=== PATIENT | female | born 1975 | race Caucasian/White ===

== ENCOUNTER → 2020-06-05 11:31 | Outpatient (BNVA) | payer OTHER, SELFPAY | PROVIDERS: PCP Internal Medicine; Referring Provider Internal Medicine; Visit Provider Internal Medicine | DX: Z76.89 Persons encountering health services in other specified circumstances (principal) ==

== ENCOUNTER 2020-09-17 15:22 | Outpatient (REF) | payer OTHER, SELFPAY ==
[2020-09-17 16:19] LABS: Estimated Average Glucose 332 mg/dL; Hemoglobin A1c % 13.2 %
[2020-09-17 16:30] LABS: Alanine Aminotransferase 53 U/L (0-31); Alkaline Phosphatase 111 U/L (39-117); Anion Gap 16 (12-20); Aspartate Amino Transferase 55 U/L (5-31); Bilirubin Total 0.5 mg/dL (0.0-1.0); Blood Urea Nitrogen 11 mg/dL (9-16); Carbon Dioxide 23 mmol/L (22-29); Chloride 100 mmol/L (96-108); Estimated Glomerular Filt Rate > 60; Glucose Random 173 mg/dL (60-115); Potassium 4.4 mmol/L (3.3-5.1); Sodium 135 mmol/L (135-145); Total Protein 7.2 g/dL (6.5-8.0)
[2020-09-17 16:47] LABS: Microalbum/Creatinine Ratio Ur 252.2 ug/mg cr
== END 2020-09-17 15:23 | disposition home or self-care (01) ==
LOC: HO.LAB 15:22
PROVIDERS: PCP Internal Medicine; Visit Provider Internal Medicine
DX: E11.65 Type 2 diabetes mellitus with hyperglycemia (principal)
CPT/HCPCS: 36415; 80053; 82043; 83036

== ENCOUNTER 2020-09-25 13:24 | Outpatient (REF) | payer OTHER, SELFPAY ==
[2020-09-25 14:41] LABS: Creatinine Urine 78.24 mg/dL
[2020-09-25 14:46] LABS: Alanine Aminotransferase 45 U/L (0-31); Albumin Level 4.1 g/dL (3.5-5.0); Alkaline Phosphatase 115 U/L (39-117); Aspartate Amino Transferase 45 U/L (5-31); Bilirubin Direct 0.2 mg/dL (0.0-0.5); Bilirubin Total 0.4 mg/dL (0.0-1.0); Total Protein 7.4 g/dL (6.5-8.0)
== END 2020-09-25 13:25 | disposition home or self-care (01) ==
LOC: HO.LAB 13:24
PROVIDERS: PCP Internal Medicine; Visit Provider Internal Medicine
DX: E11.9 Type 2 diabetes mellitus without complications (principal); I10 Essential (primary) hypertension; E78.5 Hyperlipidemia, unspecified; E66.9 Obesity, unspecified; Z71.3 Dietary counseling and surveillance; Z79.84 Long term (current) use of oral hypoglycemic drugs; Z79.899 Other long term (current) drug therapy
CPT/HCPCS: 36415; 80076

== ENCOUNTER → 2020-12-29 11:09 | Outpatient (BNVA) | payer OTHER, SELFPAY | PROVIDERS: PCP Internal Medicine; Visit Provider Nurse Practitioner Gerontology | DX: E11.65 Type 2 diabetes mellitus with hyperglycemia (principal); E55.9 Vitamin D deficiency, unspecified; E78.5 Hyperlipidemia, unspecified | CPT/HCPCS: 82947 ==

== ENCOUNTER 2021-02-09 14:42 | Outpatient (REF) | payer OTHER, SELFPAY ==
[2021-02-09 15:39] LABS: Estimated Average Glucose 312 mg/dL; Hemoglobin A1c % 12.5 %
[2021-02-09 15:59] LABS: Alanine Aminotransferase 36 U/L (0-31); Albumin Level 3.8 g/dL (3.5-5.0); Alkaline Phosphatase 110 U/L (39-117); Anion Gap 15 (12-20); Aspartate Amino Transferase 51 U/L (5-31); Bilirubin Total 0.4 mg/dL (0.0-1.0); Blood Urea Nitrogen 10 mg/dL (9-16); Calcium 8.9 mg/dL (8.4-10.2); Carbon Dioxide 22 mmol/L (22-29); Chloride 107 mmol/L (96-108); Cholesterol 149 mg/dL; Estimated Glomerular Filt Rate > 60; Glucose Random 190 mg/dL (60-115); HDL Cholesterol 39 mg/dL; LDL Cholesterol Calculated 87 mg/dl; Potassium 4.5 mmol/L (3.3-5.1); Sodium 139 mmol/L (135-145); Triglycerides 117 mg/dL
[2021-02-09 16:21] LABS: Vitamin D 25-OH Total 20.6 ng/mL (>30)
[2021-02-09 16:52] LABS: Creatinine Urine 194.03 mg/dL; Microalbum/Creatinine Ratio Ur 211.3 ug/mg cr
[2021-02-10 07:18] LABS: LDL Cholesterol Direct 96 mg/dL (<100)
== END 2021-02-09 14:43 | disposition home or self-care (01) ==
LOC: HO.LAB 14:42
PROVIDERS: PCP Internal Medicine; Visit Provider Nurse Practitioner Gerontology
DX: E11.65 Type 2 diabetes mellitus with hyperglycemia (principal); E55.9 Vitamin D deficiency, unspecified
CPT/HCPCS: 36415; 80053; 80061; 82043; 82306; 83036; 83721

== ENCOUNTER 2021-12-21 10:47 | Outpatient (REF) | payer OTHER, SELFPAY ==
[2021-12-21 12:16] LABS: Alanine Aminotransferase 21 U/L (0-31); Albumin Level 3.8 g/dL (3.5-5.0); Alkaline Phosphatase 109 U/L (39-117); Anion Gap 13 (12-20); Aspartate Amino Transferase 16 U/L (5-31); Bilirubin Total 0.5 mg/dL (0.0-1.0); Blood Urea Nitrogen 10 mg/dL (9-16); Calcium 9.1 mg/dL (8.4-10.2); Carbon Dioxide 25 mmol/L (22-29); Chloride 103 mmol/L (96-108); Cholesterol 163 mg/dL; Estimated Glomerular Filt Rate > 60; Glucose Fasting 288 mg/dL (60-99); HDL Cholesterol 40 mg/dL; LDL Cholesterol Calculated 100 mg/dl; Potassium 4.8 mmol/L (3.3-5.1); Sodium 136 mmol/L (135-145); Triglycerides 115 mg/dL
[2021-12-21 12:38] LABS: Vitamin D 25-OH Total 21.9 ng/mL (>30)
[2021-12-21 13:33] LABS: Creatinine Urine 143.42 mg/dL; Microalbum/Creatinine Ratio Ur 83.6 ug/mg cr
== END 2021-12-21 10:48 | disposition home or self-care (01) ==
LOC: HO.LAB 10:47
PROVIDERS: PCP Internal Medicine; Visit Provider Internal Medicine
DX: E78.5 Hyperlipidemia, unspecified (principal); E55.9 Vitamin D deficiency, unspecified; E11.65 Type 2 diabetes mellitus with hyperglycemia; Z79.4 Long term (current) use of insulin
CPT/HCPCS: 36415; 80053; 80061; 82043; 82306

== ENCOUNTER 2021-12-21 11:18 | Emergency (ER) | payer OTHER, SELFPAY ==
[2021-12-21 11:35] VITALS: BP 150/80; PULSE 78; RESP 18; TEMP 36.6; O2SAT 98; BMI 41.9
--- NOTE | 2021-12-21 11:50 | ED.FEMALEGU ---
HPI - Female Genitourinary General Chief complaint: Urogenital-Female Stated complaint: VAGINAL DISCOMFORT Time Seen by Provider: 12/21/21 11:49 Source: patient Mode of arrival: ambulatory Limitations: no limitations History of Present Illness HPI Narrative: Patient is a 46 year old female presenting to the emergency department today with vaginal pain and itching. Patient states that she has been having increased vaginal itching and pain for the last few days. Patient denies any dizziness, lightheadedness, abdominal pain, nausea, vomiting, fever, chills, blurry vision, double vision, loss of vision, chest pain, difficulty breathing, shortness of breath, back pain, night sweats, pain with urination, increased urinary frequency, increased urinary urgency, blood in her urine or stool, vaginal bleeding, syncope or a near syncopal episode, recent trauma or falls, bowel incontinence, bladder incontinence, bowel retention, bladder retention, or any other complaints at this time. MD elicited complaint: genital itching Pertinent past history: diabetes Onset (ago): day(s) Location of symptoms: external genitalia Severity: mild Female Urogenital Radiation: Non-Radiating Severity scale (1-10): 4 Quality of pain: burning Consistency: constant Vaginal discharge: none Vaginal bleeding: none Exacerbating factors: none Relieving factors: none Associated symptoms: denies other symptoms Treatment prior to arrival: none Sexual activity: No Patient : Yes Related Data Previous Rx's Medication Instructions Recorded blood sugar diagnostic (FreeStyle #50 ea 12/30/20 Precision Shar Strips) flash glucose sensor (FreeStyle #2 ea 02/10/21 Trudy 2 Sensor) pioglitazone 30 mg tablet 30 mg PO DAILY 90 Days #90 tab 02/23/21 alcohol swabs 1 pad TOPICAL QID 30 Days #200 ea 04/01/21 empagliflozin 25 mg tablet 25 mg PO DAILY 30 Days #30 tab 06/15/21 lisinopril 2.5 mg tablet 2.5 mg PO DAILY 90 Days #90 tab 06/29/21 rosuvastatin 5 mg tablet 5 mg PO DAILY 90 Days #90 tab 06/29/21 blood sugar diagnostic (FreeStyle 1 strip MISCELLANEOUS QID #100 ea 07/13/21 Lite Strips) cholecalciferol (vitamin D3) 50 50 mcg PO DAILY #30 cap 07/13/21 mcg (2,000 unit) capsule (Vitamin D3) lancets 30 gauge (Pure Comfort 1 gauge MISCELLANEOUS QID #100 ea 07/13/21 Safety Lancets) metformin 1,000 mg tablet 1,000 mg PO BID 30 Days #60 tab 10/05/21 pen needle, diabetic 32 gauge x #100 ea 10/19/2107/21 (BD Ultra-Fine Micro Pen Needle) insulin glargine 100 unit/mL (3 25 unit (0.25 mL) SUBCUT QPM 30 11/16/21 mL) subcutaneous pen (Lantus Days #7.5 ml Solostar U-100 Insulin) fluconazole 150 mg tablet 150 mg PO DAILY #1 tab 12/21/21 (Diflucan) Allergies Allergy/AdvReac Type Severity Reaction Status Date / Time No Known Allergies Allergy Verified 11/16/21 15:58 [No Known Allergies*] Review of Systems Constitutional: Constitutional: Reports no additional constitutional complaints, Denies chills, Denies fever(s) and Denies night sweats Eyes: Eyes: Reports no additional eye complaints, Denies blurry vision, Denies change in vision, Denies diplopia, Denies eye discharge, Denies loss of vision and Denies eye pain ENT: Denies dizziness Cardiovascular: Cardiovascular: Reports no additional cardiovascular complaints, Denies chest pain, Denies lightheadedness, Denies Loss of Consciousness and Denies dyspnea Respiratory: Respiratory: Reports no additional respiratory complaints and Denies dyspnea Gastrointestinal: Gastrointestinal: Reports no additional gastrointestinal complaints, Denies abdominal pain, Denies melena, Denies hematochezia, Denies change in bowel habits and Denies change in stool character Genitourinary: Genitourinary: Denies hematuria, Denies urinary frequency, Denies dysuria, Denies urinary incontinence, Denies urinary hesitancy, Denies urinary urgency and Reports vaginal pruritus Musculoskeletal: Musculoskeletal: Reports no additional musculoskeletal complaints, Denies numbness and Denies tingling Neurologic: Denies dizziness, Denies loss of vision, Denies numbness and Denies tingling Psychiatric: Psychiatric: Reports no additional psychiatric complaints Endocrine: Endocrine: Reports no additional endocrine complaints Hematologic/Lymphatic: Hematologic/Lymphatic: Reports no additional hematologic/lymphatic complaints Allergic/Immunologic: Allergic/Immunologic: Reports no additional allergic/immunologic complaints PMFSH Past Medical History Attestation statement: The following information was validated with the patient. Source: old records reviewed Medical History Diabetes mellitus with microalbuminuric diabetic nephropathy HLD (hyperlipidemia) HTN (hypertension) Morbid obesity with BMI of 40.0-44.9, adult T2DM (type 2 diabetes mellitus) Vitamin D deficiency Surgical History History of tubal ligation Hx of section Family History Family History Father CVD (cardiovascular disease) Cancer Mother Uterine cancer Hypertension CVD (cardiovascular disease) Diabetes mellitus Paternal Grandmother Uterine cancer Social History Social History Household Members: Children Housing: House Alcohol intake: never Patient Tobacco Use Status: Never used Tobacco e-Cigarette/Vaping Use: Never Used Second Hand Smoke Exposure: No Advance Directives: No Advance Directives Information Provided: No service: No Current occupational status: unemployed Cognitive needs: No Hearing needs: No Vision needs: No Physical Exam Vital Signs: Vital Signs: Last Vital Signs Temp 97.9 F 12/21/21 11:35 Pulse 78 12/21/21 11:35 Resp 18 12/21/21 11:35 BP 150/80 H 12/21/21 11:35 Pulse Ox 98 12/21/21 11:35 BMI result Body Mass Index 41.9 Const: General: cooperative, no acute distress, alert and awake Nutritional Appearance: well nourished Orientation/consciousness: patient oriented x3 Limitations: no limitations HEENT: Head: Yes normal to inspection and Yes atraumatic Ears: hearing grossly normal bilaterally and external ears normal General nose exam: Normal external nose present, no nasal discharge noted and no epistaxis Face and sinus: Yes normal facial exam, No abrasion and No laceration Mouth: Normal oral and palatal mucosa present, no drooling and no muffled voice Eyes: General: appearance normal, both eyes and all related structures Periorbital: periorbital findings normal Eyelids: Yes eyelids normal Conjunctivae: conjunctivae normal Pupils: Equal, round and reactive pupils present EOM: EOMs intact bilaterally Neck: Neck: Yes normal visual inspection, Yes full ROM and Yes no lymphadenopathy Chest: Chest palpation & inspection: normal inspection of the chest Resp: Effort & Inspection: normal respiratory effort and able to speak in complete sentences Auscultation: clear to auscultation bilaterally Cardio: Rate: regular rate Rhythm: regular rhythm GI: Inspection: Yes normal to inspection : External Female Exam: erythema Neuro: General: patient oriented x3 and moves all extremities Cranial nerves: Yes Equal, round and reactive pupils present Cognition (Neuro): normal cognition Motor exam (neuro): 5/5 motor strength present throughout Sensory Exam: Normal double simultaneous stimulation for sensation Coordination: [id number] test normal Extrem: General: Yes normal to inspection, Yes full ROM and Yes capillary refill normal Psych: Appearance: grossly normal Mental Status: mental status grossly normal Affect: normal affect Attitude: cooperative Thought process: Normal thought process present Thought content: Normal thought content present Insight: Good insight present (Psych) MDM - Female Genitourinary MDM Narrative Medical decision making narrative: Patient is a 46 year old female presenting to the emergency department today with vaginal itching and pain. Patient's physical exam showed a very ereythematous external genitalia, consistent with a fungal infection. I explained my physical exam findings to the patient. I answered all questions asked by the patient. I stressed the importance of the patient taking her medication as prescribed. I stressed the importance of the patient following up with her primary care provider. I stressed the importance of the patient returning to the emergency department immediately if her symptoms were to worsen or if she were to develop any dizziness, shortness of breath, difficulty breathing, chest pain, blurry vision, loss of vision, nausea, vomiting, abdominal pain, fever, chills, back pain, or any other complaints. Patient verbalized agreement and understanding with this treatment plan and discharge. Differential Diagnosis Differential diagnosis: Likely urinary tract infection (yeast infection) and cystitis Medical Records Attestation: I reviewed the patient's medical records. Discharge Plan Discharge Clinical Impression: Vaginal candidiasis Patient Disposition: Home, Self-Care Instructions: Yeast Infection (ED) Additional Instructions: Follow up with your primary care provider. Return to the emergency department immediately if your symptoms worsen or if you develop any dizziness, shortness of breath, difficulty breathing, chest pain, blurry vision, loss of vision, nausea, vomiting, abdominal pain, fever, chills, back pain, or any other complaints. Prescriptions: New fluconazole [Diflucan] 150 mg tablet 150 mg PO DAILY Qty: 1 0RF No Action (DME) FreeStyle Trudy 2 Sensor Kit See Rx Instructions .ROUTE .MEDSUPPLY Qty: 2 0RF Rx Instructions: As directed every 2 weeks alcohol swabs Pads, Medicated 1 pad topical QID 30 Days Qty: 200 11RF empagliflozin 25 mg tablet 25 mg PO DAILY 30 Days Qty: 30 11RF FreeStyle Lite Strips Strip 1 strip miscellaneous QID Qty: 100 11RF lancets [Pure Comfort Safety Lancets] 30 gauge misc 1 gauge miscellaneous QID Qty: 100 11RF cholecalciferol (vitamin D3) [Vitamin D3] 50 mcg (2,000 unit) capsule 50 mcg PO DAILY Qty: 30 11RF metformin 1,000 mg tablet 1,000 mg PO BID 30 Days Qty: 60 4RF (DME) pen needle, diabetic [BD Ultra-Fine Micro Pen Needle] 32 gauge x 1/4 needle See Rx Instructions .ROUTE .MEDSUPPLY Qty: 100 11RF Rx Instructions: 1 daily lisinopril 2.5 mg tablet 2.5 mg PO DAILY 90 Days Qty: 90 1RF rosuvastatin 5 mg tablet 5 mg PO DAILY 90 Days Qty: 90 1RF pioglitazone 30 mg tablet 30 mg PO DAILY 90 Days Qty: 90 3RF Lantus Solostar U-100 Insulin 100 unit/mL (3 mL) insulin pen 25 unit subcut QPM 30 Days Qty: 7.5 11RF (DME) FreeStyle Precision Shar Strips Strip See Rx Instructions .ROUTE .MEDSUPPLY Qty: 50 0RF Rx Instructions: TWice daily Interventions: ED Discharge Assessment Last Done: 12/21/21 12:53 Discharge Date/Time: 12/21/21 12:55 Print Language: [place] Citizen
[2021-12-21] MEDS: Fluconazole 150 MG TABLET PO (12:53)
== END 2021-12-21 12:55 | disposition home or self-care (01) ==
PROVIDERS: Emergency Provider Student in an Organized Health Care Education/Training Program; PCP Internal Medicine
DX: B37.3 Candidiasis of vulva and vagina (principal); E11.9 Type 2 diabetes mellitus without complications; I10 Essential (primary) hypertension; E78.5 Hyperlipidemia, unspecified; Z79.4 Long term (current) use of insulin; Z79.02 Long term (current) use of antithrombotics/antiplatelets
CPT/HCPCS: 99282; 99283

== ENCOUNTER 2022-11-08 15:01 | Outpatient (REF) | payer OTHER, SELFPAY ==
[2022-11-08 16:30] LABS: Creatinine Urine 33.36 mg/dL; Microalbum/Creatinine Ratio Ur 38.9 ug/mg cr
[2022-11-08 16:40] LABS: Alanine Aminotransferase 30 U/L (0-31); Albumin Level 3.9 g/dL (3.5-5.0); Alkaline Phosphatase 107 U/L (39-117); Anion Gap 14 (12-20); Aspartate Amino Transferase 20 U/L (5-31); Bilirubin Total 0.6 mg/dL (0.0-1.0); Blood Urea Nitrogen 7 mg/dL (9-16); Calcium 9.6 mg/dL (8.4-10.2); Carbon Dioxide 27 mmol/L (22-29); Chloride 104 mmol/L (96-108); Cholesterol 175 mg/dL; Estimated Glomerular Filt Rate > 60; Glucose Random 239 mg/dL (60-115); HDL Cholesterol 43 mg/dL; LDL Cholesterol Calculated 108 mg/dl; Potassium 4.8 mmol/L (3.3-5.1); Sodium 140 mmol/L (135-145); Total Protein 6.8 g/dL (6.5-8.0); Triglycerides 124 mg/dL
[2022-11-08 16:55] LABS: Vitamin D 25-OH Total 21.7 ng/mL (>30)
== END 2022-11-08 15:02 | disposition home or self-care (01) ==
LOC: HO.LAB 15:01
PROVIDERS: PCP Internal Medicine; Visit Provider Internal Medicine
DX: E11.21 Type 2 diabetes mellitus with diabetic nephropathy (principal); E55.9 Vitamin D deficiency, unspecified; E78.5 Hyperlipidemia, unspecified
CPT/HCPCS: 36415; 80053; 80061; 82043; 82306

== ENCOUNTER 2023-04-06 10:11 | Outpatient (REF) | payer OTHER, SELFPAY ==
[2023-04-06 10:21] LABS: MANUAL DIFF FLAG NO
[2023-04-06 10:31] LABS: Basophils Percent Auto 0.4 % (0-2); Eosinophils Absolute Auto 0.2 X10*3/uL (0.0-0.4); Eosinophils Percent Auto 1.5 % (0-4); Hematocrit 46.3 % (37.0-47.0); Hemoglobin 15.3 g/dl (12.0-16.0); Imm Gran Abs Auto 0.04 X10*3/uL (0.00-0.03); Imm Gran Pct Auto 0.4 % (0.0-0.4); Lymphocytes Absolute Auto 2.3 X10*3/uL (1.2-4.9); Lymphocytes Percent Auto 23.5 % (20-40); Mean Corpuscular Hemoglobin 27.8 pg (27.0-33.0); Mean Corpuscular Volume 84.2 fL (80.0-98.0); Mean Platelet Volume 10.8 fL (9.4-12.3); Monocytes Absolute Auto 0.5 X10*3/uL (0.1-1.2); Monocytes Percent Auto 4.8 % (2-11); Neutrophils Absolute Auto 6.9 x10*3/uL (2.0-8.3); Neutrophils Percent Auto 69.4 % (45-73); Platelet Count 277 X10*3/uL (160-400); Red Cell Distribution Width 12.5 % (11.0-16.0); White Blood Count 9.9 X10*3/uL (4.8-10.8)
[2023-04-06 11:53] LABS: Folate 13.7 ng/mL (> or = 4.0); Vitamin B12 411 pg/mL (200-900)
[2023-04-06 11:58] LABS: TSH reflex Free T4 1.33 uIU/mL (0.32-4.0)
== END 2023-04-06 10:12 | disposition home or self-care (01) ==
LOC: HO.LAB 10:11
PROVIDERS: PCP Internal Medicine; Visit Provider Nurse Practitioner Family
DX: E11.9 Type 2 diabetes mellitus without complications (principal)
CPT/HCPCS: 36415; 82607; 82746; 84443; 85025

== ENCOUNTER 2023-04-11 16:20 | Outpatient (AMB) | payer OTHER, SELFPAY ==
[2023-04-11 16:23] VITALS: BP 138/90; BMI 38.5
--- NOTE | 2023-04-11 16:23 | MHC.PC.OV ---
Vital Signs 04/11/23 16:23 Height 5 ft 1 in Weight 204 lb BMI 38.5 BP 138/90 H Blood Pressure Location Lt brachial Position Sitting Intake Visit Reasons: 3MONTHS F/U Intake Note: Patient here for a 3 month follow up Epic [facility] Required: No Accompanied by: Self / Same As Patient Allergies No Known Allergies [No Known Allergies*] Allergy (Verified 04/11/23 16:29) Medication List - Last Reconciled 04/11/23 by Lucy Claire MD alcohol swabs 1 pad topical QID 30 days blood sugar diagnostic (FreeStyle Lite Strips) 1 strip miscellaneous QID blood sugar diagnostic (FreeStyle Precision Shar Strips) TWice daily blood-glucose meter (FreeStyle Lite Meter kit) As directed cholecalciferol (vitamin D3) (Vitamin D3) 50 mcg PO DAILY empagliflozin 25 mg PO DAILY 30 days flash glucose sensor (FreeStyle Trudy 2 Sensor kit) As directed every 2 weeks fluconazole (Diflucan) 150 mg PO DAILY incontinence pad, liner, disp As directed incontinence pad, liner, disp Use 1 pad twice a day insulin glargine (Lantus Solostar U-100 Insulin) 30 units (0.3 mL) subcut QPM 30 days lancets (Pure Comfort Safety Lancets) 1 gauge miscellaneous QID lisinopril 2.5 mg PO DAILY 90 days pen needle, diabetic (BD Ultra-Fine Micro Pen Needle) 1 daily pioglitazone 30 mg PO DAILY 90 days rosuvastatin 5 mg PO DAILY 90 days semaglutide (Ozempic) 0.25 mg (0.368 mL) subcut QWEEK 30 days Tobacco use date assessed: 01/05/23 Dental Screening Dental Screen Date: 04/11/23 Did you have a dental visit in the last 12 months?: Yes Did you have a dental problem in the last 6 months where you did not have access to dental care?: No Was dental information given to patient?: Patient has dentist HPI HPI Comments History of Present Illness Details This is a 47-year-old female with diabetes mellitus type 2 on long-term current use of insulin, hypertension, hyperlipidemia and vitamin-D deficiency that comes today for follow-up on her conditions. A1c elevated and I will add Ozempic and increase insulin. Blood pressure stable. Last cholesterol was well control. On vitamin-D supplements for low vitamin-D. Denies any chest pain or shortness of breath. She is obese with a BMI of 38.5 and was advised to diet and exercise to reach BMI goal less than 30. FOR[facility]LY [facility], [facility] Medical History Morbid obesity with BMI of 40.0-44.9, adult Diabetes mellitus with microalbuminuric diabetic nephropathy Vitamin D deficiency HLD (hyperlipidemia) HTN (hypertension) T2DM (type 2 diabetes mellitus) Surgical History Hx of section History of tubal ligation Family History Father CVD (cardiovascular disease) Cancer Mother Uterine cancer Hypertension CVD (cardiovascular disease) Diabetes mellitus Paternal Grandmother Uterine cancer Social History Household Members: Children Housing: House Alcohol intake: never Patient Tobacco Use Status: Never used Tobacco e-Cigarette/Vaping Use: Never Used Second Hand Smoke Exposure: No service: No Current occupational status: unemployed Cognitive needs: No Hearing needs: No Vision needs: No Questionnaire Thrive Questionnaire Date Thrive assessed: 01/05/23 THOMPSON-7 AMB Questionnaire THOMPSON-7 Date THOMPSON - 7 assessed: 11/01/22 Source: Developed by Drs. Paul Castillo, Kath Dunne, Jorge Duque and colleagues, with an educational evelyn from [employer]. Review of Systems Const All systems reviewed & are unremarkable except as noted in HPI and below Eyes Reports no additional complaints, Denies change in vision and Denies other visual disturbances Card Denies chest pain at rest, Denies chest pain with activity, Denies edema, Denies irregular heart rhythm, Denies claudication, Denies dyspnea, Denies dyspnea on exertion, Denies orthopnea, Denies paroxysmal nocturnal dyspnea and Denies slow heart rate Resp Denies cough, Denies dyspnea and Denies dyspnea on exertion GI Denies abdominal pain, Denies change in bowel habits, Denies excessive flatus, Denies nausea and Denies vomiting Denies urinary incontinence, Denies urinary hesitancy and Denies urinary urgency Musc Denies atrophy, Denies deformity and Denies limited range of motion Physical exam (Primary Care) Vital Signs: Last Vital Signs BP 138/90 H 04/11/23 16:23 BMI result Body Mass Index 38.5 Tobacco/Smoking Status: Tobacco use Status Tobacco use date assessed 01/05/23 04/11/23 16:24 Patient Tobacco Use Status Never used Tobacco 04/11/23 16:24 e-Cigarette/Vaping Use Never Used 04/11/23 16:24 Thrive Assessment: Date of Thrive Assessment Date Thrive assessed 01/05/23 04/11/23 16:24 Eyes Other: right upper eyelid hordoleum Neck Neck: Yes normal visual inspection and Yes supple Resp Effort & Inspection: normal respiratory effort Auscultation: clear to auscultation bilaterally Cardio Jugular venous distension: no JVD Rate: regular rate Rhythm: regular rhythm Heart sounds: S1 normal heart sound present and S2 normal heart sound present Extrem General: Yes full ROM Results AMB Hemoglobin A1c AMB Hemoglobin A1c 12.9 % Last Edit by MARIAH Burgess on 04/11/23 16:32 Results Reviewed Results Reviewed: Laboratory Last Values Hgb A1c (Clinic) 12.9 % (4.0-6.0) H 04/11/23 16:31 Assessment and Plan Assessment & Plan (1) T2DM (type 2 diabetes mellitus): Code(s): E11.9 - Type 2 diabetes mellitus without complications Qualifiers: Diabetes mellitus jail insulin use: with jail use Diabetes mellitus complication status: with hyperglycemia Qualified Code(s): E11.65 - Type 2 diabetes mellitus with hyperglycemia; 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 Start Ozempic. A1c goal is equal or less than 7%. (2) HTN (hypertension): Code(s): I10 - Essential (primary) hypertension Qualifiers: Hypertension type: unspecified Qualified Code(s): I10 - Essential (primary) hypertension Plan: Continue lisinopril. Blood pressure goal is equal or less than 130/80. (3) HLD (hyperlipidemia): Code(s): E78.5 - Hyperlipidemia, unspecified Qualifiers: Hyperlipidemia type: unspecified Qualified Code(s): E78.5 - Hyperlipidemia, unspecified Plan: Continue statins. LDL goal is less than 70. (4) Vitamin D deficiency: Code(s): E55.9 - Vitamin D deficiency, unspecified Plan: Continue vitamin-D supplement. Orders: Orders AMB Hemoglobin A1c Today E11.9 - Type 2 diabetes mellitus without complications Medications: New semaglutide (Ozempic) for 4 weeks 0.25 mg (0.368 mL) subcut QWEEK 1.84 mL 1RF 30 days E11.9 - Type 2 diabetes mellitus without complications erythromycin 1 appl ophthalmic (eye) DAILY 3.5 grams 0RF 5 days Changed From insulin glargine (Lantus Solostar U-100 Insulin) 30 units (0.3 mL) subcut QPM 30 days 9 mL 11RF E11.65 - Type 2 diabetes mellitus with hyperglycemia To insulin glargine (Lantus Solostar U-100 Insulin) 35 units (0.35 mL) subcut QPM 10.5 mL 11RF 30 days E11.65 - Type 2 diabetes mellitus with hyperglycemia Refilled empagliflozin 25 mg PO DAILY 30 tabs 11RF 30 days E11.65 - Type 2 diabetes mellitus with hyperglycemia Discontinued semaglutide (Ozempic) for 4 weeks Discontinued Reason: Patient Completed Course 0.25 mg (0.368 mL) subcut QWEEK 30 days 2 mL 3RF E11.9 - Type 2 diabetes mellitus without complications Coding Level of Care Code Est Pt Level 4 (61829) Diagnoses Type 2 diabetes mellitus with hyperglycemia, with long-term current use of insulin E11.65; Z79.4 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
== END 2023-04-11 16:45 | disposition home or self-care (01) ==
PROVIDERS: PCP Internal Medicine; Visit Provider Internal Medicine
DX: E11.9 Type 2 diabetes mellitus without complications (principal); E66.01 Morbid (severe) obesity due to excess calories; E11.65 Type 2 diabetes mellitus with hyperglycemia; Z68.38 Body mass index [BMI] 38.0-38.9, adult; Z79.4 Long term (current) use of insulin; I10 Essential (primary) hypertension; E55.9 Vitamin D deficiency, unspecified; E78.5 Hyperlipidemia, unspecified
CPT/HCPCS: 83036; 99214

== ENCOUNTER 2023-05-25 13:43 | Outpatient (AMB) | payer OTHER, SELFPAY ==
[2023-05-25 14:30] VITALS: BP 144/86; BMI 38.5
--- NOTE | 2023-05-25 14:30 | A.OFFVIS_ITS ---
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 Intake Note: Irregular periods and would like to have a tubal reversal Custodial Laborer Required: No Information Interpreted: non-clinical & clinical Land Law Examiner: Land Law Examiner Present (Aidyn) Allergies No Known Allergies [No Known Allergies*] Allergy (Verified 05/25/23 14:33) Medication List - Last Reconciled 05/25/23 by Kate Montoya CNM alcohol swabs 1 pad topical QID 30 days blood sugar diagnostic (FreeStyle Lite Strips) 1 strip miscellaneous QID blood sugar diagnostic (FreeStyle Precision Shar Strips) TWice daily blood-glucose meter (FreeStyle Lite Meter kit) As directed cholecalciferol (vitamin D3) (Vitamin D3) 50 mcg PO DAILY empagliflozin 25 mg PO DAILY 30 days erythromycin 1 appl ophthalmic (eye) DAILY 5 days flash glucose sensor (FreeStyle Trudy 2 Sensor kit) As directed every 2 weeks incontinence pad, liner, disp As directed incontinence pad, liner, disp Use 1 pad twice a day insulin glargine (Lantus Solostar U-100 Insulin) 35 units (0.35 mL) subcut QPM 30 days lamotrigine 200 mg PO DAILY lancets (Pure Comfort Safety Lancets) 1 gauge miscellaneous QID lisinopril 2.5 mg PO DAILY 90 days pen needle, diabetic (BD Ultra-Fine Micro Pen Needle) 1 daily pen needle, diabetic (Easy Comfort Pen [place]) As directed pioglitazone 30 mg PO DAILY 90 days rosuvastatin 5 mg PO DAILY 90 days semaglutide (Ozempic) 0.25 mg (0.368 mL) subcut QWEEK 30 days Is last menstrual period known: Yes Last menstrual period: 04/18/23 Post menopausal: No 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 She is wondering about getting her tubal ligation reversed. She has a boyfriend of 9 years who moved here from the [place] 4 years ago he is 10 years younger than she is. She has diabetes she does have kidney issues from the d iabetes she has had some high blood pressure but it is better now. She uses insulin twice a day. She gets her periods about every other month in a pattern of 2 months with her period, Two months without a period. She states she remembers this CNM from a quarter century go when she had her children at [facility]. She says she is trying to eat better and she has lost maybe 15 or 20 lb. She does not smoke or drink and she walks her little dog for exercise. She said she last had a mammogram about a year and half ago.. [facility] Medical History Morbid obesity with BMI of 40.0-44.9, adult Diabetes mellitus with microalbuminuric diabetic nephropathy Vitamin D deficiency HLD (hyperlipidemia) HTN (hypertension) T2DM (type 2 diabetes mellitus) Surgical History Hx of section History of tubal ligation Family History Father CVD (cardiovascular disease) Cancer Mother Uterine cancer Hypertension CVD (cardiovascular disease) Diabetes mellitus Paternal Grandmother Uterine cancer Social History Household Members: Children Housing: House Alcohol intake: never Patient Tobacco Use Status: Never used Tobacco e-Cigarette/Vaping Use: Never Used Second Hand Smoke Exposure: No service: No Current occupational status: unemployed Cognitive needs: No Hearing needs: No Vision needs: No Female Reproductive History Menstrual Age of Menarche: 11 Duration of menses: 3-5 days Date of last menstrual period: 04/18/23 control method: other (tubal ligation) Total pregnancies: 4 Full term: 3 Number of Living Children: 3 Ab spontaneous: 1 Date of last pap smear: 03/22/17 (ASCUS) Physical Exam Vital Signs: Last Vital Signs BP 144/86 H 05/25/23 14:30 BMI result Body Mass Index 38.5 Const Other: obesity noted patient has multiple skin lesions which might be scars from Mesquito bites General: healthy appearing, comfortable, no acute distress, well developed and alert Nutritional Appearance: average body habitus and obese Orientation/consciousness: patient oriented x3 Limitations: no limitations HEENT Head: Yes normocephalic Neck Neck: Yes normal visual inspection Chest Chest palpation & inspection: normal inspection of the chest Breast/axilla inspection: normal inspection of the breasts and normal inspection of the axillae Breast/axilla palpation: normal palpation of the breasts and normal palpation of the axillae Resp Effort & Inspection: normal respiratory effort GI Inspection: Yes normal to inspection, No Abdominal wall edema and No distended Palpation (GI): Soft to palpation and nontender Other: Patient has purplish rash in groin area consistent with tinea or yeast she says it is not to itchy right now She thinks she scratched herself shaving right before this visit Vagina pink and moist and healthy cervix multiparous pink and smooth normal discharge uterus midposition nontender adnexa nontender good tone with Kegel. General: Yes bladder normal to palpation External Female Exam: normal external appearance and normal appearance of the urethra Speculum Exam - Vagina: normal appearance of the vagina, normal palpation and normal vaginal discharge Speculum Exam - Cervix: normal appearance of the cervix, normal palpation and nontender Bimanual exam- vagina & uterus: normal bimanual exam, normal palpation, uterine size normal, bladder normal to palpation, consistency normal, normal palpation, uterine mobility normal, uterine shape normal, No Cervical tenderness present, non-tender and no cervical motion tenderness Bimanual Exam- Adnexa, other: normal adnexae, no masses, normal and No adnexal tenderness Neuro General: patient oriented x3 Assessment & Plan Assessment & Plan (1) Menstrual periods irregular: Code(s): N92.6 - Irregular menstruation, unspecified (2) Cervical cancer screening: Code(s): Z12.4 - Encounter for screening for malignant neoplasm of cervix (3) Morbid obesity with BMI of 40.0-44.9, adult: Code(s): E66.01 - Morbid (severe) obesity due to excess calories; Z68.41 - Body mass index [BMI] 40.0-44.9, adult (4) Diabetes mellitus with microalbuminuric diabetic nephropathy: Code(s): E11.21 - Type 2 diabetes mellitus with diabetic nephropathy (5) Screening for breast cancer: Code(s): Z12.39 - Encounter for other screening for malignant neoplasm of breast (6) HTN (hypertension): Code(s): I10 - Essential (primary) hypertension Qualifiers: Hypertension type: unspecified Qualified Code(s): I10 - Essential (primary) hypertension Plan -----Discussed in this visit the following: healthy balanced diet, regular and consistent exercise, getting recommended health screens, doing the best she can for her particular health concerns, kegel exercises, pap smear screening and followup recommendations, mammography screening and SBE, normal changes in cycles in her life stage--- . I shared with her that I did not think that a at this age and with her particular health conditions of diabetes, problems with her kidneys- because of her diabetes, hypertension, obesity, and also her irregular periods, at this stage, that she would be healthy for a at this stage. there would be dangers to her health because of these issues as well as risks to a baby should she get . I also shared with her that I doubted she she would encounter any physicians in this area who would perform tubal ligation reversal surgery for a woman with her health conditions. I recommend that she also have a conversation with her primary care provider but she could feel free to share that I did not recommend pursuing this. More drink a mammogram for her and also a pelvic ultrasound and we will have a visit after the ultrasound. Am also ordering of clotrimazole betamethasone cream for the rash in her groin that she can use when she needs to. Applauded her efforts to try and eat well and manage her bed diabetes well and control her blood pressure and blood sugars. One grandchild who is 9 years old and [address] Orders: Orders US pelvic and transvaginal Today E11.21 - Type 2 diabetes mellitus with diabetic nephropathy, E66.01 - Morbid (severe) obesity due to excess calories, N92.6 - Irregular menstruation, unspecified, Z12.39 - Encounter for other screening for malignant neoplasm of breast, Z12.4 - Encounter for screening for malignant neoplasm of cervix, Z68.41 - Body mass index [BMI] 40.0-44.9, adult Bacterial Vaginosis Panel Today Z20.2 - Contact with and (suspected) exposure to infections with a predominantly sexual mode of transmission CT NG by PCR Today Z20.2 - Contact with and (suspected) exposure to infections with a predominantly sexual mode of transmission Pap Smear Today Z12.4 - Encounter for screening for malignant neoplasm of cervix MM tomosynthesis screening BI Today Z12.31 - Encounter for screening mammogram for malignant neoplasm of breast, Z12.39 - Encounter for other screening for malignant neoplasm of breast Medications: New clotrimazole-betamethasone 1-0.05 % 1 appl topical BID 2 weeks 45 grams 3RF Coding Level of Care Code New Pt Prev Care 40-64y(61565) Diagnoses Menstrual periods irregular N92.6 Cervical cancer screening Z12.4 Morbid obesity with BMI of 40.0-44.9, adult E66.01; Z68.41 Diabetes mellitus with microalbuminuric diabetic nephropathy E11.21 Screening for breast cancer Z12.39 Hypertension, unspecified type I10 Hypertension type: unspecified
== END 2023-05-25 15:17 | disposition home or self-care (01) ==
LOC: HO.HWS 13:43
PROVIDERS: PCP Internal Medicine; Visit Provider Advanced Practice Midwife
DX: Z01.419 Encounter for gynecological examination (general) (routine) without abnormal findings (principal); N92.6 Irregular menstruation, unspecified; E66.01 Morbid (severe) obesity due to excess calories; Z68.41 Body mass index [BMI] 40.0-44.9, adult; E11.21 Type 2 diabetes mellitus with diabetic nephropathy; I10 Essential (primary) hypertension
CPT/HCPCS: 99386

== ENCOUNTER 2023-05-25 13:43 | Outpatient (REF) | payer OTHER, SELFPAY ==
[2023-05-26 06:08] LABS: CT PCR NOT DETECTED (Not Detect.); NG PCR NOT DETECTED (Not Detect.)
[2023-05-26 12:54] LABS: BV Int Neg Control Negative (Negative); BV Int Pos Control Positive (Positive)
[2023-05-30 11:59] LABS: HPV mRNA E6/E7 rflx Not Detected (Not Detected)
== END 2023-05-25 13:44 | disposition home or self-care (01) ==
LOC: HO.LNP 13:43
PROVIDERS: PCP Internal Medicine; Visit Provider Advanced Practice Midwife
DX: Z01.419 Encounter for gynecological examination (general) (routine) without abnormal findings (principal); E11.21 Type 2 diabetes mellitus with diabetic nephropathy; N92.6 Irregular menstruation, unspecified; E66.01 Morbid (severe) obesity due to excess calories; I10 Essential (primary) hypertension; Z68.41 Body mass index [BMI] 40.0-44.9, adult; Z20.2 Contact with and (suspected) exposure to infections with a predominantly sexual mode of transmission; Z98.51 Tubal ligation status; Z79.4 Long term (current) use of insulin; Z79.899 Other long term (current) drug therapy
CPT/HCPCS: 0353U; 87480; 87510; 87624; 87660; 88142; 99386

== ENCOUNTER 2023-06-06 13:20 | Outpatient (REF) | payer OTHER, SELFPAY ==
--- NOTE | ~2023-06-06 | US_ITS ---
EXAMINATION: US PELVIS CLINICAL INFORMATION: Irregular menstruation. Last menstrual period 2 months ago. Endometrial biopsy. COMPARISON: 03/14/2019. TECHNIQUE: Ultrasound of the pelvis is performed using both transabdominal and transvaginal transducers along with Doppler. Transvaginal imaging is performed due to inadequate visualization transabdominally. FINDINGS: Uterus is heterogeneous and measures 7.5 x 3.8 x 4.5 cm. No discrete fibroids are appreciated. There is no significant free fluid. Nabothian cysts are present. Right ovary measures 2.1 x 1.3 x 1.1 cm, volume 1.5 mL. Left ovary measures 2.9 x 1.4 x 1.8 cm, volume 3.9 mL. Limited views of bilateral ovaries. Small echogenic foci in the bilateral ovaries, largest measured 0.5 cm left ovary, are characteristic of calcifications. US/US pelvic and transvaginal IMPRESSION: 1. Heterogeneous uterus. 2. Endometrial thickness is 0.5 cm. Limited visualization of the endometrium due to uterine heterogeneity. 3. Multiple small echogenic foci in the bilateral ovaries characteristic of calcifications. Limited visualization due to bowel gas. Gynecologic consultation recommended to determine further management.
== END 2023-06-06 13:21 | disposition home or self-care (01) ==
LOC: HO.HMGCX 13:20
PROVIDERS: PCP Internal Medicine; Visit Provider Advanced Practice Midwife
DX: N92.6 Irregular menstruation, unspecified (principal); E66.01 Morbid (severe) obesity due to excess calories; Z68.41 Body mass index [BMI] 40.0-44.9, adult; E11.21 Type 2 diabetes mellitus with diabetic nephropathy
CPT/HCPCS: 76830; 76856

== ENCOUNTER 2023-06-22 14:30 | Outpatient (REF) | payer OTHER, SELFPAY | END 2023-06-22 14:31 | disposition home or self-care (01) | LOC: HO.MAMMO 14:30 | PROVIDERS: PCP Internal Medicine; Visit Provider Advanced Practice Midwife | DX: Z12.31 Encounter for screening mammogram for malignant neoplasm of breast (principal) | CPT/HCPCS: 77063; 77067 ==

== ENCOUNTER → 2023-06-22 14:30 | Outpatient (BNV) | payer OTHER, SELFPAY | PROVIDERS: PCP Internal Medicine; Visit Provider Radiology Diagnostic Radiology | DX: Z12.31 Encounter for screening mammogram for malignant neoplasm of breast (principal) | CPT/HCPCS: 77063; 77067 ==

== ENCOUNTER 2023-08-11 15:27 | Outpatient (AMB) | payer OTHER, SELFPAY ==
[2023-08-11 15:39] VITALS: BP 152/80; BMI 38.7
--- NOTE | 2023-08-11 15:39 | MHC.PC.OV ---
Vital Signs 08/11/23 15:39 08/11/23 17:35 Height 5 ft 1 in Weight 205 lb BMI 38.7 BP 152/80 H 150/80 H Blood Pressure Location Lt brachial Lt brachial Position Sitting Sitting Intake Visit Reasons: dm Intake Note: Patient here for a follow up DM Marketing Support Coordinator Required: No Accompanied by: Self / Same As Patient Allergies No Known Allergies [No Known Allergies*] Allergy (Verified 08/11/23 15:49) Medication List - Last Reconciled 08/11/23 by Lucy Claire MD alcohol swabs 1 pad topical QID 30 days blood sugar diagnostic (FreeStyle Lite Strips) 1 strip miscellaneous QID blood sugar diagnostic (FreeStyle Precision Shar Strips) TWice daily blood-glucose meter (FreeStyle Lite Meter kit) As directed cholecalciferol (vitamin D3) (Vitamin D3) 50 mcg PO DAILY clotrimazole-betamethasone 1-0.05 % 1 appl topical BID 2 weeks empagliflozin 25 mg PO DAILY 30 days erythromycin 1 appl ophthalmic (eye) DAILY 5 days flash glucose sensor (FreeStyle Trudy 2 Sensor kit) As directed every 2 weeks incontinence pad, liner, disp As directed incontinence pad, liner, disp Use 1 pad twice a day insulin glargine (Lantus Solostar U-100 Insulin) 35 units (0.35 mL) subcut QPM 30 days lamotrigine 200 mg PO DAILY lancets (Pure Comfort Safety Lancets) 1 gauge miscellaneous QID lisinopril 2.5 mg PO DAILY 90 days pen needle, diabetic (BD Ultra-Fine Micro Pen Needle) 1 daily pen needle, diabetic (Easy Comfort Pen [place]) As directed pioglitazone 30 mg PO DAILY 90 days rosuvastatin 5 mg PO DAILY 90 days semaglutide (Ozempic) 0.25 mg (0.368 mL) subcut QWEEK 30 days Tobacco use date assessed: 08/11/23 Dental Screening Dental Screen Date: 08/11/23 Did you have a dental visit in the last 12 months?: No Did you have a dental problem in the last 6 months where you did not have access to dental care?: No Was dental information given to patient?: Patient has dentist HPI HPI Comments History of Present Illness Details This is a 48-year-old female with diabetes mellitus type 2 on long-term current use of insulin, hypertension, hyperlipidemia and low vitamin-D that comes today for follow-up on her conditions. A1c elevated and I will sent Ozempic. Blood pressure elevated and I will increase lisinopril from 2.5 mg to 10 mg. Blood pressure will be recheck in 3 weeks by nurse navigator. Lipid panel and vitamin-D levels will be order for the next office visit. No chest pain or shortness of breath. [facility] Medical History Morbid obesity with BMI of 40.0-44.9, adult Diabetes mellitus with microalbuminuric diabetic nephropathy Vitamin D deficiency HLD (hyperlipidemia) HTN (hypertension) T2DM (type 2 diabetes mellitus) Surgical History Hx of section History of tubal ligation Family History Father CVD (cardiovascular disease) Cancer Mother Uterine cancer Hypertension CVD (cardiovascular disease) Diabetes mellitus Paternal Grandmother Uterine cancer Social History Household Members: Children Housing: House Alcohol intake: never Patient Tobacco Use Status: Never used Tobacco e-Cigarette/Vaping Use: Never Used Second Hand Smoke Exposure: No service: No Current occupational status: unemployed Cognitive needs: No Hearing needs: No Vision needs: No Female Reproductive History Menstrual Age of Menarche: 11 Questionnaire PHQ-9 Over the last 2 weeks, how often have you been bothered by any of the following problems? 1. Little interest or pleasure in doing things: not at all 2. Feeling down, depressed, or hopeless: several days 3. Trouble falling or staying asleep, or sleeping too much: several days 4. Feeling tired or having little energy: not at all 5. Poor appetite or overeating: not at all 6. Feeling bad about yourself - or that you are a failure or have let yourself or your family down: not at all 7. Trouble concentrating on things, such as reading the newspaper or watching television: not at all 8. Moving or speaking so slowly that other people could have noticed. Or the opposite - being so fidgety or restless that you have been moving around a lot more than usual: not at all 9. Thoughts that you would be better off or of hurting yourself in some way: not at all Total score: 2 Depression Screening Interpretation: Negative Depression Screening Done: Yes 23439 - PHQ-9 Billing: Yes Source: Developed by Drs. Paul Castillo, Kath Dunne, Jorge Duque and colleagues, with an educational evelyn from [employer]. Thrive Questionnaire Date Thrive assessed: 01/05/23 THOMPSON-7 AMB Questionnaire THOMPSON-7 Date THOMPSON - 7 assessed: 08/11/23 Feeling nervous, anxious, or on edge: 3 = Nearly every day Not being able to stop or control worryin = Not at all Worrying too much about different things: 1 = Several days Trouble relaxin = Not at all Being so restless that it is hard to sit still: 0 = Not at all Becoming easily annoyed or irritable: 0 = Not at all Feeling afraid as if something awful might happen: 0 = Not at all Total THOMPSON-7 score (0-4 normal; 5-9 mild; 10-14 moderate; 15-21 severe): 4 Source: Developed by Drs. Paul Castillo, Kath Dunne, Jorge Duque and colleagues, with an educational evelyn from [employer]. THOMPSON-7 Assessment Billing THOMPSON-7 Assessment Tool: THOMPSON-7 Assessment 13353 Review of Systems Const All systems reviewed & are unremarkable except as noted in HPI and below Eyes Reports no additional complaints, Denies change in vision and Denies other visual disturbances Card Denies chest pain at rest, Denies chest pain with activity, Denies edema, Denies irregular heart rhythm, Denies claudication, Denies dyspnea, Denies dyspnea on exertion, Denies orthopnea, Denies paroxysmal nocturnal dyspnea and Denies slow heart rate Resp Denies cough, Denies dyspnea and Denies dyspnea on exertion GI Denies abdominal pain, Denies change in bowel habits, Denies excessive flatus, Denies nausea and Denies vomiting Denies urinary incontinence, Denies urinary hesitancy and Denies urinary urgency Musc Denies abnormal gait, Denies atrophy, Denies deformity and Denies limited range of motion Skin/Breast Denies bleeding lesions, Denies changing lesions and Denies rash Neuro Denies abnormal gait, Denies behavioral changes and Denies lack of coordination Psych Denies behavioral changes Physical exam (Primary Care) Vital Signs: Last Vital Signs BP 152/80 H 08/11/23 15:39 BMI result Body Mass Index 38.7 Tobacco/Smoking Status: Tobacco use Status Tobacco use date assessed 08/11/23 08/11/23 15:43 Patient Tobacco Use Status Never used Tobacco 08/11/23 15:43 e-Cigarette/Vaping Use Never Used 08/11/23 15:43 PHQ-9: PHQ-9 Score PHQ-9: Total score 2 08/11/23 16:04 Depression Screening Interpretation: Negative Thrive Assessment: Date of Thrive Assessment Date Thrive assessed 01/05/23 08/11/23 15:43 Eyes General: appearance normal, both eyes and all related structures Eyelids: Yes eyelids normal Conjunctivae: conjunctivae normal Neck Neck: Yes normal visual inspection and Yes supple Resp Effort & Inspection: normal respiratory effort Auscultation: clear to auscultation bilaterally Cardio Jugular venous distension: no JVD Rate: regular rate Rhythm: regular rhythm Heart sounds: S1 normal heart sound present and S2 normal heart sound present Extrem General: Yes full ROM Office Procedures Flu Questionnaire Does the patient have a severe egg allergy?: No Results AMB Hemoglobin A1c AMB Hemoglobin A1c 11.0 % Last Edit by MARIAH Burgess on 08/11/23 15:54 Immunizations flu vacc [id number] 6mos up(PF) 60 mcg(15 mcgx4)/0.5 mL IM syringe Performing Provider: Lucy Claire MD [facility] Documented (not given) by: MARIAH Burgess on 08/11/23 16:04 Reason Not Given: Not Given Results Reviewed Results Reviewed: Laboratory Last Values Hgb A1c (Clinic) 11.0 % (4.0-6.0) H 08/11/23 15:43 Assessment and Plan Assessment & Plan (1) T2DM (type 2 diabetes mellitus): Code(s): E11.9 - Type 2 diabetes mellitus without complications Qualifiers: Diabetes mellitus residential insulin use: with residential use Diabetes mellitus complication status: with hyperglycemia Qualified Code(s): E11.65 - Type 2 diabetes mellitus with hyperglycemia; Z79.4 - skilled nursing (current) use of insulin Plan: Continue insulin. Start Ozempic. A1c goal is equal or less than 7%. (2) HTN (hypertension): Code(s): I10 - Essential (primary) hypertension Qualifiers: Hypertension type: unspecified Qualified Code(s): I10 - Essential (primary) hypertension Plan: Increase lisinopril from 2.5 mg to 10 mg once a day. Blood pressure goal is equal or less than 130/80. Blood pressure will be recheck in 3 weeks by nurse navigator (3) HLD (hyperlipidemia): Code(s): E78.5 - Hyperlipidemia, unspecified Qualifiers: Hyperlipidemia type: unspecified Qualified Code(s): E78.5 - Hyperlipidemia, unspecified Plan: Continue statins. Repeat lipid panel. LDL goal is less than 70. (4) Vitamin D deficiency: Code(s): E55.9 - Vitamin D deficiency, unspecified Plan: Continue vitamin-D supplements. Orders: Orders AMB Hemoglobin A1c Today E11.9 - Type 2 diabetes mellitus without complications Microalbumin, Random (w Creat) 5 Months E11.9 - Type 2 diabetes mellitus without complications Comprehensive [place]. Panel Fast 5 Months E66.01 - Morbid (severe) obesity due to excess calories, Z68.41 - Body mass index [BMI] 40.0-44.9, adult Influenza [id number] Immunization Today Z23 - Encounter for immunization Lipid Panel 5 Months E78.5 - Hyperlipidemia, unspecified Vitamin D 25-OH Total 5 Months E55.9 - Vitamin D deficiency, unspecified Medications: New lisinopril 10 mg PO DAILY 90 days 90 tabs 1RF Changed From insulin glargine (Lantus Solostar U-100 Insulin) 35 units (0.35 mL) subcut QPM 30 days 10.5 mL 11RF E11.65 - Type 2 diabetes mellitus with hyperglycemia To insulin glargine (Lantus Solostar U-100 Insulin) 40 units (0.4 mL) subcut QPM 30 days 12 mL 11RF E11.65 - Type 2 diabetes mellitus with hyperglycemia Refilled semaglutide (Ozempic) for 4 weeks 0.25 mg (0.368 mL) subcut QWEEK 30 days 1.84 mL 1RF E11.9 - Type 2 diabetes mellitus without complications Discontinued lisinopril Discontinued Reason: Patient Completed Course 2.5 mg PO DAILY 90 days 90 tabs 1RF I10 - Essential (primary) hypertension pioglitazone Discontinued Reason: Patient Completed Course 30 mg PO DAILY 90 days 90 tabs 3RF E11.65 - Type 2 diabetes mellitus with hyperglycemia Coding Level of Care Code Est Pt Level 4 (63023) Diagnoses Type 2 diabetes mellitus with hyperglycemia, with long-term current use of insulin E11.65; Z79.4 Diabetes mellitus manager long term care insulin use: with residential use Diabetes mellitus complication status: with hyperglycemia Hypertension, unspecified type I10 Hypertension type: unspecified Hyperlipidemia, unspecified hyperlipidemia type E78.5 Hyperlipidemia type: unspecified Vitamin D deficiency E55.9 Additional Codes THOMPSON-7 Assessment Billing - THOMPSON-7 Assessment Tool: THOMPSON-7 Assessment 08246 ([id number]) Time Spent (min) 23
[2023-08-11 17:35] VITALS: BP 150/80
== END 2023-08-11 15:59 | disposition home or self-care (01) ==
PROVIDERS: PCP Internal Medicine; Visit Provider Internal Medicine
DX: E11.65 Type 2 diabetes mellitus with hyperglycemia (principal); Z79.4 Long term (current) use of insulin; I10 Essential (primary) hypertension; E78.5 Hyperlipidemia, unspecified; E55.9 Vitamin D deficiency, unspecified
CPT/HCPCS: 83036; 99214

== ENCOUNTER 2024-01-01 18:02 | Emergency (ER) | payer OTHER, SELFPAY ==
--- NOTE | ~2024-01-01 | CT_ITS ---
EXAMINATION: CT ABDOMEN AND PELVIS WITHOUT CONTRAST CLINICAL INFORMATION: Lower abdominal pain COMPARISON: None available. TECHNIQUE: Multidetector volumetric imaging was performed from the superior aspect of the liver through the pubic symphysis. Sagittal and coronal reformatted images were obtained on the technologist's workstation. This CT examination was performed using dose optimization techniques as appropriate, variously including the following: *Automated exposure control *Adjustment of mA and/or kV according to patient size (this includes techniques or standardized protocols for targeted exams where dose is matched to indication/reason for exam; i.e. extremities or head) *Use of iterative reconstruction technique DLP: 722 mGy-cm FINDINGS: LUNG BASES: The visualized lung bases are unremarkable. LIVER, GALLBLADDER, AND BILIARY TREE: The liver is enlarged at 18.4 cm. Attenuation is greater than the spleen without a suggestion of hepatic steatosis. No focal hepatic lesion or biliary ductal dilatation is present. The gallbladder is tract of but otherwise unremarkable with no evidence of radiopaque gallstones, gallbladder wall thickening, or obvious pericholecystic inflammatory changes. PANCREAS: Unremarkable. SPLEEN: Mild splenomegaly 12.5 cm. ADRENAL GLANDS: Unremarkable. KIDNEYS AND URETERS: The kidneys are normal in size, shape, and attenuation. No hydronephrosis, hydroureter, or calculi seen. No perinephric stranding. BLADDER: Unremarkable. GASTROINTESTINAL TRACT: Reticular changes are present in the sigmoid and there is an area of perisigmoid inflammatory change consistent with acute diverticulitis the mid sigmoid. No extraluminal air or fluid collections are seen. The small and remainder of the large bowel are unremarkable. The appendix is unremarkable. ABDOMINAL WALL: No significant hernia is appreciated. LYMPH NODES: Normal. VASCULAR: Unremarkable. PELVIC VISCERA: The uterus and adnexa are unremarkable. OSSEOUS STRUCTURES: Unremarkable. CT/CT abdomen pelvis wo IV con IMPRESSION: 1. Acute uncomplicated sigmoid diverticulitis. 2. Incidental note made of mild hepatosplenomegaly. Fleischner guidelines were followed.
[2024-01-01 18:06] VITALS: BP 170/83; PULSE 80; RESP 16; TEMP 36; O2SAT 98; BMI 38.4
--- NOTE | 2024-01-01 18:06 | ED.GENADULT ---
HPI - General Adult General Chief complaint: Urogenital-Female Stated complaint: lwr abd pain goes to the back Time Seen by Provider: 01/01/24 18:22 Source: patient Mode of arrival: ambulatory Limitations: no limitations History of Present Illness ED Provider: STEPHANIA CANALES PA-C HPI narrative: 48-year-old female with past medical history significant for type 2 diabetes, hypertension, hyperlipidemia, obesity presents to the ED for evaluation of suprapubic abdominal pain x3 days. Reports pain radiation to bilateral lower back. 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 Denies fever, chills, N/V, dysuria, hematuria, vaginal discharge. Related Data Home Medications ?Medication ?Instructions ?Recorded ?Confirmed lamotrigine 200 mg tablet 200 mg PO DAILY 05/25/23 08/11/23 pen needle, diabetic 33 gauge x #100 ea 05/25/23 08/11/23 (Easy Comfort Pen [place]) Previous Rx's ?Medication ?Instructions ?Recorded blood sugar diagnostic (FreeStyle #50 ea 12/30/20 Precision Shar Strips) flash glucose sensor (FreeStyle #2 ea 02/10/21 Trudy 2 Sensor kit) cholecalciferol (vitamin D3) 50 50 mcg PO DAILY #30 caps 07/13/21 mcg (2,000 unit) capsule (Vitamin D3) lancets 30 gauge (Pure Comfort 1 gauge miscellaneous QID #100 ea 07/13/21 Safety Lancets) alcohol swabs 1 pad topical QID 30 days #200 ea 04/12/22 blood-glucose meter (FreeStyle #1 ea 11/01/22 Lite Meter kit) incontinence pad, liner, disp #60 ea 01/25/23 pen needle, diabetic 32 gauge x #100 ea 03/18/2307/21 (BD Ultra-Fine Micro Pen Needle) empagliflozin 25 mg tablet 25 mg PO DAILY 30 days #30 tabs 04/11/23 erythromycin 5 mg/gram (0.5 %) eye 1 appl ophthalmic (eye) DAILY 5 04/11/23 ointment days #3.5 grams clotrimazole-betamethasone 1 1 appl topical BID 2 weeks #45 05/25/23 %-0.05 % topical cream grams insulin glargine 100 unit/mL (3 40 unit (0.4 mL) subcut QPM 30 08/11/23 mL) subcutaneous pen (Lantus days #12 mL Solostar U-100 Insulin) lisinopril 10 mg tablet 10 mg PO DAILY 90 days #90 tabs 08/11/23 semaglutide 0.25 mg or 0.5 mg (2 0.25 mg (0.368 mL) subcut QWEEK 30 08/11/23 mg/3 mL) subcutaneous pen injector days #1.84 mL (Ozempic) rosuvastatin 5 mg tablet 5 mg PO DAILY 90 days #90 tabs 09/05/23 blood sugar diagnostic (FreeStyle 1 strip miscellaneous QID #100 ea 11/01/23 Lite Strips) incontinence pad, liner, disp #90 ea 11/14/23 amoxicillin 875 mg-potassium 1 tab PO Q12H #20 tabs 01/01/24 clavulanate 125 mg tablet Allergies Allergy/AdvReac Type Severity Reaction Status Date / Time No Known Allergies Allergy Verified 01/01/24 18:10 [No Known Allergies*] Review of Systems Review of Systems: Constitutional: No fever, chills, fatigue, night sweats, weight changes ENT/Mouth: No ear pain, hearing loss, nasal congestion, sinus pain, rhinorrhea, sore throat Eyes: No eye pain, swelling, redness, vision changes, discharge Cardio: No chest pain, palpitations, OWEN, orthopnea, peripheral edema Pulm: No SOB, cough, sputum, wheezing, dyspnea, hemoptysis GI: No nausea, vomiting, hematemesis, diarrhea, constipation, hematochezia, melena, +abdominal pain : No irregular bleeding, dysuria, urgency, hesitancy, hematuria, flank pain, urinary flow changes, urinary incontinence or retention, +increased urinary frequency MSK: No back pain, neck pain, joint pain, myalgias Skin: No lesions, rashes Neuro: No weakness, numbness, paresthesias, LOC, dizziness, headache Psych: No anxiety/panic, depression, SI/HI, AH/VH All other systems reviewed and are negative. [facility] Past Medical History Attestation statement: The following information was validated with the patient. Source: old records reviewed and nursing notes reviewed Medical History Morbid obesity with BMI of 40.0-44.9, adult Diabetes mellitus with microalbuminuric diabetic nephropathy Vitamin D deficiency HLD (hyperlipidemia) HTN (hypertension) T2DM (type 2 diabetes mellitus) Surgical History Hx of section History of tubal ligation Family History Family History Father CVD (cardiovascular disease) Cancer Mother Uterine cancer Hypertension CVD (cardiovascular disease) Diabetes mellitus Paternal Grandmother Uterine cancer Social History Social History Household Members: Children Housing: House Alcohol intake: never Patient Tobacco Use Status: Never used Tobacco e-Cigarette/Vaping Use: Never Used Second Hand Smoke Exposure: No Advance Directives: No Advance Directives Information Provided: No service: No Current occupational status: unemployed Cognitive needs: No Hearing needs: No Vision needs: No Physical Exam ED Vital Signs: Vital Signs - 24 hr 01/01/24 18:06 01/01/24 21:30 Temperature 96.8 F 96.8 F Pulse Rate 80 80 Respiratory Rate 16 16 Blood Pressure 170/83 H 170/83 H Pulse Oximetry 98 98 Oxygen Delivery Method Room Air Room Air BMI result Body Mass Index 38.4 Patient hypertensive, vitals otherwise WNL Const General: cooperative, healthy appearing, comfortable and no acute distress Orientation/consciousness: patient oriented x3 Limitations: no limitations HENMT Head: Yes normal to inspection, Yes No palpable skull fracture present, Yes normocephalic and Yes atraumatic Eyes General: appearance normal, both eyes and all related structures Neck Neck: Yes normal visual inspection, Yes full ROM and Yes no lymphadenopathy Resp Effort & Inspection: normal respiratory effort and able to speak in complete sentences Auscultation: clear to auscultation bilaterally Cardio Rate: regular rate Rhythm: regular rhythm GI Other: Obese abdomen, soft, nondistended, tender to palpation of suprapubic region without rebound tenderness or guarding. Normoactive bs x4. General: Yes no CVA tenderness Back/Spine/Pelvis Back: no CVA tenderness Skin General skin exam: no rashes or lesions noted Neuro General: patient oriented x3 Course Course Course Narrative: This is a Rapid Medical Examination (RME) performed by Surinder Canales PA-C in triage. Full HPI, ROS, assessment and treatment plan per primary provider in the Main ED. 48 yo female hx of HTN, HDL, T2DM, morbid obesity here for eval of lower abdominal pain x2-3 days with associated increased urinary frequency. pain radiates to back b/l. denies fever, chills. abd soft, ND, ttp of lower abdomen, no rebound or guarding. no cvat. Plan: labs, UA Reevaluation(s) Reevaluation #1: 1908-- CBC with slight leukocytosis to 11.2 without left shift. No anemia. H&H stable. Chemistry without acute electrolyte abnormality requiring intervention. Normal renal function. Normal liver function. Lipase WNL. Random glucose noted to be 327. She does report that her sugars are well controlled at home however on review, this is the highest her glucose has been. Will give her IVFs. UA showing increased specific gravity, protein and glucose. Negative for infection or blood. > Ct scan abd/ pelvis pending 2100-- Patient stable at the end of my shift. I did discuss all above work up results and patient is aware that we are awaiting the results from her CT scan. Her pain has been well controlled with toradol. Sign out given to Boyd MERCEDES pending CT and disposition. Reevaluation #2: Patient received in sign-out at change of shift pending CT scan. I discussed the images results with the patient and will discharge the patient with Augmentin Time: 21:24 Medications Administered Discontinued Medications Generic Name Dose Route Start Last Admin Trade Name Freq PRN Reason Stop Dose Admin Sodium Chloride 1,000 mls @ 999 mls/hr 01/01/24 19:15 01/01/24 20:27 Ns IV 01/01/24 20:15 Infused .Q1H1M MERLYN Infusion Ketorolac Tromethamine 30 mg 01/01/24 19:29 01/01/24 19:41 Ketorolac Tromethamine 30 Mg/Ml Vial IVPUSH 01/01/24 19:30 30 mg ONCE ONE Administration Medical Decision Making Medical Decision Making [facility] Narrative: 48-year-old female with past medical history significant for type 2 diabetes, hypertension, hyperlipidemia, obesity presents to the ED for evaluation of suprapubic abdominal pain x3 days. Patient is slightly hypertensive, vitals otherwise wnl. She is nontoxic appearing and in NAD. On exam, Obese abdomen, soft, nondistended, tender to palpation of suprapubic region without rebound tenderness or guarding. Normoactive bs x4. no cvat b/l. skin w/d/i. no rashes. Differential diagnosis includes msk strain, urinary tract infection, anemia, dehydration, electrolyte abnormality, hyperglycemia, . unlikely pyelo, renal colic, nephrolithiasis, ovarian cyst ectopic , ovarian torsion, diverticulosis, diverticulitis. Plan for labs, UA Differential Diagnosis Differential Diagnoses: The differential diagnosis associated with the presentation includes As above Admission/Observation Not indicated Lab Data MDM Lab Attestation statement: I reviewed the patient's lab results. As above 01/01/24 18:34 01/01/24 18:34 Labs: Lab Results 01/01/24 01/01/24 Range/Units 18:34 20:01 WBC 11.2 H (4.8-10.8) X10*3/uL RBC 5.14 (4.20-5.50) X10*6/uL Hgb 14.1 (12.0-16.0) g/dl Hct 42.3 (37.0-47.0) % MCV 82.3 (80.0-98.0) fL MCH 27.4 (27.0-33.0) pg MCHC 33.3 (31.0-35.0) g/dl RDW 12.2 (11.0-16.0) % Plt Count 280 (160-400) X10*3/uL MPV 10.8 (9.4-12.3) fL Immature Gran % (Auto) 0.4 (0.0-0.4) % Neut % (Auto) 69.1 (45-73) % Lymph % (Auto) 22.7 (20-40) % [place] % (Auto) 5.5 (2-11) % Eos % (Auto) 1.9 (0-4) % Baso % (Auto) 0.4 (0-2) % Lymph # (Auto) 2.5 (1.2-4.9) X10*3/uL [place] # (Auto) 0.6 (0.1-1.2) X10*3/uL Eos # (Auto) 0.2 (0.0-0.4) X10*3/uL Baso # (Auto) 0.0 (0.0-0.2) X10*3/uL Abs Immat Gran (auto) 0.04 H (0.00-0.03) X10*3/uL Absolute Neuts (auto) 7.7 (2.0-8.3) x10*3/uL Absolute Nucleated RBC 0.000 (0.0-0.012) X10*3/uL Nucleated RBC % (auto) 0.0 (0.0-0.2) /100WBC Sodium 135 (135-145) mmol/L Potassium 4.5 (3.3-5.1) mmol/L Chloride 103 (96-108) mmol/L Carbon Dioxide 24 (22-29) mmol/L Anion Gap 13 (12-20) BUN 12 (9-16) mg/dL Creatinine 0.70 (0.5-1.4) mg/dL Estim Creat Clear Calc 101.7 Estimated GFR > 60 POC Glucose 222 H (60-115) mg/dL Random Glucose 327 H (60-115) mg/dL Calcium 9.5 (8.4-10.2) mg/dL Magnesium 1.7 (1.6-2.6) mg/dL Total Bilirubin 0.2 (0.0-1.0) mg/dL AST 20 (5-31) U/L ALT 18 (0-31) U/L Alkaline Phosphatase 91 (39-117) U/L Total Protein 7.1 (6.5-8.0) g/dL Albumin 3.5 (3.5-5.0) g/dL Lipase 20 (8-78) U/L Urine Color Yellow Urine Appearance Clear Urine pH 5.5 (5.0-9.0) Ur Specific [place] >= 1.030 H (1.005-1.025) Urine Protein 30 (1+) H (Neg-Trace) mg/dL Urine Glucose (UA) >=1000 H (Negative) mg/dL Urine Ketones Negative (Negative) mg/dL Urine Blood Negative (Negative) Urine Nitrite Negative (Negative) Ur Leukocyte Esterase Negative (Negative) Urine RBC 0-2 (0-2) /HPF Urine WBC 0-5 (0-5) /HPF Ur Squamous Epith Cells 6-10 (0-2) /HPF Urine Bacteria Trace (None Seen) Hyaline Casts 0-2 (0-2) /LPF Urine Test NEGATIVE (NEGATIVE) Independent Interpretation I performed an independent interpretation of an: CT Scan Radiology Impression Discussion of test interpretation with radiology: I have reviewed the radiologist's reading. Radiologist Impression: EXAMINATION: CT ABDOMEN AND PELVIS WITHOUT CONTRAST CLINICAL INFORMATION: Lower abdominal pain COMPARISON: None available. TECHNIQUE: Multidetector volumetric imaging was performed from the superior aspect of the liver through the pubic symphysis. Sagittal and coronal reformatted images were obtained on the technologist's workstation. This CT examination was performed using dose optimization techniques as appropriate, variously including the following: *Automated exposure control *Adjustment of mA and/or kV according to patient size (this includes techniques or standardized protocols for targeted exams where dose is matched to indication/reason for exam; i.e. extremities or head) *Use of iterative reconstruction technique DLP: 722 mGy-cm FINDINGS: LUNG BASES: The visualized lung bases are unremarkable. LIVER, GALLBLADDER, AND BILIARY TREE: The liver is enlarged at 18.4 cm. Attenuation is greater than the spleen without a suggestion of hepatic steatosis. No focal hepatic lesion or biliary ductal dilatation is present. The gallbladder is tract of but otherwise unremarkable with no evidence of radiopaque gallstones, gallbladder wall thickening, or obvious pericholecystic inflammatory changes. PANCREAS: Unremarkable. SPLEEN: Mild splenomegaly 12.5 cm. ADRENAL GLANDS: Unremarkable. KIDNEYS AND URETERS: The kidneys are normal in size, shape, and attenuation. No hydronephrosis, hydroureter, or calculi seen. No perinephric stranding. BLADDER: Unremarkable. GASTROINTESTINAL TRACT: Reticular changes are present in the sigmoid and there is an area of perisigmoid inflammatory change consistent with acute diverticulitis the mid sigmoid. No extraluminal air or fluid collections are seen. The small and remainder of the large bowel are unremarkable. The appendix is unremarkable. ABDOMINAL WALL: No significant hernia is appreciated. LYMPH NODES: Normal. VASCULAR: Unremarkable. PELVIC VISCERA: The uterus and adnexa are unremarkable. OSSEOUS STRUCTURES: Unremarkable. CT/CT abdomen pelvis wo IV con IMPRESSION: 1. Acute uncomplicated sigmoid diverticulitis. 2. Incidental note made of mild hepatosplenomegaly. Fleischner guidelines were followed. External Record Review External record reviewed: Inpatient record, Office record, Outpatient record, Prior outpatient labs, Prior outpatient radiology, Primary care record and Outside ED record Prescription Management I considered prescription management with: Pain Medication and Antibiotic Social Determinants Patient?s care significantly limited by Social Determinants of Health including: Other Social Determinant of Health Critical Care Time Critical Care Time Critical Care Time: No Discharge Plan Discharge Clinical Impression: Diverticulitis Patient Disposition: Home, Self-Care Instructions: Diverticulitis (ED), Diverticulitis Diet (ED) Additional Instructions: Your CT scan showed diverticulitis Take Augmentin twice daily for 10 days I recommend a liquid diet until your pain improved followed by soft foods Follow-up with your primary doctor, return for new or worsening symptoms, especially if you have any fevers or severe abdominal pain Prescriptions: New amoxicillin-pot clavulanate 875-125 mg tablet 1 tab PO Q12H Qty: 20 0RF No Action (DME) FreeStyle Trudy 2 Sensor Kit See Rx Instructions .ROUTE .MEDSUPPLY Qty: 2 0RF Rx Instructions: As directed every 2 weeks lancets [Pure Comfort Safety Lancets] 30 gauge misc 1 gauge miscellaneous QID Qty: 100 11RF cholecalciferol (vitamin D3) [Vitamin D3] 50 mcg (2,000 unit) capsule 50 mcg PO DAILY Qty: 30 11RF alcohol swabs Pads, Medicated 1 pad topical QID 30 Days Qty: 200 2RF (DME) incontinence pad, liner, disp Pad See Rx Instructions .Route Qty: 60 11RF Rx Instructions: Use 1 pad twice a day (DME) pen needle, diabetic [BD Ultra-Fine Micro Pen Needle] 32 gauge x 1/4 needle See Rx Instructions .ROUTE .MEDSUPPLY Qty: 100 11RF Rx Instructions: 1 daily rosuvastatin 5 mg tablet 5 mg PO DAILY 90 Days Qty: 90 1RF FreeStyle Lite Strips Strip 1 strip miscellaneous QID Qty: 100 10RF (DME) incontinence pad, liner, disp Pad See Rx Instructions .Route Qty: 90 6RF Rx Instructions: As directed (DME) blood-glucose meter [FreeStyle Lite Meter] Kit See Rx Instructions .Route Qty: 1 0RF Rx Instructions: As directed empagliflozin 25 mg tablet 25 mg PO DAILY 30 Days Qty: 30 11RF erythromycin 5 mg/gram (0.5 %) ointment 1 appl ophthalmic (eye) DAILY 5 Days Qty: 3.5 0RF Ozempic 0.25 mg or 0.5 mg (2 mg/3 mL) pen injector 0.25 mg subcut QWEEK 30 Days Qty: 1.84 1RF Rx Instructions: for 4 weeks insulin glargine [Lantus Solostar U-100 Insulin] 100 unit/mL (3 mL) insulin pen 40 unit subcut QPM 30 Days Qty: 12 11RF lisinopril 10 mg tablet 10 mg PO DAILY 90 Days Qty: 90 1RF (DME) FreeStyle Precision Shar Strips Strip See Rx Instructions .ROUTE .MEDSUPPLY Qty: 50 0RF Rx Instructions: TWice daily lamotrigine 200 mg tablet 200 mg PO DAILY (DME) pen needle, diabetic [Easy Comfort Pen [place]] 33 gauge x 5/32 needle See Rx Instructions .ROUTE .MEDSUPPLY Qty: 100 Rx Instructions: As directed clotrimazole-betamethasone 1-0.05 % cream 1 appl topical BID 14 Days Qty: 45 3RF Interventions: ED Discharge Assessment Last Done: 01/01/24 21:30 Discharge Date/Time: 01/01/24 21:31 Print Language: [place]
[2024-01-01 18:41] LABS: MANUAL DIFF FLAG NO
[2024-01-01 18:43] LABS: Appearance Urine Clear; Color Urine Yellow; Glucose Urine UA >=1000 mg/dL (Negative); Leukocyte Esterase Urine Negative (Negative); Nitrite Urine Negative (Negative); PH 5.5 (5.0-9.0); Specific Gravity - Urine >= 1.030 (1.005-1.025); UMIC TRIGGER UACC YES; Urine Blood Negative (Negative); Urine Ketones Negative (Negative); Urine Protein 30 (1+) mg/dL (Neg-Trace)
[2024-01-01 18:44] LABS: UPreg QC Valid YES; Urine Pregnancy NEGATIVE (NEGATIVE)
[2024-01-01 18:45] LABS: Basophils Percent Auto 0.4 % (0-2); Eosinophils Absolute Auto 0.2 X10*3/uL (0.0-0.4); Eosinophils Percent Auto 1.9 % (0-4); Hematocrit 42.3 % (37.0-47.0); Hemoglobin 14.1 g/dl (12.0-16.0); Imm Gran Abs Auto 0.04 X10*3/uL (0.00-0.03); Imm Gran Pct Auto 0.4 % (0.0-0.4); Lymphocytes Absolute Auto 2.5 X10*3/uL (1.2-4.9); Lymphocytes Percent Auto 22.7 % (20-40); Mean Corpuscular HGB Conc 33.3 g/dl (31.0-35.0); Mean Corpuscular Hemoglobin 27.4 pg (27.0-33.0); Mean Corpuscular Volume 82.3 fL (80.0-98.0); Mean Platelet Volume 10.8 fL (9.4-12.3); Monocytes Absolute Auto 0.6 X10*3/uL (0.1-1.2); Monocytes Percent Auto 5.5 % (2-11); Neutrophils Absolute Auto 7.7 x10*3/uL (2.0-8.3); Neutrophils Percent Auto 69.1 % (45-73); Platelet Count 280 X10*3/uL (160-400); Red Blood Count 5.14 X10*6/uL (4.20-5.50); Red Cell Distribution Width 12.2 % (11.0-16.0); White Blood Count 11.2 X10*3/uL (4.8-10.8)
[2024-01-01 18:48] LABS: Bacteria Urine Trace (None Seen); Hyaline Casts Urine 0-2 /LPF (0-2); RBC Urine 0-2 /HPF (0-2); WBC Urine 0-5 /HPF (0-5)
[2024-01-01 18:58] LABS: Alanine Aminotransferase 18 U/L (0-31); Albumin Level 3.5 g/dL (3.5-5.0); Alkaline Phosphatase 91 U/L (39-117); Anion Gap 13 (12-20); Aspartate Amino Transferase 20 U/L (5-31); Bilirubin Total 0.2 mg/dL (0.0-1.0); Blood Urea Nitrogen 12 mg/dL (9-16); Calcium 9.5 mg/dL (8.4-10.2); Carbon Dioxide 24 mmol/L (22-29); Chloride 103 mmol/L (96-108); Creatinine Clr Calc Pharmacy 101.7; Estimated Glomerular Filt Rate > 60; Glucose Random 327 mg/dL (60-115); Lipase 20 U/L (8-78); Magnesium 1.7 mg/dL (1.6-2.6); Potassium 4.5 mmol/L (3.3-5.1); Sodium 135 mmol/L (135-145); Total Protein 7.1 g/dL (6.5-8.0)
[2024-01-01] MEDS: 0.9 % Sodium Chloride 1,000 ML 999 ML IV (19:12)
[2024-01-01] MEDS: Ketorolac Tromethamine 30 MG/ML VIAL IVPUSH (19:41)
[2024-01-01 20:04] LABS: Glucose, Whole Blood 222 mg/dL (60-115)
[2024-01-01 21:30] VITALS: BP 170/83; PULSE 80; RESP 16; TEMP 36; O2SAT 98
== END 2024-01-01 21:31 | disposition home or self-care (01) ==
PROVIDERS: Physician Assistant Medical; Emergency Provider Emergency Medicine; PCP Internal Medicine
DX: K57.92 Diverticulitis of intestine, part unspecified, without perforation or abscess without bleeding (principal); E11.9 Type 2 diabetes mellitus without complications; I10 Essential (primary) hypertension
CPT/HCPCS: 36415; 74176; 80053; 81001; 81025; 82947; 83690; 83735; 85025; 96361; 96374; 99284; J1885

== ENCOUNTER 2024-01-12 14:33 | Outpatient (AMB) | payer OTHER, SELFPAY ==
--- NOTE | 2024-01-12 15:09 | A.OFFPC_ITS ---
Vital Signs 01/12/24 15:15 Height 5 ft 1 in Weight 202 lb BMI 38.2 BP 132/80 Blood Pressure Location Lt brachial Position Sitting Intake Visit Reasons: PE- needs A1C Intake Note: Patient here for a physical exam Manager Research Development Required: No Accompanied by: Significant Other Allergies No Known Allergies [No Known Allergies*] Allergy (Verified 01/12/24 15:20) Medication List - Last Reconciled 01/12/24 by Lucy Calire MD alcohol swabs 1 pad topical QID 30 days amoxicillin-pot clavulanate 875-125 mg 1 tab PO Q12H blood sugar diagnostic (FreeStyle Lite Strips) 1 strip miscellaneous QID blood sugar diagnostic (FreeStyle Precision Shar Strips) TWice daily blood-glucose meter (FreeStyle Lite Meter kit) As directed cholecalciferol (vitamin D3) (Vitamin D3) 50 mcg PO DAILY clotrimazole-betamethasone 1-0.05 % 1 appl topical BID 2 weeks empagliflozin 25 mg PO DAILY 30 days erythromycin 1 appl ophthalmic (eye) DAILY 5 days flash glucose sensor (FreeStyle Trudy 2 Sensor kit) As directed every 2 weeks incontinence pad, liner, disp Use 1 pad twice a day incontinence pad, liner, disp As directed insulin glargine (Lantus Solostar U-100 Insulin) 40 units (0.4 mL) subcut QPM 30 days lamotrigine 200 mg PO DAILY lancets (Pure Comfort Safety Lancets) 1 gauge miscellaneous QID lisinopril 10 mg PO DAILY 90 days pen needle, diabetic (BD Ultra-Fine Micro Pen Needle) 1 daily pen needle, diabetic (Easy Comfort Pen [place]) As directed rosuvastatin 5 mg PO DAILY 90 days semaglutide (Ozempic) 0.25 mg (0.368 mL) subcut QWEEK 30 days Tobacco use date assessed: 08/11/23 Dental Screening Dental Screen Date: 08/11/23 HPI HPI Comments History of Present Illness Details This is a 48-year-old female with diabetes mellitus type 2 that comes for her physical exam. A1c elevated and I will increase Ozempic and insulin. She comes accompanied by significant other. Mammogram was less than a year ago. Pap smear was 2022. Has never had a colonoscopy and will be refer. She had acute diverticulitis this month treated at ER and is still on antibiotics. Fe els markedly improved by will like to see Gastroenterology for this matter. No chest pain or shortness on breath. Last diabetic eye exam was about 2 years ago. [facility] Medical History (Updated 01/12/24 @ 15:57 by Lucy Claire MD) Morbid obesity with BMI of 40.0-44.9, adult Diabetes mellitus with microalbuminuric diabetic nephropathy Vitamin D deficiency HLD (hyperlipidemia) HTN (hypertension) T2DM (type 2 diabetes mellitus) Surgical History Hx of section History of tubal ligation Family History (Updated 01/12/24 @ 15:25 by Lucy Claire MD) Father CVD (cardiovascular disease) Cancer Mother Uterine cancer Hypertension CVD (cardiovascular disease) Diabetes mellitus Paternal Grandmother Uterine cancer Social History Household Members: Children Housing: House Alcohol intake: never Patient Tobacco Use Status: Never used Tobacco e-Cigarette/Vaping Use: Never Used Second Hand Smoke Exposure: No service: No Current occupational status: unemployed Cognitive needs: No Hearing needs: No Vision needs: No Female Reproductive History Menstrual Age of Menarche: 11 Questionnaire Thrive Questionnaire Date Thrive assessed: 01/05/23 THOMPSON-7 AMB Questionnaire THOMPSON-7 Date THOMPSON - 7 assessed: 08/11/23 Source: Developed by Drs. Paul Castillo, Kath Dunne, Jorge Duque and colleagues, with an educational evelyn from [employer]. Review of Systems Const All systems reviewed & are unremarkable except as noted in HPI and below Card Denies chest pain at rest, Denies chest pain with activity, Denies edema, Denies irregular heart rhythm, Denies claudication, Denies dyspnea, Denies dyspnea on exertion, Denies orthopnea, Denies paroxysmal nocturnal dyspnea and Denies slow heart rate Resp Denies cough, Denies dyspnea and Denies dyspnea on exertion Physical exam (Primary Care) Vital Signs: Last Vital Signs BP 132/80 01/12/24 15:15 BMI result Body Mass Index 38.2 Tobacco/Smoking Status: Tobacco use Status Tobacco use date assessed 08/11/23 01/12/24 15:12 Patient Tobacco Use Status Never used Tobacco 01/12/24 15:12 e-Cigarette/Vaping Use Never Used 01/12/24 15:12 Thrive Assessment: Date of Thrive Assessment Date Thrive assessed 01/05/23 01/12/24 15:12 Const Orientation/consciousness: patient oriented x3 HENMT Head: Yes normal to inspection, Yes normocephalic and Yes atraumatic Ears: external ears normal Eyes General: appearance normal, both eyes and all related structures Eyelids: Yes eyelids normal Conjunctivae: conjunctivae normal Neck Neck: Yes normal visual inspection and Yes supple Resp Effort & Inspection: normal respiratory effort Auscultation: clear to auscultation bilaterally Cardio Jugular venous distension: no JVD Rate: regular rate Rhythm: regular rhythm Heart sounds: S1 normal heart sound present and S2 normal heart sound present GI Inspection: Yes normal to inspection Palpation (GI): Soft to palpation and nontender Auscultation: normal bowel sounds Skin General skin exam: no rashes or lesions noted Neuro General: patient oriented x3 and no focal motor deficits Extrem General: Yes full ROM Psych Appearance: grossly normal Results AMB Hemoglobin A1c AMB Hemoglobin A1c 12.1 % Last Edit by MARIAH Burgess on 01/12/24 15: 33 Assessment and Plan Assessment & Plan (1) Physical exam: Code(s): Z00.00 - Encounter for general adult medical examination without abnormal findings Plan: Repeat in a year (2) T2DM (type 2 diabetes mellitus): Code(s): E11.9 - Type 2 diabetes mellitus without complications Qualifiers: Diabetes mellitus terminal manager insulin use: with fpc use Diabetes mellitus complication status: with hyperglycemia Qualified Code(s): E11.65 - Type 2 diabetes mellitus with hyperglycemia; Z79.4 - terminal manager (current) use of insulin Plan: Increase Ozempic. Increase insulin. A1c goal is equal or less than 7%. Referred to Ophthalmology for diabetic eye exam. (3) Diverticulitis: Code(s): K57.92 - Diverticulitis of intestine, part unspecified, without perforation or abscess without bleeding Plan: Complete antibiotic. Referred to Gastroenterology. Orders: Orders Microalbumin, Random (w Creat) Today E11.9 - Type 2 diabetes mellitus without complications Vitamin D 25-OH Total Today E55.9 - Vitamin D deficiency, unspecified Comprehensive [place]. Panel Fast Today E11.65 - Type 2 diabetes mellitus with hyperglycemia, Z79.4 - prison (current) use of insulin AMB Hemoglobin A1c Today E11.65 - Type 2 diabetes mellitus with hyperglycemia, Z79.4 - prison (current) use of insulin Lipid Panel Today E78.5 - Hyperlipidemia, unspecified Referrals Ophthalmology Referral E11.65 - Type 2 diabetes mellitus with hyperglycemia, Z79.4 - terminal manager (current) use of insulin Gastroenterology Referral K57.92 - Diverticulitis of intestine, part unspecified, without perforation or abscess without bleeding, Z12.11 - Encounter for screening for malignant neoplasm of colon Medications: New semaglutide (Ozempic) 0.5 mg (0.736 mL) subcut QWEEK 4 weeks 2.944 mL 0RF E11.65 - Type 2 diabetes mellitus with hyperglycemia, Z79.4 - terminal manager (current) use of insulin Changed From insulin glargine (Lantus Solostar U-100 Insulin) 40 units (0.4 mL) subcut QPM 30 days 12 mL 11RF E11.65 - Type 2 diabetes mellitus with hyperglycemia To insulin glargine (Lantus Solostar U-100 Insulin) 45 units (0.45 mL) subcut QPM 30 days 13.5 mL 11RF E11.65 - Type 2 diabetes mellitus with hyperglycemia Refilled insulin glargine (Lantus Solostar U-100 Insulin) 45 units (0.45 mL) subcut QPM 30 days 13.5 mL 11RF E11.65 - Type 2 diabetes mellitus with hyperglycemia Discontinued semaglutide (Ozempic) for 4 weeks Discontinued Reason: Patient Completed Course 0.25 mg (0.368 mL) subcut QWEEK 30 days 1.84 mL 1RF E11.9 - Type 2 diabetes mellitus without complications Coding Level of Care Code Est Pt Level 3 (00162) Est Pt Prev Care 40-64y(19437) Diagnoses Physical exam Z00.00 Type 2 diabetes mellitus with hyperglycemia, with long-term current use of insulin E11.65; Z79.4 Diabetes mellitus terminal manager insulin use: with terminal manager use Diabetes mellitus complication status: with hyperglycemia Diverticulitis K57.92 Time Spent (min) 34
[2024-01-12 15:15] VITALS: BP 132/80; BMI 38.2
== END 2024-01-12 15:32 | disposition home or self-care (01) ==
PROVIDERS: PCP Internal Medicine; Visit Provider Internal Medicine
DX: Z00.00 Encounter for general adult medical examination without abnormal findings (principal); E11.65 Type 2 diabetes mellitus with hyperglycemia; Z79.4 Long term (current) use of insulin; K57.92 Diverticulitis of intestine, part unspecified, without perforation or abscess without bleeding
CPT/HCPCS: 83036; 99213; 99396

== ENCOUNTER 2024-03-27 20:31 | Inpatient (IN) | payer OTHER, SELFPAY ==
--- NOTE | ~2024-03-27 | CT_ITS ---
EXAMINATION: CT ABDOMEN AND PELVIS WITH CONTRAST CLINICAL INFORMATION: Reason for Exam Use ABD pain, urinary frequency, history of divert COMPARISON: 11/01/2023 TECHNIQUE: Multidetector volumetric images were obtained from the superior aspect of the liver through the pubic symphysis following administration 100 mL of Omnipaque 350 intravenous contrast. Sagittal and coronal reformatted images were obtained on the technologist's workstation. Oral contrast: No This CT examination was performed using dose optimization techniques as appropriate, variously including the following: *Automated exposure control *Adjustment of mA and/or kV according to patient size (this includes techniques or standardized protocols for targeted exams where dose is matched to indication/reason for exam; i.e. extremities or head) *Use of iterative reconstruction technique DLP: 753 mGy-cm FINDINGS: LUNG BASES: The visualized lung bases are unremarkable. LIVER, GALLBLADDER, AND BILIARY TREE: The liver there is enlarged measuring approximately 21 cm in length with homogeneous attenuation. No focal hepatic lesion or biliary ductal dilatation is present. The gallbladder is unremarkable with no evidence of radiopaque gallstones, gallbladder wall thickening, or obvious pericholecystic inflammatory changes. PANCREAS: Unremarkable. SPLEEN: Unremarkable. ADRENAL GLANDS: Unremarkable. KIDNEYS AND URETERS: Bilateral nephrograms are symmetric. No hydronephrosis or obstructing calculus identified. BLADDER: Unremarkable. GASTROINTESTINAL TRACT: Duodenal diverticulum noted. No evidence of bowel obstruction. Diverticulosis is noted. There is a short segment of wall thickening with surrounding inflammation in the proximal to mid sigmoid colon, suspicious for acute diverticulitis in this setting. No discrete pericolonic abscess or free air is seen. The appendix is unremarkable. ABDOMINAL WALL: No significant hernia is appreciated. LYMPH NODES: Normal. VASCULAR: Mild calcification along the right common iliac artery. PELVIC VISCERA: Unremarkable. OSSEOUS STRUCTURES: Degenerative changes of the bilateral sacroiliac joints. CT/CT abdomen pelvis w IV con IMPRESSION: Diverticulitis of the proximal to mid sigmoid colon. Correlation with recent or followup colonoscopy is advised to exclude an underlying mass lesion. Electronically signed by: Trevor Conway MD 03/28/2024 03:14 AM EDT
--- NOTE | ~2024-03-27 | CT_ITS ---
EXAMINATION: CT ABDOMEN AND PELVIS WITH CONTRAST CLINICAL INFORMATION: Worsening pain/fever. Diverticulitis. Rule out abscess. COMPARISON: CT scans dating between March 28, 2024 and September 15, 2016. TECHNIQUE: Multidetector volumetric images were obtained from the superior aspect of the liver through the pubic symphysis following administration 100 mL of Omnipaque 350 intravenous contrast. Sagittal and coronal reformatted images were obtained on the technologist's workstation. Oral contrast: No This CT examination was performed using dose optimization techniques as appropriate, variously including the following: *Automated exposure control *Adjustment of mA and/or kV according to patient size (this includes techniques or standardized protocols for targeted exams where dose is matched to indication/reason for exam; i.e. extremities or head) *Use of iterative reconstruction technique DLP: 613 mGy-cm FINDINGS: LUNG BASES: Bibasilar linear density suggesting fibrotic streaks and/or atelectasis. No consolidation or pleural effusion identified. Heart normal in size. No coronary arterial calcification. Trace pericardial fluid. LIVER, GALLBLADDER, AND BILIARY TREE: The liver appears unremarkable in size, shape, and attenuation. No focal hepatic lesion is appreciated. Mild intra and extrahepatic biliary ductal dilation, not definitely changed compared with 2 days prior. The distal common bile duct may insert onto a diverticulum involving the second portion of the duodenum. Definite stone or mass directly visualized in this region. Unremarkable appearance of the gallbladder. PANCREAS: Unremarkable SPLEEN: Unremarkable ADRENAL GLANDS: Unremarkable KIDNEYS AND URETERS: The kidneys appear unremarkable in size, shape, and attenuation. No hydronephrosis, hydroureter, or calculi seen. BLADDER: Poorly distended, therefore suboptimally evaluated. Grossly unremarkable. GASTROINTESTINAL TRACT/PELVIC VISCERA/PERITONEAL CAVITY: Limited by lack of oral contrast. Diverticulosis predominantly involving the sigmoid and descending colon. Induration of fat surrounding the mid to proximal sigmoid colon. Induration of fat extends to the uterus and left adnexal region as well. The findings appear mildly worse compared with 2 days prior. No discrete abscess identified as such. No evidence of free intraperitoneal air or free peritoneal fluid. The small and large bowel otherwise appear unremarkable. Approximately 2 cm diverticulum involving the second portion of the duodenum, without evidence of associated inflammation. ABDOMINAL WALL: No significant hernia is appreciated. LYMPH NODES: No evidence of adenopathy by size criteria. VASCULAR: Bilateral pelvic phleboliths. OSSEOUS STRUCTURES: Unremarkable CT/CT abdomen pelvis w IV con IMPRESSION: Limited by lack of oral contrast. Diverticulosis predominantly involving the sigmoid and descending colon. Induration of fat surrounding the mid to proximal sigmoid colon. Induration of fat extends to the uterus and left adnexal region as well. The findings appear mildly worse compared with 2 days prior. No discrete abscess identified as such. Differential diagnosis includes, but is not limited to, diverticulitis. Recommend follow-up to resolution after appropriate course of therapy has been completed to exclude occult neoplasm. Electronically signed by: Shailesh Cohen MD 03/30/2024 12:30 PM EDT
[2024-03-27 20:32] VITALS: BP 180/79; PULSE 94; RESP 18; TEMP 36.8; O2SAT 98; BMI 37.2
--- NOTE | 2024-03-27 20:32 | ED_ITS ---
HPI - Abdominal Pain General Chief Complaint: Abdominal Pain Stated Complaint: Abdominal pain Time Seen by Provider: 03/27/24 23:50 Source: patient Mode of arrival: ambulatory Limitations: no limitations History of Present Illness HPI narrative: Patient is a 48-year-old female who presents emergency department for evaluation. She reports sudden onset of diffuse abdominal pain but primarily to the lower abdomen at 14:00 today. She admits to having associated chills with this but denies any tactile fever. She denies associated nausea or vomiting. Admits to a vague history of constipation does not recall the date of her last bowel movement. She has had a decreased appetite for the past 2 days. She also states for the past 2 days she did notice having urinary frequency but denies dysuria, or hematuria. Denying back/flank pain. No associated chest pain or shortness of breath. She was treated for diverticulitis in December of 2023, she states that her pain at this time feels much more severe when compared to then Related Data Home Medications ?Medication ?Instructions ?Recorded ?Confirmed lamotrigine 200 mg tablet 200 mg PO DAILY 05/25/23 01/12/24 pen needle, diabetic 33 gauge x #100 ea 05/25/23 01/12/24 (Easy Comfort Pen [place]) Previous Rx's ?Medication ?Instructions ?Recorded blood sugar diagnostic (FreeStyle #50 ea 12/30/20 Precision Shar Strips) flash glucose sensor (FreeStyle #2 ea 02/10/21 Trudy 2 Sensor kit) cholecalciferol (vitamin D3) 50 50 mcg PO DAILY #30 caps 07/13/21 mcg (2,000 unit) capsule (Vitamin D3) lancets 30 gauge (Pure Comfort 1 gauge miscellaneous QID #100 ea 07/13/21 Safety Lancets) alcohol swabs 1 pad topical QID 30 days #200 ea 04/12/22 blood-glucose meter (FreeStyle #1 ea 11/01/22 Lite Meter kit) incontinence pad, liner, disp #60 ea 01/25/23 erythromycin 5 mg/gram (0.5 %) eye 1 appl ophthalmic (eye) DAILY 5 04/11/23 ointment days #3.5 grams clotrimazole-betamethasone 1 1 appl topical BID 2 weeks #45 05/25/23 %-0.05 % topical cream grams rosuvastatin 5 mg tablet 5 mg PO DAILY 90 days #90 tabs 09/05/23 blood sugar diagnostic (FreeStyle 1 strip miscellaneous QID #100 ea 11/01/23 Lite Strips) incontinence pad, liner, disp #90 ea 11/14/23 amoxicillin 875 mg-potassium 1 tab PO Q12H #20 tabs 01/01/24 clavulanate 125 mg tablet insulin glargine 100 unit/mL (3 45 unit (0.45 mL) subcut QPM 30 01/12/24 mL) subcutaneous pen (Lantus days #13.5 mL Solostar U-100 Insulin) semaglutide 0.25 mg or 0.5 mg (2 0.5 mg (0.736 mL) subcut QWEEK 4 02/23/24 mg/3 mL) subcutaneous pen injector weeks #2.944 mL (Ozempic) lisinopril 10 mg tablet 10 mg PO DAILY 90 days #90 tabs 02/27/24 empagliflozin 25 mg tablet 25 mg PO DAILY 30 days #30 tabs 03/26/24 pen needle, diabetic 32 gauge x #100 ea 03/26/2407/21 (BD Ultra-Fine Micro Pen Needle) Allergies Allergy/AdvReac Type Severity Reaction Status Date / Time No Known Allergies Allergy Verified 03/27/24 20:34 [No Known Allergies*] Review of Systems Review of Systems Yes all other systems are reviewed and are negative [facility] Past Medical History Attestation statement: The following information was validated with the patient. Source: old records reviewed Medical History Morbid obesity with BMI of 40.0-44.9, adult Diabetes mellitus with microalbuminuric diabetic nephropathy Vitamin D deficiency HLD (hyperlipidemia) HTN (hypertension) T2DM (type 2 diabetes mellitus) Surgical History Hx of section History of tubal ligation Family History Family History (Updated 01/12/24 @ 15:25 by Lucy Claire MD) Father CVD (cardiovascular disease) Cancer Mother Uterine cancer Hypertension CVD (cardiovascular disease) Diabetes mellitus Paternal Grandmother Uterine cancer Social History Social History Household Members: Children Housing: House Alcohol intake: never Patient Tobacco Use Status: Never used Tobacco Smoked in Last 30 Days: No e-Cigarette/Vaping Use: Never Used Second Hand Smoke Exposure: No Advance Directives: No Advance Directives Information Provided: No Do you have a plan to hurt others: No Plan service: No Current occupational status: unemployed Cognitive needs: No Hearing needs: No Vision needs: No Physical Exam ED Vital Signs: Vital Signs - 24 hr 03/27/24 20:32 03/27/24 23:58 03/28/24 02:31 Temperature 98.2 F 99.2 F 100.0 F Pulse Rate 94 110 H 103 H Respiratory Rate 18 20 18 Blood Pressure 180/79 H 143/97 H 138/79 Pulse Oximetry 98 98 99 Oxygen Delivery Method Room Air Room Air Room Air BMI result Body Mass Index 37.2 Appearance: Alert.?Oriented to person, place and time. No acute distress.?Normal affect. Eyes: Pupils equal, round and reactive to light.? ENT: Pharynx normal.?? Neck: Normal inspection.? Neck supple.?? CVS: Heart sounds normal. Normal heart rate and rhythm.? Pulses normal.?? Respiratory: No respiratory distress.? Lung sounds clear to auscultation bilaterally?? Abdomen: Soft with diffuse abdominal tenderness, bilateral lower quadrants worse than the upper. No CVA tenderness.. Normoactive bowel sounds. No pulsatile mass.?? Skin: Skin warm and dry.? Normal skin color.? Extremities: No lower extremity edema. Neuro: Moves all extremities spontaneously. Sensation intact bilaterally. Ambulates with normal steady gait. Course Course Course Narrative: This is an RME done by YONAS Griggs: Additional HPI, ROS, PE not included below will be deferred to primary provider. 48yo F PMHx of diverticulitis, T2DM, HTN, HLD, comes in with abdominal pain since 2pm today. States she has polyps in her large intestines but denies ever having a colonoscopy. Denies N/V. Endorses chills. Appearance: Alert.? Oriented X3.? No acute cardiopulmonary distress distress.? Head: Normocephalic, atraumatic CVS: Pulses normal.? Respiratory: No respiratory distress.? Skin: ? Normal skin color. Neuro: Oriented X 3. Reevaluation(s) Reevaluation #1: Patient signed out to ED attending Dr. Robertson pending CT AP Time: 01:55 Reevaluation #2: 48-year-old female signed out to me to check the CT scan patient meets SIRS criteria with acute diverticulitis on the CT, patient received ceftriaxone assuming UTI will add Zosyn which is better coverage for acute diverticulitis. Will admit the patient to continue IV antibiotic and management of diverticulitis. Time: 03:24 Medical Decision Making Medical Decision Making MDM Narrative: Patient is a 40-year-old female past medical history of diverticulitis, type 2 diabetes, hypertension, hyperlipidemia presenting to emergency department for evaluation of abdominal pain as per HPI. She is notable tenderness diffusely throughout the abdomen but the lower quadrants are worse than the upper. Negative Mendes sign. No rebound tenderness. She is also endorsing urinary frequency but no associated flank or back pain. 00:07 -sepsis alert - initial contact with patient, on review of chart thus far she meets SIRS criteria significant leukocytosis of 20,500 with left shift and she is tachycardic at this time 110, suspect infection, given history of diverticulitis and urinary frequency, plan to cover with Rocephin for possible gastrointestinal versus genitourinary etiology, likely add Flagyl if diverticulitis is found. Patient to receive IV fluids, blood cultures and lactic acid to be obtained. Sepsis fluid bolus ordered based on ideal body weight secondary to obesity. Differential Diagnosis Differential Diagnoses: The differential diagnosis associated with the presentation includes (See narrative above) Admission/Observation Consideration of admission/observation: Escalation of care including admission/observation considered (See narrative above and course narrative for further detail) Lab Data [facility] Lab Attestation statement: I reviewed the patient's lab results. Leukocytosis with left shift, no anemia, no thrombocytopenia. No electrolyte derangement. No APRIL. Non-anion gap hyperglycemia 275. Urinalysis without compelled evidence of infection trace bacteria seen, no microscopic hematuria. No lactic acidosis 03/27/24 20:42 03/27/24 20:42 Labs: Lab Results 03/27/24 03/27/24 03/28/24 Range/Units 20:42 23:51 00:46 WBC 20.5 H (4.8-10.8) X10*3/uL RBC 5.36 (4.20-5.50) X10*6/uL Hgb 14.5 (12.0-16.0) g/dl Hct 43.7 (37.0-47.0) % MCV 81.5 (80.0-98.0) fL MCH 27.1 (27.0-33.0) pg MCHC 33.2 (31.0-35.0) g/dl RDW 13.3 (11.0-16.0) % Plt Count 270 (160-400) X10*3/uL MPV 10.6 (9.4-12.3) fL Immature Gran % (Auto) 0.4 (0.0-0.4) % Neut % (Auto) 85.7 H (45-73) % Lymph % (Auto) 8.8 L (20-40) % [place] % (Auto) 4.4 (2-11) % Eos % (Auto) 0.5 (0-4) % Baso % (Auto) 0.2 (0-2) % Lymph # (Auto) 1.8 (1.2-4.9) X10*3/uL [place] # (Auto) 0.9 (0.1-1.2) X10*3/uL Eos # (Auto) 0.1 (0.0-0.4) X10*3/uL Baso # (Auto) 0.1 (0.0-0.2) X10*3/uL Abs Immat Gran (auto) 0.09 H (0.00-0.03) X10*3/uL Absolute Neuts (auto) 17.6 H (2.0-8.3) x10*3/uL Absolute Nucleated RBC 0.000 (0.0-0.012) X10*3/uL Nucleated RBC % (auto) 0.0 (0.0-0.2) /100WBC Sodium 135 (135-145) mmol/L Potassium 4.1 (3.3-5.1) mmol/L Chloride 101 (96-108) mmol/L Carbon Dioxide 26 (22-29) mmol/L Anion Gap 12 (12-20) BUN 10 (9-16) mg/dL Creatinine 0.65 (0.5-1.4) mg/dL Estim Creat Clear Calc 107.6 Estimated GFR > 60 Random Glucose 275 H (60-115) mg/dL Lactic Acid 1.8 (0.5-2.0) mmol/L Calcium 9.6 (8.4-10.2) mg/dL Magnesium 1.8 (1.6-2.6) mg/dL Total Bilirubin 0.4 (0.0-1.0) mg/dL AST 15 (5-31) U/L ALT 18 (0-31) U/L Alkaline Phosphatase 99 (39-117) U/L Total Protein 7.6 (6.5-8.0) g/dL Albumin 4.1 (3.5-5.0) g/dL Lipase 30 (8-78) U/L Beta HCG, Quant < 2 mIU/mL Urine Color Yellow Urine Appearance Clear Urine pH 6.0 (5.0-9.0) Ur Specific [place] >= 1.030 H (1.005-1.025) Urine Protein 100 (2+) H (Neg-Trace) mg/dL Urine Glucose (UA) >=1000 H (Negative) mg/dL Urine Ketones Trace (Negative) mg/dL Urine Blood Negative (Negative) Urine Nitrite Negative (Negative) Ur Leukocyte Esterase Negative (Negative) Urine RBC 0-2 (0-2) /HPF Urine WBC 0-5 (0-5) /HPF Ur Squamous Epith Cells 3-5 (0-2) /HPF Urine Bacteria Trace (None Seen) Hyaline Casts 0-2 (0-2) /LPF Medications Administered Discontinued Medications Generic Name Dose Route Start Last Admin Trade Name Freq PRN Reason Stop Dose Admin Acetaminophen 975 mg 03/28/24 02:37 03/28/24 02:45 Acetaminophen 325 Mg Tablet PO 03/28/24 02:38 975 mg ONCE ONE Administration Ceftriaxone Sodium 1 gm/ 50 mls @ 100 mls/hr 03/28/24 00:06 03/28/24 01:24 Sodium Chloride IV 03/28/24 00:35 Infused ONCE ONE Infusion Sodium Chloride 1,434 mls @ 1,434 mls/hr 03/28/24 00:08 03/28/24 00:45 Ns IV 03/28/24 01:07 1,434 mls/hr .Q1H STA Administration Iohexol 100 ml 03/28/24 01:05 03/28/24 01:07 Iohexol 350 Mg/Ml 100 Ml Infus..Btl IV 03/28/24 01:06 100 ml ONCE ONE Administration Critical Care Time Critical Care Time Critical Care Time: Yes Total Critical Care Time: 45 Attestation: I personally attest to this critical care time spent taking care of the patient exclusive of all other billable procedures was approximately 45 minutes including initial evaluation of patient, ordering tests, sepsis alert, medical consultation, documentation, re-evaluation. Discharge Plan Discharge Clinical Impression: Abdominal pain, Diverticulitis, SIRS (systemic inflammatory response syndrome) Patient Disposition: Admitted As Inpatient Prescriptions: No Action (DME) FreeStyle Trudy 2 Sensor Kit See Rx Instructions .ROUTE .MEDSUPPLY Qty: 2 0RF Rx Instructions: As directed every 2 weeks lancets [Pure Comfort Safety Lancets] 30 gauge misc 1 gauge miscellaneous QID Qty: 100 11RF cholecalciferol (vitamin D3) [Vitamin D3] 50 mcg (2,000 unit) capsule 50 mcg PO DAILY Qty: 30 11RF alcohol swabs Pads, Medicated 1 pad topical QID 30 Days Qty: 200 2RF (DME) incontinence pad, liner, disp Pad See Rx Instructions .Route Qty: 60 11RF Rx Instructions: Use 1 pad twice a day rosuvastatin 5 mg tablet 5 mg PO DAILY 90 Days Qty: 90 1RF FreeStyle Lite Strips Strip 1 strip miscellaneous QID Qty: 100 10RF (DME) incontinence pad, liner, disp Pad See Rx Instructions .Route Qty: 90 6RF Rx Instructions: As directed Ozempic 0.25 mg or 0.5 mg (2 mg/3 mL) pen injector 0.5 mg subcut QWEEK 28 Days Qty: 2.944 1RF lisinopril 10 mg tablet 10 mg PO DAILY 90 Days Qty: 90 1RF (DME) pen needle, diabetic [BD Ultra-Fine Micro Pen Needle] 32 gauge x 1/4 needle See Rx Instructions .ROUTE .MEDSUPPLY Qty: 100 8RF Rx Instructions: 1 daily empagliflozin 25 mg tablet 25 mg PO DAILY 30 Days Qty: 30 2RF amoxicillin-pot clavulanate 875-125 mg tablet 1 tab PO Q12H Qty: 20 0RF (DME) blood-glucose meter [FreeStyle Lite Meter] Kit See Rx Instructions .Route Qty: 1 0RF Rx Instructions: As directed erythromycin 5 mg/gram (0.5 %) ointment 1 appl ophthalmic (eye) DAILY 5 Days Qty: 3.5 0RF insulin glargine [Lantus Solostar U-100 Insulin] 100 unit/mL (3 mL) insulin pen 45 unit subcut QPM 30 Days Qty: 13.5 11RF (DME) FreeStyle Precision Shar Strips Strip See Rx Instructions .ROUTE .MEDSUPPLY Qty: 50 0RF Rx Instructions: TWice daily lamotrigine 200 mg tablet 200 mg PO DAILY (DME) pen needle, diabetic [Easy Comfort Pen [place]] 33 gauge x 5/32 needle See Rx Instructions .ROUTE .MEDSUPPLY Qty: 100 Rx Instructions: As directed clotrimazole-betamethasone 1-0.05 % cream 1 appl topical BID 14 Days Qty: 45 3RF Print Language: Serbian
[2024-03-27 20:46] LABS: MANUAL DIFF FLAG NO
[2024-03-27 20:47] LABS: Basophils Absolute Auto 0.1 X10*3/uL (0.0-0.2); Basophils Percent Auto 0.2 % (0-2); Eosinophils Absolute Auto 0.1 X10*3/uL (0.0-0.4); Eosinophils Percent Auto 0.5 % (0-4); Hematocrit 43.7 % (37.0-47.0); Hemoglobin 14.5 g/dl (12.0-16.0); Imm Gran Abs Auto 0.09 X10*3/uL (0.00-0.03); Imm Gran Pct Auto 0.4 % (0.0-0.4); Lymphocytes Absolute Auto 1.8 X10*3/uL (1.2-4.9); Lymphocytes Percent Auto 8.8 % (20-40); Mean Corpuscular HGB Conc 33.2 g/dl (31.0-35.0); Mean Corpuscular Hemoglobin 27.1 pg (27.0-33.0); Mean Corpuscular Volume 81.5 fL (80.0-98.0); Mean Platelet Volume 10.6 fL (9.4-12.3); Monocytes Absolute Auto 0.9 X10*3/uL (0.1-1.2); Monocytes Percent Auto 4.4 % (2-11); Neutrophils Absolute Auto 17.6 x10*3/uL (2.0-8.3); Neutrophils Percent Auto 85.7 % (45-73); Platelet Count 270 X10*3/uL (160-400); Red Blood Count 5.36 X10*6/uL (4.20-5.50); Red Cell Distribution Width 13.3 % (11.0-16.0); White Blood Count 20.5 X10*3/uL (4.8-10.8)
[2024-03-27 21:08] LABS: Alanine Aminotransferase 18 U/L (0-31); Albumin Level 4.1 g/dL (3.5-5.0); Alkaline Phosphatase 99 U/L (39-117); Anion Gap 12 (12-20); Aspartate Amino Transferase 15 U/L (5-31); Bilirubin Total 0.4 mg/dL (0.0-1.0); Blood Urea Nitrogen 10 mg/dL (9-16); Calcium 9.6 mg/dL (8.4-10.2); Carbon Dioxide 26 mmol/L (22-29); Chloride 101 mmol/L (96-108); Creatinine Clr Calc Pharmacy 107.6; Estimated Glomerular Filt Rate > 60; Glucose Random 275 mg/dL (60-115); Lipase 30 U/L (8-78); Magnesium 1.8 mg/dL (1.6-2.6); Potassium 4.1 mmol/L (3.3-5.1); Sodium 135 mmol/L (135-145); Total Protein 7.6 g/dL (6.5-8.0)
[2024-03-27 21:10] LABS: HCG Quantitative < 2 mIU/mL
[2024-03-27 23:56] LABS: Appearance Urine Clear; Color Urine Yellow; Glucose Urine UA >=1000 mg/dL (Negative); Leukocyte Esterase Urine Negative (Negative); Nitrite Urine Negative (Negative); Specific Gravity - Urine >= 1.030 (1.005-1.025); UMIC TRIGGER UACC YES; Urine Blood Negative (Negative); Urine Ketones Trace mg/dL (Negative); Urine Protein 100 (2+) mg/dL (Neg-Trace)
[2024-03-27 23:58] VITALS: BP 143/97; PULSE 110; RESP 20; TEMP 37.3; O2SAT 98
[2024-03-28] VITALS (8 sets, daily range): BP systolic 130–171; BP diastolic 60–97; PULSE 72–103; RESP 12–18; TEMP 36.2–37.8; O2SAT 95–99; BMI 37.1
[2024-03-28 00:07] LABS: Bacteria Urine Trace (None Seen); Hyaline Casts Urine 0-2 /LPF (0-2); RBC Urine 0-2 /HPF (0-2); WBC Urine 0-5 /HPF (0-5)
--- NOTE | 2024-03-28 00:10 | PC.NURSE ---
Pt ca&ox4, no signs of distress. Pt reports 8/10 abd pain and similar episode in the past Pts daughter at bedside. Plan of care ongoing.
[2024-03-28] MEDS: 0.9 % Sodium Chloride 1,434 ML 1434 ML IV (00:45)
[2024-03-28] MEDS: cefTRIAXone sodium 1 GM in 0.9 % Sodium Chloride 50 ML IV (00:49)
--- NOTE | 2024-03-28 00:52 | PC.NURSE ---
Pt medicated per [facility] Plan of care ongoing.
[2024-03-28 01:04] LABS: Lactic Acid 1.8 mmol/L (0.5-2.0)
[2024-03-28] MEDS: iohexoL 350 MG/ML 100 ML INFUS..BTL IV (01:07)
[2024-03-28] MEDS: Acetaminophen 325 MG TABLET 975 MG PO (02:45)
--- NOTE | 2024-03-28 02:49 | PC.NURSE ---
Pt medicated per sep Pt on the cell phone Plan of care ongoing.
[2024-03-28] MEDS: Piperacillin Sodium/Tazobactam 3.375 GM in 0.9 % Sodium Chloride 50 ML IV (03:30)
--- NOTE | 2024-03-28 03:45 | PM.IMHP ---
History of Present Illness Date of Service: 03/28/24 Chief Complaint: Abdominal Pain This is a 48-year-old female with pertinent history of insulin-dependent diabetes mellitus, hypertension, mixed hyperlipidemia who presents to the emergency department for evaluation of abdominal pain. Patient states her symptoms started 1 day prior to presentation. She had lower abdominal discomfort which was constant, nonradiating, nonprogressive and without any relieving factors. Unclear if she has had history of diverticulitis. Patient states this pain was the worst pain she has ever felt. Reduced p.o. intake due to the pain but denies nausea or vomiting. Admits chills and feverish but no documented temperature. No chest discomfort, palpitations, shortness of breath. Has been having increased urinary frequency but no dysuria, hesitancy. In the emergency department, patient was found to be septic and imaging concerning for acute diverticulitis. Review of Systems Constitutional: Constitutional: Reports poor appetite Cardiovascular: Cardiovascular: Reports no additional cardiovascular complaints Respiratory: Respiratory: Reports no additional respiratory complaints Gastrointestinal: Gastrointestinal: Reports abdominal pain Genitourinary: Genitourinary: Reports no additional female genitourinary complaints [facility] Medical History Morbid obesity with BMI of 40.0-44.9, adult Diabetes mellitus with microalbuminuric diabetic nephropathy Vitamin D deficiency HLD (hyperlipidemia) HTN (hypertension) T2DM (type 2 diabetes mellitus) Family History Father CVD (cardiovascular disease) Cancer Mother Uterine cancer Hypertension CVD (cardiovascular disease) Diabetes mellitus Paternal Grandmother Uterine cancer Surgical History Hx of section History of tubal ligation Social History Household Members: Children Housing: House Alcohol intake: never Patient Tobacco Use Status: Never used Tobacco Smoked in Last 30 Days: No e-Cigarette/Vaping Use: Never Used Second Hand Smoke Exposure: No Advance Directives: No Advance Directives Information Provided: No Do you have a plan to hurt others: No Plan service: No Current occupational status: unemployed Cognitive needs: No Hearing needs: No Vision needs: No Meds Allergies Allergy/AdvReac Type Severity Reaction Status Date / Time No Known Allergies Allergy Verified 03/27/24 20:34 [No Known Allergies*] Active Medications: Current Medications Acetaminophen (Acetaminophen 325 Mg Tablet) 650 mg PO Q6H PRN PRN Reason: Pain, Mild (Pain Scale 1-3), fever or headache Calcium Carbonate (Calcium Carbonate 750 Mg Tab.Chew) 750 mg PO Q4H PRN PRN Reason: Heartburn Enoxaparin Sodium (Enoxaparin Sodium 40 Mg/0.4 Ml Syringe) 40 mg SUBCUT Q24H [facility] Piperacillin Sod/Tazobactam (Sod 3.375 gm/ Sodium Chloride) 50 mls @ 100 mls/hr IV ONCE ONE Stop: 03/28/24 03:52 Last Admin: 03/28/24 03:30 Dose: 100 mls/hr Piperacillin Sod/Tazobactam (Sod 4.5 gm/ Sodium Chloride) 100 mls @ 200 mls/hr IV Q6H [facility] Magnesium Hydroxide (Milk Of Magnesia 30 Ml Oral.Susp) 30 ml PO DAILY PRN PRN Reason: Constipation Melatonin (Melatonin 3 Mg Tablet) 6 mg PO BEDTIME PRN PRN Reason: Insomnia Morphine Sulfate (Morphine Sulfate 4 Mg/Ml Cartridge) 4 mg IVPUSH Q4H PRN; Protocol PRN Reason: Pain, Severe (Pain Scale 7-10) Ondansetron HCl (Ondansetron Hcl 4 Mg/2 Ml Vial) 4 mg IVPUSH Q8H PRN PRN Reason: Nausea and Vomiting Sodium Chloride (0.9 % Sodium Chloride Flush 3 Ml Syringe) 3 ml IVFLUSH QSHIFT [facility] Home Medications ?Medication ?Instructions ?Recorded ?Confirmed ?Last Taken ?Type lamotrigine 200 mg tablet 200 mg PO DAILY 05/25/23 01/12/24 Unknown History pen needle, diabetic 33 gauge x #100 ea 05/25/23 01/12/24 Unknown History (Easy Comfort Pen [place]) Physical Exam Vital Signs and Narrative: Vital Signs: Last Vital Signs Temp 100.0 F 03/28/24 02:31 Pulse 103 H 03/28/24 02:31 Resp 18 03/28/24 02:31 BP 138/79 03/28/24 02:31 Pulse Ox 99 03/28/24 02:31 O2 Del Method Room Air 03/28/24 02:31 BMI result Body Mass Index 37.2 Middle-aged female lying in bed in no distress Neck supple, no JVD Regular rate and rhythm, S1-S2 heard Regular breath sounds bilaterally, no wheezing or crackles appreciated Abdomen with lower abdomen tenderness, no rigidity, no rebound tenderness Patient is awake, alert and oriented to self, place, time and person ; no focal motor deficit Psych: Normal mood No pedal edema Results Labs 03/28/24 04:30 03/28/24 04:30 Labs: Laboratory Results - last 24 hr 03/27/24 03/27/24 03/28/24 20:42 23:51 00:46 MCV 81.5 MCH 27.1 MCHC 33.2 RDW 13.3 Plt Count 270 MPV 10.6 Immature Gran % (Auto) 0.4 Neut % (Auto) 85.7 H Lymph % (Auto) 8.8 L [place] % (Auto) 4.4 Eos % (Auto) 0.5 Baso % (Auto) 0.2 Lymph # (Auto) 1.8 [place] # (Auto) 0.9 Eos # (Auto) 0.1 Baso # (Auto) 0.1 Abs Immat Gran (auto) 0.09 H Absolute Neuts (auto) 17.6 H Absolute Nucleated RBC 0.000 Nucleated RBC % (auto) 0.0 Anion Gap 12 Estim Creat Clear Calc 107.6 Estimated GFR > 60 Random Glucose 275 H Lactic Acid 1.8 Calcium 9.6 Magnesium 1.8 Total Bilirubin 0.4 AST 15 ALT 18 Alkaline Phosphatase 99 Total Protein 7.6 Albumin 4.1 Lipase 30 Beta HCG, Quant < 2 Urine Color Yellow Urine Appearance Clear Urine pH 6.0 Ur Specific [place] >= 1.030 H Urine Protein 100 (2+) H Urine Glucose (UA) >=1000 H Urine Ketones Trace Urine Blood Negative Urine Nitrite Negative Ur Leukocyte Esterase Negative Urine RBC 0-2 Urine WBC 0-5 Ur Squamous Epith Cells 3-5 Urine Bacteria Trace Hyaline Casts 0-2 Imaging Radiologist's Impressions: Impressions Abdomen/Pelvis CT 03/28/24 00:45 IMPRESSION: Diverticulitis of the proximal to mid sigmoid colon. Correlation with recent or followup colonoscopy is advised to exclude an underlying mass lesion. Electronically signed by: Trevor Conway MD 03/28/2024 03:14 AM EDT Assessment and Plan (1) Diverticulitis: Status: Acute Plan This is a 48-year-old female with pertinent history of insulin-dependent diabetes mellitus, hypertension, mixed hyperlipidemia who presents to the emergency department for evaluation of abdominal pain. #. Sepsis due to acute diverticulitis: Resuscitated with IV crystalloids. Lactic acid and blood cultures obtained. Initiating IV Zosyn. NPO for bowel rest #. Insulin-dependent diabetes mellitus with hyperglycemia: Reduce home basal insulin. Initiating Accu-Cheks with sliding scale insulin every 6 hours while patient is NPO #. Hypertension: Continue home antihypertensives once no longer NPO #. Mixed hyperlipidemia: On statin #. Morbid obesity: Counseled regarding diet and exercise Med rec pending DVT prophylaxis: Lovenox Full code Admit as inpatient and will require two night minimum hospital stay for IV antibiotics (as above), which is not possible in a lesser acute setting. Quality Stroke Does the patient have a stroke diagnosis?: No VTE Prior VTE?: No VTE Risk Level:: Medical - moderate - high VTE Device Contraindication: Treatment Not Indicated VTE Drug Contraindication: N/A - Med Ordered
[2024-03-28] MEDS: Insulin Lispro 100 UNIT/ML 3 ML VIAL SUBCUT ×4 (05:00→21:30)
--- NOTE | 2024-03-28 05:01 | PC.NURSE ---
pt ambulates with a steady gait to restroom. Plan of care ongoing.
[2024-03-28 05:10] LABS: Glucose, Whole Blood 199 mg/dL (60-115)
[2024-03-28 05:11] LABS: MANUAL DIFF FLAG NO
--- NOTE | 2024-03-28 05:12 | PC.NURSE ---
Pt medicated per sep Pt family at bedside. Plan of care ongoing
[2024-03-28 05:15] LABS: Basophils Percent Auto 0.2 % (0-2); Eosinophils Absolute Auto 0.1 X10*3/uL (0.0-0.4); Eosinophils Percent Auto 0.5 % (0-4); Hematocrit 39.7 % (37.0-47.0); Imm Gran Abs Auto 0.08 X10*3/uL (0.00-0.03); Imm Gran Pct Auto 0.5 % (0.0-0.4); Lymphocytes Absolute Auto 2.1 X10*3/uL (1.2-4.9); Lymphocytes Percent Auto 12.6 % (20-40); Mean Corpuscular HGB Conc 32.7 g/dl (31.0-35.0); Mean Corpuscular Hemoglobin 26.9 pg (27.0-33.0); Mean Platelet Volume 11.1 fL (9.4-12.3); Monocytes Absolute Auto 0.6 X10*3/uL (0.1-1.2); Monocytes Percent Auto 3.9 % (2-11); Neutrophils Absolute Auto 13.4 x10*3/uL (2.0-8.3); Neutrophils Percent Auto 82.3 % (45-73); Platelet Count 247 X10*3/uL (160-400); Red Blood Count 4.84 X10*6/uL (4.20-5.50); Red Cell Distribution Width 13.2 % (11.0-16.0); White Blood Count 16.3 X10*3/uL (4.8-10.8)
[2024-03-28 05:33] LABS: Anion Gap 12 (12-20); Blood Urea Nitrogen 7 mg/dL (9-16); Calcium 8.8 mg/dL (8.4-10.2); Carbon Dioxide 22 mmol/L (22-29); Chloride 106 mmol/L (96-108); Estimated Glomerular Filt Rate > 60; Glucose Random 213 mg/dL (60-115); Potassium 3.5 mmol/L (3.3-5.1); Sodium 136 mmol/L (135-145)
[2024-03-28 07:46] LABS: C Reactive Protein 9.44 mg/dL (< or = 0.50)
[2024-03-28] MEDS: Lactated Ringers 1,000 ML 100 ML IVCONT ×2 (08:29→21:38)
[2024-03-28] MEDS: Morphine Sulfate 4 MG/ML CARTRIDGE IVPUSH ×3 (08:30→21:28)
[2024-03-28 08:35] LABS: Glucose, Whole Blood 194 mg/dL (60-115)
[2024-03-28] MEDS: Piperacillin Sodium/Tazobactam 4.5 GM in 0.9 % Sodium Chloride 100 ML IV ×3 (09:36→21:40)
[2024-03-28] MEDS: Enoxaparin Sodium 40 MG/0.4 ML SYRINGE SUBCUT (09:36)
--- NOTE | 2024-03-28 11:07 | MHC.CM.PN ---
CM MET WITH PT AT BEDSIDE. PT LIVES WITH FAMILY. HAS 2.5 HRS [employer] [facility] /WK AND 2.5 SERVICES/WK AT [facility]. PT IS INDEPENDENT WITH MOBILITY, USES WALKER NEEDED. +HCP PCP DR. SUAREZ AT [facility] [place] DP: HOME WITH RESUMPTION OF [employer] SERVICES IS THE GOAL. SON WILL TRANSPORT. CM WILL CONTINUE TO FOLLOW FOR ANY CHANGE TO DC PLAN/NEEDS.
[2024-03-28 11:17] LABS: Glucose, Whole Blood 250 mg/dL (60-115)
--- NOTE | 2024-03-28 12:01 | PHA.MEDREC ---
Addendum entered by Katiana Lozano RPh 03/28/24 12:11: reviewed by [facility]. Original Note: Pharmacy Consult ? Medication Reconciliation Pharmacy has completed the medication reconciliation. Confirmed medications with patient. Patient verified she takes Lantus insulin injecting 45 units at bedtime and she last did that yesterday. She confirmed she takes Lamotrigine 200mg 1 tab at bedtime along with the Mirtazapine 15mg 1 tab at bedtime. She also confirmed she is taking Ozempic once weekly and she states she does that either on or Fridays and states the last time she took that was Friday 03/23. She states she took her morning medications this morning before coming in.
--- NOTE | 2024-03-28 12:15 | HO.PM.IMPN ---
Subjective Subjective Date of Service: 03/28/24 Interval History: LLQ pain no N/V wishes to try liquids no prior C-scope This history was taken in Maldivian from the patient. Review of Systems Review of Systems: Yes all other systems are reviewed and are negative Physical Exam Vital Signs: Vital Signs: Last Vital Signs Temp 97.1 F 03/28/24 08:00 Pulse 91 03/28/24 08:00 Resp 18 03/28/24 08:00 BP 169/87 H 03/28/24 08:00 Pulse Ox 99 03/28/24 08:00 O2 Del Method Room Air 03/28/24 08:00 BMI result Body Mass Index 37.1 Gen: in no acute distress HEENT: sclera anicteric, moist mucus membranes Neck: supple Lungs: clear to auscultation bilaterally Heart: regular rate and rhythm, no murmurs Abd: soft, LLQ tender without rebound, non-distended Ext: no edema Skin: warm/well-perfused Neuro: alert and oriented x3, no focal findings Psych: appropriate affect Objective Data Active Medications Acetaminophen (Acetaminophen 325 Mg Tablet) 650 mg PO Q6H PRN PRN Reason: Pain, Mild (Pain Scale 1-3), fever or headache Calcium Carbonate (Calcium Carbonate 750 Mg Tab.Chew) 750 mg PO Q4H PRN PRN Reason: Heartburn Enoxaparin Sodium (Enoxaparin Sodium 40 Mg/0.4 Ml Syringe) 40 mg SUBCUT Q24H [facility] Last Admin: 03/28/24 09:36 Dose: 40 mg Documented By: KATLIN Glucose (Glucose Gel 15 Gm Gel..Gram.) 15 gm PO Q15M PRN; Protocol PRN Reason: per Hypoglycemia Standing Ord. Piperacillin Sod/Tazobactam (Sod 4.5 gm/ Sodium Chloride) 100 mls @ 200 mls/hr IV Q6H [facility] Last Infusion: 03/28/24 10:49 Dose: Infused Documented By: KATLIN Dextrose (D10) 250 mls @ 750 mls/hr IV Q15M PRN; Protocol PRN Reason: per Hypoglycemia Standing Ord. Lactated Ringer's (Lr) 1,000 mls @ 100 mls/hr IVCONT .Q10H [facility] Last Infusion: 03/28/24 10:49 Dose: 100 mls/hr Documented By: KATLIN Insulin Human Lispro (Insulin Lispro 100 Unit/Ml 3 Ml Vial) 0 unit SUBCUT Q6H [facility]; Protocol Last Admin: 03/28/24 11:21 Dose: 4 unit Documented By: KATLIN Magnesium Hydroxide (Milk Of Magnesia 30 Ml Oral.Susp) 30 ml PO DAILY PRN PRN Reason: Constipation Melatonin (Melatonin 3 Mg Tablet) 6 mg PO BEDTIME PRN PRN Reason: Insomnia Morphine Sulfate (Morphine Sulfate 4 Mg/Ml Cartridge) 4 mg IVPUSH Q4H PRN; Protocol PRN Reason: Pain, Severe (Pain Scale 7-10) Last Admin: 03/28/24 08:30 Dose: 4 mg Documented By: TARI Ondansetron HCl (Ondansetron Hcl 4 Mg/2 Ml Vial) 4 mg IVPUSH Q8H PRN PRN Reason: Nausea and Vomiting Sodium Chloride (0.9 % Sodium Chloride Flush 3 Ml Syringe) [facility] Last Admin: 03/28/24 08:32 Dose: Not Given Documented By: TARI Non-Admin Reason: IV Running Labs 03/28/24 04:30 03/28/24 04:30 Labs: Laboratory Results - last 24 hr 03/27/24 03/27/24 03/28/24 20:42 23:51 00:46 MCV 81.5 MCH 27.1 MCHC 33.2 RDW 13.3 Plt Count 270 MPV 10.6 Immature Gran % (Auto) 0.4 Neut % (Auto) 85.7 H Lymph % (Auto) 8.8 L [place] % (Auto) 4.4 Eos % (Auto) 0.5 Baso % (Auto) 0.2 Lymph # (Auto) 1.8 [place] # (Auto) 0.9 Eos # (Auto) 0.1 Baso # (Auto) 0.1 Abs Immat Gran (auto) 0.09 H Absolute Neuts (auto) 17.6 H Absolute Nucleated RBC 0.000 Nucleated RBC % (auto) 0.0 Anion Gap 12 Estim Creat Clear Calc 107.6 Estimated GFR > 60 POC Glucose Random Glucose 275 H Lactic Acid 1.8 Calcium 9.6 Magnesium 1.8 Total Bilirubin 0.4 AST 15 ALT 18 Alkaline Phosphatase 99 C-Reactive Protein Total Protein 7.6 Albumin 4.1 Lipase 30 Beta HCG, Quant < 2 Urine Color Yellow Urine Appearance Clear Urine pH 6.0 Ur Specific [place] >= 1.030 H Urine Protein 100 (2+) H Urine Glucose (UA) >=1000 H Urine Ketones Trace Urine Blood Negative Urine Nitrite Negative Ur Leukocyte Esterase Negative Urine RBC 0-2 Urine WBC 0-5 Ur Squamous Epith Cells 3-5 Urine Bacteria Trace Hyaline Casts 0-2 03/28/24 03/28/24 03/28/24 04:30 05:05 08:31 MCV 82.0 MCH 26.9 L MCHC 32.7 RDW 13.2 Plt Count 247 MPV 11.1 Immature Gran % (Auto) 0.5 H Neut % (Auto) 82.3 H Lymph % (Auto) 12.6 L [place] % (Auto) 3.9 Eos % (Auto) 0.5 Baso % (Auto) 0.2 Lymph # (Auto) 2.1 [place] # (Auto) 0.6 Eos # (Auto) 0.1 Baso # (Auto) 0.0 Abs Immat Gran (auto) 0.08 H Absolute Neuts (auto) 13.4 H Absolute Nucleated RBC 0.000 Nucleated RBC % (auto) 0.0 Anion Gap 12 Estim Creat Clear Calc 106.0 Estimated GFR > 60 POC Glucose 199 H 194 H Random Glucose 213 H Lactic Acid Calcium 8.8 D Magnesium Total Bilirubin AST ALT Alkaline Phosphatase C-Reactive Protein 9.44 H Total Protein Albumin Lipase Beta HCG, Quant Urine Color Urine Appearance Urine pH Ur Specific [place] Urine Protein Urine Glucose (UA) Urine Ketones Urine Blood Urine Nitrite Ur Leukocyte Esterase Urine RBC Urine WBC Ur Squamous Epith Cells Urine Bacteria Hyaline Casts 03/28/24 11:13 MCV MCH MCHC RDW Plt Count MPV Immature Gran % (Auto) Neut % (Auto) Lymph % (Auto) [place] % (Auto) Eos % (Auto) Baso % (Auto) Lymph # (Auto) [place] # (Auto) Eos # (Auto) Baso # (Auto) Abs Immat Gran (auto) Absolute Neuts (auto) Absolute Nucleated RBC Nucleated RBC % (auto) Anion Gap Estim Creat Clear Calc Estimated GFR POC Glucose 250 H Random Glucose Lactic Acid Calcium Magnesium Total Bilirubin AST ALT Alkaline Phosphatase C-Reactive Protein Total Protein Albumin Lipase Beta HCG, Quant Urine Color Urine Appearance Urine pH Ur Specific [place] Urine Protein Urine Glucose (UA) Urine Ketones Urine Blood Urine Nitrite Ur Leukocyte Esterase Urine RBC Urine WBC Ur Squamous Epith Cells Urine Bacteria Hyaline Casts Assessment and Plan (1) Diverticulitis: Status: Acute Plan d1 48yo F with DM2, HTN, HLD presenting with abd pain, admitted for sepsis due to acute diverticulitis sepsis due to acute diverticulitis - pip/becky d1, follow BCx, clear liquid diet, IV fluids, outpatient colonoscopy/GI referral HTN - lisinopril HLD - statin DM2 - basal-bolus insulin VTE ppx - enoxaparin dispo - eventual home Total time managing care of this patient today: 35 minutes. Quality Stroke Does the patient have a stroke diagnosis?: No VTE Prior VTE?: No VTE Risk Level:: Medical - moderate - high VTE Device Contraindication: Treatment Not Indicated VTE Drug Contraindication: N/A - Med Ordered
[2024-03-28] MEDS: Atorvastatin Calcium 20 MG TABLET PO (13:15)
[2024-03-28] MEDS: 0.9 % Sodium Chloride Flush 3 ML SYRINGE IVFLUSH (16:31)
[2024-03-28 16:34] LABS: Glucose, Whole Blood 191 mg/dL (60-115)
[2024-03-28 20:03] LABS: Glucose, Whole Blood 206 mg/dL (60-115)
[2024-03-28] MEDS: lamoTRIgine 100 MG TABLET 200 MG PO (21:27)
[2024-03-28] MEDS: Mirtazapine 15 MG TABLET PO (21:27)
[2024-03-28] MEDS: Insulin Glargine,Hum.rec.anlog 100 UNIT/ML 10 ML VIAL 20 UNIT SUBCUT (21:30)
[2024-03-29 03:15] VITALS: BP 137/60; PULSE 94; RESP 14; TEMP 37.3; O2SAT 93
[2024-03-29] MEDS: Piperacillin Sodium/Tazobactam 4.5 GM in 0.9 % Sodium Chloride 100 ML IV ×4 (03:28→23:58)
[2024-03-29] MEDS: Lactated Ringers 1,000 ML 100 ML IVCONT (06:10)
[2024-03-29 08:00] VITALS: BP 155/68; PULSE 94; RESP 16; TEMP 36.2; O2SAT 93
[2024-03-29 08:07] LABS: Glucose, Whole Blood 192 mg/dL (60-115)
[2024-03-29] MEDS: Enoxaparin Sodium 40 MG/0.4 ML SYRINGE SUBCUT (08:20)
[2024-03-29 08:21] VITALS: BP 155/68
[2024-03-29] MEDS: Empagliflozin 25 MG TABLET PO (08:21)
[2024-03-29] MEDS: Cholecalciferol (Vitamin D3) 25 MCG TABLET 50 MCG PO (08:21)
[2024-03-29] MEDS: lisinopriL 10 MG TABLET PO (08:21)
[2024-03-29] MEDS: Insulin Lispro 100 UNIT/ML 3 ML VIAL SUBCUT ×3 (08:21→20:21)
[2024-03-29] MEDS: Atorvastatin Calcium 20 MG TABLET PO (08:21)
[2024-03-29] MEDS: Morphine Sulfate 4 MG/ML CARTRIDGE IVPUSH ×2 (08:26→12:11)
--- NOTE | 2024-03-29 09:45 | P.PNIM_ITS ---
Subjective Subjective Date of Service: 03/29/24 Interval History: pain improved wishes to try solids Review of Systems Review of Systems: Yes all other systems are reviewed and are negative Physical Exam 2 Vital Signs: Vital Signs: Last Vital Signs Temp 97.2 F 03/29/24 08:00 Pulse 94 03/29/24 08:00 Resp 16 03/29/24 08:00 BP 155/68 H 03/29/24 08:21 Pulse Ox 93 03/29/24 08:00 O2 Del Method Room Air 03/29/24 08:00 BMI result Body Mass Index 37.1 Gen: in no acute distress HEENT: sclera anicteric, moist mucus membranes Neck: supple Lungs: clear to auscultation bilaterally Heart: regular rate and rhythm, no murmurs Abd: soft, LLQ tender without rebound, non-distended Ext: no edema Skin: warm/well-perfused Neuro: alert and oriented x3, no focal findings Psych: appropriate affect Objective Data Active Medications Acetaminophen (Acetaminophen 325 Mg Tablet) 650 mg PO Q6H PRN PRN Reason: Pain, Mild (Pain Scale 1-3), fever or headache Atorvastatin Calcium (Atorvastatin Calcium 20 Mg Tablet) 20 mg PO DAILY [facility] Last Admin: 03/29/24 08:21 Dose: 20 mg Documented By: MANUEL Calcium Carbonate (Calcium Carbonate 750 Mg Tab.Chew) 750 mg PO Q4H PRN PRN Reason: Heartburn Empagliflozin (Empagliflozin 25 Mg Tablet) 25 mg PO DAILY [facility] Last Admin: 03/29/24 08:21 Dose: 25 mg Documented By: MANUEL Enoxaparin Sodium (Enoxaparin Sodium 40 Mg/0.4 Ml Syringe) 40 mg SUBCUT Q24H [facility] Last Admin: 03/29/24 08:20 Dose: 40 mg Documented By: MANUEL Glucose (Glucose Gel 15 Gm Gel..Gram.) 15 gm PO Q15M PRN; Protocol PRN Reason: per Hypoglycemia Standing Ord. Piperacillin Sod/Tazobactam (Sod 4.5 gm/ Sodium Chloride) 100 mls @ 200 mls/hr IV Q6H [facility] Last Infusion: 03/29/24 03:59 Dose: Infused Documented By: MIGUELANGEL Dextrose (D10) 250 mls @ 750 mls/hr IV Q15M PRN; Protocol PRN Reason: per Hypoglycemia Standing Ord. Insulin Glargine (Insulin Glargine,Hum.Rec.Anlog 100 Unit/Ml 10 Ml Vial) 20 unit SUBCUT BEDTIME [facility] Last Admin: 03/28/24 21:30 Dose: 20 unit Documented By: MIGUELANGEL Insulin Human Lispro (Insulin Lispro 100 Unit/Ml 3 Ml Vial) 0 unit SUBCUT QIDACHS [facility]; Protocol Last Admin: 03/29/24 08:21 Dose: 2 unit Documented By: MANUEL Lamotrigine (Lamotrigine 100 Mg Tablet) 200 mg PO BEDTIME [facility] Last Admin: 03/28/24 21:27 Dose: 200 mg Documented By: MIGUELANGEL Lisinopril (Lisinopril 10 Mg Tablet) 10 mg PO DAILY [facility]; Protocol Last Admin: 03/29/24 08:21 Dose: 10 mg Documented By: MANUEL Magnesium Hydroxide (Milk Of Magnesia 30 Ml Oral.Susp) 30 ml PO DAILY PRN PRN Reason: Constipation Melatonin (Melatonin 3 Mg Tablet) 6 mg PO BEDTIME PRN PRN Reason: Insomnia Mirtazapine (Mirtazapine 15 Mg Tablet) 15 mg PO BEDTIME [facility] Last Admin: 03/28/24 21:27 Dose: 15 mg Documented By: MIGUELANGEL Morphine Sulfate (Morphine Sulfate 4 Mg/Ml Cartridge) 4 mg IVPUSH Q4H PRN; Protocol PRN Reason: Pain, Severe (Pain Scale 7-10) Last Admin: 03/29/24 08:26 Dose: 4 mg Documented By: MANUEL Ondansetron HCl (Ondansetron Hcl 4 Mg/2 Ml Vial) 4 mg IVPUSH Q8H PRN PRN Reason: Nausea and Vomiting Sodium Chloride (0.9 % Sodium Chloride Flush 3 Ml Syringe) 3 ml IVFLUSH QSHIFT [facility] Last Admin: 03/29/24 08:24 Dose: Not Given Documented By: MANUEL Non-Admin Reason: IV Running Vitamin D (Cholecalciferol (Vitamin D3) 25 Mcg Tablet) 50 mcg PO DAILY [facility] Last Admin: 03/29/24 08:21 Dose: 50 mcg Documented By: MANUEL Labs 03/28/24 04:30 03/28/24 04:30 Labs: Laboratory Results - last 24 hr 03/28/24 03/28/24 03/28/24 11:13 16:30 19:52 POC Glucose 250 H 191 H 206 H 03/29/24 08:01 POC Glucose 192 H Microbiology Microbiology Results: Microbiology 03/28/24 00:46 Blood Culture - Preliminary Blood - Venous No growth after 24 hours. 03/28/24 00:34 Blood Culture - Preliminary Blood - Venous No growth after 24 hours. Assessment and Plan (1) Diverticulitis: Status: Acute Plan d2 48yo F with DM2, HTN, HLD presenting with abd pain, admitted for sepsis due to acute diverticulitis sepsis due to acute diverticulitis - pip/becky d2, follow BCx, advance diet to diabetic solids, outpatient colonoscopy/GI referral HTN - lisinopril HLD - statin DM2 - basal-bolus insulin VTE ppx - enoxaparin dispo - eventual home In my clinical judgment, the patient requires continued inpatient hospitalization for the following reasons: IV ABX Total time managing care of this patient today: 35 minutes. Quality Stroke Does the patient have a stroke diagnosis?: No VTE Prior VTE?: No VTE Risk Level:: Medical - moderate - high VTE Device Contraindication: Treatment Not Indicated VTE Drug Contraindication: N/A - Med Ordered
[2024-03-29 11:25] LABS: Glucose, Whole Blood 128 mg/dL (60-115)
[2024-03-29 15:21] VITALS: BP 162/94; PULSE 97; RESP 18; TEMP 37.6; O2SAT 95
[2024-03-29 16:40] LABS: Glucose, Whole Blood 208 mg/dL (60-115)
[2024-03-29] MEDS: 0.9 % Sodium Chloride Flush 3 ML SYRINGE IVFLUSH ×2 (17:43→23:58)
[2024-03-29 19:11] VITALS: BP 137/87; PULSE 119; RESP 18; TEMP 37.6; O2SAT 91
[2024-03-29] MEDS: oxyCODONE HCl Immed Release 5 MG TABLET PO (19:34)
[2024-03-29] MEDS: Mirtazapine 15 MG TABLET PO (19:34)
[2024-03-29] MEDS: Acetaminophen 325 MG TABLET 650 MG PO (19:34)
[2024-03-29] MEDS: lamoTRIgine 100 MG TABLET 200 MG PO (19:34)
[2024-03-29 20:03] LABS: Glucose, Whole Blood 208 mg/dL (60-115)
[2024-03-29] MEDS: Insulin Glargine,Hum.rec.anlog 100 UNIT/ML 10 ML VIAL 20 UNIT SUBCUT (20:20)
[2024-03-30] VITALS (7 sets, daily range): BP systolic 135–162; BP diastolic 67–99; PULSE 86–103; RESP 16–18; TEMP 37–39.2; O2SAT 94–96
[2024-03-30] MEDS: Acetaminophen 325 MG TABLET 650 MG PO ×2 (03:32→21:45)
[2024-03-30] MEDS: Piperacillin Sodium/Tazobactam 4.5 GM in 0.9 % Sodium Chloride 100 ML IV ×3 (05:22→17:34)
[2024-03-30 05:49] LABS: Hematocrit 40.4 % (37.0-47.0); Hemoglobin 13.1 g/dl (12.0-16.0); Mean Corpuscular HGB Conc 32.4 g/dl (31.0-35.0); Mean Corpuscular Hemoglobin 27.2 pg (27.0-33.0); Mean Corpuscular Volume 83.8 fL (80.0-98.0); Mean Platelet Volume 10.4 fL (9.4-12.3); Platelet Count 272 X10*3/uL (160-400); Red Blood Count 4.82 X10*6/uL (4.20-5.50); Red Cell Distribution Width 13.4 % (11.0-16.0); White Blood Count 11.5 X10*3/uL (4.8-10.8)
[2024-03-30 06:03] LABS: Anion Gap 15 (12-20); Blood Urea Nitrogen 6 mg/dL (9-16); C Reactive Protein 19.21 mg/dL (< or = 0.50); Calcium 9.4 mg/dL (8.4-10.2); Carbon Dioxide 23 mmol/L (22-29); Chloride 106 mmol/L (96-108); Creatinine Clr Calc Pharmacy 98.3; Estimated Glomerular Filt Rate > 60; Glucose Random 126 mg/dL (60-115); Potassium 3.7 mmol/L (3.3-5.1); Sodium 140 mmol/L (135-145)
[2024-03-30 08:04] LABS: Glucose, Whole Blood 113 mg/dL (60-115)
[2024-03-30] MEDS: 0.9 % Sodium Chloride Flush 3 ML SYRINGE IVFLUSH ×4 (08:34→21:37)
[2024-03-30] MEDS: Enoxaparin Sodium 40 MG/0.4 ML SYRINGE SUBCUT (08:34)
[2024-03-30] MEDS: lisinopriL 10 MG TABLET PO (08:35)
[2024-03-30] MEDS: Atorvastatin Calcium 20 MG TABLET PO (08:35)
[2024-03-30] MEDS: Empagliflozin 25 MG TABLET PO (08:35)
[2024-03-30] MEDS: Cholecalciferol (Vitamin D3) 25 MCG TABLET 50 MCG PO (08:35)
[2024-03-30] MEDS: iohexoL 350 MG/ML 100 ML INFUS..BTL 85 ML IV (09:53)
[2024-03-30 11:38] LABS: Glucose, Whole Blood 124 mg/dL (60-115)
--- NOTE | 2024-03-30 13:13 | HO.PM.IMPN ---
Subjective Subjective Date of Service: 03/30/24 Interval History: This history was taken in Turkish from the patient. Worsening LLQ pain and febrile to 102.5 this AM No N/V No diarrhea No hematemesis, hematochezia, or melena. Review of Systems Review of Systems: Yes all other systems are reviewed and are negative Physical Exam Vital Signs: Vital Signs: Last Vital Signs Temp 98.6 F 03/30/24 08:14 Pulse 91 03/30/24 08:14 Resp 18 03/30/24 08:14 BP 135/76 03/30/24 08:35 Pulse Ox 94 03/30/24 08:14 O2 Del Method Room Air 03/30/24 08:14 BMI result Body Mass Index 37.1 Gen: in no acute distress HEENT: sclera anicteric, moist mucus membranes Neck: supple Lungs: clear to auscultation bilaterally Heart: regular rate and rhythm, no murmurs Abd: soft, LLQ tender without rebound, non-distended Ext: no edema Skin: warm/well-perfused Neuro: alert and oriented x3, no focal findings Psych: appropriate affect Objective Data Active Medications Acetaminophen (Acetaminophen 325 Mg Tablet) 650 mg PO Q6H PRN PRN Reason: Pain, Mild (Pain Scale 1-3), fever or headache Last Admin: 03/30/24 03:32 Dose: 650 mg Documented By: RHONDA Atorvastatin Calcium (Atorvastatin Calcium 20 Mg Tablet) 20 mg PO DAILY [facility] Last Admin: 03/30/24 08:35 Dose: 20 mg Documented By: MANUEL Calcium Carbonate (Calcium Carbonate 750 Mg Tab.Chew) 750 mg PO Q4H PRN PRN Reason: Heartburn Empagliflozin (Empagliflozin 25 Mg Tablet) 25 mg PO DAILY [facility] Last Admin: 03/30/24 08:35 Dose: 25 mg Documented By: MANUEL Enoxaparin Sodium (Enoxaparin Sodium 40 Mg/0.4 Ml Syringe) 40 mg SUBCUT Q24H [facility] Last Admin: 03/30/24 08:34 Dose: 40 mg Documented By: MANUEL Glucose (Glucose Gel 15 Gm Gel..Gram.) 15 gm PO Q15M PRN; Protocol PRN Reason: per Hypoglycemia Standing Ord. Dextrose (D10) 250 mls @ 750 mls/hr IV Q15M PRN; Protocol PRN Reason: per Hypoglycemia Standing Ord. Piperacillin Sod/Tazobactam (Sod 4.5 gm/ Sodium Chloride) 100 mls @ 200 mls/hr IV Q6H [facility] Last Infusion: 03/30/24 12:48 Dose: Infused Documented By: MANUEL Insulin Glargine (Insulin Glargine,Hum.Rec.Anlog 100 Unit/Ml 10 Ml Vial) 20 unit SUBCUT BEDTIME [facility] Last Admin: 03/29/24 20:20 Dose: 20 unit Documented By: URBANO Insulin Human Lispro (Insulin Lispro 100 Unit/Ml 3 Ml Vial) 0 unit SUBCUT QIDACHS [facility]; Protocol Last Admin: 03/30/24 11:49 Dose: Not Given Documented By: MANUEL Non-Admin Reason: No Insulin Coverage Lamotrigine (Lamotrigine 100 Mg Tablet) 200 mg PO BEDTIME [facility] Last Admin: 03/29/24 19:34 Dose: 200 mg Documented By: URBANO Lisinopril (Lisinopril 10 Mg Tablet) 10 mg PO DAILY [facility]; Protocol Last Admin: 03/30/24 08:35 Dose: 10 mg Documented By: MANUEL Magnesium Hydroxide (Milk Of Magnesia 30 Ml Oral.Susp) 30 ml PO DAILY PRN PRN Reason: Constipation Melatonin (Melatonin 3 Mg Tablet) 6 mg PO BEDTIME PRN PRN Reason: Insomnia Mirtazapine (Mirtazapine 15 Mg Tablet) 15 mg PO BEDTIME [facility] Last Admin: 03/29/24 19:34 Dose: 15 mg Documented By: URBANO Morphine Sulfate (Morphine Sulfate 4 Mg/Ml Cartridge) 4 mg IVPUSH Q4H PRN; Protocol PRN Reason: Pain, Severe (Pain Scale 7-10) Last Admin: 03/29/24 12:11 Dose: 4 mg Documented By: MANUEL Ondansetron HCl (Ondansetron Hcl 4 Mg/2 Ml Vial) 4 mg IVPUSH Q8H PRN PRN Reason: Nausea and Vomiting Oxycodone HCl (Oxycodone Hcl Immed Release 5 Mg Tablet) 5 mg PO Q6H PRN PRN Reason: Pain, Moderate(Pain Scale 4-6) Last Admin: 03/29/24 19:34 Dose: 5 mg Documented By: URBANO Sodium Chloride (0.9 % Sodium Chloride Flush 3 Ml Syringe) 3 ml IVFLUSH QSHIFT [facility] Last Admin: 03/30/24 08:34 Dose: 3 ml Documented By: MANUEL Vitamin D (Cholecalciferol (Vitamin D3) 25 Mcg Tablet) 50 mcg PO DAILY [facility] Last Admin: 03/30/24 08:35 Dose: 50 mcg Documented By: MANUEL Labs 03/30/24 05:33 03/30/24 05:33 Labs: Laboratory Results - last 24 hr 03/29/24 03/29/24 03/30/24 16:37 19:54 05:33 MCV 83.8 MCH 27.2 MCHC 32.4 RDW 13.4 Plt Count 272 MPV 10.4 Absolute Nucleated RBC 0.000 Nucleated RBC % (auto) 0.0 Anion Gap 15 Estim Creat Clear Calc 98.3 Estimated GFR > 60 POC Glucose 208 H 208 H Random Glucose 126 H Calcium 9.4 D C-Reactive Protein 19.21 H 03/30/24 03/30/24 07:39 11:34 MCV MCH MCHC RDW Plt Count MPV Absolute Nucleated RBC Nucleated RBC % (auto) Anion Gap Estim Creat Clear Calc Estimated GFR POC Glucose 113 124 H Random Glucose Calcium C-Reactive Protein Impressions Abdomen/Pelvis CT 03/30/24 09:18 IMPRESSION: Limited by lack of oral contrast. Diverticulosis predominantly involving the sigmoid and descending colon. Induration of fat surrounding the mid to proximal sigmoid colon. Induration of fat extends to the uterus and left adnexal region as well. The findings appear mildly worse compared with 2 days prior. No discrete abscess identified as such. Differential diagnosis includes, but is not limited to, diverticulitis. Recommend follow-up to resolution after appropriate course of therapy has been completed to exclude occult neoplasm. Electronically signed by: Shailesh Cohen MD 03/30/2024 12:30 PM EDT Microbiology Microbiology Results: Microbiology 03/28/24 00:46 Blood Culture - Preliminary Blood - Venous No growth after 48 hours. 03/28/24 00:34 Blood Culture - Preliminary Blood - Venous No growth after 48 hours. Assessment and Plan (1) Diverticulitis: Status: Acute Plan d3 48yo F with DM2, HTN, HLD presenting with abd pain, admitted for sepsis due to acute diverticulitis sepsis due to acute diverticulitis - given worsening pain/fever, will consult Gen Surg - pip/becky d3 - will eventually need colonoscopy; refer to GI as outpt HTN - lisinopril HLD - statin DM2 - basal-bolus insulin VTE ppx - enoxaparin dispo - eventual home In my clinical judgment, the patient requires continued inpatient hospitalization for the following reasons: IV ABX Total time managing care of this patient today: 35 minutes. Quality Stroke Does the patient have a stroke diagnosis?: No VTE Prior VTE?: No VTE Risk Level:: Medical - moderate - high VTE Device Contraindication: Treatment Not Indicated VTE Drug Contraindication: N/A - Med Ordered
--- NOTE | 2024-03-30 13:41 | PM.CNGS ---
History of Present Illness Consult details Consult date: 03/30/24 <Zhanna Leach PA-C - Last Filed: 03/30/24 14:11> Reason for consult: other (worsening diverticulitis ) <Zhanna Leach PA-C - Last Filed: 03/30/24 14:11> Requesting physician: Abebe Marquez <Zhanna Leach PA-C - Last Filed: 03/30/24 14:11> Narrative: Ms. Alejo is 48-year-old female with PMH significant for insulin-dependent diabetes mellitus, hypertension, hyperlipidemia who presented to the ED with complaints of abdominal pain. Patient states her symptoms began the morning prior to presentation in the suprapubic region. She reports one prior episode of diverticulitis in December 2023 and was treated with PO abx with resolution of pain. She reports this current episode is much more severe. She denies fever, chills, nausea, vomiting, diarrhea, constipation at home. Due to the severity of pain, she came to the ED for evaluation. Work up included CBC, BMP, LFTs which was significant for a WBC count of 20.8. CT scan abd pelvis was obtained which showed diverticulosis, short segment of wall thickening with surrounding inflammation in the proximal to mid sigmoid colon without abscess of free air. She was admitted to the hospitalist service for further treatment of the acute diverticulitis, sepsis. She had continued pain and fever to [address] scan showed induration of fat surrounding the mid to proximal sigmoid colon, mildly worse compared to prior without discrete abscess, free air or free peritoneal fluid. She reports persistent abdominal pain that has not improved since admission and is now more diffuse involving her lower abdomen. She has never had a colonoscopy. She denies FH of colon CA. <Zhanna Leach PA-C - Last Filed: 03/30/24 14:11> Review of Systems Constitutional: Constitutional: Denies chills and Reports fever(s) <MAGO Ren Last Filed: 03/30/24 14:11> ENT: Denies dizziness <MAGO Ren Last Filed: 03/30/24 14:11> Cardiovascular: Cardiovascular: Denies chest pain and Denies dyspnea <Zhanna Leach PA-C Last Filed: 03/30/24 14:11> Respiratory: Respiratory: Denies dyspnea <Zhanna Leach PA-C Last Filed: 03/30/24 14:11> Gastrointestinal: Gastrointestinal: Reports as per HPI, Denies melena and Denies hematochezia <Zhanna Leach PA-C Last Filed: 03/30/24 14:11> Genitourinary: Genitourinary: Denies hematuria, Denies dysuria and Denies vaginal discharge <Zhanna Leach PA-C Last Filed: 03/30/24 14:11> Integumentary/Breasts: Skin/Breast: Denies rash and Denies jaundice <Zhanna Leach PA-C Last Filed: 03/30/24 14:11> Neurologic: Denies dizziness <Zhanna Leach PA-C Last Filed: 03/30/24 14:11> PMF Past Medical History Medical History: Medical History Morbid obesity with BMI of 40.0-44.9, adult Diabetes mellitus with microalbuminuric diabetic nephropathy Vitamin D deficiency HLD (hyperlipidemia) HTN (hypertension) T2DM (type 2 diabetes mellitus) <Zhanna Leach PA-C Last Filed: 03/30/24 14:11> Family History Family History: Family History Father CVD (cardiovascular disease) Cancer Mother Uterine cancer Hypertension CVD (cardiovascular disease) Diabetes mellitus Paternal Grandmother Uterine cancer <Zhanna Leach PA-C Last Filed: 03/30/24 14:11> Surgical History Surgical History: Surgical History Hx of section History of tubal ligation <Zhanna Leach PA-C Last Filed: 03/30/24 14:11> Social History Social History: Social History Household Members: Family Housing: Apartment Do you presently have visiting nurse or other home services: No Alcohol intake: never Patient Tobacco Use Status: Never used Tobacco e-Cigarette/Vaping Use: Never Used Second Hand Smoke Exposure: No service: No Current occupational status: unemployed Cognitive needs: No Hearing needs: No Vision needs: No <Zhanna Leach PA-C - Last Filed: 03/30/24 14:11> Meds Allergies/Adverse reactions: Allergies Allergy/AdvReac Type Severity Reaction Status Date / Time No Known Allergies Allergy Verified 03/27/24 20:34 [No Known Allergies*] <Zhanna Leach PA-C - Last Filed: 03/30/24 14:11> Active Medications: Current Medications Acetaminophen (Acetaminophen 325 Mg Tablet) 650 mg PO Q6H PRN PRN Reason: Pain, Mild (Pain Scale 1-3), fever or headache Last Admin: 03/30/24 03:32 Dose: 650 mg Atorvastatin Calcium (Atorvastatin Calcium 20 Mg Tablet) 20 mg PO DAILY [facility] Last Admin: 03/30/24 08:35 Dose: 20 mg Calcium Carbonate (Calcium Carbonate 750 Mg Tab.Chew) 750 mg PO Q4H PRN PRN Reason: Heartburn Empagliflozin (Empagliflozin 25 Mg Tablet) 25 mg PO DAILY [facility] Last Admin: 03/30/24 08:35 Dose: 25 mg Enoxaparin Sodium (Enoxaparin Sodium 40 Mg/0.4 Ml Syringe) 40 mg SUBCUT Q24H [facility] Last Admin: 03/30/24 08:34 Dose: 40 mg Glucose (Glucose Gel 15 Gm Gel..Gram.) 15 gm PO Q15M PRN; Protocol PRN Reason: per Hypoglycemia Standing Ord. Dextrose (D10) 250 mls @ 750 mls/hr IV Q15M PRN; Protocol PRN Reason: per Hypoglycemia Standing Ord. Piperacillin Sod/Tazobactam (Sod 4.5 gm/ Sodium Chloride) 100 mls @ 200 mls/hr IV Q6H [facility] Last Infusion: 03/30/24 12:48 Dose: Infused Insulin Glargine (Insulin Glargine,Hum.Rec.Anlog 100 Unit/Ml 10 Ml Vial) 20 unit SUBCUT BEDTIME [facility] Last Admin: 03/29/24 20:20 Dose: 20 unit Insulin Human Lispro (Insulin Lispro 100 Unit/Ml 3 Ml Vial) 0 unit SUBCUT QIDACHS [facility]; Protocol Last Admin: 03/30/24 11:49 Dose: Not Given Lamotrigine (Lamotrigine 100 Mg Tablet) 200 mg PO BEDTIME [facility] Last Admin: 03/29/24 19:34 Dose: 200 mg Lisinopril (Lisinopril 10 Mg Tablet) 10 mg PO DAILY [facility]; Protocol Last Admin: 03/30/24 08:35 Dose: 10 mg Magnesium Hydroxide (Milk Of Magnesia 30 Ml Oral.Susp) 30 ml PO DAILY PRN PRN Reason: Constipation Melatonin (Melatonin 3 Mg Tablet) 6 mg PO BEDTIME PRN PRN Reason: Insomnia Mirtazapine (Mirtazapine 15 Mg Tablet) 15 mg PO BEDTIME [facility] Last Admin: 03/29/24 19:34 Dose: 15 mg Morphine Sulfate (Morphine Sulfate 4 Mg/Ml Cartridge) 4 mg IVPUSH Q4H PRN; Protocol PRN Reason: Pain, Severe (Pain Scale 7-10) Last Admin: 03/29/24 12:11 Dose: 4 mg Ondansetron HCl (Ondansetron Hcl 4 Mg/2 Ml Vial) 4 mg IVPUSH Q8H PRN PRN Reason: Nausea and Vomiting Oxycodone HCl (Oxycodone Hcl Immed Release 5 Mg Tablet) 5 mg PO Q6H PRN PRN Reason: Pain, Moderate(Pain Scale 4-6) Last Admin: 03/29/24 19:34 Dose: 5 mg Sodium Chloride (0.9 % Sodium Chloride Flush 3 Ml Syringe) [facility] Last Admin: 03/30/24 08:34 Dose: 3 ml Vitamin D (Cholecalciferol (Vitamin D3) 25 Mcg Tablet) 50 mcg PO DAILY [facility] Last Admin: 03/30/24 08:35 Dose: 50 mcg <Zhanna Leach PA-C - Last Filed: 03/30/24 14:11> Home medications: Home Medications ?Medication ?Instructions ?Recorded ?Confirmed ?Last Taken ?Type lamotrigine 200 mg tablet 200 mg PO BEDTIME 05/25/23 03/28/24 03/27/24 History pen needle, diabetic 33 gauge x #100 ea 05/25/23 01/12/24 Unknown History (Easy Comfort Pen [place]) insulin glargine 100 unit/mL (3 45 unit subcut BEDTIME 03/28/24 03/28/24 03/27/24 History mL) subcutaneous pen (Lantus Solostar U-100 Insulin) mirtazapine 15 mg tablet 15 mg PO BEDTIME 03/28/24 03/28/24 03/27/24 History semaglutide 0.25 mg or 0.5 mg (2 0.5 mg subcut FR 03/28/24 03/28/24 03/23/24 History mg/3 mL) subcutaneous pen injector (Ozempic) <Zhanna Leach PA-C Last Filed: 03/30/24 14:11> Physical Exam Vital Signs: Vital Signs: Last Vital Signs Temp 98.6 F 03/30/24 08:14 Pulse 91 03/30/24 08:14 Resp 18 03/30/24 08:14 BP 135/76 03/30/24 08:35 Pulse Ox 94 03/30/24 08:14 O2 Del Method Room Air 03/30/24 08:14 BMI result Body Mass Index 37.1 <Zhanna Leach PA-C Last Filed: 03/30/24 14:11> Const: General: comfortable, no acute distress and alert <Zhanna Leach PA-C Last Filed: 03/30/24 14:11> Orientation/consciousness: patient oriented x3 <Zhanna Leach PA-C Last Filed: 03/30/24 14:11> Resp: Effort & Inspection: normal respiratory effort <MAGO Ren Last Filed: 03/30/24 14:11> GI: Other: corpulent abdomen <Zhanna Leach PA-C [employer] Last Filed: 03/30/24 14:11> Inspection: No distended <Zhanna Leach PA-C [employer] Last Filed: 03/30/24 14:11> Palpation (GI): Soft to palpation, Tenderness to palpation present (GI) (diffuse moderate lower abdominal tenderness, more increased suprapubic ) with no rebound tenderness and no guarding <MAGO Ren Last Filed: 03/30/24 14:11> Percussion: Yes normal to percussion <MAGO Ren Filed: 03/30/24 14:11> Skin: General skin exam: no rashes or lesions noted <MAGO Ren Last Filed: 03/30/24 14:11> Neuro: General: patient oriented x3 and moves all extremities <MAGO Ren Last Filed: 03/30/24 14:11> Results Labs Result diagrams: 03/30/24 05:33 03/30/24 05:33 <MAGO Ren Last Filed: 03/30/24 14:11> Labs: Abnormal lab results 03/29/24 03/29/24 03/30/24 Range/Units 16:37 19:54 05:33 WBC 11.5 H (4.8-10.8) X10*3/uL BUN 6 L (9-16) mg/dL POC Glucose 208 H 208 H (60-115) mg/dL Random Glucose 126 H (60-115) mg/dL C-Reactive Protein 19.21 H (< or = 0.50) mg/dL 03/30/24 Range/Units 11:34 WBC (4.8-10.8) X10*3/uL BUN (9-16) mg/dL POC Glucose 124 H (60-115) mg/dL Random Glucose (60-115) mg/dL C-Reactive Protein (< or = 0.50) mg/dL Short CBC 03/30/24 Range/Units 05:33 WBC 11.5 H (4.8-10.8) X10*3/uL Hgb 13.1 (12.0-16.0) g/dl Hct 40.4 (37.0-47.0) % Plt Count 272 (160-400) X10*3/uL BMP 03/30/24 05:33 Sodium 140 Potassium 3.7 Chloride 106 Carbon Dioxide 23 BUN 6 L Creatinine 0.71 Calcium 9.4 D Urine 03/27/24 Range/Units 23:51 Urine Color Yellow Urine Appearance Clear Urine pH 6.0 (5.0-9.0) Ur Specific [place] >= 1.030 H (1.005-1.025) Urine Protein 100 (2+) H (Neg-Trace) mg/dL Urine Glucose (UA) >=1000 H (Negative) mg/dL All other labs normal. <Zhanna Leach PA-C - Last Filed: 03/30/24 14:11> Imaging Abdomen CT scan report/results: report reviewed and image reviewed <Zhanna Leach PA-C - Last Filed: 03/30/24 14:11> Assessment and Plan (1) Diverticulitis: Status: Acute <Zhanna Leach PA-C - Last Filed: 03/30/24 14:11> pt looks well does have some llower abdl tenderness but otherwise benign inflammatory changes near sigmoid - more on ffup CT clinically looks well WBC down continue IV abx' bowel rest close monitoring seen and examined independently <Karri Al MD - Last Filed: 03/30/24 15:04> 48-year-old female with PMH significant for insulin-dependent diabetes mellitus, hypertension, hyperlipidemia admitted with sigmoid diverticulitis with persistent severe abdominal pain, fevers and repeat CT scan shows mild worsening of surrounding fat stranding. No abscess, free fluid or free air. Appears to be the same segment from prior episode. WBC is downtrending. She is actually clinically appearing well and remains afebrile. She has moderate lower abd tenderness without peritoneal signs. Recommend cont IV abx, bowel rest, IVF. Discussed if acute worsening of no improvement in the next few days would need to proceed with laparotomy, sigmoid resection, likely end colostomy. Patient understands. Will follow closely. Patient discussed with Dr. Al. <Zhanna Leach PA-C - Last Filed: 03/30/24 14:11> Procedures Date of Service Date of Service: 03/30/24 <Zhanna Leach PA-C - Last Filed: 03/30/24 14:11> 03/30/24 <Karri lA MD - Last Filed: 03/30/24 15:04>
--- NOTE | 2024-03-30 15:34 | MHC.CM.PN ---
PT NOT YET MEDICALLY CLEARED FOR DC DCP REMAINS HOME WITH [facility] [employer] [facility]
[2024-03-30 16:20] LABS: Glucose, Whole Blood 101 mg/dL (60-115)
[2024-03-30] MEDS: Morphine Sulfate 4 MG/ML CARTRIDGE IVPUSH (16:29)
[2024-03-30 21:10] LABS: Glucose, Whole Blood 118 mg/dL (60-115)
[2024-03-30] MEDS: Insulin Glargine,Hum.rec.anlog 100 UNIT/ML 10 ML VIAL 20 UNIT SUBCUT (21:36)
[2024-03-30] MEDS: Mirtazapine 15 MG TABLET PO (21:36)
[2024-03-30] MEDS: lamoTRIgine 100 MG TABLET 200 MG PO (21:36)
[2024-03-31] MEDS: Piperacillin Sodium/Tazobactam 4.5 GM in 0.9 % Sodium Chloride 100 ML IV ×4 (00:42→17:24)
[2024-03-31 03:55] VITALS: BP 125/65; PULSE 79; RESP 16; TEMP 36.5; O2SAT 92
[2024-03-31 07:42] LABS: Glucose, Whole Blood 87 mg/dL (60-115)
[2024-03-31 07:44] VITALS: BP 147/73; PULSE 85; RESP 16; TEMP 36.9; O2SAT 92
[2024-03-31] MEDS: Enoxaparin Sodium 40 MG/0.4 ML SYRINGE SUBCUT (08:43)
[2024-03-31] MEDS: oxyCODONE HCl Immed Release 5 MG TABLET PO ×2 (08:43→17:59)
[2024-03-31] MEDS: lisinopriL 10 MG TABLET PO (08:44)
[2024-03-31] MEDS: Empagliflozin 25 MG TABLET PO (08:44)
[2024-03-31] MEDS: Cholecalciferol (Vitamin D3) 25 MCG TABLET 50 MCG PO (08:44)
[2024-03-31] MEDS: Atorvastatin Calcium 20 MG TABLET PO (08:44)
[2024-03-31] MEDS: 0.9 % Sodium Chloride Flush 3 ML SYRINGE IVFLUSH ×2 (08:45→17:25)
[2024-03-31 11:26] LABS: Glucose, Whole Blood 137 mg/dL (60-115)
[2024-03-31] MEDS: Acetaminophen 325 MG TABLET 650 MG PO (12:25)
--- NOTE | 2024-03-31 14:55 | PM.PNGS ---
Subjective Subjective Date of Service: 03/31/24 Interval history: Patient says that she is feeling a little better but she is still having some pain tolerating p.o. well Physical Exam Vital Signs: Vital Signs: Last Vital Signs Temp 98.5 F 03/31/24 07:44 Pulse 85 03/31/24 07:44 Resp 16 03/31/24 07:44 BP 147/73 H 03/31/24 07:44 Pulse Ox 92 03/31/24 07:44 O2 Del Method Room Air 03/31/24 07:44 BMI result Body Mass Index 37.1 GI: Other: Abdomen soft nondistended little tender diffusely with some mild guarding no rebound no peritoneal signs active bowel sounds Objective Data Active Medications Acetaminophen (Acetaminophen 325 Mg Tablet) 650 mg PO Q6H PRN PRN Reason: Pain, Mild (Pain Scale 1-3), fever or headache Last Admin: 03/31/24 12:25 Dose: 650 mg Documented By: JARED Atorvastatin Calcium (Atorvastatin Calcium 20 Mg Tablet) 20 mg PO DAILY [facility] Last Admin: 03/31/24 08:44 Dose: 20 mg Documented By: JARED Calcium Carbonate (Calcium Carbonate 750 Mg Tab.Chew) 750 mg PO Q4H PRN PRN Reason: Heartburn Empagliflozin (Empagliflozin 25 Mg Tablet) 25 mg PO DAILY [facility] Last Admin: 03/31/24 08:44 Dose: 25 mg Documented By: JARED Enoxaparin Sodium (Enoxaparin Sodium 40 Mg/0.4 Ml Syringe) 40 mg SUBCUT Q24H [facility] Last Admin: 03/31/24 08:43 Dose: 40 mg Documented By: JARED Glucose (Glucose Gel 15 Gm Gel..Gram.) 15 gm PO Q15M PRN; Protocol PRN Reason: per Hypoglycemia Standing Ord. Dextrose (D10) 250 mls @ 750 mls/hr IV Q15M PRN; Protocol PRN Reason: per Hypoglycemia Standing Ord. Piperacillin Sod/Tazobactam (Sod 4.5 gm/ Sodium Chloride) 100 mls @ 200 mls/hr IV Q6H [facility] Last Infusion: 03/31/24 13:00 Dose: Infused Documented By: JARED Insulin Glargine (Insulin Glargine,Hum.Rec.Anlog 100 Unit/Ml 10 Ml Vial) 20 unit SUBCUT BEDTIME [facility] Last Admin: 03/30/24 21:36 Dose: 20 unit Documented By: KOLBY Insulin Human Lispro (Insulin Lispro 100 Unit/Ml 3 Ml Vial) 0 unit SUBCUT QIDACHS [facility]; Protocol Last Admin: 03/31/24 11:32 Dose: Not Given Documented By: JARED Non-Admin Reason: No Insulin Coverage Lamotrigine (Lamotrigine 100 Mg Tablet) 200 mg PO BEDTIME [facility] Last Admin: 03/30/24 21:36 Dose: 200 mg Documented By: KOLBY Lisinopril (Lisinopril 10 Mg Tablet) 10 mg PO DAILY [facility]; Protocol Last Admin: 03/31/24 08:44 Dose: 10 mg Documented By: JARED Magnesium Hydroxide (Milk Of Magnesia 30 Ml Oral.Susp) 30 ml PO DAILY PRN PRN Reason: Constipation Melatonin (Melatonin 3 Mg Tablet) 6 mg PO BEDTIME PRN PRN Reason: Insomnia Mirtazapine (Mirtazapine 15 Mg Tablet) 15 mg PO BEDTIME [facility] Last Admin: 03/30/24 21:36 Dose: 15 mg Documented By: KOLBY Morphine Sulfate (Morphine Sulfate 4 Mg/Ml Cartridge) 4 mg IVPUSH Q4H PRN; Protocol PRN Reason: Pain, Severe (Pain Scale 7-10) Last Admin: 03/30/24 16:29 Dose: 4 mg Documented By: MAILE Ondansetron HCl (Ondansetron Hcl 4 Mg/2 Ml Vial) 4 mg IVPUSH Q8H PRN PRN Reason: Nausea and Vomiting Oxycodone HCl (Oxycodone Hcl Immed Release 5 Mg Tablet) 5 mg PO Q6H PRN PRN Reason: Pain, Moderate(Pain Scale 4-6) Last Admin: 03/31/24 08:43 Dose: 5 mg Documented By: JARED Sodium Chloride (0.9 % Sodium Chloride Flush 3 Ml Syringe) 3 ml IVFLUSH QSHIFT [facility] Last Admin: 03/31/24 08:45 Dose: 3 ml Documented By: JARED Vitamin D (Cholecalciferol (Vitamin D3) 25 Mcg Tablet) 50 mcg PO DAILY [facility] Last Admin: 03/31/24 08:44 Dose: 50 mcg Documented By: JAERD Labs 03/30/24 05:33 03/30/24 05:33 Labs: Laboratory Results - last 24 hr 03/30/24 03/30/24 03/31/24 16:09 21:03 07:28 POC Glucose 101 118 H 87 03/31/24 11:19 POC Glucose 137 H Procedures Date of Service Date of Service: 03/31/24 Progress Note: A&P Assessment and plan (1) Abdominal pain: Status: Acute Assessment and Plan: Patient with diverticulitis doing okay. Her symptoms are still persistent but maybe some slight improvement. No indication for surgical intervention at this point continue with conservative care. Liquid diet IV antibiotics. She understands and agrees with the above plan. Reassess tomorrow Time Spent With Patient Time: Total time managing care of this patient today ____ minutes. Quality Stroke Does the patient have a stroke diagnosis?: No VTE Prior VTE?: No VTE Risk Level:: Medical - moderate - high VTE Device Contraindication: Treatment Not Indicated VTE Drug Contraindication: N/A - Med Ordered
--- NOTE | 2024-03-31 14:59 | HO.PM.IMPN ---
Subjective Subjective Date of Service: 03/31/24 Interval History: Complains of diffuse lower abdominal pain; was declining pain meds initially. Agreed to small dose of morphine with relief Review of Systems Denies chest pain Denies shortness of breath Denies nausea vomiting admits diarrhea that is improving Denies fever and chills Endorses diffuse lower abdominal pain Physical Exam Vital Signs: Vital Signs: Last Vital Signs Temp 98.5 F 03/31/24 07:44 Pulse 85 03/31/24 07:44 Resp 16 03/31/24 07:44 BP 147/73 H 03/31/24 07:44 Pulse Ox 92 03/31/24 07:44 O2 Del Method Room Air 03/31/24 07:44 BMI result Body Mass Index 37.1 Const: Other: Awake alert uncomfortable appearing Resp: Other: Clear to auscultation bilaterally no rales rhonchi or wheezes Cardio: Other: No S4; positive S1-S2; no S3 murmurs rubs or gallops GI: Other: Soft tender across lower abdomen without rebound; nondistended normoactive bowel sounds Extrem: Other: No edema bilaterally Objective Data Active Medications Acetaminophen (Acetaminophen 325 Mg Tablet) 650 mg PO Q6H PRN PRN Reason: Pain, Mild (Pain Scale 1-3), fever or headache Last Admin: 03/31/24 12:25 Dose: 650 mg Documented By: JARED Atorvastatin Calcium (Atorvastatin Calcium 20 Mg Tablet) 20 mg PO DAILY [facility] Last Admin: 03/31/24 08:44 Dose: 20 mg Documented By: JARED Calcium Carbonate (Calcium Carbonate 750 Mg Tab.Chew) 750 mg PO Q4H PRN PRN Reason: Heartburn Empagliflozin (Empagliflozin 25 Mg Tablet) 25 mg PO DAILY [facility] Last Admin: 03/31/24 08:44 Dose: 25 mg Documented By: JARED Enoxaparin Sodium (Enoxaparin Sodium 40 Mg/0.4 Ml Syringe) 40 mg SUBCUT Q24H [facility] Last Admin: 03/31/24 08:43 Dose: 40 mg Documented By: JARED Glucose (Glucose Gel 15 Gm Gel..Gram.) 15 gm PO Q15M PRN; Protocol PRN Reason: per Hypoglycemia Standing Ord. Dextrose (D10) 250 mls @ 750 mls/hr IV Q15M PRN; Protocol PRN Reason: per Hypoglycemia Standing Ord. Piperacillin Sod/Tazobactam (Sod 4.5 gm/ Sodium Chloride) 100 mls @ 200 mls/hr IV Q6H [facility] Last Infusion: 03/31/24 13:00 Dose: Infused Documented By: JARED Insulin Glargine (Insulin Glargine,Hum.Rec.Anlog 100 Unit/Ml 10 Ml Vial) 20 unit SUBCUT BEDTIME [facility] Last Admin: 03/30/24 21:36 Dose: 20 unit Documented By: KOLBY Insulin Human Lispro (Insulin Lispro 100 Unit/Ml 3 Ml Vial) 0 unit SUBCUT QIDACHS [facility]; Protocol Last Admin: 03/31/24 11:32 Dose: Not Given Documented By: JARED Non-Admin Reason: No Insulin Coverage Lamotrigine (Lamotrigine 100 Mg Tablet) 200 mg PO BEDTIME [facility] Last Admin: 03/30/24 21:36 Dose: 200 mg Documented By: KOLBY Lisinopril (Lisinopril 10 Mg Tablet) 10 mg PO DAILY [facility]; Protocol Last Admin: 03/31/24 08:44 Dose: 10 mg Documented By: JARED Magnesium Hydroxide (Milk Of Magnesia 30 Ml Oral.Susp) 30 ml PO DAILY PRN PRN Reason: Constipation Melatonin (Melatonin 3 Mg Tablet) 6 mg PO BEDTIME PRN PRN Reason: Insomnia Mirtazapine (Mirtazapine 15 Mg Tablet) 15 mg PO BEDTIME [facility] Last Admin: 03/30/24 21:36 Dose: 15 mg Documented By: KOLBY Morphine Sulfate (Morphine Sulfate 4 Mg/Ml Cartridge) 4 mg IVPUSH Q4H PRN; Protocol PRN Reason: Pain, Severe (Pain Scale 7-10) Last Admin: 03/30/24 16:29 Dose: 4 mg Documented By: MAILE Ondansetron HCl (Ondansetron Hcl 4 Mg/2 Ml Vial) 4 mg IVPUSH Q8H PRN PRN Reason: Nausea and Vomiting Oxycodone HCl (Oxycodone Hcl Immed Release 5 Mg Tablet) 5 mg PO Q6H PRN PRN Reason: Pain, Moderate(Pain Scale 4-6) Last Admin: 03/31/24 08:43 Dose: 5 mg Documented By: JARED Sodium Chloride (0.9 % Sodium Chloride Flush 3 Ml Syringe) 3 ml IVFLUSH QSHIFT [facility] Last Admin: 03/31/24 08:45 Dose: 3 ml Documented By: JARED Vitamin D (Cholecalciferol (Vitamin D3) 25 Mcg Tablet) 50 mcg PO DAILY [facility] Last Admin: 03/31/24 08:44 Dose: 50 mcg Documented By: JARED Labs 03/30/24 05:33 03/30/24 05:33 Labs: Laboratory Results - last 24 hr 03/30/24 03/30/24 03/31/24 16:09 21:03 07:28 POC Glucose 101 118 H 87 03/31/24 11:19 POC Glucose 137 H Assessment and Plan (1) Diverticulitis: Status: Acute (2) T2DM (type 2 diabetes mellitus): Status: Acute (3) HTN (hypertension): Status: Acute Plan 48yo F with DM2, HTN, HLD presenting with abd pain admitted for sepsis due to acute diverticulitis 1.Sepsis due to acute diverticulitis (sepsis resolved) -Zosyn (4) -continue full liquid diet; assess in a.m. advance as tolerated -morphine/oxycodone for pain. Patient encouraged to ask for pain med 2.HTN -acceptable control on current therapies -adjust as indicated 3.DM2 -acceptable control on current therapies -lispro correctional scale -adjust as indicated Lovenox Full code Press ongoing hospitalization for IV antibiotics to treat acute diverticulitis. Continues with poor p.o. intake; high risk for outpatient failure Quality Stroke Does the patient have a stroke diagnosis?: No VTE Prior VTE?: No VTE Risk Level:: Medical - moderate - high VTE Device Contraindication: Treatment Not Indicated VTE Drug Contraindication: N/A - Med Ordered
[2024-03-31 15:14] VITALS: BP 141/79; PULSE 82; RESP 20; TEMP 36.4; O2SAT 96
[2024-03-31 16:15] LABS: Glucose, Whole Blood 105 mg/dL (60-115)
[2024-03-31 19:26] LABS: Glucose, Whole Blood 235 mg/dL (60-115)
[2024-03-31 19:28] VITALS: BP 144/66; PULSE 96; RESP 18; TEMP 36.2; O2SAT 94
[2024-03-31] MEDS: lamoTRIgine 100 MG TABLET 200 MG PO (20:02)
[2024-03-31] MEDS: Mirtazapine 15 MG TABLET PO (20:02)
[2024-03-31] MEDS: Insulin Glargine,Hum.rec.anlog 100 UNIT/ML 10 ML VIAL 20 UNIT SUBCUT (20:03)
[2024-03-31] MEDS: Insulin Lispro 100 UNIT/ML 3 ML VIAL SUBCUT (20:03)
[2024-04-01] MEDS: Piperacillin Sodium/Tazobactam 4.5 GM in 0.9 % Sodium Chloride 100 ML IV ×4 (00:05→17:52)
[2024-04-01 03:16] VITALS: BP 133/61; PULSE 86; RESP 16; TEMP 36.4; O2SAT 93
[2024-04-01 07:28] VITALS: BP 122/72; PULSE 76; RESP 18; TEMP 36.4; O2SAT 95
[2024-04-01 07:39] LABS: Glucose, Whole Blood 100 mg/dL (60-115)
[2024-04-01 07:45] LABS: MANUAL DIFF FLAG NO
[2024-04-01 07:51] LABS: Basophils Percent Auto 0.4 % (0-2); Eosinophils Absolute Auto 0.2 X10*3/uL (0.0-0.4); Eosinophils Percent Auto 2.4 % (0-4); Eosinophils Percent Auto 2.5 % (0-4); Hematocrit 38.4 % (37.0-47.0); Hematocrit 38.7 % (37.0-47.0); Hemoglobin 12.7 g/dl (12.0-16.0); Hemoglobin 12.9 g/dl (12.0-16.0); Imm Gran Abs Auto 0.03 X10*3/uL (0.00-0.03); Imm Gran Abs Auto 0.05 X10*3/uL (0.00-0.03); Imm Gran Pct Auto 0.4 % (0.0-0.4); Imm Gran Pct Auto 0.6 % (0.0-0.4); Lymphocytes Absolute Auto 1.7 X10*3/uL (1.2-4.9); Lymphocytes Absolute Auto 1.8 X10*3/uL (1.2-4.9); Lymphocytes Percent Auto 20.7 % (20-40); Lymphocytes Percent Auto 21.4 % (20-40); Mean Corpuscular HGB Conc 33.1 g/dl (31.0-35.0); Mean Corpuscular HGB Conc 33.3 g/dl (31.0-35.0); Mean Corpuscular Hemoglobin 27.3 pg (27.0-33.0); Mean Corpuscular Hemoglobin 27.4 pg (27.0-33.0); Mean Corpuscular Volume 82.3 fL (80.0-98.0); Mean Corpuscular Volume 82.4 fL (80.0-98.0); Mean Platelet Volume 10.2 fL (9.4-12.3); Mean Platelet Volume 10.5 fL (9.4-12.3); Monocytes Absolute Auto 0.4 X10*3/uL (0.1-1.2); Monocytes Absolute Auto 0.5 X10*3/uL (0.1-1.2); Monocytes Percent Auto 5.3 % (2-11); Monocytes Percent Auto 5.7 % (2-11); Neutrophils Absolute Auto 5.7 x10*3/uL (2.0-8.3); Neutrophils Absolute Auto 5.9 x10*3/uL (2.0-8.3); Neutrophils Percent Auto 69.6 % (45-73); Neutrophils Percent Auto 70.6 % (45-73); Platelet Count 290 X10*3/uL (160-400); Platelet Count 295 X10*3/uL (160-400); Red Blood Count 4.66 X10*6/uL (4.20-5.50); Red Cell Distribution Width 13.2 % (11.0-16.0); White Blood Count 8.2 X10*3/uL (4.8-10.8); White Blood Count 8.3 X10*3/uL (4.8-10.8)
[2024-04-01 07:55] VITALS: BP 122/72
[2024-04-01] MEDS: Atorvastatin Calcium 20 MG TABLET PO (07:55)
[2024-04-01] MEDS: lisinopriL 10 MG TABLET PO (07:55)
[2024-04-01] MEDS: Cholecalciferol (Vitamin D3) 25 MCG TABLET 50 MCG PO (07:55)
[2024-04-01] MEDS: Empagliflozin 25 MG TABLET PO (07:55)
[2024-04-01] MEDS: 0.9 % Sodium Chloride Flush 3 ML SYRINGE IVFLUSH ×2 (07:56→17:52)
[2024-04-01] MEDS: Enoxaparin Sodium 40 MG/0.4 ML SYRINGE SUBCUT (07:56)
[2024-04-01 08:07] LABS: Alanine Aminotransferase 16 U/L (0-31); Albumin Level 3.4 g/dL (3.5-5.0); Alkaline Phosphatase 111 U/L (39-117); Anion Gap 13 (12-20); Aspartate Amino Transferase 18 U/L (5-31); Bilirubin Total 0.4 mg/dL (0.0-1.0); Blood Urea Nitrogen 5 mg/dL (9-16); Calcium 9.1 mg/dL (8.4-10.2); Carbon Dioxide 26 mmol/L (22-29); Chloride 106 mmol/L (96-108); Creatinine Clr Calc Pharmacy 99.8; Estimated Glomerular Filt Rate > 60; Glucose Fasting 101 mg/dL (60-99); Potassium 3.7 mmol/L (3.3-5.1); Sodium 141 mmol/L (135-145); Total Protein 6.6 g/dL (6.5-8.0)
[2024-04-01] MEDS: oxyCODONE HCl Immed Release 5 MG TABLET PO (10:39)
[2024-04-01 11:32] LABS: Glucose, Whole Blood 133 mg/dL (60-115)
--- NOTE | 2024-04-01 12:42 | P.PNIM_ITS ---
Subjective Subjective Date of Service: 04/01/24 Interval History: Doing well with full liquid diet; wishes to advance as appropriate. Review of Systems Denies chest pain Denies shortness of breath Denies nausea vomiting admits diarrhea that is improving Denies fever and chills Endorses diffuse lower abdominal pain Physical Exam 2 Vital Signs: Vital Signs: Last Vital Signs Temp 97.5 F 04/01/24 07:28 Pulse 76 04/01/24 07:28 Resp 18 04/01/24 07:28 BP 122/72 04/01/24 07:55 Pulse Ox 95 04/01/24 07:28 O2 Del Method Room Air 04/01/24 07:28 BMI result Body Mass Index 37.1 Const: Other: Awake alert uncomfortable appearing Resp: Other: Clear to auscultation bilaterally no rales rhonchi or wheezes Cardio: Other: No S4; positive S1-S2; no S3 murmurs rubs or gallops GI: Other: Soft tender across lower abdomen without rebound; nondistended normoactive bowel sounds Extrem: Other: No edema bilaterally Objective Data Active Medications Acetaminophen (Acetaminophen 325 Mg Tablet) 650 mg PO Q6H PRN PRN Reason: Pain, Mild (Pain Scale 1-3), fever or headache Last Admin: 03/31/24 12:25 Dose: 650 mg Documented By: JARED Atorvastatin Calcium (Atorvastatin Calcium 20 Mg Tablet) 20 mg PO DAILY [facility] Last Admin: 04/01/24 07:55 Dose: 20 mg Documented By: JARED Calcium Carbonate (Calcium Carbonate 750 Mg Tab.Chew) 750 mg PO Q4H PRN PRN Reason: Heartburn Empagliflozin (Empagliflozin 25 Mg Tablet) 25 mg PO DAILY [facility] Last Admin: 04/01/24 07:55 Dose: 25 mg Documented By: JARED Enoxaparin Sodium (Enoxaparin Sodium 40 Mg/0.4 Ml Syringe) 40 mg SUBCUT Q24H [facility] Last Admin: 04/01/24 07:56 Dose: 40 mg Documented By: JARED Glucose (Glucose Gel 15 Gm Gel..Gram.) 15 gm PO Q15M PRN; Protocol PRN Reason: per Hypoglycemia Standing Ord. Dextrose (D10) 250 mls @ 750 mls/hr IV Q15M PRN; Protocol PRN Reason: per Hypoglycemia Standing Ord. Piperacillin Sod/Tazobactam (Sod 4.5 gm/ Sodium Chloride) 100 mls @ 200 mls/hr IV Q6H [facility] Last Admin: 04/01/24 12:05 Dose: 200 mls/hr Documented By: JARED Insulin Glargine (Insulin Glargine,Hum.Rec.Anlog 100 Unit/Ml 10 Ml Vial) 20 unit SUBCUT BEDTIME [facility] Last Admin: 03/31/24 20:03 Dose: 20 unit Documented By: DEMETRICE Insulin Human Lispro (Insulin Lispro 100 Unit/Ml 3 Ml Vial) 0 unit SUBCUT QIDACHS [facility]; Protocol Last Admin: 04/01/24 11:45 Dose: Not Given Documented By: JARED Non-Admin Reason: No Insulin Coverage Lamotrigine (Lamotrigine 100 Mg Tablet) 200 mg PO BEDTIME [facility] Last Admin: 03/31/24 20:02 Dose: 200 mg Documented By: DEMETRICE Lisinopril (Lisinopril 10 Mg Tablet) 10 mg PO DAILY [facility]; Protocol Last Admin: 04/01/24 07:55 Dose: 10 mg Documented By: JARED Magnesium Hydroxide (Milk Of Magnesia 30 Ml Oral.Susp) 30 ml PO DAILY PRN PRN Reason: Constipation Melatonin (Melatonin 3 Mg Tablet) 6 mg PO BEDTIME PRN PRN Reason: Insomnia Mirtazapine (Mirtazapine 15 Mg Tablet) 15 mg PO BEDTIME [facility] Last Admin: 03/31/24 20:02 Dose: 15 mg Documented By: DEMETRICE Morphine Sulfate (Morphine Sulfate 4 Mg/Ml Cartridge) 4 mg IVPUSH Q4H PRN; Protocol PRN Reason: Pain, Severe (Pain Scale 7-10) Last Admin: 03/30/24 16:29 Dose: 4 mg Documented By: MAILE Ondansetron HCl (Ondansetron Hcl 4 Mg/2 Ml Vial) 4 mg IVPUSH Q8H PRN PRN Reason: Nausea and Vomiting Oxycodone HCl (Oxycodone Hcl Immed Release 5 Mg Tablet) 5 mg PO Q6H PRN PRN Reason: Pain, Moderate(Pain Scale 4-6) Last Admin: 04/01/24 10:39 Dose: 5 mg Documented By: HO.PARROWA Sodium Chloride (0.9 % Sodium Chloride Flush 3 Ml Syringe) 3 ml IVFLUSH QSHIFT [facility] Last Admin: 04/01/24 07:56 Dose: 3 ml Documented By: JARED Vitamin D (Cholecalciferol (Vitamin D3) 25 Mcg Tablet) 50 mcg PO DAILY [facility] Last Admin: 04/01/24 07:55 Dose: 50 mcg Documented By: JARED Labs 04/01/24 07:21 04/01/24 07:21 Labs: Laboratory Results - last 24 hr 03/31/24 03/31/24 04/01/24 16:09 19:22 07:21 MCV 82.4 MCH MCHC RDW Plt Count MPV Immature Gran % (Auto) Neut % (Auto) Lymph % (Auto) [place] % (Auto) Eos % (Auto) Baso % (Auto) Lymph # (Auto) [place] # (Auto) Eos # (Auto) Baso # (Auto) Abs Immat Gran (auto) Absolute Neuts (auto) Absolute Nucleated RBC Nucleated RBC % (auto) Anion Gap Estim Creat Clear Calc Estimated GFR POC Glucose 105 235 H Fasting Glucose Calcium Total Bilirubin AST ALT Alkaline Phosphatase Total Protein Albumin 04/01/24 04/01/24 04/01/24 07:21 07:21 07:21 MCV 82.3 MCH 27.3 27.4 MCHC 33.1 33.3 RDW 13.2 Plt Count MPV Immature Gran % (Auto) Neut % (Auto) Lymph % (Auto) [place] % (Auto) Eos % (Auto) Baso % (Auto) Lymph # (Auto) [place] # (Auto) Eos # (Auto) Baso # (Auto) Abs Immat Gran (auto) Absolute Neuts (auto) Absolute Nucleated RBC Nucleated RBC % (auto) Anion Gap Estim Creat Clear Calc Estimated GFR POC Glucose Fasting Glucose Calcium Total Bilirubin AST ALT Alkaline Phosphatase Total Protein Albumin 04/01/24 04/01/24 04/01/24 07:21 07:21 07:21 MCV MCH MCHC RDW 13.2 Plt Count 290 295 MPV 10.2 10.5 Immature Gran % (Auto) 0.4 Neut % (Auto) Lymph % (Auto) [place] % (Auto) Eos % (Auto) Baso % (Auto) Lymph # (Auto) [place] # (Auto) Eos # (Auto) Baso # (Auto) Abs Immat Gran (auto) Absolute Neuts (auto) Absolute Nucleated RBC Nucleated RBC % (auto) Anion Gap Estim Creat Clear Calc Estimated GFR POC Glucose Fasting Glucose Calcium Total Bilirubin AST ALT Alkaline Phosphatase Total Protein Albumin 04/01/24 04/01/24 04/01/24 07:21 07:21 07:21 MCV MCH MCHC RDW Plt Count MPV Immature Gran % (Auto) 0.6 H Neut % (Auto) 69.6 70.6 Lymph % (Auto) 21.4 20.7 [place] % (Auto) 5.7 Eos % (Auto) Baso % (Auto) Lymph # (Auto) [place] # (Auto) Eos # (Auto) Baso # (Auto) Abs Immat Gran (auto) Absolute Neuts (auto) Absolute Nucleated RBC Nucleated RBC % (auto) Anion Gap Estim Creat Clear Calc Estimated GFR POC Glucose Fasting Glucose Calcium Total Bilirubin AST ALT Alkaline Phosphatase Total Protein Albumin 04/01/24 04/01/24 04/01/24 07:21 07:21 07:21 MCV MCH MCHC RDW Plt Count MPV Immature Gran % (Auto) Neut % (Auto) Lymph % (Auto) [place] % (Auto) 5.3 Eos % (Auto) 2.5 2.4 Baso % (Auto) 0.4 0.4 Lymph # (Auto) 1.8 [place] # (Auto) Eos # (Auto) Baso # (Auto) Abs Immat Gran (auto) Absolute Neuts (auto) Absolute Nucleated RBC Nucleated RBC % (auto) Anion Gap Estim Creat Clear Calc Estimated GFR POC Glucose Fasting Glucose Calcium Total Bilirubin AST ALT Alkaline Phosphatase Total Protein Albumin 04/01/24 04/01/24 04/01/24 07:21 07:21 07:21 MCV MCH MCHC RDW Plt Count MPV Immature Gran % (Auto) Neut % (Auto) Lymph % (Auto) [place] % (Auto) Eos % (Auto) Baso % (Auto) Lymph # (Auto) 1.7 [place] # (Auto) 0.5 0.4 Eos # (Auto) 0.2 0.2 Baso # (Auto) 0.0 Abs Immat Gran (auto) Absolute Neuts (auto) Absolute Nucleated RBC Nucleated RBC % (auto) Anion Gap Estim Creat Clear Calc Estimated GFR POC Glucose Fasting Glucose Calcium Total Bilirubin AST ALT Alkaline Phosphatase Total Protein Albumin 04/01/24 04/01/24 04/01/24 07:21 07:21 07:21 MCV MCH MCHC RDW Plt Count MPV Immature Gran % (Auto) Neut % (Auto) Lymph % (Auto) [place] % (Auto) Eos % (Auto) Baso % (Auto) Lymph # (Auto) [place] # (Auto) Eos # (Auto) Baso # (Auto) 0.0 Abs Immat Gran (auto) 0.03 0.05 H Absolute Neuts (auto) 5.7 5.9 Absolute Nucleated RBC 0.000 Nucleated RBC % (auto) Anion Gap Estim Creat Clear Calc Estimated GFR POC Glucose Fasting Glucose Calcium Total Bilirubin AST ALT Alkaline Phosphatase Total Protein Albumin 04/01/24 04/01/24 04/01/24 07:21 07:21 07:31 MCV MCH MCHC RDW Plt Count MPV Immature Gran % (Auto) Neut % (Auto) Lymph % (Auto) [place] % (Auto) Eos % (Auto) Baso % (Auto) Lymph # (Auto) [place] # (Auto) Eos # (Auto) Baso # (Auto) Abs Immat Gran (auto) Absolute Neuts (auto) Absolute Nucleated RBC 0.000 Nucleated RBC % (auto) 0.0 0.0 Anion Gap 13 Estim Creat Clear Calc 99.8 Estimated GFR > 60 POC Glucose 100 Fasting Glucose 101 H Calcium 9.1 Total Bilirubin 0.4 AST 18 ALT 16 Alkaline Phosphatase 111 Total Protein 6.6 Albumin 3.4 L 04/01/24 11:25 MCV MCH MCHC RDW Plt Count MPV Immature Gran % (Auto) Neut % (Auto) Lymph % (Auto) [place] % (Auto) Eos % (Auto) Baso % (Auto) Lymph # (Auto) [place] # (Auto) Eos # (Auto) Baso # (Auto) Abs Immat Gran (auto) Absolute Neuts (auto) Absolute Nucleated RBC Nucleated RBC % (auto) Anion Gap Estim Creat Clear Calc Estimated GFR POC Glucose 133 H Fasting Glucose Calcium Total Bilirubin AST ALT Alkaline Phosphatase Total Protein Albumin Assessment and Plan (1) Diverticulitis: Status: Acute Plan 48yo F with DM2, HTN, HLD presenting with abd pain admitted for sepsis due to acute diverticulitis 1.Sepsis due to acute diverticulitis (sepsis resolved) -Zosyn (5) -advance diet to low residue -morphine/oxycodone for pain. Patient encouraged to ask for pain med 2.HTN -acceptable control on current therapies -adjust as indicated 3.DM2 -acceptable control on current therapies -lispro correctional scale -adjust as indicated Lovenox Full code Press ongoing hospitalization for IV antibiotics to treat acute diverticulitis. Continues with poor p.o. intake; high risk for outpatient failure Quality Stroke Does the patient have a stroke diagnosis?: No VTE Prior VTE?: No VTE Risk Level:: Medical - moderate - high VTE Device Contraindication: Treatment Not Indicated VTE Drug Contraindication: N/A - Med Ordered
--- NOTE | 2024-04-01 13:08 | PM.PNGS ---
Subjective Subjective Date of Service: 04/01/24 Interval history: PATIENT IS FEELING MUCH BETTER MUCH LESS PAIN TOLERATING SOME DIET Physical Exam Vital Signs: Vital Signs: Last Vital Signs Temp 97.5 F 04/01/24 07:28 Pulse 76 04/01/24 07:28 Resp 18 04/01/24 07:28 BP 122/72 04/01/24 07:55 Pulse Ox 95 04/01/24 07:28 O2 Del Method Room Air 04/01/24 07:28 BMI result Body Mass Index 37.1 Const: General: cooperative, healthy appearing, comfortable and no acute distress GI: Other: Abdomen now is soft nondistended mild mild tenderness in the left lower quadrant no guarding no rebound no peritoneal signs active bowel sounds Objective Data Active Medications Acetaminophen (Acetaminophen 325 Mg Tablet) 650 mg PO Q6H PRN PRN Reason: Pain, Mild (Pain Scale 1-3), fever or headache Last Admin: 03/31/24 12:25 Dose: 650 mg Documented By: JARED Atorvastatin Calcium (Atorvastatin Calcium 20 Mg Tablet) 20 mg PO DAILY [facility] Last Admin: 04/01/24 07:55 Dose: 20 mg Documented By: JARED Calcium Carbonate (Calcium Carbonate 750 Mg Tab.Chew) 750 mg PO Q4H PRN PRN Reason: Heartburn Empagliflozin (Empagliflozin 25 Mg Tablet) 25 mg PO DAILY [facility] Last Admin: 04/01/24 07:55 Dose: 25 mg Documented By: JARED Enoxaparin Sodium (Enoxaparin Sodium 40 Mg/0.4 Ml Syringe) 40 mg SUBCUT Q24H [facility] Last Admin: 04/01/24 07:56 Dose: 40 mg Documented By: JARED Glucose (Glucose Gel 15 Gm Gel..Gram.) 15 gm PO Q15M PRN; Protocol PRN Reason: per Hypoglycemia Standing Ord. Dextrose (D10) 250 mls @ 750 mls/hr IV Q15M PRN; Protocol PRN Reason: per Hypoglycemia Standing Ord. Piperacillin Sod/Tazobactam (Sod 4.5 gm/ Sodium Chloride) 100 mls @ 200 mls/hr IV Q6H [facility] Last Infusion: 04/01/24 12:35 Dose: Infused Documented By: JARED Insulin Glargine (Insulin Glargine,Hum.Rec.Anlog 100 Unit/Ml 10 Ml Vial) 20 unit SUBCUT BEDTIME [facility] Last Admin: 03/31/24 20:03 Dose: 20 unit Documented By: DEMETRICE Insulin Human Lispro (Insulin Lispro 100 Unit/Ml 3 Ml Vial) 0 unit SUBCUT QIDACHS [facility]; Protocol Last Admin: 04/01/24 11:45 Dose: Not Given Documented By: JARED Non-Admin Reason: No Insulin Coverage Lamotrigine (Lamotrigine 100 Mg Tablet) 200 mg PO BEDTIME [facility] Last Admin: 03/31/24 20:02 Dose: 200 mg Documented By: DEMETRICE Lisinopril (Lisinopril 10 Mg Tablet) 10 mg PO DAILY [facility]; Protocol Last Admin: 04/01/24 07:55 Dose: 10 mg Documented By: JARED Magnesium Hydroxide (Milk Of Magnesia 30 Ml Oral.Susp) 30 ml PO DAILY PRN PRN Reason: Constipation Melatonin (Melatonin 3 Mg Tablet) 6 mg PO BEDTIME PRN PRN Reason: Insomnia Mirtazapine (Mirtazapine 15 Mg Tablet) 15 mg PO BEDTIME [facility] Last Admin: 03/31/24 20:02 Dose: 15 mg Documented By: DEMETRICE Morphine Sulfate (Morphine Sulfate 4 Mg/Ml Cartridge) 4 mg IVPUSH Q4H PRN; Protocol PRN Reason: Pain, Severe (Pain Scale 7-10) Last Admin: 03/30/24 16:29 Dose: 4 mg Documented By: MAILE Ondansetron HCl (Ondansetron Hcl 4 Mg/2 Ml Vial) 4 mg IVPUSH Q8H PRN PRN Reason: Nausea and Vomiting Oxycodone HCl (Oxycodone Hcl Immed Release 5 Mg Tablet) 5 mg PO Q6H PRN PRN Reason: Pain, Moderate(Pain Scale 4-6) Last Admin: 04/01/24 10:39 Dose: 5 mg Documented By: JARED Sodium Chloride (0.9 % Sodium Chloride Flush 3 Ml Syringe) 3 ml IVFLUSH QSHIFT [facility] Last Admin: 04/01/24 07:56 Dose: 3 ml Documented By: JARED Vitamin D (Cholecalciferol (Vitamin D3) 25 Mcg Tablet) 50 mcg PO DAILY [facility] Last Admin: 04/01/24 07:55 Dose: 50 mcg Documented By: JARED Labs 04/01/24 07:21 04/01/24 07:21 Labs: Laboratory Results - last 24 hr 03/31/24 03/31/24 04/01/24 16:09 19:22 07:21 MCV 82.4 MCH MCHC RDW Plt Count MPV Immature Gran % (Auto) Neut % (Auto) Lymph % (Auto) [place] % (Auto) Eos % (Auto) Baso % (Auto) Lymph # (Auto) [place] # (Auto) Eos # (Auto) Baso # (Auto) Abs Immat Gran (auto) Absolute Neuts (auto) Absolute Nucleated RBC Nucleated RBC % (auto) Anion Gap Estim Creat Clear Calc Estimated GFR POC Glucose 105 235 H Fasting Glucose Calcium Total Bilirubin AST ALT Alkaline Phosphatase Total Protein Albumin 04/01/24 04/01/24 04/01/24 07:21 07:21 07:21 MCV 82.3 MCH 27.3 27.4 MCHC 33.1 33.3 RDW 13.2 Plt Count MPV Immature Gran % (Auto) Neut % (Auto) Lymph % (Auto) [place] % (Auto) Eos % (Auto) Baso % (Auto) Lymph # (Auto) [place] # (Auto) Eos # (Auto) Baso # (Auto) Abs Immat Gran (auto) Absolute Neuts (auto) Absolute Nucleated RBC Nucleated RBC % (auto) Anion Gap Estim Creat Clear Calc Estimated GFR POC Glucose Fasting Glucose Calcium Total Bilirubin AST ALT Alkaline Phosphatase Total Protein Albumin 04/01/24 04/01/24 04/01/24 07:21 07:21 07:21 MCV MCH MCHC RDW 13.2 Plt Count 290 295 MPV 10.2 10.5 Immature Gran % (Auto) 0.4 Neut % (Auto) Lymph % (Auto) [place] % (Auto) Eos % (Auto) Baso % (Auto) Lymph # (Auto) [place] # (Auto) Eos # (Auto) Baso # (Auto) Abs Immat Gran (auto) Absolute Neuts (auto) Absolute Nucleated RBC Nucleated RBC % (auto) Anion Gap Estim Creat Clear Calc Estimated GFR POC Glucose Fasting Glucose Calcium Total Bilirubin AST ALT Alkaline Phosphatase Total Protein Albumin 04/01/24 04/01/24 04/01/24 07:21 07:21 07:21 MCV MCH MCHC RDW Plt Count MPV Immature Gran % (Auto) 0.6 H Neut % (Auto) 69.6 70.6 Lymph % (Auto) 21.4 20.7 [place] % (Auto) 5.7 Eos % (Auto) Baso % (Auto) Lymph # (Auto) [place] # (Auto) Eos # (Auto) Baso # (Auto) Abs Immat Gran (auto) Absolute Neuts (auto) Absolute Nucleated RBC Nucleated RBC % (auto) Anion Gap Estim Creat Clear Calc Estimated GFR POC Glucose Fasting Glucose Calcium Total Bilirubin AST ALT Alkaline Phosphatase Total Protein Albumin 04/01/24 04/01/24 04/01/24 07:21 07:21 07:21 MCV MCH MCHC RDW Plt Count MPV Immature Gran % (Auto) Neut % (Auto) Lymph % (Auto) [place] % (Auto) 5.3 Eos % (Auto) 2.5 2.4 Baso % (Auto) 0.4 0.4 Lymph # (Auto) 1.8 [place] # (Auto) Eos # (Auto) Baso # (Auto) Abs Immat Gran (auto) Absolute Neuts (auto) Absolute Nucleated RBC Nucleated RBC % (auto) Anion Gap Estim Creat Clear Calc Estimated GFR POC Glucose Fasting Glucose Calcium Total Bilirubin AST ALT Alkaline Phosphatase Total Protein Albumin 04/01/24 04/01/24 04/01/24 07:21 07:21 07:21 MCV MCH MCHC RDW Plt Count MPV Immature Gran % (Auto) Neut % (Auto) Lymph % (Auto) [place] % (Auto) Eos % (Auto) Baso % (Auto) Lymph # (Auto) 1.7 [place] # (Auto) 0.5 0.4 Eos # (Auto) 0.2 0.2 Baso # (Auto) 0.0 Abs Immat Gran (auto) Absolute Neuts (auto) Absolute Nucleated RBC Nucleated RBC % (auto) Anion Gap Estim Creat Clear Calc Estimated GFR POC Glucose Fasting Glucose Calcium Total Bilirubin AST ALT Alkaline Phosphatase Total Protein Albumin 04/01/24 04/01/24 04/01/24 07:21 07:21 07:21 MCV MCH MCHC RDW Plt Count MPV Immature Gran % (Auto) Neut % (Auto) Lymph % (Auto) [place] % (Auto) Eos % (Auto) Baso % (Auto) Lymph # (Auto) [place] # (Auto) Eos # (Auto) Baso # (Auto) 0.0 Abs Immat Gran (auto) 0.03 0.05 H Absolute Neuts (auto) 5.7 5.9 Absolute Nucleated RBC 0.000 Nucleated RBC % (auto) Anion Gap Estim Creat Clear Calc Estimated GFR POC Glucose Fasting Glucose Calcium Total Bilirubin AST ALT Alkaline Phosphatase Total Protein Albumin 04/01/24 04/01/24 04/01/24 07:21 07:21 07:31 MCV MCH MCHC RDW Plt Count MPV Immature Gran % (Auto) Neut % (Auto) Lymph % (Auto) [place] % (Auto) Eos % (Auto) Baso % (Auto) Lymph # (Auto) [place] # (Auto) Eos # (Auto) Baso # (Auto) Abs Immat Gran (auto) Absolute Neuts (auto) Absolute Nucleated RBC 0.000 Nucleated RBC % (auto) 0.0 0.0 Anion Gap 13 Estim Creat Clear Calc 99.8 Estimated GFR > 60 POC Glucose 100 Fasting Glucose 101 H Calcium 9.1 Total Bilirubin 0.4 AST 18 ALT 16 Alkaline Phosphatase 111 Total Protein 6.6 Albumin 3.4 L 04/01/24 11:25 MCV MCH MCHC RDW Plt Count MPV Immature Gran % (Auto) Neut % (Auto) Lymph % (Auto) [place] % (Auto) Eos % (Auto) Baso % (Auto) Lymph # (Auto) [place] # (Auto) Eos # (Auto) Baso # (Auto) Abs Immat Gran (auto) Absolute Neuts (auto) Absolute Nucleated RBC Nucleated RBC % (auto) Anion Gap Estim Creat Clear Calc Estimated GFR POC Glucose 133 H Fasting Glucose Calcium Total Bilirubin AST ALT Alkaline Phosphatase Total Protein Albumin Procedures Date of Service Date of Service: 04/01/24 Progress Note: A&P Assessment and plan (1) Diverticulitis: Status: Acute Assessment and Plan: 48-year-old female with significant improvement in her pain today compared to yesterday. Plan to continue with IV antibiotics and slow advancement of her diet. May need elective operation in the future. Time Spent With Patient Time: Total time managing care of this patient today ____ minutes. Quality Stroke Does the patient have a stroke diagnosis?: No VTE Prior VTE?: No VTE Risk Level:: Medical - moderate - high VTE Device Contraindication: Treatment Not Indicated VTE Drug Contraindication: N/A - Med Ordered
[2024-04-01 15:23] VITALS: BP 160/74; PULSE 93; RESP 18; TEMP 36.6; O2SAT 96
[2024-04-01 15:45] VITALS: BP 138/80
[2024-04-01 16:11] LABS: Glucose, Whole Blood 159 mg/dL (60-115)
[2024-04-01] MEDS: Insulin Lispro 100 UNIT/ML 3 ML VIAL SUBCUT ×2 (16:56→20:39)
[2024-04-01 19:46] VITALS: BP 148/73; PULSE 101; RESP 20; TEMP 36.1; O2SAT 96
[2024-04-01 20:10] LABS: Glucose, Whole Blood 200 mg/dL (60-115)
[2024-04-01] MEDS: Insulin Glargine,Hum.rec.anlog 100 UNIT/ML 10 ML VIAL 20 UNIT SUBCUT (20:38)
[2024-04-01] MEDS: lamoTRIgine 100 MG TABLET 200 MG PO (20:39)
[2024-04-01] MEDS: Mirtazapine 15 MG TABLET PO (20:39)
[2024-04-02] MEDS: 0.9 % Sodium Chloride Flush 3 ML SYRINGE IVFLUSH ×4 (00:52→23:42)
[2024-04-02] MEDS: Piperacillin Sodium/Tazobactam 4.5 GM in 0.9 % Sodium Chloride 100 ML IV ×5 (00:52→23:42)
[2024-04-02 04:00] VITALS: BP 152/73; PULSE 80; RESP 16; TEMP 36.7; O2SAT 93
[2024-04-02] MEDS: lisinopriL 10 MG TABLET PO (07:14)
[2024-04-02] MEDS: oxyCODONE HCl Immed Release 5 MG TABLET PO ×2 (07:14→13:18)
[2024-04-02] MEDS: Cholecalciferol (Vitamin D3) 25 MCG TABLET 50 MCG PO (07:14)
[2024-04-02] MEDS: Atorvastatin Calcium 20 MG TABLET PO (07:14)
[2024-04-02] MEDS: Empagliflozin 25 MG TABLET PO (07:14)
[2024-04-02] MEDS: Enoxaparin Sodium 40 MG/0.4 ML SYRINGE SUBCUT (07:15)
[2024-04-02 07:22] VITALS: BP 152/72; PULSE 85; RESP 16; TEMP 36; O2SAT 94
--- NOTE | 2024-04-02 07:44 | P.PNGS_ITS ---
Subjective Subjective Date of Service: 04/02/24 <Zhanna Leach PA-C - Last Filed: 04/02/24 07:50> 04/02/24 <Karri Al MD - Last Filed: 04/02/24 08:07> Interval history: Feels improved this morning, no pain currently, had some overnight but much less. Was able to eat and tolerate some solid food yesterday. Loose BMs. < Zhanna Leach PA-C - Last Filed: 04/02/24 07:50> Physical Exam 2 Vital Signs: Vital Signs: Last Vital Signs Temp 96.8 F 04/02/24 07:22 Pulse 85 04/02/24 07:22 Resp 16 04/02/24 07:22 BP 152/72 H 04/02/24 07:22 Pulse Ox 94 04/02/24 07:22 O2 Del Method Room Air 04/02/24 07:22 BMI result Body Mass Index 37.1 <Zhanna Leach PA-C - Last Filed: 04/02/24 07:50> Const: General: comfortable, no acute distress and alert <Zhanna Leach PA-C - Last Filed: 04/02/24 07:50> Orientation/consciousness: patient oriented x3 <MAGO Ren Last Filed: 04/02/24 07:50> Resp: Effort & Inspection: normal respiratory effort <MAGO Ren Last Filed: 04/02/24 07:50> GI: Inspection: No distended <Zhanna Leach PA-C - Last Filed: 04/02/24 07:50> Palpation (GI): Soft to palpation, Tenderness to palpation present (GI) (still with LLQ/suprapubic tenderness) with no rebound tenderness and no guarding < MAGO Ren Last Filed: 04/02/24 07:50> Percussion: Yes normal to percussion <MAGO Ren Last Filed: 04/02/24 07:50> Skin: General skin exam: no rashes or lesions noted <MAGO Ren Last Filed: 09/16/24 07:50> Neuro: General: patient oriented x3 and moves all extremities <Zhanna Leach PA-C - Last Filed: 04/02/24 07:50> Objective Data Active Medications Acetaminophen (Acetaminophen 325 Mg Tablet) 650 mg PO Q6H PRN PRN Reason: Pain, Mild (Pain Scale 1-3), fever or headache Last Admin: 03/31/24 12:25 Dose: 650 mg Documented By: JARED Atorvastatin Calcium (Atorvastatin Calcium 20 Mg Tablet) 20 mg PO DAILY [facility] Last Admin: 04/02/24 07:14 Dose: 20 mg Documented By: URBANO Calcium Carbonate (Calcium Carbonate 750 Mg Tab.Chew) 750 mg PO Q4H PRN PRN Reason: Heartburn Empagliflozin (Empagliflozin 25 Mg Tablet) 25 mg PO DAILY [facility] Last Admin: 04/02/24 07:14 Dose: 25 mg Documented By: URBANO Enoxaparin Sodium (Enoxaparin Sodium 40 Mg/0.4 Ml Syringe) 40 mg SUBCUT Q24H [facility] Last Admin: 04/02/24 07:15 Dose: 40 mg Documented By: URBANO Glucose (Glucose Gel 15 Gm Gel..Gram.) 15 gm PO Q15M PRN; Protocol PRN Reason: per Hypoglycemia Standing Ord. Dextrose (D10) 250 mls @ 750 mls/hr IV Q15M PRN; Protocol PRN Reason: per Hypoglycemia Standing Ord. Piperacillin Sod/Tazobactam (Sod 4.5 gm/ Sodium Chloride) 100 mls @ 200 mls/hr IV Q6H [facility] Last Infusion: 04/02/24 06:39 Dose: Infused Documented By: NINFA Insulin Glargine (Insulin Glargine,Hum.Rec.Anlog 100 Unit/Ml 10 Ml Vial) 20 unit SUBCUT BEDTIME [facility] Last Admin: 04/01/24 20:38 Dose: 1 unit Documented By: NINFA Insulin Human Lispro (Insulin Lispro 100 Unit/Ml 3 Ml Vial) 0 unit SUBCUT QIDACHS [facility]; Protocol Last Admin: 04/02/24 07:38 Dose: Not Given Documented By: URBANO Non-Admin Reason: No Insulin Coverage Lamotrigine (Lamotrigine 100 Mg Tablet) 200 mg PO BEDTIME [facility] Last Admin: 04/01/24 20:39 Dose: 200 mg Documented By: NINFA Lisinopril (Lisinopril 10 Mg Tablet) 10 mg PO DAILY [facility]; Protocol Last Admin: 04/02/24 07:14 Dose: 10 mg Documented By: URBANO Magnesium Hydroxide (Milk Of Magnesia 30 Ml Oral.Susp) 30 ml PO DAILY PRN PRN Reason: Constipation Melatonin (Melatonin 3 Mg Tablet) 6 mg PO BEDTIME PRN PRN Reason: Insomnia Mirtazapine (Mirtazapine 15 Mg Tablet) 15 mg PO BEDTIME [facility] Last Admin: 04/01/24 20:39 Dose: 15 mg Documented By: NINFA Ondansetron HCl (Ondansetron Hcl 4 Mg/2 Ml Vial) 4 mg IVPUSH Q8H PRN PRN Reason: Nausea and Vomiting Oxycodone HCl (Oxycodone Hcl Immed Release 5 Mg Tablet) 5 mg PO Q6H PRN PRN Reason: Pain, Moderate(Pain Scale 4-6) Last Admin: 04/02/24 07:14 Dose: 5 mg Documented By: URBANO Sodium Chloride (0.9 % Sodium Chloride Flush 3 Ml Syringe) 3 ml IVFLUSH QSHIFT [facility] Last Admin: 04/02/24 07:16 Dose: 3 ml Documented By: URBANO Vitamin D (Cholecalciferol (Vitamin D3) 25 Mcg Tablet) 50 mcg PO DAILY [facility] Last Admin: 04/02/24 07:14 Dose: 50 mcg Documented By: URBANO <Zhanna Leach PA-C - Last Filed: 04/02/24 07:50> Labs CBC & Chem 7: 04/01/24 07:21 04/01/24 07:21 <Zhanna Leach PA-C - Last Filed: 04/02/24 07:50> Labs: Laboratory Results - last 24 hr 04/01/24 04/01/24 04/01/24 07:21 07:21 07:21 MCV 82.4 82.3 MCH 27.3 27.4 MCHC 33.1 RDW Plt Count MPV Immature Gran % (Auto) Neut % (Auto) Lymph % (Auto) Emery % (Auto) Eos % (Auto) Baso % (Auto) Lymph # (Auto) Emery # (Auto) Eos # (Auto) Baso # (Auto) Abs Immat Gran (auto) Absolute Neuts (auto) Absolute Nucleated RBC Nucleated RBC % (auto) Anion Gap Estim Creat Clear Calc Estimated GFR POC Glucose Fasting Glucose Calcium Total Bilirubin AST ALT Alkaline Phosphatase Total Protein Albumin 04/01/24 04/01/24 04/01/24 07:21 07:21 07:21 MCV MCH MCHC 33.3 RDW 13.2 13.2 Plt Count 290 295 MPV 10.2 Immature Gran % (Auto) Neut % (Auto) Lymph % (Auto) Emery % (Auto) Eos % (Auto) Baso % (Auto) Lymph # (Auto) Emery # (Auto) Eos # (Auto) Baso # (Auto) Abs Immat Gran (auto) Absolute Neuts (auto) Absolute Nucleated RBC Nucleated RBC % (auto) Anion Gap Estim Creat Clear Calc Estimated GFR POC Glucose Fasting Glucose Calcium Total Bilirubin AST ALT Alkaline Phosphatase Total Protein Albumin 04/01/24 04/01/24 04/01/24 07:21 07:21 07:21 MCV MCH MCHC RDW Plt Count MPV 10.5 Immature Gran % (Auto) 0.4 0.6 H Neut % (Auto) 69.6 70.6 Lymph % (Auto) 21.4 Emery % (Auto) Eos % (Auto) Baso % (Auto) Lymph # (Auto) Emery # (Auto) Eos # (Auto) Baso # (Auto) Abs Immat Gran (auto) Absolute Neuts (auto) Absolute Nucleated RBC Nucleated RBC % (auto) Anion Gap Estim Creat Clear Calc Estimated GFR POC Glucose Fasting Glucose Calcium Total Bilirubin AST ALT Alkaline Phosphatase Total Protein Albumin 04/01/24 04/01/24 04/01/24 07:21 07:21 07:21 MCV MCH MCHC RDW Plt Count MPV Immature Gran % (Auto) Neut % (Auto) Lymph % (Auto) 20.7 Emery % (Auto) 5.7 5.3 Eos % (Auto) 2.5 2.4 Baso % (Auto) 0.4 Lymph # (Auto) Emery # (Auto) Eos # (Auto) Baso # (Auto) Abs Immat Gran (auto) Absolute Neuts (auto) Absolute Nucleated RBC Nucleated RBC % (auto) Anion Gap Estim Creat Clear Calc Estimated GFR POC Glucose Fasting Glucose Calcium Total Bilirubin AST ALT Alkaline Phosphatase Total Protein Albumin 04/01/24 04/01/24 04/01/24 07:21 07:21 07:21 MCV MCH MCHC RDW Plt Count MPV Immature Gran % (Auto) Neut % (Auto) Lymph % (Auto) Emery % (Auto) Eos % (Auto) Baso % (Auto) 0.4 Lymph # (Auto) 1.8 1.7 Emery # (Auto) 0.5 0.4 Eos # (Auto) 0.2 Baso # (Auto) Abs Immat Gran (auto) Absolute Neuts (auto) Absolute Nucleated RBC Nucleated RBC % (auto) Anion Gap Estim Creat Clear Calc Estimated GFR POC Glucose Fasting Glucose Calcium Total Bilirubin AST ALT Alkaline Phosphatase Total Protein Albumin 04/01/24 04/01/24 04/01/24 07:21 07:21 07:21 MCV MCH MCHC RDW Plt Count MPV Immature Gran % (Auto) Neut % (Auto) Lymph % (Auto) Emery % (Auto) Eos % (Auto) Baso % (Auto) Lymph # (Auto) Emery # (Auto) Eos # (Auto) 0.2 Baso # (Auto) 0.0 0.0 Abs Immat Gran (auto) 0.03 0.05 H Absolute Neuts (auto) 5.7 Absolute Nucleated RBC Nucleated RBC % (auto) Anion Gap Estim Creat Clear Calc Estimated GFR POC Glucose Fasting Glucose Calcium Total Bilirubin AST ALT Alkaline Phosphatase Total Protein Albumin 04/01/24 04/01/24 04/01/24 07:21 07:21 07:21 MCV MCH MCHC RDW Plt Count MPV Immature Gran % (Auto) Neut % (Auto) Lymph % (Auto) Emery % (Auto) Eos % (Auto) Baso % (Auto) Lymph # (Auto) Emery # (Auto) Eos # (Auto) Baso # (Auto) Abs Immat Gran (auto) Absolute Neuts (auto) 5.9 Absolute Nucleated RBC 0.000 0.000 Nucleated RBC % (auto) 0.0 0.0 Anion Gap 13 Estim Creat Clear Calc 99.8 Estimated GFR > 60 POC Glucose Fasting Glucose 101 H Calcium 9.1 Total Bilirubin 0.4 AST 18 ALT 16 Alkaline Phosphatase 111 Total Protein 6.6 Albumin 3.4 L 04/01/24 04/01/24 04/01/24 11:25 16:07 20:06 MCV MCH MCHC RDW Plt Count MPV Immature Gran % (Auto) Neut % (Auto) Lymph % (Auto) Emery % (Auto) Eos % (Auto) Baso % (Auto) Lymph # (Auto) Emery # (Auto) Eos # (Auto) Baso # (Auto) Abs Immat Gran (auto) Absolute Neuts (auto) Absolute Nucleated RBC Nucleated RBC % (auto) Anion Gap Estim Creat Clear Calc Estimated GFR POC Glucose 133 H 159 H 200 H Fasting Glucose Calcium Total Bilirubin AST ALT Alkaline Phosphatase Total Protein Albumin <Zhanna Leach PA-C - Last Filed: 04/02/24 07:50> Microbiology Microbiology Results: Microbiology 03/28/24 00:46 Blood Culture - Final Blood - Venous No growth after 5 days. 03/28/24 00:34 Blood Culture - Final Blood - Venous No growth after 5 days. <Zhanna Leach PA-C - Last Filed: 04/02/24 07:50> Procedures Date of Service Date of Service: 04/02/24 <Zhanna Leach PA-C - Last Filed: 04/02/24 07:50> 04/02/24 <Karri Al MD - Last Filed: 04/02/24 08:07> Progress Note: A&P Assessment and plan (1) Diverticulitis: Status: Acute <Zhanna Leach PA-C - Last Filed: 04/02/24 07:50> Assessment and Plan: Much improved Still with her abdominal tenderness So far tolerating small amounts of regular diet If still with significant tenderness later today I would recommend another day of IV antibiotics Abdomen is soft and benign Looks well Seen and examined independently <Karri Al MD - Last Filed: 04/02/24 08:07> Assessment and Plan: Improved clinically. Still with LLQ/suprapubic tenderness, no peritoneal signs. Will reassess later today. If tolerating solid diet, stable for dc to home on PO abx. F/u in office in 2 weeks. <MAGO Ren Last Filed: 04/02/24 07:50> Time Spent With Patient Time: Total time managing care of this patient today ____ minutes. <Zhanna Leach PA-C - Last Filed: 04/02/24 07:50> Quality Stroke Does the patient have a stroke diagnosis?: No <Zhanna Leach PA-C - Last Filed: 04/02/24 07:50> VTE Prior VTE?: No <Zhanna Leach PA-C - Last Filed: 04/02/24 07:50> VTE Risk Level:: Medical - moderate - high <Zhanna Leach PA-C - Last Filed: 04/02/24 07:50> VTE Device Contraindication: Treatment Not Indicated <Zhanna Leach PA-C - Last Filed: 04/02/24 07:50> VTE Drug Contraindication: N/A - Med Ordered <Zhanna Leach PA-C - Last Filed: 04/02/24 07:50>
[2024-04-02 08:03] LABS: Glucose, Whole Blood 116 mg/dL (60-115)
[2024-04-02 11:07] LABS: Glucose, Whole Blood 222 mg/dL (60-115)
[2024-04-02] MEDS: Insulin Lispro 100 UNIT/ML 3 ML VIAL SUBCUT ×2 (11:11→20:31)
--- NOTE | 2024-04-02 13:41 | HO.PM.IMPN ---
Subjective Subjective Date of Service: 04/02/24 Interval History: Slowly improving but still some tenderness. Tolerating diet Review of Systems Denies chest pain Denies shortness of breath Denies nausea vomiting admits diarrhea that is improving Denies fever and chills Endorses diffuse lower abdominal pain Physical Exam Vital Signs: Vital Signs: Last Vital Signs Temp 96.8 F 04/02/24 07:22 Pulse 85 04/02/24 07:22 Resp 16 04/02/24 07:22 BP 152/72 H 04/02/24 07:22 Pulse Ox 94 04/02/24 07:22 O2 Del Method Room Air 04/02/24 07:22 BMI result Body Mass Index 37.1 Const: Other: Awake alert uncomfortable appearing Resp: Other: Clear to auscultation bilaterally no rales rhonchi or wheezes Cardio: Other: No S4; positive S1-S2; no S3 murmurs rubs or gallops GI: Other: Soft tender across lower abdomen without rebound; nondistended normoactive bowel sounds Extrem: Other: No edema bilaterally Objective Data Active Medications Acetaminophen (Acetaminophen 325 Mg Tablet) 650 mg PO Q6H PRN PRN Reason: Pain, Mild (Pain Scale 1-3), fever or headache Last Admin: 03/31/24 12:25 Dose: 650 mg Documented By: JARED Atorvastatin Calcium (Atorvastatin Calcium 20 Mg Tablet) 20 mg PO DAILY [facility] Last Admin: 04/02/24 07:14 Dose: 20 mg Documented By: URBANO Calcium Carbonate (Calcium Carbonate 750 Mg Tab.Chew) 750 mg PO Q4H PRN PRN Reason: Heartburn Empagliflozin (Empagliflozin 25 Mg Tablet) 25 mg PO DAILY [facility] Last Admin: 04/02/24 07:14 Dose: 25 mg Documented By: URBANO Enoxaparin Sodium (Enoxaparin Sodium 40 Mg/0.4 Ml Syringe) 40 mg SUBCUT Q24H [facility] Last Admin: 04/02/24 07:15 Dose: 40 mg Documented By: URBANO Glucose (Glucose Gel 15 Gm Gel..Gram.) 15 gm PO Q15M PRN; Protocol PRN Reason: per Hypoglycemia Standing Ord. Dextrose (D10) 250 mls @ 750 mls/hr IV Q15M PRN; Protocol PRN Reason: per Hypoglycemia Standing Ord. Piperacillin Sod/Tazobactam (Sod 4.5 gm/ Sodium Chloride) 100 mls @ 200 mls/hr IV Q6H [facility] Last Infusion: 04/02/24 13:28 Dose: Infused Documented By: URBANO Insulin Glargine (Insulin Glargine,Hum.Rec.Anlog 100 Unit/Ml 10 Ml Vial) 20 unit SUBCUT BEDTIME [facility] Last Admin: 04/01/24 20:38 Dose: 1 unit Documented By: NINFA Insulin Human Lispro (Insulin Lispro 100 Unit/Ml 3 Ml Vial) 0 unit SUBCUT QIDACHS [facility]; Protocol Last Admin: 04/02/24 11:11 Dose: 4 unit Documented By: URBANO Lamotrigine (Lamotrigine 100 Mg Tablet) 200 mg PO BEDTIME [facility] Last Admin: 04/01/24 20:39 Dose: 200 mg Documented By: NINFA Lisinopril (Lisinopril 10 Mg Tablet) 10 mg PO DAILY [facility]; Protocol Last Admin: 04/02/24 07:14 Dose: 10 mg Documented By: URBANO Magnesium Hydroxide (Milk Of Magnesia 30 Ml Oral.Susp) 30 ml PO DAILY PRN PRN Reason: Constipation Melatonin (Melatonin 3 Mg Tablet) 6 mg PO BEDTIME PRN PRN Reason: Insomnia Mirtazapine (Mirtazapine 15 Mg Tablet) 15 mg PO BEDTIME [facility] Last Admin: 04/01/24 20:39 Dose: 15 mg Documented By: NINFA Ondansetron HCl (Ondansetron Hcl 4 Mg/2 Ml Vial) 4 mg IVPUSH Q8H PRN PRN Reason: Nausea and Vomiting Oxycodone HCl (Oxycodone Hcl Immed Release 5 Mg Tablet) 5 mg PO Q6H PRN PRN Reason: Pain, Moderate(Pain Scale 4-6) Last Admin: 04/02/24 13:18 Dose: 5 mg Documented By: URBANO Sodium Chloride (0.9 % Sodium Chloride Flush 3 Ml Syringe) 3 ml IVFLUSH QSHIFT [facility] Last Admin: 04/02/24 07:16 Dose: 3 ml Documented By: URBANO Vitamin D (Cholecalciferol (Vitamin D3) 25 Mcg Tablet) 50 mcg PO DAILY [facility] Last Admin: 04/02/24 07:14 Dose: 50 mcg Documented By: URBANO Labs 04/01/24 07:21 04/01/24 07:21 Labs: Laboratory Results - last 24 hr 04/01/24 04/01/24 04/02/24 16:07 20:06 07:24 POC Glucose 159 H 200 H 116 H 04/02/24 11:01 POC Glucose 222 H Microbiology Microbiology Results: Microbiology 03/28/24 00:46 Blood Culture - Final Blood - Venous No growth after 5 days. 03/28/24 00:34 Blood Culture - Final Blood - Venous No growth after 5 days. Assessment and Plan (1) Diverticulitis: Status: Acute Plan 48yo F with DM2, HTN, HLD presenting with abd pain admitted for sepsis due to acute diverticulitis 1.Sepsis due to acute diverticulitis (sepsis resolved) -Zosyn (6) -advance diet to low residue -morphine/oxycodone for pain. -appreciate surgical input. Slightly tender after lunch. We will continue antibiotics for 24 hours and re-evaluate in 2.HTN -acceptable control on current therapies -adjust as indicated 3.DM2 -acceptable control on current therapies -lispro correctional scale -adjust as indicated Lovenox Full code Press ongoing hospitalization for IV antibiotics to treat acute diverticulitis. Continues with poor p.o. intake; high risk for outpatient failure Quality Stroke Does the patient have a stroke diagnosis?: No VTE Prior VTE?: No VTE Risk Level:: Medical - moderate - high VTE Device Contraindication: Treatment Not Indicated VTE Drug Contraindication: N/A - Med Ordered
--- NOTE | 2024-04-02 14:15 | MHC.CM.PN ---
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 CM WILL CONTINUE TO FOLLOW FOR ANY CLEMONS TO DC PLAN/NEEDS.
[2024-04-02 15:29] VITALS: BP 157/83; PULSE 81; RESP 18; TEMP 36; O2SAT 97
[2024-04-02 16:24] LABS: Glucose, Whole Blood 128 mg/dL (60-115)
[2024-04-02] MEDS: Acetaminophen 325 MG TABLET 650 MG PO (17:43)
[2024-04-02 19:40] VITALS: BP 140/79; PULSE 91; RESP 16; TEMP 36.6; O2SAT 93
[2024-04-02 19:52] LABS: Glucose, Whole Blood 187 mg/dL (60-115)
[2024-04-02] MEDS: Mirtazapine 15 MG TABLET PO (20:31)
[2024-04-02] MEDS: lamoTRIgine 100 MG TABLET 200 MG PO (20:31)
[2024-04-02] MEDS: Insulin Glargine,Hum.rec.anlog 100 UNIT/ML 10 ML VIAL 20 UNIT SUBCUT (20:32)
[2024-04-03 03:06] VITALS: BP 152/69; PULSE 78; RESP 14; TEMP 36.4; O2SAT 93
[2024-04-03] MEDS: Piperacillin Sodium/Tazobactam 4.5 GM in 0.9 % Sodium Chloride 100 ML IV ×2 (06:05→11:35)
[2024-04-03 07:04] VITALS: PULSE 84; RESP 18; TEMP 36.2; O2SAT 97
[2024-04-03 07:16] LABS: Glucose, Whole Blood 135 mg/dL (60-115)
[2024-04-03 07:29] VITALS: BP 144/80
[2024-04-03] MEDS: Cholecalciferol (Vitamin D3) 25 MCG TABLET 50 MCG PO (08:47)
[2024-04-03] MEDS: Empagliflozin 25 MG TABLET PO (08:47)
[2024-04-03] MEDS: Enoxaparin Sodium 40 MG/0.4 ML SYRINGE SUBCUT (08:47)
[2024-04-03] MEDS: lisinopriL 10 MG TABLET PO (08:47)
[2024-04-03] MEDS: Atorvastatin Calcium 20 MG TABLET PO (08:47)
[2024-04-03] MEDS: 0.9 % Sodium Chloride Flush 3 ML SYRINGE IVFLUSH (08:47)
[2024-04-03] MEDS: oxyCODONE HCl Immed Release 5 MG TABLET PO (08:54)
[2024-04-03 11:20] LABS: Glucose, Whole Blood 171 mg/dL (60-115)
[2024-04-03] MEDS: Insulin Lispro 100 UNIT/ML 3 ML VIAL SUBCUT (11:35)
--- NOTE | 2024-04-03 12:22 | PM.DS ---
DS: Providers Provider Date of Service: 04/03/24 Date of admission: 03/28/24 03:43 Date of discharge: 04/03/24 Primary care physician: Lucy Claire MD Consults: 03/30/24 12:48 Consult to General Surgery Routine Consulting Provider: [facility] General Surgeons Reason for consultation: worsening diverticulitis but no absces DS: Diagnosis Discharge Diagnosis (1) Diverticulitis: Status: Acute DS: Summary Hospital Course Hospital Course: 48-year-old female with pertinent history of insulin-dependent diabetes mellitus, hypertension, mixed hyperlipidemia who presents to the emergency department for evaluation of abdominal pain. Patient states her symptoms started 1 day prior to presentation. She had lower abdominal discomfort which was constant, nonradiating, nonprogressive and without any relieving factors. Unclear if she has had history of diverticulitis. Patient states this pain was the worst pain she has ever felt. Reduced p.o. intake due to the pain but denies nausea or vomiting. Admits chills and feverish but no documented temperature. No chest discomfort, palpitations, shortness of breath. Has been having increased urinary frequency but no dysuria, hesitancy. In the emergency department, patient was found to be septic and imaging concerning for acute diverticulitis. Hospital Course Admitted to general medical floor and started on Zosyn. Seen in consultation by surgery who recommended ongoing IV antibiotics and serial abdominal exams with the thought that she does not improve or worsens that she would be taken for laparoscopic sigmoid resection. Over this course of the next several days, she continued to improve and her diet was advanced. At this point in time her abdomen exam is benign and she is tolerating diet. She is medically acceptable for discharge home to complete a course of Zosyn and follow up with surgery and her PCP. She has been counseled on advancing her diet very slowly; and also counseled on the importance of follow-up and she will need outpatient colonoscopy Time Attestation Discharge Coordination Time (in mins): 35 Quality: Safe Use of Opioids Does Pt have an Active Cancer Diagnosis on the Problem List?: No Quality: Stroke Does the patient have a stroke diagnosis?: No Physical Exam Vital Signs: Vital Signs: Last Vital Signs Temp 97.2 F 04/03/24 07:04 Pulse 84 04/03/24 07:04 Resp 18 04/03/24 07:04 BP 144/80 H 04/03/24 07:29 Pulse Ox 97 04/03/24 07:04 O2 Del Method Room Air, Trach C ollar 04/03/24 07:04 BMI result Body Mass Index 37.1 Const: Other: Awake alert uncomfortable appearing Resp: Other: Clear to auscultation bilaterally no rales rhonchi or wheezes Cardio: Other: No S4; positive S1-S2; no S3 murmurs rubs or gallops GI: Other: Soft tender across lower abdomen without rebound; nondistended normoactive bowel sounds Extrem: Other: No edema bilaterally DS: Data Data Completed and Pending Labs on day of discharge: Laboratory Results - last 24 hr 04/02/24 04/02/24 04/03/24 16:15 19:30 07:06 POC Glucose 128 H 187 H 135 H 04/03/24 11:16 POC Glucose 171 H Discharge Plan Discharge Anticipated Discharge Date/Time: 04/03/24 12:13 Patient Disposition: Home Health Service Discharge Diagnosis: Diverticulitis Referrals: Lucy Nur MD [Primary Care Provider] - 1 Week Discharge Medications: New oxycodone 5 mg Tablet 5 mg PO Q6H PRN (Reason: Pain, Moderate(Pain Scale 4-6)) Qty: 20 0RF Rx Instructions: Partial Fill upon patient request. amoxicillin-pot clavulanate 875-125 mg tablet 1 tab PO BID Qty: 20 0RF Continued (DME) FreeStyle Trudy 2 Sensor Kit See Rx Instructions .ROUTE .MEDSUPPLY Qty: 2 0RF Rx Instructions: As directed every 2 weeks cholecalciferol (vitamin D3) [Vitamin D3] 50 mcg (2,000 unit) capsule 50 mcg PO DAILY Qty: 30 11RF (DME) incontinence pad, liner, disp Pad See Rx Instructions .Route Qty: 60 11RF Rx Instructions: Use 1 pad twice a day rosuvastatin 5 mg tablet 5 mg PO DAILY 90 Days Qty: 90 1RF (DME) incontinence pad, liner, disp Pad See Rx Instructions .Route Qty: 90 6RF Rx Instructions: As directed lisinopril 10 mg tablet 10 mg PO DAILY 90 Days Qty: 90 1RF (DME) pen needle, diabetic [BD Ultra-Fine Micro Pen Needle] 32 gauge x 1/4 needle See Rx Instructions .ROUTE .MEDSUPPLY Qty: 100 8RF Rx Instructions: 1 daily empagliflozin 25 mg tablet 25 mg PO DAILY 30 Days Qty: 30 2RF mirtazapine 15 mg tablet 15 mg PO BEDTIME insulin glargine [Lantus Solostar U-100 Insulin] 100 unit/mL (3 mL) insulin pen 45 unit subcut BEDTIME Ozempic 0.25 mg or 0.5 mg (2 mg/3 mL) pen injector 0.5 mg subcut FR (DME) blood-glucose meter [FreeStyle Lite Meter] Kit See Rx Instructions .Route Qty: 1 0RF Rx Instructions: As directed (DME) FreeStyle Precision Shar Strips Strip See Rx Instructions .ROUTE .MEDSUPPLY Qty: 50 0RF Rx Instructions: TWice daily lamotrigine 200 mg tablet 200 mg PO BEDTIME (DME) pen needle, diabetic [Easy Comfort Pen [place]] 33 gauge x 5/32 needle See Rx Instructions .ROUTE .MEDSUPPLY Qty: 100 Rx Instructions: As directed Discharge Orders: Discharge Order (Routine); Ordered 04/03/24 Ordered By: Mateus Aleman Diet: Advance to usual diet Activity on Discharge: As tolerated Stand Alone Forms: Patient Portal Discharge page Print Language: Cameroonian Care Plan Goals: Complete course of Augmentin twice daily for 10 days Health Concerns: Resume all previous medicines as taken prior to hospital Plan of Treatment: Advance your diet slowly. Follow up with your PCP next available Assessment: See discharge summary Patient Instructions: Diverticulitis (GEN)
--- NOTE | 2024-04-03 12:25 | W.MHC.F2F ---
Service Date Service Date: 04/03/24 Encounter Date of encounter: 04/03/24 Encounter: Acute hospitalization Reasons for Services Signs and symptoms assessed: Abdominal assessment to follow-up course of diverticulitis Reason for intermediate: medication management, teach disease management and other Homebound: Leaving the home is medically contraindicated at this time without the asist of a device and/or another person due th the listed conditions above and below. Reason homebound: unsteady gait / fall risk, pain with ambulation and weakness related to hospital stay Certification: Based on the above findings, I certify that this patient is confined to the home and needs intermittent intermediate care, physical therapy and/or speech therapy, or continues to need occupational therapy. The patient is under my care, and I have initiated the establishment of the plan of care. The patient will be followed by a physician who will periodically review the plan of care. Time Spent With Patient Time: Total time managing care of this patient today ____ minutes.
--- NOTE | 2024-04-03 14:11 | MHC.CM.PN ---
Per MD, patient medically cleared for dc home self care. Boyfriend will transport home at 3pm. RN aware.
== END 2024-04-03 14:22 | disposition home or self-care (01) | DRG 720 ==
LOC: HO.ED 03-28 03:27 → HO.EDOVER 03-28 03:48 → HO.S3 03-28 07:25
PROVIDERS: Family Medicine; Nurse Practitioner Family; Physician Assistant; Surgery; Admitting Provider Student in an Organized Health Care Education/Training Program; Emergency Provider Emergency Medicine; PCP Internal Medicine; Visit Provider Hospitalist
DX: A41.9 Sepsis, unspecified organism (principal); E11.65 Type 2 diabetes mellitus with hyperglycemia; I10 Essential (primary) hypertension; E66.01 Morbid (severe) obesity due to excess calories; Z68.37 Body mass index [BMI] 37.0-37.9, adult; E78.2 Mixed hyperlipidemia; K57.32 Diverticulitis of large intestine without perforation or abscess without bleeding; Z79.4 Long term (current) use of insulin; Z79.85 Long-term (current) use of injectable non-insulin antidiabetic drugs; Z79.899 Other long term (current) drug therapy
CPT/HCPCS: 36415; 74177; 80048; 80053; 81001; 81003; 82947; 83605; 83690; 83735; 84702; 85025; 85027; 86140; 87040; 99285; J0696; J1650; J2270; J2543; J7120; Q9967

== ENCOUNTER → 2024-03-28 03:43 | Outpatient (BNV) | payer OTHER, SELFPAY | PROVIDERS: Admitting Provider Student in an Organized Health Care Education/Training Program; Emergency Provider Emergency Medicine; PCP Internal Medicine; Visit Provider Physician Assistant Surgical | DX: K57.92 Diverticulitis of intestine, part unspecified, without perforation or abscess without bleeding (principal) | CPT/HCPCS: 99222; 99232 ==

== ENCOUNTER → 2024-03-28 03:43 | Outpatient (BNV) | payer OTHER, SELFPAY | PROVIDERS: Admitting Provider Student in an Organized Health Care Education/Training Program; Emergency Provider Emergency Medicine; PCP Internal Medicine; Visit Provider Student in an Organized Health Care Education/Training Program | DX: K57.92 Diverticulitis of intestine, part unspecified, without perforation or abscess without bleeding (principal) | CPT/HCPCS: 99222; 99232; 99239; 99499; G0180 ==

== ENCOUNTER 2024-04-10 09:48 | Outpatient (AMB) | payer OTHER, SELFPAY ==
--- NOTE | 2024-04-10 09:54 | A.OFFPC_ITS ---
Vital Signs 04/10/24 09:55 Height 5 ft 1 in Weight 197 lb 4 oz BMI 37.3 BP 120/72 Blood Pressure Location Lt brachial Position Sitting Pulse 87 Pulse Source Pulse Oximeter Pulse Oximetry (%) 97 Oxygen Delivery Method Room Air Intake Visit Reasons: [facility] Abdominal Pain Intake Note: Patient is here for hospital discharge follow up. Patient was discharged from [facility] on 04/03/24. Manager Cardiac Required: No Guide Dog Instructor: Not Required per policy Accompanied by: Self / Same As Patient Allergies No Known Allergies [No Known Allergies*] Allergy (Verified 04/10/24 09:55) Tobacco use date assessed: 04/10/24 Dental Screening Dental Screen Date: 08/11/23 HPI HPI Comments History of Present Illness Details 48 y/o female patient who presents to [facility]. She was admitted at [facility] on 03/28/24 due to Diverticulitis. She was discharged home on 04/03/24 with Oral Abx (Amoxicillin) and she is to follow up with General surgery in 3 weeks. Advised Patient to call their office for an appointment. Today Pt reports feeling much better, minimal pain and takes Oxy with good relief. Denies nausea or vomiting. Denies constipation or diarrhea. Denies fevers or chills. [facility] Medical History Morbid obesity with BMI of 40.0-44.9, adult Diabetes mellitus with microalbuminuric diabetic nephropathy Vitamin D deficiency HLD (hyperlipidemia) HTN (hypertension) T2DM (type 2 diabetes mellitus) Surgical History Hx of section History of tubal ligation Family History Father CVD (cardiovascular disease) Cancer Mother Uterine cancer Hypertension CVD (cardiovascular disease) Diabetes mellitus Paternal Grandmother Uterine cancer Social History Household Members: Family Housing: Apartment Do you presently have visiting nurse or other home services: No Alcohol intake: never Patient Tobacco Use Status: Never used Tobacco e-Cigarette/Vaping Use: Never Used Second Hand Smoke Exposure: No service: No Current occupational status: unemployed Cognitive needs: No Hearing needs: No Vision needs: No Female Reproductive History Menstrual Age of Menarche: 11 Questionnaire Thrive Questionnaire Date Thrive assessed: 03/28/24 Are you currently unemployed and looking for a job?: I choose not to answer this question THOMPSON-7 AMB Questionnaire THOMPSON-7 Date THOMPSON - 7 assessed: 08/11/23 Source: Developed by Drs. Paul Castillo, Kath Dunne, Jorge Duque and colleagues, with an educational evelyn from [employer]. Review of Systems Const All systems reviewed & are unremarkable except as noted in HPI and below Physical exam (Primary Care) Vital Signs: Last Vital Signs Pulse 87 04/10/24 09:55 BP 120/72 04/10/24 09:55 Pulse Ox 97 04/10/24 09:55 Oxygen Delivery Method Room Air 04/10/24 09:55 BMI result Body Mass Index 37.3 Tobacco/Smoking Status: Tobacco use Status Tobacco use date assessed 04/10/24 04/10/24 10:03 Patient Tobacco Use Status Never used Tobacco 04/10/24 10:03 e-Cigarette/Vaping Use Never Used 04/10/24 10:03 Thrive Assessment: Date of Thrive Assessment Date Thrive assessed 03/28/24 04/10/24 10:03 Const General: cooperative and comfortable Nutritional Appearance: obese Orientation/consciousness: patient oriented x3 Resp Effort & Inspection: normal respiratory effort Auscultation: clear to auscultation bilaterally Cardio Heart sounds: S1 normal heart sound present and S2 normal heart sound present GI Inspection: Yes Abdominal panniculus present Palpation (GI): Soft to palpation, not firm, Tenderness to palpation present (GI) (generalized tenderness. large obese abdomen), no guarding, not rigid and No hepatosplenomegaly present General: Yes no CVA tenderness Back/Spine/Pelvis Back: no CVA tenderness Neuro General: patient oriented x3, gait normal and moves all extremities Psych Speech and movement: Normal speech and movement present Results AMB Hemoglobin A1c AMB Hemoglobin A1c 9.6 % Last Edit by MARIAH Aldrich on 04/10/24 10:14 Results Reviewed Results Reviewed: Laboratory Last Values Hgb A1c (Clinic) 9.6 % (4.0-6.0) H 04/10/24 09:53 Assessment and Plan Assessment & Plan (1) Diverticulitis: Code(s): K57.92 - Diverticulitis of intestine, part unspecified, without perforation or abscess without bleeding Plan: Stable, still has 4 more days on Oral Abx Patient to follow up with General surgery as scheduled. Orders: Orders AMB Hemoglobin A1c Today E11.65 - Type 2 diabetes mellitus with hyperglycemia, Z79.4 - [facility]FP (current) use of insulin Coding Level of Care Code Est Pt Level 4 (46342) Diagnoses Diverticulitis K57.92 Time Spent (min) 20 Comment Spent on reviewing hospital notes and patient education.
[2024-04-10 09:55] VITALS: BP 120/72; PULSE 87; O2SAT 97; BMI 37.3
== END 2024-04-10 10:26 | disposition home or self-care (01) ==
PROVIDERS: PCP Internal Medicine; Visit Provider Nurse Practitioner Family
DX: E11.65 Type 2 diabetes mellitus with hyperglycemia (principal); Z79.4 Long term (current) use of insulin; K57.92 Diverticulitis of intestine, part unspecified, without perforation or abscess without bleeding

== ENCOUNTER → 2024-04-10 09:48 | Outpatient (BNVA) | payer OTHER, SELFPAY | PROVIDERS: PCP Internal Medicine; Visit Provider Nurse Practitioner Family | DX: K57.92 Diverticulitis of intestine, part unspecified, without perforation or abscess without bleeding (principal); E11.65 Type 2 diabetes mellitus with hyperglycemia; Z79.4 Long term (current) use of insulin | CPT/HCPCS: 83036; 99212 ==

== ENCOUNTER 2024-04-23 14:20 | Outpatient (AMB) | payer OTHER, SELFPAY ==
--- NOTE | 2024-04-23 15:00 | A.OFFVIS_ITS ---
Vital Signs 04/23/24 15:07 Height 5 ft 1 in Weight 195 lb BMI 36.8 BP 135/80 Blood Pressure Location Rt brachial Position Sitting Pulse 83 Intake Visit Reasons: [facility] abdominal pain Intake Note: Patient referred after hospitalization for diverticulosis. Reports pain much better now. Finished amoxicillin course. Patient c/o: abd pain. Soft BM, pain with every BM. Denies nausea. Abd/pelvis CT: 03-30-2024. Board Certified Behavioral Analyst Required: No Accompanied by: daughter Mary Allergies No Known Allergies [No Known Allergies*] Allergy (Verified 04/23/24 15:05) Medication List - Last Reconciled 04/23/24 by Karri Al MD blood sugar diagnostic (FreeStyle Precision Shar Strips) TWice daily blood-glucose meter (FreeStyle Lite Meter kit) As directed cholecalciferol (vitamin D3) (Vitamin D3) 50 mcg PO DAILY empagliflozin 25 mg PO DAILY 30 days flash glucose sensor (FreeStyle Trudy 2 Sensor kit) As directed every 2 weeks incontinence pad, liner, disp Use 1 pad twice a day incontinence pad, liner, disp As directed insulin glargine (Lantus Solostar U-100 Insulin) 45 units subcut BEDTIME lamotrigine 200 mg PO BEDTIME lisinopril 10 mg PO DAILY 90 days mirtazapine 15 mg PO BEDTIME oxycodone 5 mg PO Q6H PRN pen needle, diabetic (BD Ultra-Fine Micro Pen Needle) 1 daily pen needle, diabetic (Easy Comfort Pen [place]) As directed rosuvastatin 5 mg PO DAILY 90 days semaglutide (Ozempic) 0.5 mg (0.736 mL) subcut FR HPI HPI [facility] abdominal pain: Details: [age] year old female here for a follow-up after being admitted for diverticulitis. She was in the hospital a month ago because of this. She was discharged after 3 days in the hospital with IV antibiotics She describes having good oral intake. She denies any fever or chills. However, she does state that she still has some lower abdominal pain that radiates to the back. She denies being constipated. She says she has good bowel movements. She has never had any colonoscopy in the past. [facility] Medical History (Updated 04/23/24 @ 15:54 by Karri Al MD) Diverticulitis of large intestine with abscess without bleeding Morbid obesity with BMI of 40.0-44.9, adult Diabetes mellitus with microalbuminuric diabetic nephropathy Vitamin D deficiency HLD (hyperlipidemia) HTN (hypertension) T2DM (type 2 diabetes mellitus) Surgical History Hx of section History of tubal ligation Family History Father CVD (cardiovascular disease) Cancer Mother Uterine cancer Hypertension CVD (cardiovascular disease) Diabetes mellitus Paternal Grandmother Uterine cancer Social History Household Members: Family Housing: Apartment Do you presently have visiting nurse or other home services: No Alcohol intake: never Patient Tobacco Use Status: Never used Tobacco e-Cigarette/Vaping Use: Never Used Second Hand Smoke Exposure: No service: No Current occupational status: unemployed Cognitive needs: No Hearing needs: No Vision needs: No Female Reproductive History Menstrual Age of Menarche: 11 Review of Systems Const Denies chills and Denies fever(s) Card Denies chest pain, Denies dyspnea and Denies dyspnea on exertion Resp Denies cough, Denies dyspnea and Denies dyspnea on exertion GI Denies hematochezia and Denies change in bowel habits Denies hematuria Musc Denies back pain and Denies limited range of motion Neuro Denies focal weakness and Denies convulsions Psych Denies depression and Denies mood swings Physical Exam Vital Signs: Last Vital Signs Pulse 83 04/23/24 15:07 BP 135/80 04/23/24 15:07 BMI result Body Mass Index 36.8 Const Other: Morbidly obese General: comfortable and no acute distress Orientation/consciousness: patient oriented x3 Neck Neck: Yes no lymphadenopathy Resp Auscultation: clear to auscultation bilaterally Cardio Rhythm: regular rhythm GI Palpation (GI): Soft to palpation, Tenderness to palpation present (GI) (Mild tenderness on the lower abdomen) and no guarding Neuro General: patient oriented x3 Assessment & Plan Assessment & Plan Orders: Orders CT abdomen pelvis w IV con 04/23/24 K57.20 - Diverticulitis of large intestine with perforation and abscess without bleeding Medications: New levofloxacin 500 mg PO DAILY 7 tabs 0RF 7 days metronidazole 250 mg PO BID 14 tabs 0RF Coding
[2024-04-23 15:07] VITALS: BP 135/80; PULSE 83; BMI 36.8
[2024-04-24 08:12] VITALS: BMI 36.8
--- NOTE | 2024-04-24 08:12 | MHC.OFFVIS ---
Vital Signs 04/23/24 15:07 04/24/24 08:12 Height 5 ft 1 in Weight 195 lb BMI 36.8 36.8 BP 135/80 Blood Pressure Location Rt brachial Position Sitting Pulse 83 Intake Visit Reasons: [facility] abdominal pain Allergies No Known Allergies [No Known Allergies*] Allergy (Verified 04/23/24 15:05) Medication List - Last Reconciled 04/23/24 by Karri Al MD blood sugar diagnostic (FreeStyle Precision Shar Strips) TWice daily blood-glucose meter (FreeStyle Lite Meter kit) As directed cholecalciferol (vitamin D3) (Vitamin D3) 50 mcg PO DAILY empagliflozin 25 mg PO DAILY 30 days flash glucose sensor (FreeStyle Trudy 2 Sensor kit) As directed every 2 weeks incontinence pad, liner, disp Use 1 pad twice a day incontinence pad, liner, disp As directed insulin glargine (Lantus Solostar U-100 Insulin) 45 units subcut BEDTIME lamotrigine 200 mg PO BEDTIME lisinopril 10 mg PO DAILY 90 days mirtazapine 15 mg PO BEDTIME oxycodone 5 mg PO Q6H PRN pen needle, diabetic (BD Ultra-Fine Micro Pen Needle) 1 daily pen needle, diabetic (Easy Comfort Pen [place]) As directed rosuvastatin 5 mg PO DAILY 90 days semaglutide (Ozempic) 0.5 mg (0.736 mL) subcut FR [facility]PI [facility] pain: Details: [age] year old female here for a follow-up visit. She was admitted to the hospital last 03/30/2024 because of acute uncomplicated diverticulitis. She had a short segment of the proximal to mid sigmoid with thickening. There were no abscesses or any free air She was in the hospital for about 3-4 days for IV antibiotics She was discharged much improved. She says she still has periodic pain on the left lower quadrant. She has good oral intake. She denies any urinary complaints. She denies any constipation. She denies any fever or chills. She does have multiple medical problems including morbid obesity, diabetes and hyperlipidemia. [facility] Medical History Diverticulitis of large intestine with abscess without bleeding Morbid obesity with BMI of 40.0-44.9, adult Diabetes mellitus with microalbuminuric diabetic nephropathy Vitamin D deficiency HLD (hyperlipidemia) HTN (hypertension) T2DM (type 2 diabetes mellitus) Surgical History Hx of section History of tubal ligation Family History Father CVD (cardiovascular disease) Cancer Mother Uterine cancer Hypertension CVD (cardiovascular disease) Diabetes mellitus Paternal Grandmother Uterine cancer Social History Household Members: Family Housing: Apartment Do you presently have visiting nurse or other home services: No Alcohol intake: never Patient Tobacco Use Status: Never used Tobacco e-Cigarette/Vaping Use: Never Used Second Hand Smoke Exposure: No service: No Current occupational status: unemployed Cognitive needs: No Hearing needs: No Vision needs: No Female Reproductive History Menstrual Age of Menarche: 11 Review of Systems Const Denies chills and Denies fever(s) Card Denies chest pain, Denies dyspnea and Denies dyspnea on exertion Resp Denies cough, Denies dyspnea and Denies dyspnea on exertion GI Denies hematochezia and Denies change in bowel habits Denies hematuria Musc Denies back pain and Denies limited range of motion Neuro Denies focal weakness and Denies convulsions Psych Denies depression and Denies mood swings Physical Exam Vital Signs: Last Vital Signs Pulse 83 04/23/24 15:07 BP 135/80 04/23/24 15:07 BMI result Body Mass Index 36.8 Const Other: Morbidly obese General: comfortable and no acute distress Orientation/consciousness: patient oriented x3 Neck Neck: Yes no lymphadenopathy Resp Auscultation: clear to auscultation bilaterally Cardio Rhythm: regular rhythm GI Other: Mild tenderness left lower quadrant Palpation (GI): Soft to palpation, Tenderness to palpation present (GI) and no guarding Neuro General: patient oriented x3 Assessment & Plan Assessment & Plan (1) Diverticulitis of large intestine with abscess without bleeding: Code(s): K57.20 - Diverticulitis of large intestine with perforation and abscess without bleeding Category: Medical Plan: She had been admitted to the hospital on March 30 for acute uncomplicated diverticulitis. She had improved significantly with IV antibiotics. She however describes some tenderness again on the left lower quadrant. She looks well overall. I will do a follow-up CT scan. I will put her back on oral antibiotics with Levaquin and Flagyl I will see her in the office to discuss and review her CT scan findings. She understands the plan well and is comfortable with this. Orders: Orders CT abdomen pelvis w IV con 04/25/24 K57.20 - Diverticulitis of large intestine with perforation and abscess without bleeding Medications: New levofloxacin 500 mg PO DAILY 7 days 7 tabs 0RF metronidazole 250 mg PO BID 14 tabs 0RF Coding Level of Care Code Est Pt Level 3 (96565) Diagnoses Diverticulitis of large intestine with abscess without bleeding K57.20
== END 2024-04-23 15:43 | disposition home or self-care (01) ==
PROVIDERS: PCP Internal Medicine; Visit Provider Surgery
DX: K57.20 Diverticulitis of large intestine with perforation and abscess without bleeding (principal)
CPT/HCPCS: 99213

== ENCOUNTER → 2024-04-23 14:20 | Outpatient (BNVA) | payer OTHER, SELFPAY | PROVIDERS: PCP Internal Medicine; Visit Provider Surgery | DX: R10.9 Unspecified abdominal pain (principal); Z87.19 Personal history of other diseases of the digestive system | CPT/HCPCS: 99212 ==

== ENCOUNTER 2024-04-25 14:26 | Outpatient (REF) | payer OTHER, SELFPAY ==
--- NOTE | ~2024-04-25 | CT_ITS ---
EXAMINATION: CT ABDOMEN AND PELVIS WITH CONTRAST CLINICAL INFORMATION: Diverticulitis with perforation and abscess. COMPARISON: CT scans dating between March 30, 2024 and September 15, 2016. TECHNIQUE: Multidetector volumetric images were obtained from the superior aspect of the liver through the pubic symphysis following administration 85 mL of Omnipaque 350 intravenous contrast. Sagittal and coronal reformatted images were obtained on the technologist's workstation. Oral contrast: No This CT examination was performed using dose optimization techniques as appropriate, variously including the following: *Automated exposure control *Adjustment of mA and/or kV according to patient size (this includes techniques or standardized protocols for targeted exams where dose is matched to indication/reason for exam; i.e. extremities or head) *Use of iterative reconstruction technique DLP: 473 mGy-cm FINDINGS: LUNG BASES: Lung bases appear unremarkable. No infiltrate or pleural effusion identified. Right appears normal in size. No pericardial effusion. LIVER, GALLBLADDER, AND BILIARY TREE: The liver appears unremarkable in size, shape, and attenuation. No focal hepatic lesion or significant biliary ductal dilation is appreciated. Unremarkable appearance of the gallbladder. PANCREAS: Unremarkable SPLEEN: Unremarkable ADRENAL GLANDS: Unremarkable KIDNEYS AND URETERS: The kidneys appear unremarkable in size, shape, and attenuation. No hydronephrosis, hydroureter, or calculi seen. BLADDER: Poorly distended, therefore suboptimally evaluated. Grossly unremarkable. GASTROINTESTINAL TRACT/PELVIC VISCERA/PERITONEAL CAVITY: Limited by lack of oral contrast. Diverticulosis predominantly involving the sigmoid and descending colon. No evidence of acute diverticulitis. Significant improvement of perisigmoid induration of fat compared with most recent prior study from March 30, 2024. Approximately 2 cm diverticulum involving the second portion of the duodenum, without evidence of associated inflammation. The small and large bowel otherwise appear unremarkable. ABDOMINAL WALL: No significant hernia is appreciated. A few, small foci of induration of subcutaneous fat involving the anterior abdominal wall probably related to hypodermic needle injections. LYMPH NODES: No evidence of adenopathy by size criteria. VASCULAR: Bilateral pelvic phleboliths. OSSEOUS STRUCTURES: Unremarkable CT/CT abdomen pelvis w IV con IMPRESSION: No acute finding. Electronically signed by: Shailesh Cohen MD 05/09/2024 09:01 AM EDT
[2024-04-25] MEDS: iohexoL 350 MG/ML 75 ML INFUS..BTL 85 ML IV (14:57)
== END 2024-04-25 14:27 | disposition home or self-care (01) ==
LOC: HO.CT 14:26
PROVIDERS: PCP Internal Medicine; Visit Provider Surgery
DX: K57.20 Diverticulitis of large intestine with perforation and abscess without bleeding (principal)
CPT/HCPCS: 74177; Q9967

== ENCOUNTER 2024-05-09 06:05 | Emergency (ER) | payer OTHER, SELFPAY ==
--- NOTE | ~2024-05-09 | CT_ITS ---
EXAMINATION: CT ABDOMEN AND PELVIS WITH CONTRAST CLINICAL INFORMATION: Left lower quadrant pain. COMPARISON: 04/25/2024. TECHNIQUE: Multidetector volumetric images were obtained from the superior aspect of the liver through the pubic symphysis following administration 85 mL of Omnipaque 350 intravenous contrast. Sagittal and coronal reformatted images were obtained on the technologist's workstation. Oral contrast: No This CT examination was performed using dose optimization techniques as appropriate, variously including the following: *Automated exposure control *Adjustment of mA and/or kV according to patient size (this includes techniques or standardized protocols for targeted exams where dose is matched to indication/reason for exam; i.e. extremities or head) *Use of iterative reconstruction technique DLP: 663 mGy-cm FINDINGS: LUNG BASES: The visualized lung bases are unremarkable. LIVER, GALLBLADDER, AND BILIARY TREE: The liver is normal in size, shape, and attenuation. No focal hepatic lesion or biliary ductal dilatation is present. The gallbladder is unremarkable with no evidence of radiopaque gallstones, gallbladder wall thickening, or obvious pericholecystic inflammatory changes. PANCREAS: Unremarkable. SPLEEN: Unremarkable. ADRENAL GLANDS: Unremarkable. KIDNEYS AND URETERS: The kidneys are normal in size, shape, and attenuation. No hydronephrosis, hydroureter, or calculi seen. No perinephric stranding. BLADDER: Unremarkable. GASTROINTESTINAL TRACT: Interval improvement from 03/30/2024 and 04/25/2024 , with less perisigmoid induration. There is mild sigmoid diverticular disease still present without evidence for kyaw diverticulitis or adjacent abscess collection or drainable collection. No proximal bowel obstruction. No right or left lower quadrant inflammatory change. Previously noted duodenal diverticula unchanged. Small hiatal hernia. ABDOMINAL WALL: Slight induration in the subcutaneous fat possibly from prior injection. No change. No hernia. LYMPH NODES: Normal. VASCULAR: Unremarkable. PELVIC VISCERA: Unremarkable. OSSEOUS STRUCTURES: Unremarkable. CT/CT abdomen pelvis w IV con IMPRESSION: Interval improvement. No evidence for recurrent diverticulitis. Fleischner guidelines were followed. Electronically signed by: Eduin Hughes MD 05/09/2024 09:42 AM EDT
[2024-05-09 06:09] VITALS: BP 167/85; PULSE 78; RESP 20; TEMP 36.6; O2SAT 99; BMI 37.9
[2024-05-09 06:13] VITALS: BP 150/80; PULSE 74; O2SAT 98
[2024-05-09 06:14] VITALS: BP 167/85; PULSE 73; RESP 20; TEMP 36.6; O2SAT 98
--- NOTE | 2024-05-09 06:24 | MHC.EDTECH ---
Patient BIBA,changed into hospital attire,vitals taken,call howard in reach
[2024-05-09 06:31] LABS: Basophils Absolute Auto 0.1 X10*3/uL (0.0-0.2); Basophils Percent Auto 0.5 % (0-2); Eosinophils Absolute Auto 0.3 X10*3/uL (0.0-0.4); Eosinophils Percent Auto 2.4 % (0-4); Hemoglobin 14.1 g/dl (12.0-16.0); Imm Gran Abs Auto 0.04 X10*3/uL (0.00-0.03); Imm Gran Pct Auto 0.4 % (0.0-0.4); Lymphocytes Absolute Auto 2.8 X10*3/uL (1.2-4.9); Lymphocytes Percent Auto 25.9 % (20-40); MANUAL DIFF FLAG NO; Mean Corpuscular HGB Conc 33.6 g/dl (31.0-35.0); Mean Corpuscular Hemoglobin 27.6 pg (27.0-33.0); Mean Corpuscular Volume 82.4 fL (80.0-98.0); Mean Platelet Volume 11.6 fL (9.4-12.3); Monocytes Absolute Auto 0.7 X10*3/uL (0.1-1.2); Monocytes Percent Auto 6.2 % (2-11); Neutrophils Percent Auto 64.6 % (45-73); Platelet Count 278 X10*3/uL (160-400); Red Cell Distribution Width 13.2 % (11.0-16.0); White Blood Count 10.9 X10*3/uL (4.8-10.8)
[2024-05-09 06:46] LABS: Appearance Urine Clear; Color Urine Yellow; Glucose Urine UA 250 mg/dL (Negative); Leukocyte Esterase Urine Negative (Negative); Nitrite Urine Negative (Negative); PH 5.5 (5.0-9.0); Specific Gravity - Urine >= 1.030 (1.005-1.025); Urine Blood Negative (Negative); Urine Ketones Trace mg/dL (Negative); Urine Protein Trace mg/dL (Neg-Trace)
[2024-05-09 06:55] LABS: Bacteria Urine None Seen (None Seen); Calcium Oxalate Crystals Urine Present; Hyaline Casts Urine 0-2 /LPF (0-2); RBC Urine 0-2 /HPF (0-2); UACC Culture Trigger YES
--- NOTE | 2024-05-09 07:16 | ED.ABDPAIN ---
HPI - Abdominal Pain General Chief Complaint: Abdominal Pain Stated Complaint: unk Time Seen by Provider: 05/09/24 06:51 Source: patient, EMS and photonics technician (MAURITIAN) Mode of arrival: EMS Limitations: no limitations and language barrier (MAURITIAN ) History of Present Illness ED Provider: STEPHANIA NI PA-C HPI narrative: 48 year old jamaican speaking female with past medical history significant for type 2 diabetes, hypertension, HDL, diverticulitis presents to the ED today via EMS from home for evaluation of acute onset diffuse abdominal pain since 1999 last night. Reports she was unable to sleep all night due to the pain. Reports pain radiation to her right flank. Associated nausea without vomiting. Normal bowel movements. Last bowel movement prior to arrival in ED. denies fever, chills, dysuria, hematuria, diarrhea, constipation. Patient states she recently followed up with general surgeon, Dr. Al. She was told she may have to have surgery on her intestines. Can not recall why. States she had a CT scan of her abdomen approximately 1 week ago and has not received the results of this. uke operator utilized throughout visit to communicate with patient. Related Data Home Medications ?Medication ?Instructions ?Recorded ?Confirmed lamotrigine 200 mg tablet 200 mg PO BEDTIME 05/25/23 04/23/24 pen needle, diabetic 33 gauge x #100 ea 05/25/23 04/23/24 (Easy Comfort Pen Ald[place]) insulin glargine 100 unit/mL (3 45 unit subcut BEDTIME 03/28/24 04/23/24 mL) subcutaneous pen (Lantus Solostar U-100 Insulin) mirtazapine 15 mg tablet 15 mg PO BEDTIME 03/28/24 04/23/24 Previous Rx's ?Medication ?Instructions ?Recorded blood sugar diagnostic (FreeStyle #50 ea 12/30/20 Precision Shar Strips) flash glucose sensor (FreeStyle #2 ea 02/10/21 Trudy 2 Sensor kit) cholecalciferol (vitamin D3) 50 50 mcg PO DAILY #30 caps 07/13/21 mcg (2,000 unit) capsule (Vitamin D3) blood-glucose meter (FreeStyle #1 ea 11/01/22 Lite Meter kit) incontinence pad, liner, disp #60 ea 01/25/23 incontinence pad, liner, disp #90 ea 04/29/24 lisinopril 10 mg tablet 10 mg PO DAILY 90 days #90 tabs 02/27/24 empagliflozin 25 mg tablet 25 mg PO DAILY 30 days #30 tabs 03/26/24 pen needle, diabetic 32 gauge x #100 ea 03/26/2407/21 (BD Ultra-Fine Micro Pen Needle) oxycodone 5 mg tablet 5 mg PO Q6H PRN Pain, 04/03/24 Moderate(Pain Scale 4-6) #20 tabs semaglutide 0.25 mg or 0.5 mg (2 0.5 mg (0.736 mL) subcut FR #0.736 04/19/24 mg/3 mL) subcutaneous pen injector mL (Ozempic) levofloxacin 500 mg tablet 500 mg PO DAILY 7 days #7 tabs 04/23/24 metronidazole 250 mg tablet 250 mg PO BID #14 tabs 04/23/24 rosuvastatin 5 mg tablet 5 mg PO DAILY 90 days #90 tabs 05/02/24 oxycodone 5 mg tablet 5 mg PO Q8H PRN pain (scale score 05/09/24 4-6) #9 tabs Allergies Allergy/AdvReac Type Severity Reaction Status Date / Time No Known Allergies Allergy Verified 05/09/24 06:12 [No Known Allergies*] Review of Systems Review of Systems Constitutional: No fever, chills, fatigue, night sweats, weight changes ENT/Mouth: No ear pain, hearing loss, nasal congestion, sinus pain, rhinorrhea, sore throat Eyes: No eye pain, swelling, redness, vision changes, discharge Cardio: No chest pain, palpitations, OWEN, orthopnea, peripheral edema Pulm: No SOB, cough, sputum, wheezing, dyspnea, hemoptysis GI: No nausea, vomiting, hematemesis, abdominal pain, diarrhea, constipation, hematochezia, melena, +abdominal pain : No irregular bleeding, dysuria, frequency, urgency, hesitancy, hematuria, flank pain, urinary flow changes, urinary incontinence or retention MSK: No back pain, neck pain, joint pain, myalgias Skin: No lesions, rashes Neuro: No weakness, numbness, paresthesias, LOC, dizziness, headache Psych: No anxiety/panic, depression, SI/HI, AH/VH All other systems reviewed and are negative. [facility] Past Medical History Attestation statement: The following information was validated with the patient. Source: old records reviewed and nursing notes reviewed Medical History Diverticulitis of large intestine with abscess without bleeding Morbid obesity with BMI of 40.0-44.9, adult Diabetes mellitus with microalbuminuric diabetic nephropathy Vitamin D deficiency HLD (hyperlipidemia) HTN (hypertension) T2DM (type 2 diabetes mellitus) Surgical History Hx of section History of tubal ligation Family History Family History Father CVD (cardiovascular disease) Cancer Mother Uterine cancer Hypertension CVD (cardiovascular disease) Diabetes mellitus Paternal Grandmother Uterine cancer Social History Social History Household Members: Family Housing: Apartment Do you presently have visiting nurse or other home services: No Alcohol intake: never Patient Tobacco Use Status: Never used Tobacco Smoked in Last 30 Days: No e-Cigarette/Vaping Use: Never Used Second Hand Smoke Exposure: No Use of substances other than those prescribed or required for medical reasons: No Advance Directives: Yes Advance Directives on File: Yes Advance Directives Date on File: 04/04/24 Do you have a plan to hurt others: No Plan Patient : No service: No Current occupational status: unemployed Cognitive needs: No Hearing needs: No Vision needs: No Physical Exam ED Vital Signs: Vital Signs - 24 hr 05/09/24 06:09 05/09/24 06:14 05/09/24 08:50 Temperature 97.9 F 97.9 F 97.7 F Pulse Rate 78 73 67 Respiratory Rate 20 20 17 Blood Pressure 167/85 H 167/85 H 149/92 H Pulse Oximetry 99 98 98 Oxygen Delivery Method Room Air Room Air Room Air 05/09/24 10:25 Temperature 97.7 F Pulse Rate 67 Respiratory Rate 18 Blood Pressure 149/92 H Pulse Oximetry 98 Oxygen Delivery Method Room Air BMI result Body Mass Index 37.9 hypertenstive, afebrile General: Well appearing, in no acute distress. Skin: Warm, dry, intact. No rashes or lesions. Head: Normocephalic, atraumatic. EENT: Hearing is intact b/l. Conjunctiva clear. PERRLA. EOM intact. Moist mucous membranes.? Neck: Supple without LAD Cardiac: Chest wall symmetric. RRR Lungs: Normal respiratory effort without accessory muscle use. CTA bilaterally. Abdomen: Obese abdomen, soft, tender to palpation primarily in the left lower quadrant with voluntary guarding. No rebound tenderness. Normoactive bowel sounds x4. No CVAT. Back: No midline spinous or paraspinal tenderness. No step off deformity. Ext: Upper and lower extremities atraumatic, without tenderness, deformity, swelling or erythema. Full ROM throughout Neuro: AOx3. Normal speech. Ambulating with steady gait. Course Course Course Narrative: 0800 -- CBC with slight leukocytosis to 10.9, no left shift. No anemia. H&H stable. Chemistry without acute electrolyte abnormality requiring intervention. No APRIL. Random glucose 170. Normal liver function. Lipase WNL. Urine negative for nitrites, leukocyte esterase or blood. Calcium oxalate crystals present. 6-10 squamous epithelial cells without urine bacteria. No infection. 1010 -- CT abdomen/pelvis showing interval improvement from 03/30 to 04/25 with less perisigmoid induration. There is mild sigmoid diverticular disease still present without evidence of kyaw diverticulitis or adjacent abscess collection or drainable collection. No proximal bowel obstruction. No right or left lower quadrant inflammatory changes. Previously noted duodenal diverticula unchanged. Small hiatal hernia. > no evidence of acute disease. Patient reports improvement in pain with Toradol. Lying comfortably in bed. Discussed all workup results with patient. Will send oxycodone to pharmacy for pain control at home. Advised to follow up with her general surgeon Dr. Al as scheduled. Patient has remained stable throughout ED visit today. Discussed worrisome signs and symptoms and when to return to the ED. All questions answered at this time. Patient is agreeable with disposition and stable for discharge. Medical Decision Making Medical Decision Making MDM Narrative: 48 year old jamaican speaking female with past medical history significant for type 2 diabetes, hypertension, HDL, diverticulitis presents to the ED today via EMS from home for evaluation of acute onset diffuse abdominal pain since 1999 last night. hypertensive, vitals otherwise wnl. afebrile. she is nontoxic appearing and in NAD. on exam, obese abdomen, soft, tender to palpation primarily in the left lower quadrant with voluntary guarding. No rebound tenderness. Normoactive bowel sounds x4. No CVAT. Differential diagnoses: appendicitis, diverticulitis, diverticulosis, UTI, IUP, anemia, electrolyte abnormality, dehydration. Abdominal exam without peritoneal signs. No evidence of acute abdomen at this time. Well appearing. Low suspicion for acute hepatobiliary disease (including acute cholecystitis), acute infectious processes (pneumonia, hepatitis, pyelonephritis, PID, TOA), vascular catastrophe, bowel obstruction or viscus perforation, ovarian cyst/ rupture/ torsion, ectopic. Presentation not consistent with other acute, emergent causes of abdominal pain at this time. Plan: labs, UA, CT AP, pain control, serial reassessment Differential Diagnosis Differential Diagnoses: The differential diagnosis associated with the presentation includes As above Admission/Observation Consideration of admission/observation: Escalation of care including admission/observation considered admission considered on presentation. Lab Data MDM Lab Attestation statement: I reviewed the patient's lab results. As above 05/09/24 06:26 05/09/24 07:24 Labs: Lab Results 05/09/24 05/09/24 05/09/24 Range/Units 06:26 06:32 07:24 WBC 10.9 H (4.8-10.8) X10*3/uL RBC 5.10 (4.20-5.50) X10*6/uL Hgb 14.1 (12.0-16.0) g/dl Hct 42.0 (37.0-47.0) % MCV 82.4 (80.0-98.0) fL MCH 27.6 (27.0-33.0) pg MCHC 33.6 (31.0-35.0) g/dl RDW 13.2 (11.0-16.0) % Plt Count 278 (160-400) X10*3/uL MPV 11.6 (9.4-12.3) fL Immature Gran % (Auto) 0.4 (0.0-0.4) % Neut % (Auto) 64.6 (45-73) % Lymph % (Auto) 25.9 (20-40) % [place] % (Auto) 6.2 (2-11) % Eos % (Auto) 2.4 (0-4) % Baso % (Auto) 0.5 (0-2) % Lymph # (Auto) 2.8 (1.2-4.9) X10*3/uL [place] # (Auto) 0.7 (0.1-1.2) X10*3/uL Eos # (Auto) 0.3 (0.0-0.4) X10*3/uL Baso # (Auto) 0.1 (0.0-0.2) X10*3/uL Abs Immat Gran (auto) 0.04 H (0.00-0.03) X10*3/uL Absolute Neuts (auto) 7.0 (2.0-8.3) x10*3/uL Absolute Nucleated RBC 0.000 (0.0-0.012) X10*3/uL Nucleated RBC % (auto) 0.0 (0.0-0.2) /100WBC Sodium 141 (135-145) mmol/L Potassium 4.2 (3.3-5.1) mmol/L Chloride 108 (96-108) mmol/L Carbon Dioxide 25 (22-29) mmol/L Anion Gap 12 (12-20) BUN 18 H (9-16) mg/dL Creatinine 0.62 (0.5-1.4) mg/dL Estim Creat Clear Calc 114.1 Estimated GFR > 60 Random Glucose 170 H (60-115) mg/dL Calcium 9.4 (8.4-10.2) mg/dL Total Bilirubin 0.2 (0.0-1.0) mg/dL AST 17 (5-31) U/L ALT 15 (0-31) U/L Alkaline Phosphatase 84 (39-117) U/L Total Protein 6.7 (6.5-8.0) g/dL Albumin 3.7 (3.5-5.0) g/dL Lipase 21 (8-78) U/L Urine Color Yellow Urine Appearance Clear Urine pH 5.5 (5.0-9.0) Ur Specific [place] >= 1.030 H (1.005-1.025) Urine Protein Trace (Neg-Trace) mg/dL Urine Glucose (UA) 250 H (Negative) mg/dL Urine Ketones Trace (Negative) mg/dL Urine Blood Negative (Negative) Urine Nitrite Negative (Negative) Ur Leukocyte Esterase Negative (Negative) Urine RBC 0-2 (0-2) /HPF Urine WBC 6-10 H (0-5) /HPF Ur Squamous Epith Cells 6-10 (0-2) /HPF Calcium Oxalate Crystal Present Urine Bacteria None Seen (None Seen) Hyaline Casts 0-2 (0-2) /LPF Independent Interpretation I performed an independent interpretation of an: CT Scan Interpretation: CT abd/pelvis without diverticulitis, agree with radiologist's iterpretation. Radiology Impression Discussion of test interpretation with radiology: I have reviewed the radiologist's reading. Radiologist Impression: EXAMINATION: CT ABDOMEN AND PELVIS WITH CONTRAST CLINICAL INFORMATION: Left lower quadrant pain. COMPARISON: 04/25/2024. TECHNIQUE: Multidetector volumetric images were obtained from the superior aspect of the liver through the pubic symphysis following administration 85 mL of Omnipaque 350 intravenous contrast. Sagittal and coronal reformatted images were obtained on the technologist's workstation. Oral contrast: No This CT examination was performed using dose optimization techniques as appropriate, variously including the following: *Automated exposure control *Adjustment of mA and/or kV according to patient size (this includes techniques or standardized protocols for targeted exams where dose is matched to indication/reason for exam; i.e. extremities or head) *Use of iterative reconstruction technique DLP: 663 mGy-cm FINDINGS: LUNG BASES: The visualized lung bases are unremarkable. LIVER, GALLBLADDER, AND BILIARY TREE: The liver is normal in size, shape, and attenuation. No focal hepatic lesion or biliary ductal dilatation is present. The gallbladder is unremarkable with no evidence of radiopaque gallstones, gallbladder wall thickening, or obvious pericholecystic inflammatory changes. PANCREAS: Unremarkable. SPLEEN: Unremarkable. ADRENAL GLANDS: Unremarkable. KIDNEYS AND URETERS: The kidneys are normal in size, shape, and attenuation. No hydronephrosis, hydroureter, or calculi seen. No perinephric stranding. BLADDER: Unremarkable. GASTROINTESTINAL TRACT: Interval improvement from 03/30/2024 and 04/25/2024 , with less perisigmoid induration. There is mild sigmoid diverticular disease still present without evidence for kyaw diverticulitis or adjacent abscess collection or drainable collection. No proximal bowel obstruction. No right or left lower quadrant inflammatory change. Previously noted duodenal diverticula unchanged. Small hiatal hernia. ABDOMINAL WALL: Slight induration in the subcutaneous fat possibly from prior injection. No change. No hernia. LYMPH NODES: Normal. VASCULAR: Unremarkable. PELVIC VISCERA: Unremarkable. OSSEOUS STRUCTURES: Unremarkable. CT/CT abdomen pelvis w IV con IMPRESSION: Interval improvement. No evidence for recurrent diverticulitis. Fleischner guidelines were followed. Electronically signed by: Eduin Hughes MD 05/09/2024 09:42 AM EDT EXAMINATION: CT ABDOMEN AND PELVIS WITH CONTRAST CLINICAL INFORMATION: Diverticulitis with perforation and abscess. COMPARISON: CT scans dating between March 30, 2024 and September 15, 2016. TECHNIQUE: Multidetector volumetric images were obtained from the superior aspect of the liver through the pubic symphysis following administration 85 mL of Omnipaque 350 intravenous contrast. Sagittal and coronal reformatted images were obtained on the technologist's workstation. Oral contrast: No This CT examination was performed using dose optimization techniques as appropriate, variously including the following: *Automated exposure control *Adjustment of mA and/or kV according to patient size (this includes techniques or standardized protocols for targeted exams where dose is matched to indication/reason for exam; i.e. extremities or head) *Use of iterative reconstruction technique DLP: 473 mGy-cm FINDINGS: LUNG BASES: Lung bases appear unremarkable. No infiltrate or pleural effusion identified. Right appears normal in size. No pericardial effusion. LIVER, GALLBLADDER, AND BILIARY TREE: The liver appears unremarkable in size, shape, and attenuation. No focal hepatic lesion or significant biliary ductal dilation is appreciated. Unremarkable appearance of the gallbladder. PANCREAS: Unremarkable SPLEEN: Unremarkable ADRENAL GLANDS: Unremarkable KIDNEYS AND URETERS: The kidneys appear unremarkable in size, shape, and attenuation. No hydronephrosis, hydroureter, or calculi seen. BLADDER: Poorly distended, therefore suboptimally evaluated. Grossly unremarkable. GASTROINTESTINAL TRACT/PELVIC VISCERA/PERITONEAL CAVITY: Limited by lack of oral contrast. Diverticulosis predominantly involving the sigmoid and descending colon. No evidence of acute diverticulitis. Significant improvement of perisigmoid induration of fat compared with most recent prior study from March 30, 2024. Approximately 2 cm diverticulum involving the second portion of the duodenum, without evidence of associated inflammation. The small and large bowel otherwise appear unremarkable. ABDOMINAL WALL: No significant hernia is appreciated. A few, small foci of induration of subcutaneous fat involving the anterior abdominal wall probably related to hypodermic needle injections. LYMPH NODES: No evidence of adenopathy by size criteria. VASCULAR: Bilateral pelvic phleboliths. OSSEOUS STRUCTURES: Unremarkable CT/CT abdomen pelvis w IV con IMPRESSION: No acute finding. Electronically signed by: Shailesh Cohen MD 05/09/2024 09:01 AM EDT RP External Record Review External record reviewed: Inpatient record, Office record, Outpatient record, Prior outpatient labs, Prior outpatient radiology, Primary care record and Outside ED record Prescription Management I considered prescription management with: Pain Medication (oxycodone) Chronic Conditions Patient?s care impacted by: Diabetes and Other (Diverticulitis) Social Determinants Patient?s care significantly limited by Social Determinants of Health including: Other Social Determinant of Health Medications Administered Discontinued Medications Generic Name Dose Route Start Last Admin Trade Name Freq PRN Reason Stop Dose Admin Iohexol 85 ml 05/09/24 08:31 05/09/24 08:31 Iohexol 350 Mg/Ml 100 Ml Infus..Btl IV 05/09/24 08:32 85 ml ONCE ONE Administration Ketorolac Tromethamine 15 mg 05/09/24 08:01 05/09/24 08:13 Ketorolac Tromethamine 15 Mg/Ml Vial IVPUSH 05/09/24 08:02 15 mg ONCE ONE Administration Critical Care Time Critical Care Time Critical Care Time: No Discharge Plan Discharge Clinical Impression: Diverticulosis Patient Disposition: Home, Self-Care Instructions: Diverticulosis (ED) Additional Instructions: Your blood work today is reassuring.. Your urine is negative for infection. CT scan of your abdomen/pelvis shows improvement in previously demonstrated diverticulitis. No evidence of recurring diverticulitis or infection. I recommend you take 600mg ibuprofen every 6 hours or Tylenol 650mg every 6 hours as needed for pain. If needed, you can alternate these medications so that you take one medication every 3 hours. For example, at noon take ibuprofen, then at 3pm take Tylenol, then at 6pm take ibuprofen. Oxycodone is a controlled pain medication that has been sent to your pharmacy for you to take as needed for pain. Please follow-up with your general surgeon, Dr. Al as scheduled. Follow up with PCP as scheduled. Return with new or worsening symptoms. In the case of an emergency call 911. Prescriptions: New oxycodone 5 mg tablet 5 mg PO Q8H PRN (Reason: pain (scale score 4-6)) Qty: 9 0RF Rx Instructions: Partial Fill upon patient request. No Action (DME) FreeStyle Trudy 2 Sensor Kit See Rx Instructions .ROUTE .MEDSUPPLY Qty: 2 0RF Rx Instructions: As directed every 2 weeks cholecalciferol (vitamin D3) [Vitamin D3] 50 mcg (2,000 unit) capsule 50 mcg PO DAILY Qty: 30 11RF (DME) incontinence pad, liner, disp Pad See Rx Instructions .Route Qty: 60 11RF Rx Instructions: Use 1 pad twice a day (DME) incontinence pad, liner, disp Pad See Rx Instructions .Route Qty: 90 6RF Rx Instructions: As directed lisinopril 10 mg tablet 10 mg PO DAILY 90 Days Qty: 90 1RF (DME) pen needle, diabetic [BD Ultra-Fine Micro Pen Needle] 32 gauge x 1/4 needle See Rx Instructions .ROUTE .MEDSUPPLY Qty: 100 8RF Rx Instructions: 1 daily empagliflozin 25 mg tablet 25 mg PO DAILY 30 Days Qty: 30 2RF Ozempic 0.25 mg or 0.5 mg (2 mg/3 mL) pen injector 0.5 mg subcut FR Qty: 0.736 0RF rosuvastatin 5 mg tablet 5 mg PO DAILY 90 Days Qty: 90 4RF mirtazapine 15 mg tablet 15 mg PO BEDTIME insulin glargine [Lantus Solostar U-100 Insulin] 100 unit/mL (3 mL) insulin pen 45 unit subcut BEDTIME oxycodone 5 mg Tablet 5 mg PO Q6H PRN (Reason: Pain, Moderate(Pain Scale 4-6)) Qty: 20 0RF Rx Instructions: Partial Fill upon patient request. (DME) blood-glucose meter [FreeStyle Lite Meter] Kit See Rx Instructions .Route Qty: 1 0RF Rx Instructions: As directed (DME) FreeStyle Precision Shar Strips Strip See Rx Instructions .ROUTE .MEDSUPPLY Qty: 50 0RF Rx Instructions: TWice daily levofloxacin 500 mg tablet 500 mg PO DAILY 7 Days Qty: 7 0RF metronidazole 250 mg tablet 250 mg PO BID Qty: 14 0RF lamotrigine 200 mg tablet 200 mg PO BEDTIME (DME) pen needle, diabetic [Easy Comfort Pen Alden] 33 gauge x 5/32 needle See Rx Instructions .ROUTE .MEDSUPPLY Qty: 100 Rx Instructions: As directed Referrals: Lucy Nur MD [Primary Care Provider] - Stand Alone Forms: Work/School Release Interventions: ED Discharge Assessment Last Done: 05/09/24 10:25 Discharge Date/Time: 05/09/24 10:26 Print Language: Haitian
[2024-05-09 07:54] LABS: Alanine Aminotransferase 15 U/L (0-31); Albumin Level 3.7 g/dL (3.5-5.0); Alkaline Phosphatase 84 U/L (39-117); Anion Gap 12 (12-20); Aspartate Amino Transferase 17 U/L (5-31); Bilirubin Total 0.2 mg/dL (0.0-1.0); Blood Urea Nitrogen 18 mg/dL (9-16); Calcium 9.4 mg/dL (8.4-10.2); Carbon Dioxide 25 mmol/L (22-29); Chloride 108 mmol/L (96-108); Creatinine Clr Calc Pharmacy 114.1; Estimated Glomerular Filt Rate > 60; Glucose Random 170 mg/dL (60-115); Lipase 21 U/L (8-78); Potassium 4.2 mmol/L (3.3-5.1); Sodium 141 mmol/L (135-145); Total Protein 6.7 g/dL (6.5-8.0)
[2024-05-09] MEDS: Ketorolac Tromethamine 15 MG/ML VIAL IVPUSH (08:13)
[2024-05-09] MEDS: iohexoL 350 MG/ML 100 ML INFUS..BTL 85 ML IV (08:31)
[2024-05-09 08:50] VITALS: BP 149/92; PULSE 67; RESP 17; TEMP 36.5; O2SAT 98
[2024-05-09 10:25] VITALS: BP 149/92; PULSE 67; RESP 18; TEMP 36.5; O2SAT 98
== END 2024-05-09 10:26 | disposition home or self-care (01) ==
PROVIDERS: Emergency Provider Emergency Medicine; PCP Internal Medicine
DX: K57.30 Diverticulosis of large intestine without perforation or abscess without bleeding (principal); R10.9 Unspecified abdominal pain; E78.5 Hyperlipidemia, unspecified; I10 Essential (primary) hypertension; E11.9 Type 2 diabetes mellitus without complications; Z79.4 Long term (current) use of insulin; Z79.899 Other long term (current) drug therapy; Z79.02 Long term (current) use of antithrombotics/antiplatelets
CPT/HCPCS: 36415; 74177; 80053; 81001; 83690; 85025; 87086; 96374; 99284; J1885; Q9967

== ENCOUNTER 2024-05-17 09:14 | Outpatient (AMB) | payer OTHER, SELFPAY ==
--- NOTE | 2024-05-17 09:15 | A.OFFVIS_ITS ---
Vital Signs 05/17/24 09:20 Height 5 ft 1 in Weight 199 lb BMI 37.6 Intake Visit Reasons: CT- Follow-up Intake Note: This patient presents for Ct-Scan follow-up. Pt c/o; reports she notices her pain is worse at night time around 10pm. 05/09/2024: Abd/pelvis Ct Etcher Aircraft Required: No Accompanied by: Self / Same As Patient Allergies No Known Allergies [No Known Allergies*] Allergy (Verified 05/17/24 09:21) Medication List - Last Reconciled 05/17/24 by Karri Al MD blood sugar diagnostic (FreeStyle Precision Shar Strips) TWice daily blood-glucose meter (FreeStyle Lite Meter kit) As directed cholecalciferol (vitamin D3) (Vitamin D3) 50 mcg PO DAILY empagliflozin 25 mg PO DAILY 30 days flash glucose sensor (FreeStyle Trudy 2 Sensor kit) As directed every 2 weeks incontinence pad, liner, disp Use 1 pad twice a day incontinence pad, liner, disp As directed insulin glargine (Lantus Solostar U-100 Insulin) 45 units subcut BEDTIME lamotrigine 200 mg PO BEDTIME levofloxacin 500 mg PO DAILY 7 days lisinopril 10 mg PO DAILY 90 days metronidazole 250 mg PO BID mirtazapine 15 mg PO BEDTIME oxycodone 5 mg PO Q6H PRN oxycodone 5 mg PO Q8H PRN pen needle, diabetic (BD Ultra-Fine Micro Pen Needle) 1 daily pen needle, diabetic (Easy Comfort Pen [place]) As directed rosuvastatin 5 mg PO DAILY 90 days semaglutide (Ozempic) 0.5 mg (0.736 mL) subcut FR semaglutide (Ozempic) 1 mg (0.75 mL) subcut QWEEK [address]- Follow-up: Details: She is here for follow-up for her history of diverticulitis. I had seen her in the office about 3 weeks ago as a follow-up for her recent diverticulitis. I had sent her CT scan because of what she describes as some pain on the area. She is here to discuss the findings She does feel well today. She says she has had no pain or episodes recently. She has good oral intake. She has good bowel movements. She denies GI complaints. [facility] Medical History Diverticulitis of large intestine with abscess without bleeding Morbid obesity with BMI of 40.0-44.9, adult Diabetes mellitus with microalbuminuric diabetic nephropathy Vitamin D deficiency HLD (hyperlipidemia) HTN (hypertension) T2DM (type 2 diabetes mellitus) Surgical History Hx of section History of tubal ligation Family History Father CVD (cardiovascular disease) Cancer Mother Uterine cancer Hypertension CVD (cardiovascular disease) Diabetes mellitus Paternal Grandmother Uterine cancer Social History Household Members: Family Housing: Apartment Do you presently have visiting nurse or other home services: No Alcohol intake: never Patient Tobacco Use Status: Never used Tobacco e-Cigarette/Vaping Use: Never Used Second Hand Smoke Exposure: No Advance Directives Date on File: 04/04/24 service: No Current occupational status: unemployed Cognitive needs: No Hearing needs: No Vision needs: No Female Reproductive History Menstrual Age of Menarche: 11 Review of Systems Const Denies chills and Denies fever(s) Card Denies chest pain, Denies dyspnea and Denies dyspnea on exertion Resp Denies cough, Denies dyspnea and Denies dyspnea on exertion GI Denies hematochezia and Denies change in bowel habits Denies hematuria Musc Denies back pain and Denies limited range of motion Neuro Denies focal weakness and Denies convulsions Psych Denies depression and Denies mood swings Physical Exam Vital Signs: BMI result Body Mass Index 37.6 Const Other: Morbidly obese General: comfortable and no acute distress Resp Effort & Inspection: normal respiratory effort Cardio Rate: regular rate GI Other: Soft, with large pannus, obese Palpation (GI): not firm, nontender and no guarding Assessment & Plan Assessment & Plan (1) Diverticulitis of large intestine with abscess without bleeding: Code(s): K57.20 - Diverticulitis of large intestine with perforation and abscess without bleeding Category: Medical Plan: Her follow-up CT scan did not reveal any persistent inflammatory process. There was note of significant interval improvement I explained to her these findings I did tell her that may benefit from sigmoid resection down the line in view of her recurrent diverticulitis. I had advised her on the importance of weight loss to her overall health. I will see her again in the office in about 3 months to see how she is doing. (2) Obesity (BMI 30-39.9): Code(s): E66.9 - Obesity, unspecified Category: Medical Plan: I had a long discussion with her about the benefits of weight loss. This is especially important if we are considering to do sigmoid resection down the line. She says she understands I gave her a brochure for the weight management clinic. Coding Level of Care Code Est Pt Level 4 (45679) Diagnoses Diverticulitis of large intestine with abscess without bleeding K57.20 Obesity (BMI 30-39.9) E66.9
[2024-05-17 09:20] VITALS: BMI 37.6
== END 2024-05-17 09:33 | disposition home or self-care (01) ==
PROVIDERS: PCP Internal Medicine; Visit Provider Surgery
DX: K57.20 Diverticulitis of large intestine with perforation and abscess without bleeding (principal); E66.9 Obesity, unspecified
CPT/HCPCS: 99214

== ENCOUNTER → 2024-05-17 09:14 | Outpatient (BNVA) | payer OTHER, SELFPAY | PROVIDERS: PCP Internal Medicine; Visit Provider Surgery | DX: K57.20 Diverticulitis of large intestine with perforation and abscess without bleeding (principal); E66.9 Obesity, unspecified; Z68.37 Body mass index [BMI] 37.0-37.9, adult | CPT/HCPCS: 99212 ==

== ENCOUNTER 2024-05-24 13:48 | Outpatient (AMB) | payer OTHER, SELFPAY ==
--- NOTE | 2024-05-24 13:53 | A.OFFPC_ITS ---
Vital Signs 05/24/24 14:00 Height 5 ft 1 in Weight 194 lb BMI 36.7 BP 136/80 Blood Pressure Location Lt brachial Position Sitting Intake Visit Reasons: DM- repeat A1C Intake Note: Patient here for a follow up DM Cut Off Tender Glass Required: No Accompanied by: Self / Same As Patient Allergies No Known Allergies [No Known Allergies*] Allergy (Verified 05/24/24 14:12) Medication List - Last Reconciled 05/24/24 by Lucy Claire MD blood sugar diagnostic (FreeStyle Precision Shar Strips) TWice daily blood-glucose meter (FreeStyle Lite Meter kit) As directed cholecalciferol (vitamin D3) (Vitamin D3) 50 mcg PO DAILY empagliflozin 25 mg PO DAILY 30 days flash glucose sensor (FreeStyle Trudy 2 Sensor kit) As directed every 2 weeks incontinence pad, liner, disp Use 1 pad twice a day incontinence pad, liner, disp As directed insulin glargine (Lantus Solostar U-100 Insulin) 45 units subcut BEDTIME lamotrigine 200 mg PO BEDTIME lisinopril 10 mg PO DAILY 90 days mirtazapine 15 mg PO BEDTIME pen needle, diabetic (BD Ultra-Fine Micro Pen Needle) 1 daily pen needle, diabetic (Easy Comfort Pen [place]) As directed rosuvastatin 5 mg PO DAILY 90 days semaglutide (Ozempic) 0.5 mg (0.736 mL) subcut FR semaglutide (Ozempic) 1 mg (0.75 mL) subcut QWEEK 4 weeks Tobacco use date assessed: 04/10/24 Dental Screening Dental Screen Date: 05/24/24 Did you have a dental visit in the last 12 months?: No Did you have a dental problem in the last 6 months where you did not have access to dental care?: No Was dental information given to patient?: Patient has dentist HPI HPI Comments History of Present Illness Details This is a 48-year-old female with diabetes mellitus type 2 on long-term current use of insulin, hypertension, hyperlipidemia and chronic GERD that comes today for follow-up on her conditions. A1c elevated and I will increase Ozempic. Blood pressure stable. Lipid panel will be order and her LDL goal should be less than 70. GERD stable with PPIs. Had diverticulitis last month and was hospitalized. Had 2 more ER visits for the same matter but was discharged with oral antibiotics and symptoms improved. Follows with surgeon due to that matter. [facility] Medical History (Updated 05/24/24 @ 15:30 by Lucy Claire MD) HTN (hypertension) Diabetes mellitus with microalbuminuric diabetic nephropathy Diverticulitis of large intestine with abscess without bleeding Morbid obesity with BMI of 40.0-44.9, adult Vitamin D deficiency HLD (hyperlipidemia) T2DM (type 2 diabetes mellitus) Surgical History Hx of section History of tubal ligation Family History Father CVD (cardiovascular disease) Cancer Mother Uterine cancer Hypertension CVD (cardiovascular disease) Diabetes mellitus Paternal Grandmother Uterine cancer Social History Household Members: Family Housing: Apartment Do you presently have visiting nurse or other home services: No Alcohol intake: never Patient Tobacco Use Status: Never used Tobacco e-Cigarette/Vaping Use: Never Used Second Hand Smoke Exposure: No Advance Directives Date on File: 04/04/24 service: No Current occupational status: unemployed Cognitive needs: No Hearing needs: No Vision needs: No Female Reproductive History Menstrual Age of Menarche: 11 Questionnaire Thrive Questionnaire Date Thrive assessed: 03/28/24 Are you currently unemployed and looking for a job?: I choose not to answer this question THOMPSON-7 AMB Questionnaire THOMPSON-7 Date THOMPSON - 7 assessed: 08/11/23 Source: Developed by Drs. Paul Castillo, Kath Dunne, Jorge Duque and colleagues, with an educational evelyn from [employer]. Review of Systems Const All systems reviewed & are unremarkable except as noted in HPI and below Card Denies chest pain at rest, Denies chest pain with activity, Denies edema, Denies irregular heart rhythm, Denies claudication, Denies dyspnea, Denies dyspnea on exertion, Denies orthopnea, Denies paroxysmal nocturnal dyspnea and Denies slow heart rate Resp Denies cough, Denies dyspnea and Denies dyspnea on exertion Physical exam (Primary Care) Vital Signs: Last Vital Signs BP 136/80 05/24/24 14:00 BMI result Body Mass Index 36.7 BMI Assessment/Plan discussion: High BMI High, discussed plan: lifestyle, weight reduction, dietary and physical activity Tobacco/Smoking Status: Tobacco use Status Tobacco use date assessed 04/10/24 05/24/24 13:59 Patient Tobacco Use Status Never used Tobacco 05/24/24 13:59 e-Cigarette/Vaping Use Never Used 05/24/24 13:59 Thrive Assessment: Date of Thrive Assessment Date Thrive assessed 03/28/24 05/24/24 13:59 Resp Effort & Inspection: normal respiratory effort Auscultation: clear to auscultation bilaterally Cardio Jugular venous distension: no JVD Rate: regular rate Rhythm: regular rhythm Heart sounds: S1 normal heart sound present and S2 normal heart sound present Extrem General: Yes full ROM Coding Level of Care Code Est Pt Level 4 (64274) Complex EM visit Add On G2211 Diagnoses Diabetes mellitus with microalbuminuric diabetic nephropathy E11.21 Hypertension, unspecified type I10 Hypertension type: unspecified Hyperlipidemia LDL goal <70 E78.5 Chronic GERD K21.9 Time Spent (min) 23 Assessment & Plan Assessment & Plan (1) Diabetes mellitus with microalbuminuric diabetic nephropathy: Code(s): E11.21 - Type 2 diabetes mellitus with diabetic nephropathy Category: Medical Plan: Continue insulin. Increase Ozempic. A1c goal is equal or less than 7%. (2) HTN (hypertension): Code(s): I10 - Essential (primary) hypertension Category: Medical Qualifiers: Hypertension type: unspecified Qualified Code(s): I10 - Essential (primary) hypertension Plan: Continue lisinopril. Blood pressure goal is equal or less than 130/80. (3) Hyperlipidemia LDL goal <70: Code(s): E78.5 - Hyperlipidemia, unspecified Category: Medical Plan: Continue statins. Repeat lipid panel. LDL goal is less than 70. (4) Chronic GERD: Code(s): K21.9 - Gastro-esophageal reflux disease without esophagitis Category: Medical Plan: Continue PPIs. Orders: Orders Vitamin D 25-OH Total 4 Months E55.9 - Vitamin D deficiency, unspecified Lipid Panel 4 Months E78.5 - Hyperlipidemia, unspecified Microalbumin, Random (w Creat) 4 Months R80.9 - Proteinuria, unspecified Comprehensive [place]. Panel Fast 4 Months E11.21 - Type 2 diabetes mellitus with diabetic nephropathy Referrals Open Access Screening Colonoscopy Referral Z12.12 - Encounter for screening for malignant neoplasm of rectum Medications: Refilled cholecalciferol (vitamin D3) (Vitamin D3) 50 mcg PO DAILY 30 caps 11RF E11.65 - Type 2 diabetes mellitus with hyperglycemia
[2024-05-24 14:00] VITALS: BP 136/80; BMI 36.7
== END 2024-05-24 14:23 | disposition home or self-care (01) ==
LOC: HO.HMCH 13:49
PROVIDERS: PCP Internal Medicine; Visit Provider Internal Medicine
DX: E11.21 Type 2 diabetes mellitus with diabetic nephropathy (principal); I10 Essential (primary) hypertension; E78.5 Hyperlipidemia, unspecified; K21.9 Gastro-esophageal reflux disease without esophagitis

== ENCOUNTER → 2024-05-24 13:48 | Outpatient (BNVA) | payer OTHER, SELFPAY | PROVIDERS: PCP Internal Medicine; Visit Provider Internal Medicine | DX: E11.21 Type 2 diabetes mellitus with diabetic nephropathy (principal); I10 Essential (primary) hypertension; E78.5 Hyperlipidemia, unspecified; K21.9 Gastro-esophageal reflux disease without esophagitis | CPT/HCPCS: 99212 ==

== ENCOUNTER 2024-06-04 13:33 | Emergency (ER) | payer OTHER, SELFPAY ==
--- NOTE | ~2024-06-04 | CT_ITS ---
EXAMINATION: CT ABDOMEN AND PELVIS WITHOUT CONTRAST CLINICAL INFORMATION: Bilateral lower abdominal pain. COMPARISON: CT scan abdomen pelvis May 09, 2024 TECHNIQUE: Multidetector volumetric imaging was performed from the superior aspect of the liver through the pubic symphysis. Sagittal and coronal reformatted images were obtained on the technologist's workstation. This CT examination was performed using dose optimization techniques as appropriate, variously including the following: *Automated exposure control *Adjustment of mA and/or kV according to patient size (this includes techniques or standardized protocols for targeted exams where dose is matched to indication/reason for exam; i.e. extremities or head) *Use of iterative reconstruction technique DLP: 651 mGy-cm FINDINGS: LUNG BASES: The visualized lung bases are unremarkable. LIVER, GALLBLADDER, AND BILIARY TREE: The liver is normal in size, shape, and attenuation. No focal hepatic lesion or biliary ductal dilatation is present. RALPH PANCREAS: Unremarkable. SPLEEN: Unremarkable. ADRENAL GLANDS: Unremarkable. KIDNEYS AND URETERS: The kidneys are normal in size, shape, and attenuation. No hydronephrosis, hydroureter, or calculi seen. No perinephric stranding. BLADDER: Unremarkable. GASTROINTESTINAL TRACT: There are scattered diverticula of the sigmoid and descending colon. There is no diverticulitis. There is no bowel wall thickening /edema. There is no bowel obstruction. There is a small to moderate volume of stool in the colon. The appendix is normal . The small bowel loops are unremarkable. There is a stable small duodenal diverticulum. The stomach is normal. There is no hiatal hernia. ABDOMINAL WALL: No significant hernia is appreciated. LYMPH NODES: Normal. VASCULAR: Unremarkable. PELVIC VISCERA: Unremarkable. OSSEOUS STRUCTURES: Unremarkable. CT/CT abdomen pelvis wo IV con IMPRESSION: 1. No acute abnormality CT scan abdomen pelvis. 2. Diverticulosis of colon. No acute change of the bowel. Fleischner guidelines were followed. Electronically signed by: Brian Roland MD 06/04/2024 04:34 PM EST
[2024-06-04 13:45] VITALS: BP 153/89; PULSE 95; RESP 16; TEMP 36.5; O2SAT 98; BMI 24.7
--- NOTE | 2024-06-04 13:51 | ED.GENADULT ---
HPI - General Adult General Chief complaint: Abdominal Pain Stated complaint: body pain back pain Time Seen by Provider: 06/04/24 23:51 Related Data Home Medications ?Medication ?Instructions ?Recorded ?Confirmed lamotrigine 200 mg tablet 200 mg PO BEDTIME 05/25/23 05/24/24 pen needle, diabetic 33 gauge x #100 ea 05/25/23 05/24/24 5/32 (Easy Comfort Pen [place]) insulin glargine 100 unit/mL (3 45 unit subcut BEDTIME 03/28/24 05/24/24 mL) subcutaneous pen (Lantus Solostar U-100 Insulin) mirtazapine 15 mg tablet 15 mg PO BEDTIME 03/28/24 05/24/24 Previous Rx's ?Medication ?Instructions ?Recorded blood sugar diagnostic (FreeStyle #50 ea 12/30/20 Precision Shar Strips) flash glucose sensor (FreeStyle #2 ea 02/10/21 Trudy 2 Sensor kit) blood-glucose meter (FreeStyle #1 ea 11/01/22 Lite Meter kit) incontinence pad, liner, disp #60 ea 01/25/23 incontinence pad, liner, disp #90 ea 11/14/23 lisinopril 10 mg tablet 10 mg PO DAILY 90 days #90 tabs 02/27/24 empagliflozin 25 mg tablet 25 mg PO DAILY 30 days #30 tabs 03/26/24 pen needle, diabetic 32 gauge x #100 ea 03/26/2407/21 (BD Ultra-Fine Micro Pen Needle) semaglutide 0.25 mg or 0.5 mg (2 0.5 mg (0.736 mL) subcut FR #0.736 04/19/24 mg/3 mL) subcutaneous pen injector mL (Ozempic) rosuvastatin 5 mg tablet 5 mg PO DAILY 90 days #90 tabs 05/02/24 semaglutide 1 mg/dose (4 mg/3 mL) 1 mg (0.75 mL) subcut QWEEK 4 05/10/24 subcutaneous pen injector (Ozempic) weeks #3 mL cholecalciferol (vitamin D3) 50 50 mcg PO DAILY #30 caps 05/24/24 mcg (2,000 unit) capsule (Vitamin D3) Allergies Allergy/AdvReac Type Severity Reaction Status Date / Time No Known Allergies Allergy Verified 06/04/24 13:47 [No Known Allergies*] [facility] Past Medical History Medical History HTN (hypertension) Diabetes mellitus with microalbuminuric diabetic nephropathy Diverticulitis of large intestine with abscess without bleeding Morbid obesity with BMI of 40.0-44.9, adult Vitamin D deficiency HLD (hyperlipidemia) T2DM (type 2 diabetes mellitus) Surgical History Hx of section History of tubal ligation Family History Family History Father CVD (cardiovascular disease) Cancer Mother Uterine cancer Hypertension CVD (cardiovascular disease) Diabetes mellitus Paternal Grandmother Uterine cancer Social History Social History Household Members: Family Housing: Apartment Do you presently have visiting nurse or other home services: No Alcohol intake: never Patient Tobacco Use Status: Never used Tobacco e-Cigarette/Vaping Use: Never Used Second Hand Smoke Exposure: No Advance Directives: Yes Advance Directives on File: Yes Advance Directives Date on File: 04/04/24 Do you have a plan to hurt others: No Plan service: No Current occupational status: unemployed Cognitive needs: No Hearing needs: No Vision needs: No Physical Exam ED Vital Signs: Vital Signs - 24 hr 06/04/24 13:45 06/04/24 21:07 06/05/24 00:11 Temperature 97.7 F 98.6 F 97.2 F Pulse Rate 95 111 H 87 Respiratory Rate 16 20 18 Blood Pressure 153/89 H 176/89 H 167/96 H Pulse Oximetry 98 98 99 Oxygen Delivery Method Room Air Room Air Room Air BMI result Body Mass Index 24.7 Course Course Course Narrative: RME: 48 yold presents to the ED for bilateral lower abdominal pain. Patient has pet mixture of diverticulitis. Patient has bilateral lower abdominal tenderness on palpation. Labs UA ordered Medications Administered Discontinued Medications Generic Name Dose Route Start Last Admin Trade Name Freq PRN Reason Stop Dose Admin Acetaminophen 650 mg 06/04/24 21:07 06/04/24 21:09 Acetaminophen 325 Mg Tablet PO 06/04/24 21:08 650 mg ONCE ONE Administration Medical Decision Making Lab Data 06/04/24 14:07 11/18/24 14:07 Labs: Lab Results 06/04/24 Range/Units 14:07 WBC 15.2 H (4.8-10.8) X10*3/uL RBC 5.37 (4.20-5.50) X10*6/uL Hgb 14.7 (12.0-16.0) g/dl Hct 43.6 (37.0-47.0) % MCV 81.2 (80.0-98.0) fL MCH 27.4 (27.0-33.0) pg MCHC 33.7 (31.0-35.0) g/dl RDW 13.1 (11.0-16.0) % Plt Count 310 (160-400) X10*3/uL MPV 10.8 (9.4-12.3) fL Immature Gran % (Auto) 0.5 H (0.0-0.4) % Neut % (Auto) 76.5 H (45-73) % Lymph % (Auto) 16.5 L (20-40) % [place] % (Auto) 4.5 (2-11) % Eos % (Auto) 1.6 (0-4) % Baso % (Auto) 0.4 (0-2) % Lymph # (Auto) 2.5 (1.2-4.9) X10*3/uL [place] # (Auto) 0.7 (0.1-1.2) X10*3/uL Eos # (Auto) 0.3 (0.0-0.4) X10*3/uL Baso # (Auto) 0.1 (0.0-0.2) X10*3/uL Abs Immat Gran (auto) 0.07 H (0.00-0.03) X10*3/uL Absolute Neuts (auto) 11.6 H (2.0-8.3) x10*3/uL Absolute Nucleated RBC 0.000 (0.0-0.012) X10*3/uL Nucleated RBC % (auto) 0.0 (0.0-0.2) /100WBC Sodium 138 (135-145) mmol/L Potassium 4.5 (3.3-5.1) mmol/L Chloride 106 (96-108) mmol/L Carbon Dioxide 25 (22-29) mmol/L Anion Gap 12 (12-20) BUN 12 (9-16) mg/dL Creatinine 0.70 (0.5-1.4) mg/dL Estim Creat Clear Calc 81.3 Estimated GFR > 60 Random Glucose 209 H (60-115) mg/dL Calcium 9.2 (8.4-10.2) mg/dL Total Bilirubin 0.4 (0.0-1.0) mg/dL AST 17 (5-31) U/L ALT 17 (0-31) U/L Alkaline Phosphatase 104 (39-117) U/L Total Protein 7.4 (6.5-8.0) g/dL Albumin 3.9 (3.5-5.0) g/dL Lipase 16 (8-78) U/L Beta HCG, Quant < 2 mIU/mL Urine Color Yellow Urine Appearance Clear Urine pH 6.0 (5.0-9.0) Ur Specific [place] 1.015 (1.005-1.025) Urine Protein Trace (Neg-Trace) mg/dL Urine Glucose (UA) Negative (Negative) mg/dL Urine Ketones Negative (Negative) mg/dL Urine Blood Negative (Negative) Urine Nitrite Negative (Negative) Ur Leukocyte Esterase Trace H (Negative) Urine RBC 0-2 (0-2) /HPF Urine WBC 0-5 (0-5) /HPF Ur Squamous Epith Cells 6-10 (0-2) /HPF Urine Bacteria None Seen (None Seen) Hyaline Casts 0-2 (0-2) /LPF Urine Test NEGATIVE (NEGATIVE) Discharge Plan Discharge Clinical Impression: Abdominal pain Patient Disposition: Home, Self-Care Instructions: Abdominal Pain (ED) Prescriptions: No Action (DME) FreeStyle Trudy 2 Sensor Kit See Rx Instructions .ROUTE .MEDSUPPLY Qty: 2 0RF Rx Instructions: As directed every 2 weeks (DME) incontinence pad, liner, disp Pad See Rx Instructions .Route Qty: 60 11RF Rx Instructions: Use 1 pad twice a day (DME) incontinence pad, liner, disp Pad See Rx Instructions .Route Qty: 90 6RF Rx Instructions: As directed lisinopril 10 mg tablet 10 mg PO DAILY 90 Days Qty: 90 1RF (DME) pen needle, diabetic [BD Ultra-Fine Micro Pen Needle] 32 gauge x 1/4 needle See Rx Instructions .ROUTE .MEDSUPPLY Qty: 100 8RF Rx Instructions: 1 daily empagliflozin 25 mg tablet 25 mg PO DAILY 30 Days Qty: 30 2RF Ozempic 0.25 mg or 0.5 mg (2 mg/3 mL) pen injector 0.5 mg subcut FR Qty: 0.736 0RF rosuvastatin 5 mg tablet 5 mg PO DAILY 90 Days Qty: 90 4RF Ozempic 1 mg/dose (4 mg/3 mL) pen injector 1 mg subcut QWEEK 28 Days Qty: 3 0RF mirtazapine 15 mg tablet 15 mg PO BEDTIME insulin glargine [Lantus Solostar U-100 Insulin] 100 unit/mL (3 mL) insulin pen 45 unit subcut BEDTIME (DME) blood-glucose meter [FreeStyle Lite Meter] Kit See Rx Instructions .Route Qty: 1 0RF Rx Instructions: As directed (DME) FreeStyle Precision Shar Strips Strip See Rx Instructions .ROUTE .MEDSUPPLY Qty: 50 0RF Rx Instructions: TWice daily lamotrigine 200 mg tablet 200 mg PO BEDTIME (DME) pen needle, diabetic [Easy Comfort Pen [place]] 33 gauge x 5/32 needle See Rx Instructions .ROUTE .MEDSUPPLY Qty: 100 Rx Instructions: As directed cholecalciferol (vitamin D3) [Vitamin D3] 50 mcg (2,000 unit) capsule 50 mcg PO DAILY Qty: 30 11RF Referrals: Lucy Nur MD [Primary Care Provider] - 06/07/24 Print Language: Macedonian
[2024-06-04 14:11] LABS: MANUAL DIFF FLAG NO
[2024-06-04 14:12] LABS: Basophils Absolute Auto 0.1 X10*3/uL (0.0-0.2); Basophils Percent Auto 0.4 % (0-2); Eosinophils Absolute Auto 0.3 X10*3/uL (0.0-0.4); Eosinophils Percent Auto 1.6 % (0-4); Hematocrit 43.6 % (37.0-47.0); Hemoglobin 14.7 g/dl (12.0-16.0); Imm Gran Abs Auto 0.07 X10*3/uL (0.00-0.03); Imm Gran Pct Auto 0.5 % (0.0-0.4); Lymphocytes Absolute Auto 2.5 X10*3/uL (1.2-4.9); Lymphocytes Percent Auto 16.5 % (20-40); Mean Corpuscular HGB Conc 33.7 g/dl (31.0-35.0); Mean Corpuscular Hemoglobin 27.4 pg (27.0-33.0); Mean Corpuscular Volume 81.2 fL (80.0-98.0); Mean Platelet Volume 10.8 fL (9.4-12.3); Monocytes Absolute Auto 0.7 X10*3/uL (0.1-1.2); Monocytes Percent Auto 4.5 % (2-11); Neutrophils Absolute Auto 11.6 x10*3/uL (2.0-8.3); Neutrophils Percent Auto 76.5 % (45-73); Platelet Count 310 X10*3/uL (160-400); Red Blood Count 5.37 X10*6/uL (4.20-5.50); Red Cell Distribution Width 13.1 % (11.0-16.0); White Blood Count 15.2 X10*3/uL (4.8-10.8)
[2024-06-04 14:15] LABS: UPreg QC Valid YES; Urine Pregnancy NEGATIVE (NEGATIVE)
[2024-06-04 14:17] LABS: Appearance Urine Clear; Color Urine Yellow; Glucose Urine UA Negative (Negative); Leukocyte Esterase Urine Trace (Negative); Nitrite Urine Negative (Negative); Specific Gravity - Urine 1.015 (1.005-1.025); UMIC TRIGGER UACC YES; Urine Blood Negative (Negative); Urine Ketones Negative (Negative); Urine Protein Trace mg/dL (Neg-Trace)
[2024-06-04 14:21] LABS: Bacteria Urine None Seen (None Seen); Hyaline Casts Urine 0-2 /LPF (0-2); RBC Urine 0-2 /HPF (0-2); WBC Urine 0-5 /HPF (0-5)
[2024-06-04 14:34] LABS: Alanine Aminotransferase 17 U/L (0-31); Albumin Level 3.9 g/dL (3.5-5.0); Alkaline Phosphatase 104 U/L (39-117); Anion Gap 12 (12-20); Aspartate Amino Transferase 17 U/L (5-31); Bilirubin Total 0.4 mg/dL (0.0-1.0); Blood Urea Nitrogen 12 mg/dL (9-16); Calcium 9.2 mg/dL (8.4-10.2); Carbon Dioxide 25 mmol/L (22-29); Chloride 106 mmol/L (96-108); Creatinine Clr Calc Pharmacy 81.3; Estimated Glomerular Filt Rate > 60; Glucose Random 209 mg/dL (60-115); Lipase 16 U/L (8-78); Potassium 4.5 mmol/L (3.3-5.1); Sodium 138 mmol/L (135-145); Total Protein 7.4 g/dL (6.5-8.0)
[2024-06-04 14:35] LABS: HCG Quantitative < 2 mIU/mL
[2024-06-04 21:07] VITALS: BP 176/89; PULSE 111; RESP 20; TEMP 37; O2SAT 98
[2024-06-04] MEDS: Acetaminophen 325 MG TABLET 650 MG PO (21:09)
[2024-06-05 00:11] VITALS: BP 167/96; PULSE 87; RESP 18; TEMP 36.2; O2SAT 99
--- NOTE | 2024-06-05 00:19 | ED.ABDPAIN ---
HPI - Abdominal Pain General Chief Complaint: Abdominal Pain Stated Complaint: body pain back pain Time Seen by Provider: 06/04/24 23:51 History of Present Illness HPI narrative: Patient is 48 years old presents today with having generalized abdominal pain. Positive constipation positive generalized malaise no pain on urination does not think she is she is from home. No coughing or congestion or upper respiratory symptoms. No diaphoresis. Related Data Home Medications ?Medication ?Instructions ?Recorded ?Confirmed lamotrigine 200 mg tablet 200 mg PO BEDTIME 05/25/23 05/24/24 pen needle, diabetic 33 gauge x #100 ea 05/25/23 05/24/24 (Easy Comfort Pen [place]) insulin glargine 100 unit/mL (3 45 unit subcut BEDTIME 03/28/24 05/24/24 mL) subcutaneous pen (Lantus Solostar U-100 Insulin) mirtazapine 15 mg tablet 15 mg PO BEDTIME 03/28/24 05/24/24 Previous Rx's ?Medication ?Instructions ?Recorded blood sugar diagnostic (FreeStyle #50 ea 12/30/20 Precision Shar Strips) flash glucose sensor (FreeStyle #2 ea 02/10/21 Trudy 2 Sensor kit) blood-glucose meter (FreeStyle #1 ea 11/01/22 Lite Meter kit) incontinence pad, liner, disp #60 ea 01/25/23 incontinence pad, liner, disp #90 ea 11/14/23 lisinopril 10 mg tablet 10 mg PO DAILY 90 days #90 tabs 02/27/24 empagliflozin 25 mg tablet 25 mg PO DAILY 30 days #30 tabs 03/26/24 pen needle, diabetic 32 gauge x #100 ea 03/26/2407/21 (BD Ultra-Fine Micro Pen Needle) semaglutide 0.25 mg or 0.5 mg (2 0.5 mg (0.736 mL) subcut FR #0.736 04/19/24 mg/3 mL) subcutaneous pen injector mL (Ozempic) rosuvastatin 5 mg tablet 5 mg PO DAILY 90 days #90 tabs 05/02/24 semaglutide 1 mg/dose (4 mg/3 mL) 1 mg (0.75 mL) subcut QWEEK 4 05/10/24 subcutaneous pen injector (Ozempic) weeks #3 mL cholecalciferol (vitamin D3) 50 50 mcg PO DAILY #30 caps 05/24/24 mcg (2,000 unit) capsule (Vitamin D3) Allergies Allergy/AdvReac Type Severity Reaction Status Date / Time No Known Allergies Allergy Verified 06/04/24 13:47 [No Known Allergies*] Review of Systems Review of Systems Positive abdominal pain Yes all other systems are reviewed and are negative PMFSH Past Medical History Attestation statement: The following information was validated with the patient. Medical History HTN (hypertension) Diabetes mellitus with microalbuminuric diabetic nephropathy Diverticulitis of large intestine with abscess without bleeding Morbid obesity with BMI of 40.0-44.9, adult Vitamin D deficiency HLD (hyperlipidemia) T2DM (type 2 diabetes mellitus) Surgical History Hx of section History of tubal ligation Family History Family History Father CVD (cardiovascular disease) Cancer Mother Uterine cancer Hypertension CVD (cardiovascular disease) Diabetes mellitus Paternal Grandmother Uterine cancer Social History Social History Household Members: Family Housing: Apartment Do you presently have visiting nurse or other home services: No Alcohol intake: never Patient Tobacco Use Status: Never used Tobacco e-Cigarette/Vaping Use: Never Used Second Hand Smoke Exposure: No Advance Directives: Yes Advance Directives on File: Yes Advance Directives Date on File: 04/04/24 Do you have a plan to hurt others: No Plan service: No Current occupational status: unemployed Cognitive needs: No Hearing needs: No Vision needs: No Physical Exam ED Vital Signs: Vital Signs - 24 hr 06/04/24 13:45 06/04/24 21:07 06/05/24 00:11 Temperature 97.7 F 98.6 F 97.2 F Pulse Rate 95 111 H 87 Respiratory Rate 16 20 18 Blood Pressure 153/89 H 176/89 H 167/96 H Pulse Oximetry 98 98 99 Oxygen Delivery Method Room Air Room Air Room Air BMI result Body Mass Index 24.7 Appearance: Alert. Oriented X3. No acute distress. Eyes: Pupils equal, round and reactive to light. ENT: Pharynx normal. Neck: Normal inspection. Neck supple. No lymph nodes noted. No crepitus CVS: Normal heart rate and rhythm. Pulses normal. Normal S1 and S2 Respiratory: No respiratory distress. Breath sounds normal. No Wheezing. No rales Abdomen: Soft and nontender. No rigidity. No distention. good BS x4 Skin: Skin warm and dry. Normal skin color. Normal skin turgor. Extremities: No lower extremity edema. Neurovascular intact to all extremities. No Lacerations. No Rash Neuro: Oriented X 3. No motor deficit. No sensory deficit. Moving all extermities. No slurred speech Medical Decision Making Medical Decision Making [facility] Narrative: Patient is 48 years old presents today with having generalized abdominal pain. Not feeling well. Also have some constipation from time to time. White count was slightly elevated at 15. No significant shift. Patient's electrolytes are normal. Glucose consistent with having diabetes at 200 LFTs are normal no evidence for biliary disease lipase is normal no evidence for pancreatitis test is negative no related issue patient's urine grossly has no signs of infection. CT scan of the abdomen pelvis was done. There was grossly negative for any acute evidence of obstruction abscess perforation. Patient to be discharged home. Differential Diagnosis Differential Diagnoses: The differential diagnosis associated with the presentation includes Admission/Observation Consideration of admission/observation: Escalation of care including admission/observation considered Lab Data [facility] Lab Attestation statement: I reviewed the patient's lab results. 06/04/24 14:07 06/04/24 14:07 Labs: Lab Results 06/04/24 Range/Units 14:07 WBC 15.2 H (4.8-10.8) X10*3/uL RBC 5.37 (4.20-5.50) X10*6/uL Hgb 14.7 (12.0-16.0) g/dl Hct 43.6 (37.0-47.0) % MCV 81.2 (80.0-98.0) fL MCH 27.4 (27.0-33.0) pg MCHC 33.7 (31.0-35.0) g/dl RDW 13.1 (11.0-16.0) % Plt Count 310 (160-400) X10*3/uL MPV 10.8 (9.4-12.3) fL Immature Gran % (Auto) 0.5 H (0.0-0.4) % Neut % (Auto) 76.5 H (45-73) % Lymph % (Auto) 16.5 L (20-40) % [place] % (Auto) 4.5 (2-11) % Eos % (Auto) 1.6 (0-4) % Baso % (Auto) 0.4 (0-2) % Lymph # (Auto) 2.5 (1.2-4.9) X10*3/uL [place] # (Auto) 0.7 (0.1-1.2) X10*3/uL Eos # (Auto) 0.3 (0.0-0.4) X10*3/uL Baso # (Auto) 0.1 (0.0-0.2) X10*3/uL Abs Immat Gran (auto) 0.07 H (0.00-0.03) X10*3/uL Absolute Neuts (auto) 11.6 H (2.0-8.3) x10*3/uL Absolute Nucleated RBC 0.000 (0.0-0.012) X10*3/uL Nucleated RBC % (auto) 0.0 (0.0-0.2) /100WBC Sodium 138 (135-145) mmol/L Potassium 4.5 (3.3-5.1) mmol/L Chloride 106 (96-108) mmol/L Carbon Dioxide 25 (22-29) mmol/L Anion Gap 12 (12-20) BUN 12 (9-16) mg/dL Creatinine 0.70 (0.5-1.4) mg/dL Estim Creat Clear Calc 81.3 Estimated GFR > 60 Random Glucose 209 H (60-115) mg/dL Calcium 9.2 (8.4-10.2) mg/dL Total Bilirubin 0.4 (0.0-1.0) mg/dL AST 17 (5-31) U/L ALT 17 (0-31) U/L Alkaline Phosphatase 104 (39-117) U/L Total Protein 7.4 (6.5-8.0) g/dL Albumin 3.9 (3.5-5.0) g/dL Lipase 16 (8-78) U/L Beta HCG, Quant < 2 mIU/mL Urine Color Yellow Urine Appearance Clear Urine pH 6.0 (5.0-9.0) Ur Specific [place] 1.015 (1.005-1.025) Urine Protein Trace (Neg-Trace) mg/dL Urine Glucose (UA) Negative (Negative) mg/dL Urine Ketones Negative (Negative) mg/dL Urine Blood Negative (Negative) Urine Nitrite Negative (Negative) Ur Leukocyte Esterase Trace H (Negative) Urine RBC 0-2 (0-2) /HPF Urine WBC 0-5 (0-5) /HPF Ur Squamous Epith Cells 6-10 (0-2) /HPF Urine Bacteria None Seen (None Seen) Hyaline Casts 0-2 (0-2) /LPF Urine Test NEGATIVE (NEGATIVE) Radiology Impression Discussion of test interpretation with radiology: I have reviewed the radiologist's reading. External Record Review External record reviewed: Outpatient record Chronic Conditions Patient?s care impacted by: Diabetes Medications Administered Discontinued Medications Generic Name Dose Route Start Last Admin Trade Name Freq PRN Reason Stop Dose Admin Acetaminophen 650 mg 06/04/24 21:07 06/04/24 21:09 Acetaminophen 325 Mg Tablet PO 06/04/24 21:08 650 mg ONCE ONE Administration Discharge Plan Discharge Clinical Impression: Abdominal pain Patient Disposition: Home, Self-Care Instructions: Abdominal Pain (ED) Prescriptions: No Action (DME) FreeStyle Trudy 2 Sensor Kit See Rx Instructions .ROUTE .MEDSUPPLY Qty: 2 0RF Rx Instructions: As directed every 2 weeks (DME) incontinence pad, liner, disp Pad See Rx Instructions .Route Qty: 60 11RF Rx Instructions: Use 1 pad twice a day (DME) incontinence pad, liner, disp Pad See Rx Instructions .Route Qty: 90 6RF Rx Instructions: As directed lisinopril 10 mg tablet 10 mg PO DAILY 90 Days Qty: 90 1RF (DME) pen needle, diabetic [BD Ultra-Fine Micro Pen Needle] 32 gauge x 1/4 needle See Rx Instructions .ROUTE .MEDSUPPLY Qty: 100 8RF Rx Instructions: 1 daily empagliflozin 25 mg tablet 25 mg PO DAILY 30 Days Qty: 30 2RF Ozempic 0.25 mg or 0.5 mg (2 mg/3 mL) pen injector 0.5 mg subcut FR Qty: 0.736 0RF rosuvastatin 5 mg tablet 5 mg PO DAILY 90 Days Qty: 90 4RF Ozempic 1 mg/dose (4 mg/3 mL) pen injector 1 mg subcut QWEEK 28 Days Qty: 3 0RF mirtazapine 15 mg tablet 15 mg PO BEDTIME insulin glargine [Lantus Solostar U-100 Insulin] 100 unit/mL (3 mL) insulin pen 45 unit subcut BEDTIME (DME) blood-glucose meter [FreeStyle Lite Meter] Kit See Rx Instructions .Route Qty: 1 0RF Rx Instructions: As directed (DME) FreeStyle Precision Shar Strips Strip See Rx Instructions .ROUTE .MEDSUPPLY Qty: 50 0RF Rx Instructions: TWice daily lamotrigine 200 mg tablet 200 mg PO BEDTIME (DME) pen needle, diabetic [Easy Comfort Pen [place]] 33 gauge x 5/32 needle See Rx Instructions .ROUTE .MEDSUPPLY Qty: 100 Rx Instructions: As directed cholecalciferol (vitamin D3) [Vitamin D3] 50 mcg (2,000 unit) capsule 50 mcg PO DAILY Qty: 30 11RF Referrals: Lucy Nur MD [Primary Care Provider] - 06/07/24 Print Language: Burundian
[2024-06-05 00:30] VITALS: BP 167/96; PULSE 87; RESP 18; TEMP 36.2; O2SAT 99
== END 2024-06-05 00:35 | disposition home or self-care (01) ==
PROVIDERS: Physician Assistant; Emergency Provider Emergency Medicine Emergency Medical Services; PCP Internal Medicine
DX: R10.9 Unspecified abdominal pain (principal); E11.9 Type 2 diabetes mellitus without complications; I10 Essential (primary) hypertension; E78.5 Hyperlipidemia, unspecified; Z79.4 Long term (current) use of insulin; Z79.02 Long term (current) use of antithrombotics/antiplatelets; Z79.899 Other long term (current) drug therapy
CPT/HCPCS: 36415; 74176; 80053; 81001; 81025; 83690; 84702; 85025; 99283; 99284

== ENCOUNTER 2024-08-01 12:44 | Outpatient (AMB) | payer OTHER, SELFPAY ==
[2024-08-01 12:53] VITALS: BMI 37.5
--- NOTE | 2024-08-01 12:53 | MHC.OFFVIS ---
Vital Signs 08/01/24 12:53 Height 5 ft 1 in Weight 198 lb 4 oz BMI 37.5 Intake Visit Reasons: 3 month follow-up diverticulitis Intake Note: This patient presents for three month follow-up for diverticulitis. Pt c/o; reports abdominal pain at night time, reports no changes in bowel habits. Family Service Counselor Required: No Accompanied by: Other Relationship Allergies No Known Allergies [No Known Allergies*] Allergy (Verified 08/01/24 13:02) Medication List - Last Reconciled 08/01/24 by Karri Al MD blood sugar diagnostic (FreeStyle Precision Shar Strips) TWice daily blood-glucose meter (FreeStyle Lite Meter kit) As directed cholecalciferol (vitamin D3) (Vitamin D3) 50 mcg PO DAILY empagliflozin 25 mg PO DAILY 30 days flash glucose sensor (FreeStyle Trudy 2 Sensor kit) As directed every 2 weeks incontinence pad, liner, disp Use 1 pad twice a day incontinence pad, liner, disp As directed insulin glargine (Lantus Solostar U-100 Insulin) 45 units subcut BEDTIME lamotrigine 200 mg PO BEDTIME lisinopril 10 mg PO DAILY 90 days mirtazapine 15 mg PO BEDTIME pen needle, diabetic (BD Ultra-Fine Micro Pen Needle) 1 daily pen needle, diabetic (Easy Comfort Pen [place]) As directed rosuvastatin 5 mg PO DAILY 90 days semaglutide (Ozempic) 0.5 mg (0.736 mL) subcut FR semaglutide (Ozempic) 1 mg (0.75 mL) subcut QWEEK 4 weeks semaglutide (Ozempic) 0.5 mg (0.736 mL) subcut QWEEK 4 weeks HPI HPI 3 month follow-up diverticulitis: Details: 49-year-old female here for a history of diverticular disease. She was admitted to the hospital for acute uncomplicated sigmoid diverticulitis last March,. It does not appear that she has had further episodes She says she does have occasional pain on the abdomen on lower part She denies constipation. She says she has never had any colonoscopy in the past. [facility] Medical History HTN (hypertension) Diabetes mellitus with microalbuminuric diabetic nephropathy Diverticulitis of large intestine with abscess without bleeding Morbid obesity with BMI of 40.0-44.9, adult Vitamin D deficiency HLD (hyperlipidemia) T2DM (type 2 diabetes mellitus) Surgical History Hx of section History of tubal ligation Family History Father CVD (cardiovascular disease) Cancer Mother Uterine cancer Hypertension CVD (cardiovascular disease) Diabetes mellitus Paternal Grandmother Uterine cancer Social History Household Members: Family Housing: Apartment Do you presently have visiting nurse or other home services: No Alcohol intake: never Patient Tobacco Use Status: Never used Tobacco e-Cigarette/Vaping Use: Never Used Second Hand Smoke Exposure: No Advance Directives Date on File: 04/04/24 service: No Current occupational status: unemployed Cognitive needs: No Hearing needs: No Vision needs: No Female Reproductive History Menstrual Age of Menarche: 11 Review of Systems Const Denies chills and Denies fever(s) Card Denies chest pain, Denies dyspnea and Denies dyspnea on exertion Resp Denies cough, Denies dyspnea and Denies dyspnea on exertion GI Denies hematochezia and Denies change in bowel habits Denies hematuria Musc Denies back pain and Denies limited range of motion Neuro Denies focal weakness and Denies convulsions Psych Denies depression and Denies mood swings Physical Exam Vital Signs: BMI result Body Mass Index 37.5 Const Other: Obese General: comfortable and no acute distress Orientation/consciousness: patient oriented x3 Neck Neck: Yes no lymphadenopathy Resp Auscultation: clear to auscultation bilaterally Cardio Rhythm: regular rhythm GI Other: Has a large pannus on the abdominal wall Palpation (GI): Soft to palpation, nontender and no guarding Neuro General: patient oriented x3 Assessment & Plan Assessment & Plan (1) Diverticulosis: Code(s): K57.90 - Diverticulosis of intestine, part unspecified, without perforation or abscess without bleeding Category: Medical Plan: She has a history of acute diverticulitis last March,. She does not appear to have further episodes She has never had any colonoscopy in the past. I explained to her that it would be a good idea to proceed with a colonoscopy especially with her age. I reviewed the technique of this procedure. I explained the risks including but not limited to bleeding and perforation, as well as the benefits and alternatives She understands and wants to proceed. Coding Level of Care Code Est Pt Level 3 (60089) Diagnoses Diverticulosis K57.90
== END 2024-08-01 13:30 | disposition home or self-care (01) ==
PROVIDERS: PCP Internal Medicine; Visit Provider Surgery
DX: K57.90 Diverticulosis of intestine, part unspecified, without perforation or abscess without bleeding (principal)
CPT/HCPCS: 99213

== ENCOUNTER → 2024-08-01 12:44 | Outpatient (BNVA) | payer OTHER, SELFPAY | PROVIDERS: PCP Internal Medicine; Visit Provider Surgery | DX: K57.90 Diverticulosis of intestine, part unspecified, without perforation or abscess without bleeding (principal) | CPT/HCPCS: 99212 ==

== ENCOUNTER 2024-08-13 11:13 | Outpatient (REF) | payer OTHER, SELFPAY ==
[2024-08-13 12:18] LABS: Creatinine Urine 216.58 mg/dL; Microalbum/Creatinine Ratio Ur 56.7 ug/mg cr (<30)
[2024-08-13 12:31] LABS: Alanine Aminotransferase 22 U/L (0-31); Albumin Level 3.8 g/dL (3.5-5.0); Alkaline Phosphatase 108 U/L (39-117); Anion Gap 9 (12-20); Aspartate Amino Transferase 21 U/L (5-31); Bilirubin Total 0.3 mg/dL (0.0-1.0); Blood Urea Nitrogen 7 mg/dL (9-16); Calcium 9.2 mg/dL (8.4-10.2); Carbon Dioxide 26 mmol/L (22-29); Chloride 108 mmol/L (96-108); Cholesterol 143 mg/dL (<200); Estimated Glomerular Filt Rate > 60; Glucose Fasting 237 mg/dL (60-99); HDL Cholesterol 39 mg/dL (>40); LDL Cholesterol Calculated 75 mg/dL (<100); Potassium 4.4 mmol/L (3.3-5.1); Sodium 139 mmol/L (135-145); Total Protein 7.6 g/dL (6.5-8.0); Triglycerides 147 mg/dL (<150)
[2024-08-13 12:46] LABS: Vitamin D 25-OH Total 24.5 ng/mL (>30)
== END 2024-08-13 11:14 | disposition home or self-care (01) ==
LOC: HO.LAB 11:13
PROVIDERS: PCP Internal Medicine; Visit Provider Internal Medicine
DX: E66.01 Morbid (severe) obesity due to excess calories (principal); E11.9 Type 2 diabetes mellitus without complications; Z68.41 Body mass index [BMI] 40.0-44.9, adult; E55.9 Vitamin D deficiency, unspecified; E78.5 Hyperlipidemia, unspecified
CPT/HCPCS: 36415; 80053; 80061; 82043; 82306; 82570

== ENCOUNTER 2024-09-21 06:44 | Day surgery (SDC) | payer OTHER, SELFPAY ==
[2024-09-19 09:25] VITALS: BMI 37.4
--- NOTE | 2024-09-20 09:40 | P.CONAN_ITS ---
Documented by User: Iona Banegas NP 09/20/24 09:45 HPI - Anesthesia Eval Consult details Narrative: 49yo F for Colonoscopy with possible Polypectomy Anesthesia Pre-Procedure Meds Is the patient on any of the following meds?: GLP1/DPP4 and SGLT2 Inhib PMFSH Active Problems Active Problems: All Active Problems Chronic GERD (Acute) Hyperlipidemia LDL goal <70 (Acute) HTN (hypertension) (Acute) Diabetes mellitus with microalbuminuric diabetic nephropathy (Acute) Diverticulitis of large intestine with abscess without bleeding (Acute) Physical exam (Acute) Menstrual periods irregular (Acute) Obesity (BMI 30-39.9) (Acute) Adult general medical exam (Acute) Cervical cancer screening (Acute) Screening for colon cancer (Acute) Screening for breast cancer (Acute) Urinary incontinence (Acute) Vitamin D deficiency (Acute) HLD (hyperlipidemia) (Acute) Past Medical History Medical History HTN (hypertension) Diabetes mellitus with microalbuminuric diabetic nephropathy Diverticulitis of large intestine with abscess without bleeding Morbid obesity with BMI of 40.0-44.9, adult Vitamin D deficiency HLD (hyperlipidemia) T2DM (type 2 diabetes mellitus) Family History Family History Father CVD (cardiovascular disease) Cancer Mother Uterine cancer Hypertension CVD (cardiovascular disease) Diabetes mellitus Paternal Grandmother Uterine cancer Surgical History Surgical History Hx of section History of tubal ligation Social History Social History Household Members: Family Housing: Apartment Are you a primary health care administrator to a significant other at home: No Do you presently have visiting nurse or other home services: No Alcohol intake: never Patient Tobacco Use Status: Never used Tobacco e-Cigarette/Vaping Use: Never Used Second Hand Smoke Exposure: No Have you been hit, kicked, punched, or otherwise hurt by someone within the past year? If so, by whom?: No Are you DNR?: No Advance Directives: No Advance Directives Information Provided: Yes Advance Directives Date on File: 04/04/24 Recently lost weight without trying: No Nutrition Risks: No Nutritional Risk FDLMP: 09/11/24 service: No Current occupational status: unemployed Cognitive needs: No Hearing needs: No Vision needs: No Meds Allergies Allergy/AdvReac Type Severity Reaction Status Date / Time No Known Allergies Allergy Verified 09/21/24 07:24 [No Known Allergies*] Home Medications ?Medication ?Instructions ?Recorded ?Confirmed ?Last Taken ?Type lamotrigine 200 mg tablet 200 mg PO BEDTIME 05/25/23 09/21/24 03/27/24 History pen needle, diabetic 33 gauge x #100 ea 05/25/23 09/21/24 Unknown History (Easy Comfort Pen [place]) insulin glargine 100 unit/mL (3 45 unit subcut BEDTIME 03/28/24 09/21/24 03/27/24 History mL) subcutaneous pen (Lantus Solostar U-100 Insulin) mirtazapine 15 mg tablet 15 mg PO BEDTIME 03/28/24 09/21/24 03/27/24 History Exam Height,Weight and Vital Signs: Height 5 ft 1 in Weight 89.811 kg Pertinent Lab Results Pertinent Lab Results: Laboratory Tests 06/04/24 08/13/24 14:07 11:22 WBC 15.2 H Hgb 14.7 Hct 43.6 Plt Count 310 Sodium 139 Potassium 4.4 Chloride 108 Carbon Dioxide 26 BUN 7 L Creatinine 0.68 Assessment and Plan Assessment Anesthesia Assessment: Chart Reviewed Documented by User: Felicita Peñaloza MD 09/21/24 08:37 PMFSH Past Medical History Medical History HTN (hypertension) Diabetes mellitus with microalbuminuric diabetic nephropathy Diverticulitis of large intestine with abscess without bleeding Morbid obesity with BMI of 40.0-44.9, adult Vitamin D deficiency HLD (hyperlipidemia) T2DM (type 2 diabetes mellitus) Family History Family History Father CVD (cardiovascular disease) Cancer Mother Uterine cancer Hypertension CVD (cardiovascular disease) Diabetes mellitus Paternal Grandmother Uterine cancer Family history of problems with anesthesia: No Surgical History Surgical History Hx of section History of tubal ligation History of Problems with Anesthesia: No Social History Social History Household Members: Family Housing: Apartment Are you a primary health care administrator to a significant other at home: No Do you presently have visiting nurse or other home services: No Alcohol intake: never Patient Tobacco Use Status: Never used Tobacco e-Cigarette/Vaping Use: Never Used Second Hand Smoke Exposure: No Have you been hit, kicked, punched, or otherwise hurt by someone within the past year? If so, by whom?: No Are you DNR?: No Advance Directives: No Advance Directives Information Provided: Yes Advance Directives Date on File: 04/04/24 Recently lost weight without trying: No Nutrition Risks: No Nutritional Risk FDLMP: 09/11/24 service: No Current occupational status: unemployed Cognitive needs: No Hearing needs: No Vision needs: No Meds Allergies Allergy/AdvReac Type Severity Reaction Status Date / Time No Known Allergies Allergy Verified 09/21/24 07:24 [No Known Allergies*] Home Medications ?Medication ?Instructions ?Recorded ?Confirmed ?Last Taken ?Type lamotrigine 200 mg tablet 200 mg PO BEDTIME 05/25/23 09/21/24 03/27/24 History pen needle, diabetic 33 gauge x #100 ea 05/25/23 09/21/24 Unknown History (Easy Comfort Pen [place]) insulin glargine 100 unit/mL (3 45 unit subcut BEDTIME 03/28/24 09/21/24 03/27/24 History mL) subcutaneous pen (Lantus Solostar U-100 Insulin) mirtazapine 15 mg tablet 15 mg PO BEDTIME 03/28/24 09/21/24 03/27/24 History Exam Airway Mallampati Class: II TM Dist: >3cm Neck ROM: Full Heart: rrr Lungs: cta Assessment and Plan Assessment Anesthesia Assessment: Anesthesia Plan Discussed Final Anesthetic Review Family History of Problems with Anesthesia: No History of Problems with Anesthesia: No NPO: Yes ASA Class: III (pt not sure of timing of jardiance stop, is on 2 meds, will give i.v erythromycin 250 mg) Final Preanesthetic Review: No Changes in Pt Med Stat, Meds/Allgs Chart Reviewed, Consent Obtained/Reviewed and Anes Risks/Benef Reviewed Patient Risk: Intermediate Procedure Risk: Low Anesthetic Plan Anesthetic Plan: MAC: Disposition: Standard PACU
[2024-09-21 06:58] VITALS: BMI 36.7
[2024-09-21 07:21] LABS: Glucose, Whole Blood 168 mg/dL (60-115)
[2024-09-21 07:22] VITALS: BP 149/79; PULSE 82; RESP 18; TEMP 36.7; O2SAT 99
[2024-09-21] MEDS: Lactated Ringers 1,000 ML 100 ML IVCONT (07:33)
[2024-09-21] MEDS: Erythromycin Lactobionate 250 MG in 0.9 % Sodium Chloride 100 ML 100 MG IV (07:44)
--- NOTE | 2024-09-21 08:02 | MHC.SHP ---
Pre-Procedural Eval Section A - 24 Hr Update-Section A only Date of Service: 09/21/24 Section B - Complete if H&P > 30 days Chief Complaint: Diverticulosis of intestine, part unspecified, Details of Present Illness: History of diverticulitis, had never had any colonoscopy in the past Relevant Family History (Specify if Yes): No Relevant Social History: None Present Medications: see Short Stay Collaborative assessment Medical History: Significant History (Hypertension, obesity, GERD, diabetes, hyperlipidemia) Allergies: Allergies Allergy/AdvReac Type Severity Reaction Status Date / Time No Known Allergies Allergy Verified 09/21/24 07:24 [No Known Allergies*] Review of Systems Sugical H&P ROS: Negative: Constitution, Cardiovascular, Respiratory and Gastrointestinal Exam Surgical H&P Exam: Normal: Heart, Normal: Lungs and Normal: Abdomen Plan Diagnosis/Plan: Unchanged I have reviewed the history and physical and performed a pertinent physical examination on my patient. No changes have occurred unless specified. Time Spent With Patient Time: Total time managing care of this patient today ____ minutes.
--- NOTE | 2024-09-21 08:02 | PC.NURSE ---
Patient was confident that she stopped her Ozempic last week, but was very unsure of when her last dose of Jardiance was. Dr. Peñaloza updated and ordered Erythromycin 250 mg to be given preop. pharmacy delivered and reviewed reconstitution with Joseline in pharmacy.
--- NOTE | 2024-09-21 09:25 | W.PM.OPN ---
Operative Note Operative Note Date of Service: 09/21/24 Narrative: Preop diagnosis: Diverticular disease Postop diagnosis: Diverticulosis in the sigmoid without inflammatory changes; internal and external hemorrhoids Procedure: Colonoscopy Surgeon: Karri Al MD The patient is a 49 year female we had been admitted for uncomplicated diverticulitis last March,. She has been following me in the office because of periodic left lower quadrant pain. She has never had any colonoscopy in the past so I told her it may be best to proceed with this. She understood the technique of the planned procedure as was the risks, benefits, and alternatives The patient was brought to the operating room and placed in left lateral decubitus position under monitored anesthesia care. A surgical time-out was done. A full digital rectal exam was done and this did not reveal any significant anal lesions. The tip of the Olympus colonoscope was gently introduced through the anal orifice advanced with insufflation all the way to the cecum. The cecum was intubated. The cecum was identified by visualization of the ileocecal valve as well as the appendiceal orifice. The cecal mucosa was unremarkable. The scope was gradually withdrawn with careful examination of the entire colonic mucosa being done with scope withdrawal. The patient had adequate bowel prep so it was unlikely that any lesion may have been missed. There was note of moderate diverticulosis in the sigmoid without any inflammatory changes. The rectum was reached and there were no lesions seen. The anal canal was unremarkable. The scope was then withdrawn completely with desufflation The patient tolerated procedure well. There were no immediate complications. I would also recommend repeating the colonoscopy with the next 10 years as part of her screening.
[2024-09-21 09:30] VITALS: BP 127/71; PULSE 83; RESP 16; TEMP 36.5; O2SAT 95
[2024-09-21 09:45] VITALS: BP 146/81; PULSE 80; RESP 16; TEMP 36.5; O2SAT 96
== END 2024-09-21 10:08 | disposition home or self-care (01) ==
PROVIDERS: PCP Internal Medicine; Visit Provider Surgery
PROC: 0DBE8ZZ Excision of Large Intestine, Via Natural or Artificial Opening Endoscopic (ICD-10-PCS; CPT 45378; principal; 2024-09-21 08:30)
DX: K57.30 Diverticulosis of large intestine without perforation or abscess without bleeding (principal); Z87.19 Personal history of other diseases of the digestive system; K64.8 Other hemorrhoids; K64.4 Residual hemorrhoidal skin tags; I10 Essential (primary) hypertension; E78.5 Hyperlipidemia, unspecified; E55.9 Vitamin D deficiency, unspecified; E66.01 Morbid (severe) obesity due to excess calories; Z68.37 Body mass index [BMI] 37.0-37.9, adult; E11.21 Type 2 diabetes mellitus with diabetic nephropathy; Z79.4 Long term (current) use of insulin; Z79.85 Long-term (current) use of injectable non-insulin antidiabetic drugs; Z79.899 Other long term (current) drug therapy; Z98.51 Tubal ligation status
CPT/HCPCS: 45378; 82947; J1364; J2003; J2704

== ENCOUNTER → 2024-09-21 06:44 | Outpatient (BNV) | payer OTHER, SELFPAY | PROVIDERS: PCP Internal Medicine; Visit Provider Surgery | DX: K57.90 Diverticulosis of intestine, part unspecified, without perforation or abscess without bleeding (principal); K64.8 Other hemorrhoids | CPT/HCPCS: 47538 ==

== ENCOUNTER 2024-10-01 13:41 | Outpatient (AMB) | payer OTHER, SELFPAY ==
[2024-10-01 14:31] VITALS: BP 128/82; BMI 37.8
--- NOTE | 2024-10-01 14:31 | A.OFFPC_ITS ---
Vital Signs 10/01/24 14:31 Height 5 ft 1 in Weight 200 lb BMI 37.8 BP 128/82 Blood Pressure Location Lt brachial Position Sitting Intake Visit Reasons: dm Intake Note: Patient here for a follow up DM Family Service Assistant Required: Yes Family Service Assistant Language: [place] Paper Name: Lucy Claire MD Information Interpreted: non-clinical & clinical Accompanied by: Spouse Allergies No Known Allergies [No Known Allergies*] Allergy (Verified 10/01/24 14:56) Medication List - Last Reconciled 10/01/24 by Lucy Claire MD blood sugar diagnostic (FreeStyle Precision Shar Strips) TWice daily blood-glucose meter (FreeStyle Lite Meter kit) As directed cholecalciferol (vitamin D3) (Vitamin D3) 50 mcg PO DAILY empagliflozin 25 mg PO DAILY 30 days flash glucose sensor (FreeStyle Trudy 2 Sensor kit) As directed every 2 weeks incontinence pad, liner, disp Use 1 pad twice a day incontinence pad, liner, disp As directed insulin glargine (Lantus Solostar U-100 Insulin) 45 units subcut BEDTIME lamotrigine 200 mg PO BEDTIME lisinopril 10 mg PO DAILY 90 days mirtazapine 15 mg PO BEDTIME pen needle, diabetic (BD Ultra-Fine Micro Pen Needle) 1 daily pen needle, diabetic (Easy Comfort Pen [place]) As directed rosuvastatin 5 mg PO DAILY 90 days semaglutide (Ozempic) 1 mg (0.75 mL) subcut QWEEK 4 weeks semaglutide (Ozempic) 0.5 mg (0.736 mL) subcut QWEEK 4 weeks tramadol 50 mg PO Q6H PRN Tobacco use date assessed: 10/01/24 Dental Screening Dental Screen Date: 10/01/24 Did you have a dental visit in the last 12 months?: No Did you have a dental problem in the last 6 months where you did not have access to dental care?: No Was dental information given to patient?: Patient has dentist HPI HPI Comments History of Present Illness Details The patient is a 49-year-old female presenting with management needs f or Type 2 Diabetes Mellitus and a review of her medications. She reports an HbA1c level indicative of elevated blood glucose and a current medication regimen that includes Jardiance and Lantus, with recent adjustments being made to improve her glycemic control. She also takes Ozempic, now intended to increase to 2 mg for better efficacy. She has a known history of hemorrhoids and diverticulosis, detected during a colonoscopy, which contribute to occasional bleeding. Gastrointestinal pain occurs with consumption of red meat. Anxiety disorder management includes Lamotrigine and Mirtazapine, achieving adequate symptomatic control, while her hypertension is managed with Lisinopril. PENDING SALE TO [facility] Medical History HTN (hypertension) Diabetes mellitus with microalbuminuric diabetic nephropathy Diverticulitis of large intestine with abscess without bleeding Morbid obesity with BMI of 40.0-44.9, adult Vitamin D deficiency HLD (hyperlipidemia) T2DM (type 2 diabetes mellitus) Surgical History History of colonoscopy (~09/21/24) Hx of section History of tubal ligation Family History Father CVD (cardiovascular disease) Cancer Mother Uterine cancer Hypertension CVD (cardiovascular disease) Diabetes mellitus Paternal Grandmother Uterine cancer Social History Household Members: Family Housing: Apartment Are you a primary aged or disabled carer to a significant other at home: No Do you presently have visiting nurse or other home services: No Alcohol intake: never Patient Tobacco Use Status: Never used Tobacco e-Cigarette/Vaping Use: Never Used Second Hand Smoke Exposure: No Advance Directives Date on File: 04/04/24 service: No Current occupational status: unemployed Cognitive needs: No Hearing needs: No Vision needs: No Female Reproductive History Menstrual Age of Menarche: 11 Questionnaire PHQ-9 Over the last 2 weeks, how often have you been bothered by any of the following problems? 1. Little interest or pleasure in doing things: not at all 2. Feeling down, depressed, or hopeless: not at all 3. Trouble falling or staying asleep, or sleeping too much: not at all 4. Feeling tired or having little energy: not at all 5. Poor appetite or overeating: several days 6. Feeling bad about yourself - or that you are a failure or have let yourself or your family down: not at all 7. Trouble concentrating on things, such as reading the newspaper or watching television: not at all 8. Moving or speaking so slowly that other people could have noticed. Or the opposite - being so fidgety or restless that you have been moving around a lot more than usual: not at all 9. Thoughts that you would be better off or of hurting yourself in some way: not at all Total score: 1 Depression Screening Interpretation: Positive Depression Screening Follow-up: Existing condition and Follow-up Visit Requested Depression Screening Done: Yes 85573 - PHQ-9 Billing: Yes Source: Developed by Drs. Paul Castillo, Kath Dunne, Jorge Duque and colleagues, with an educational evelyn from [employer]. Thrive Questionnaire Date Thrive assessed: 10/01/24 I am a: Patient What is your living situation today?: I have a steady place to live Within the past 12 months, did the food you bought not last and you didn't have the money to get more?: Never true Within the past 12 months, did you worry whether your food would run out before you got money to buy more?: Never true Do you have trouble paying for medicines?: No Do you have trouble getting transportation to medical appointments?: No Do you have trouble paying your heating and electricity bill?: No Do you have trouble taking care of your child, family member or friend?: No Do you have trouble with day-to-day activities such as bathing, preparing meals, shopping, managing finances, etc.?: No Are you currently unemployed and looking for a job?: No Are you interested in more education?: No Please select the resources that you would like help with: None Currently or been in a relationship where the following occur: No concerns reported THRIVE Score: 0 AUDIT C Alcohol Use Questionnaire (AUDIT-C) 1. How often do you have a drink containing alcohol?: Never Total Score: 0 Score Reviewed/Action Taken: No THOMPSON-7 AMB Questionnaire THOMPSON-7 Date THOMPSON - 7 assessed: 10/01/24 Feeling nervous, anxious, or on edge: 0 = Not at all Not being able to stop or control worryin = Not at all Worrying too much about different things: 0 = Not at all Trouble relaxin = Not at all Being so restless that it is hard to sit still: 0 = Not at all Becoming easily annoyed or irritable: 0 = Not at all Feeling afraid as if something awful might happen: 0 = Not at all Total THOMPSON-7 score (0-4 normal; 5-9 mild; 10-14 moderate; 15-21 severe): 0 Source: Developed by Drs. Paul Castillo, Kath Dunne, Jorge Duque and colleagues, with an educational evelyn from [employer]. THOMPSON-7 Assessment Billing THOMPSON-7 Assessment Tool: THOMPSON-7 Assessment 37453 Review of Systems Const All systems reviewed & are unremarkable except as noted in HPI and below Card Denies chest pain at rest, Denies chest pain with activity, Denies edema, Denies irregular heart rhythm, Denies claudication, Denies dyspnea, Denies dyspnea on exertion, Denies orthopnea, Denies paroxysmal nocturnal dyspnea and Denies slow heart rate Resp Denies cough, Denies dyspnea and Denies dyspnea on exertion GI Denies abdominal pain, Denies change in bowel habits, Denies excessive flatus, Denies nausea and Denies vomiting Neuro Denies lack of coordination Physical exam (Primary Care) Vital Signs: Last Vital Signs BP 128/82 10/01/24 14:31 BMI result Body Mass Index 37.8 BMI Assessment/Plan discussion: High BMI High, discussed plan: lifestyle, weight reduction, dietary and physical activity Tobacco/Smoking Status: Tobacco use Status Tobacco use date assessed 10/01/24 10/01/24 14:46 Patient Tobacco Use Status Never used Tobacco 10/01/24 14:46 e-Cigarette/Vaping Use Never Used 10/01/24 14:46 PHQ-9: PHQ-9 Score PHQ-9: Total score 1 10/01/24 14:57 Depression Screening Interpretation: Positive Depression Screening Follow-up: Existing condition and Follow-up Visit Requested Thrive Assessment: Date of Thrive Assessment Date Thrive assessed 10/01/24 10/01/24 14:46 Currently or been in a relationship where the following occur: No concerns reported Resp Effort & Inspection: normal respiratory effort Auscultation: clear to auscultation bilaterally Cardio Jugular venous distension: no JVD Rate: regular rate Rhythm: regular rhythm Heart sounds: S1 normal heart sound present and S2 normal heart sound present Extrem General: Yes full ROM Results AMB Hemoglobin A1c AMB Hemoglobin A1c 11.1 % Last Edit by MARIAH Burgess on 10/01/24 14: 51 Results Reviewed Results Reviewed: Laboratory Last Values Hgb A1c (Clinic) 11.1 % (4.0-6.0) H 10/01/24 14:23 Coding Level of Care Code Est Pt Level 4 (68636) Complex EM visit Add On G2211 Diagnoses Diabetes mellitus with microalbuminuric diabetic nephropathy E11.21 Hypertension, unspecified type I10 Hypertension type: unspecified Hyperlipidemia LDL goal <70 E78.5 Chronic GERD K21.9 Additional Codes THOMPSON-7 Assessment Billing - THOMPSON-7 Assessment Tool: THOMPSON-7 Assessment 85374 ([id number]) PHQ-9 - 69347 - PHQ-9 Billing: Yes ([id number]) Time Spent (min) 22 Assessment & Plan Assessment & Plan (1) Diabetes mellitus with microalbuminuric diabetic nephropathy: Code(s): E11.21 - Type 2 diabetes mellitus with diabetic nephropathy Category: Medical (2) HTN (hypertension): Code(s): I10 - Essential (primary) hypertension Category: Medical Qualifiers: Hypertension type: unspecified Qualified Code(s): I10 - Essential (primary) hypertension (3) Hyperlipidemia LDL goal <70: Code(s): E78.5 - Hyperlipidemia, unspecified Category: Medical (4) Chronic GERD: Code(s): K21.9 - Gastro-esophageal reflux disease without esophagitis Category: Medical Plan The patient's Type 2 Diabetes Mellitus will be managed with adjustments to her Lantus and Ozempic dosages for improved glycemic control. Hemorrhoidal bleeding requires monitoring, and dietary changes are advised. Anxiety disorder is managed with current medications, and hypertension is stable with Lisinopril. Rosuvastatin remains part of her regimen for hyperlipidemia. Prescription refills, including Vitamin D3, are to be ensured at the pharmacy. Patient was informed and verbally consented to the use of an ambient scribe for clinic note documentation during this visit. I discussed the importance of controlling blood glucose levels and agreed to increase her Lantus to 50 units and Ozempic to 2 mg for better management of her Type 2 Diabetes Mellitus. I advised dietary modifications to alleviate her gastrointestinal symptoms. We reviewed her current medications and confirmed no allergies. The patient was informed about the changes in her prescriptions and the need for regular monitoring of her blood glucose levels. Continual use of antihypertensive and lipid-lowering medications was reaffirmed. Prescription refills were coordinated through her preferred pharmacy. Orders: Orders AMB Hemoglobin A1c Today E11.21 - Type 2 diabetes mellitus with diabetic nephropathy Medications: New semaglutide (Ozempic) 2 mg (0.75 mL) subcut QWEEK 3 mL 6RF 4 weeks E11.21 - Type 2 diabetes mellitus with diabetic nephropathy Changed From insulin glargine (Lantus Solostar U-100 Insulin) 45 units subcut BEDTIME E11.21 - Type 2 diabetes mellitus with diabetic nephropathy To insulin glargine (Lantus Solostar U-100 Insulin) 50 units (0.5 mL) subcut BEDTIME 4 weeks 14 mL 0RF E11.21 - Type 2 diabetes mellitus with diabetic nephropathy Refilled cholecalciferol (vitamin D3) (Vitamin D3) 50 mcg PO DAILY 30 caps 11RF E11.65 - Type 2 diabetes mellitus with hyperglycemia insulin glargine (Lantus Solostar U-100 Insulin) 50 units (0.5 mL) subcut BEDTIME 14 mL 0RF 4 weeks E11.21 - Type 2 diabetes mellitus with diabetic nephropathy Discontinued semaglutide (Ozempic) Discontinued Reason: Patient Completed Course 1 mg (0.75 mL) subcut QWEEK 4 weeks 3 mL 0RF semaglutide (Ozempic) Discontinued Reason: Patient Completed Course 0.5 mg (0.736 mL) subcut QWEEK 4 weeks 2.944 mL 0RF Patient Instructions: - Increase Lantus dosage to 50 units. - Begin taking Ozempic at 2 mg. - Monitor blood sugar levels regularly. - Avoid red meat to reduce gastrointestinal pain. - Continue taking current medications as prescribed. - Follow up with pharmacy for prescription refills. - Report any new or worsening symptoms immediately.
== END 2024-10-01 15:10 | disposition home or self-care (01) ==
LOC: HO.HMCH 13:42
PROVIDERS: PCP Internal Medicine; Visit Provider Internal Medicine
DX: E11.21 Type 2 diabetes mellitus with diabetic nephropathy (principal); I10 Essential (primary) hypertension; E78.5 Hyperlipidemia, unspecified; K21.9 Gastro-esophageal reflux disease without esophagitis

== ENCOUNTER → 2024-10-01 13:41 | Outpatient (BNVA) | payer OTHER, SELFPAY | PROVIDERS: PCP Internal Medicine; Visit Provider Internal Medicine | DX: E11.21 Type 2 diabetes mellitus with diabetic nephropathy (principal); E78.5 Hyperlipidemia, unspecified; K21.9 Gastro-esophageal reflux disease without esophagitis; I10 Essential (primary) hypertension | CPT/HCPCS: 83036; 96127; 99212 ==

== ENCOUNTER 2024-10-04 09:09 | Outpatient (AMB) | payer OTHER, SELFPAY ==
--- NOTE | 2024-10-04 09:16 | MHC.OFFVIS ---
Vital Signs 10/04/24 09:20 Height 5 ft 1 in Weight 202 lb BMI 38.2 Intake Visit Reasons: S/P colonoscopy Intake Note: This patient presents for post-op assessment status post colonoscopy. Pt c/o; reports pain. Remediation Consultant Required: Yes Remediation Consultant Language: Collections Attorney Services: Remediation Consultant Offered & Declined Accompanied by: Self / Same As Patient Allergies No Known Allergies [No Known Allergies*] Allergy (Verified 10/04/24 09:21) Medication List - Last Reconciled 10/04/24 by Karri Al MD blood sugar diagnostic (FreeStyle Precision Shar Strips) TWice daily blood-glucose meter (FreeStyle Lite Meter kit) As directed cholecalciferol (vitamin D3) (Vitamin D3) 50 mcg PO DAILY empagliflozin 25 mg PO DAILY 30 days flash glucose sensor (FreeStyle Trudy 2 Sensor kit) As directed every 2 weeks incontinence pad, liner, disp Use 1 pad twice a day incontinence pad, liner, disp As directed insulin glargine (Lantus Solostar U-100 Insulin) 50 units (0.5 mL) subcut BEDTIME 4 weeks lamotrigine 200 mg PO BEDTIME lisinopril 10 mg PO DAILY 90 days mirtazapine 15 mg PO BEDTIME pen needle, diabetic (BD Ultra-Fine Micro Pen Needle) 1 daily pen needle, diabetic (Easy Comfort Pen [place]) As directed rosuvastatin 5 mg PO DAILY 90 days semaglutide (Ozempic) 2 mg (0.75 mL) subcut QWEEK 4 weeks tramadol 50 mg PO Q6H PRN HPI HPI S/P colonoscopy: Details: She had undergone colonoscopy last 09/22/2024 and she is here to discuss the findings She has known diverticular disease. She admits to occasional abdominal pain. She denies any rectal bleeding. [facility] Medical History HTN (hypertension) Diabetes mellitus with microalbuminuric diabetic nephropathy Diverticulitis of large intestine with abscess without bleeding Morbid obesity with BMI of 40.0-44.9, adult Vitamin D deficiency HLD (hyperlipidemia) T2DM (type 2 diabetes mellitus) Surgical History History of colonoscopy (~09/21/24) Hx of section History of tubal ligation Family History Father CVD (cardiovascular disease) Cancer Mother Uterine cancer Hypertension CVD (cardiovascular disease) Diabetes mellitus Paternal Grandmother Uterine cancer Social History Household Members: Family Housing: Apartment Are you a primary resident care manager to a significant other at home: No Do you presently have visiting nurse or other home services: No Alcohol intake: never Patient Tobacco Use Status: Never used Tobacco e-Cigarette/Vaping Use: Never Used Second Hand Smoke Exposure: No Advance Directives Date on File: 04/04/24 service: No Current occupational status: unemployed Cognitive needs: No Hearing needs: No Vision needs: No Female Reproductive History Menstrual Age of Menarche: 11 Review of Systems Const Denies chills and Denies fever(s) Card Denies chest pain GI Reports abdominal pain and Denies hematochezia Physical Exam Vital Signs: BMI result Body Mass Index 38.2 Const Other: Obese General: comfortable and no acute distress Resp Effort & Inspection: normal respiratory effort Cardio Rate: regular rate GI Other: Has large pannus Palpation (GI): Soft to palpation, not firm and nontender Assessment & Plan Assessment & Plan (1) Screening for colon cancer: Code(s): Z12.11 - Encounter for screening for malignant neoplasm of colon Category: Medical Plan: She underwent colonoscopy and findings include diverticulosis with the inflammation, and internal and external hemorrhoids I am going to start her on fiber supplements with Metamucil. I advised her on the importance of avoiding constipation I told her that her next colonoscopy may be in the next 10 years as she falls at average risk for colon cancer. Coding Level of Care Code Est Pt Level 3 (65287) Diagnoses Screening for colon cancer Z12.11
[2024-10-04 09:20] VITALS: BMI 38.2
== END 2024-10-04 09:35 | disposition home or self-care (01) ==
LOC: HO.HGS 09:10
PROVIDERS: PCP Internal Medicine; Visit Provider Surgery
DX: Z12.11 Encounter for screening for malignant neoplasm of colon (principal)
CPT/HCPCS: 99213

== ENCOUNTER → 2024-10-04 09:09 | Outpatient (BNVA) | payer OTHER, SELFPAY | PROVIDERS: PCP Internal Medicine; Visit Provider Surgery | DX: Z12.11 Encounter for screening for malignant neoplasm of colon (principal) | CPT/HCPCS: 99212 ==

== ENCOUNTER 2025-02-24 13:48 | Emergency (ER) | payer OTHER, SELFPAY ==
--- NOTE | ~2025-02-24 | CT_ITS ---
CLINICAL HISTORY: LLQ pain, hx diverticulitis CT abdomen and pelvis with contrast Comparison: CT/SR - CT ABDOMEN PELVIS WITHOUT IV CONTRAST - 06/04/24 15:24 EST Findings: No consolidation or effusion. The liver, gallbladder, spleen, pancreas, kidneys and adrenal glands are normal in appearance. Normal appendix. No bowel obstruction, pneumoperitoneum, or pneumatosis. There are scattered colonic diverticula, however no evidence of diverticulitis. Uterus and adnexa are normal. Incidental note of dominant 1.4 cm follicle in the left ovary. Distended urinary bladder. No free fluid in the pelvis. The bones are intact. IMPRESSION: No acute findings. This document has been electronically signed by: Elie Encinas MD on 02/24/2025 18:46:04
[2025-02-24 14:01] VITALS: BP 152/75; PULSE 77; RESP 16; TEMP 36.5; O2SAT 97; BMI 37.7
--- NOTE | 2025-02-24 14:03 | ED_ITS ---
HPI - General Adult General Chief complaint: Abdominal Pain Stated complaint: Pain in abd Time Seen by Provider: 02/24/25 16:16 Source: patient and per diem interpreter (mauritian - VOYCE) Mode of arrival: ambulatory Limitations: language barrier (mauritian) History of Present Illness ED Provider: REHANA CANALES PA-C HPI narrative: 49 year old Telugu speaking female with pmhx significant for type 2 diabetes, HTN and diverticulosis presents to the ED today or evaluation of abdominal pain x2 days. Pain is diffuse, described as a bloating sensation and has been worsening since onset. Pain will occasionally radiate to her back. Pain is currently 7/10 in severity. Reports similar pain in the past with her diverticulitis, improved with morphine. She has trialed Tylenol without improvement. Reports normal BMs - denies constipation or diarrhea. Denies fever, chills, nausea, vomiting, constipation, diarrhea, dysuria, frequency, hematuria. No new medications or recent antibiotics. Related Data Home Medications ?Medication ?Instructions ?Recorded ?Confirmed lamotrigine 200 mg tablet 200 mg PO BEDTIME 05/25/23 0 10/04/24 pen needle, diabetic 33 gauge x #100 ea 05/25/2310/04 (Easy Comfort Pen [place]) mirtazapine 15 mg tablet 15 mg PO BEDTIME 03/28/24 Previous Rx's ?Medication ?Instructions ?Recorded flash glucose sensor (FreeStyle #2 ea 02/10/21 Trudy 2 Sensor kit) blood-glucose meter (FreeStyle #1 ea 11/01/22 Lite Meter kit) incontinence pad, liner, disp #60 ea 01/25/23 incontinence pad, liner, disp #90 ea 11/14/23 lisinopril 10 mg tablet 10 mg PO DAILY 90 days #90 t abs 02/27/24 pen needle, diabetic 32 gauge x #100 ea 03/26/2407/21 (BD Ultra-Fine Micro Pen Needle) rosuvastatin 5 mg tablet 5 mg PO DAILY 90 days #90 ta bs 05/02/24 tramadol 50 mg tablet 50 mg PO Q6H PRN pain #15 ta bs 08/01/24 cholecalciferol (vitamin D3) 50 50 mcg PO DAILY #30 ca ps 10/01/24 mcg (2,000 unit) capsule (Vitamin D3) semaglutide 2 mg/dose (8 mg/3 mL) 2 mg (0.75 mL) subcu t QWEEK 4 10/01/24 subcutaneous pen injector (Ozempic) weeks #3 mL psyllium seed (sugar) oral powder 1 tbsp PO DAILY #1,2 54 grams 10/04/24 (Metamucil (sugar) oral powder) blood sugar diagnostic (FreeStyle #100 ea 10/10/24 Lite Strips) insulin glargine 100 unit/mL (3 50 unit (0.5 mL) subcu t BEDTIME 4 02/09/25 mL) subcutaneous pen (Lantus weeks #14 mL Solostar U-100 Insulin) empagliflozin 25 mg tablet 25 mg PO DAILY 30 days #30 tabs 02/14/25 Allergies Allergy/AdvReac Type Severity Reaction Status Date / Time No Known Allergies (No Known Allergy Verified 02/24/25 14:03 Allergies*) Review of Systems 2 Review of Systems: Yes all other systems are reviewed and are negative PMFSH Past Medical History Attestation statement: The following information was validated with the patient. Source: old records reviewed and nursing notes reviewed Medical History HTN (hypertension) Diabetes mellitus with microalbuminuric diabetic nephropathy Diverticulitis of large intestine with abscess without bleeding Morbid obesity with BMI of 40.0-44.9, adult Vitamin D deficiency HLD (hyperlipidemia) T2DM (type 2 diabetes mellitus) Surgical History History of colonoscopy (~09/21/24) Hx of section History of tubal ligation Family History Family History Father CVD (cardiovascular disease) Cancer Mother Uterine cancer Hypertension CVD (cardiovascular disease) Diabetes mellitus Paternal Grandmother Uterine cancer Social History Social History Household Members: Family Housing: Apartment Are you a primary district manager primary care sales to a significant other at home: No Do you presently have visiting nurse or other home services: No Alcohol intake: never Patient Tobacco Use Status: Never used Tobacco e-Cigarette/Vaping Use: Never Used Second Hand Smoke Exposure: No Advance Directives Date on File: 04/04/24 service: No Current occupational status: unemployed Cognitive needs: No Hearing needs: No Vision needs: No Physical Exam ED Vital Signs: Vital Signs - 24 hr 02/24/25 14:01 02/24/25 18:38 02/24/25 19:07 Temperature 97.7 F 97.8 F 97.8 F Pulse Rate 77 71 71 Respiratory Rate 16 16 16 Blood Pressure 152/75 H 120/68 120/68 Pulse Oximetry 97 98 98 Oxygen Delivery Method Room Air Room Air Room Air 02/24/25 19:07 Temperature 97.8 F Pulse Rate 71 Respiratory Rate 16 Blood Pressure 120/68 Pulse Oximetry 98 Oxygen Delivery Method Room Air BMI result Body Mass Index 37.7 hypertensive, vitals are otherwise wnl General: Well appearing, in no acute distress. Skin: Warm, dry, intact. No rashes or lesions. Head: Normocephalic, atraumatic. Neck: Trachea midline. Cardiac: Chest wall symmetric. RRR. Lungs: Normal respiratory effort without accessory muscle use. CTA bilaterally. Abdomen: obese, soft, non-distended, diffuse mild tenderness. No rebound tenderness or guarding. Positive BS x4. no cvat. Ext: Upper and lower extremities atraumatic, without tenderness, deformity, swelling or erythema. Full ROM throughout. Neuro: AOx3. Normal speech. CN 2-12 grossly intact. Ambulating with steady gait. Psych: Appropriate mood and affect. Responds appropriately to questions. Course Course Course Narrative: Rapid medical examination performed in triage by Enma Mo PA-C. Patient is a 49 year old assigned female at presenting to the emergency department with abdominal pain. Patient states she has a history of diverticulitis and has abdominal pain. Detailed physical exam and review of systems are deferred to the speech clinician. Labs ordered. Patient placed back in the waiting room pending room availability and results. Reevaluation(s) Reevaluation #1: 1900 -- CBC without leukocytosis or left shift. no anemia, h&h stable. chemistry without acute electrolyte abnormality requiring intervention. no APRIL. random glucose 293 - no anion gap. liver function around baseline. urine without infection. negative covid, flu, rsv. ct a/p unremarkable. > patient reports complete resolution in pain after receiving morphine. anxious for discharge home. etiology of pain unclear, unremarkable work up is reassuring. she is well appearing, exam is benign and patient would like to be discharged home which I feel is reasonable. advised to f/u with outpatient providers. Patient has remained stable throughout ED visit today. Discussed worrisome signs and symptoms and when to return to the ED. All questions answered at this time. Patient is agreeable with disposition and stable for discharge. her daughter will be driving her home today as she recieved iv morphine. Medications Administered Discontinued Medications Generic Name Dose Route Start Last Admin Trade Name Catia PRN Reason Stop Dose Admin Iohexol 100 ml 02/24/25 17:32 02/24/25 17:32 Iohexol 350 Mg/Ml 100 Ml Infus..Btl IV 02/24/25 17:33 85 ml ONCE ONE Administration Morphine Sulfate 4 mg 02/24/25 18:25 02/24/25 18:37 Morphine Sulfate 4 Mg/Ml Cartridge IVPUSH 02/24/25 18:26 4 mg ONCE ONE Administration Protocol Medical Decision Making Medical Decision Making [facility] Narrative: 49 yo female with pmhx of type 2 diabetes, HTN and diverticulosis presenting to the ED for acute abdominal pain. Vitals show hypertension (152/75). on abdominal exam there is equal and reactive bowel sounds, obese abdomen that is soft and nondistended, pt reports diffuse tenderness with no rebound or guarding. Differential: diverticulitis, diverticulosis, colitis, gastroenteritis, nephrolithiasis, UTI, PID Plan: UA, CMP, CBC and ct w/ iv contrast, pain control and re-eval. Differential Diagnosis Differential Diagnoses: The differential diagnosis associated with the presentation includes as above Admission/Observation not indicated Lab Data [facility] Lab Attestation statement: I reviewed the patient's lab results. as above. 02/24/25 14:21 02/24/25 14:21 Labs: Lab Results 02/24/25 Range/Units 14:21 WBC 10.6 (4.8-10.8) X10*3/uL RBC 5.66 H (4.20-5.50) X10*6/uL Hgb 15.3 (12.0-16.0) g/dl Hct 46.3 (37.0-47.0) % MCV 81.8 (80.0-98.0) fL MCH 27.0 (27.0-33.0) pg MCHC 33.0 (31.0-35.0) g/dl RDW 13.1 (11.0-16.0) % Plt Count 269 (160-400) X10*3/uL MPV 11.0 (9.4-12.3) fL Immature Gran % (Auto) 0.4 (0.0-0.4) % Neut % (Auto) 69.5 (45-73) % Lymph % (Auto) 23.6 (20-40) % [place] % (Auto) 4.5 (2-11) % Eos % (Auto) 1.6 (0-4) % Baso % (Auto) 0.4 (0-2) % Lymph # (Auto) 2.5 (1.2-4.9) X10*3/uL [place] # (Auto) 0.5 (0.1-1.2) X10*3/uL Eos # (Auto) 0.2 (0.0-0.4) X10*3/uL Baso # (Auto) 0.0 (0.0-0.2) X10*3/uL Abs Immat Gran (auto) 0.04 H (0.00-0.03) X10*3/uL Absolute Neuts (auto) 7.4 (2.0-8.3) x10*3/uL Absolute Nucleated RBC 0.000 (0.0-0.012) X10*3/uL Nucleated RBC % (auto) 0.0 (0.0-0.2) /100WBC Sodium 136 (135-145) mmol/L Potassium 4.1 (3.3-5.1) mmol/L Chloride 104 (96-108) mmol/L Carbon Dioxide 21 L (22-29) mmol/L Anion Gap 15 (12-20) BUN 10 (9-16) mg/dL Creatinine 0.67 (0.5-1.4) mg/dL Estim Creat Clear Calc 104.0 Estimated GFR > 60 Random Glucose 293 H (60-115) mg/dL Calcium 9.1 (8.4-10.2) mg/dL Magnesium 2.1 (1.6-2.6) mg/dL Total Bilirubin 0.3 (0.0-1.0) mg/dL AST 20 (5-31) U/L ALT 20 (0-31) U/L Alkaline Phosphatase 127 H (39-117) U/L Total Protein 7.2 (6.5-8.0) g/dL Albumin 4.0 (3.5-5.0) g/dL Urine Color Yellow Urine Appearance Clear Urine pH 5.5 (5.0-9.0) Ur Specific [place] >= 1.030 H (1.005-1.025) Urine Protein Negative (Neg-Trace) mg/dL Urine Glucose (UA) >=1000 H (Negative) mg/dL Urine Ketones Negative (Negative) mg/dL Urine Blood Negative (Negative) Urine Nitrite Negative (Negative) Ur Leukocyte Esterase Negative (Negative) Urine RBC 0-2 (0-2) /HPF Urine WBC 0-5 (0-5) /HPF Ur Squamous Epith Cells 0-2 (0-2) /HPF Urine Bacteria None Seen (None Seen) Hyaline Casts 0-2 (0-2) /LPF Urine Yeast Present Influenza Type A (PCR) NEGATIVE (Negative) Influenza Type B (PCR) NEGATIVE (Negative) RSV RNA Qual (PCR) NEGATIVE (Negative) SARS-CoV-2 RNA (RT-PCR) NEGATIVE (Negative) Independent Interpretation I performed an independent interpretation of an: CT Scan Interpretation: ct a/p with no bowel wall thickening Radiology Impression Discussion of test interpretation with radiology: I have reviewed the radiologist's reading. Radiologist Impression: Procedure(s): CT abdomen pelvis w IV con Accession Number(s): [id number] cc: Rehana Canales; Lucy Nur MD~ Report Number: [id number]: Total DLP = 713.00 mGy-cm CLINICAL HISTORY: LLQ pain, hx diverticulitis CT abdomen and pelvis with contrast Comparison: CT/SR - CT ABDOMEN PELVIS WITHOUT IV CONTRAST - 06/04/24 15:24 EST Findings: No consolidation or effusion. The liver, gallbladder, spleen, pancreas, kidneys and adrenal glands are normal in appearance. Normal appendix. No bowel obstruction, pneumoperitoneum, or pneumatosis. There are scattered colonic diverticula, however no evidence of diverticulitis. Uterus and adnexa are normal. Incidental note of dominant 1.4 cm follicle in the left ovary. Distended urinary bladder. No free fluid in the pelvis. The bones are intact. IMPRESSION: No acute findings. This document has been electronically signed by: Elie Encinas MD on 02/24/2025 18:46:04 Independent Historian Clinical information obtained from an independent historian. History obtained from or confirmed by: Other (daughter) External Record Review External record reviewed: Inpatient record Prescription Management I considered prescription management with: Pain Medication Social Determinants Patient?s care significantly limited by Social Determinants of Health including: Other Social Determinant of Health Critical Care Time Critical Care Time Critical Care Time: Yes Total Critical Care Time: 31 Attestation: Critical care time in the amount of 31 minutes has been provided to the patient in terms of direct patient care, frequent reevaluation on IV morphine, review and interpretation of medical data and results, and management of potentially life-threatening conditions. This is all outside of any medical procedures. Discharge Plan Discharge Clinical Impression: Abdominal pain Patient Disposition: Home, Self-Care Instructions: Abdominal Pain (ED) Additional Instructions: Your blood work today is reassuring. Your urine is negative for infection. The CT scan of your abdomen shows diverticulosis without acute infection. No other acute findings. I recommend you take 600mg ibuprofen every 6 hours or Tylenol 650mg every 6 hours as needed for pain. If needed, you can alternate these medications so that you take one medication every 3 hours. For example, at noon take ibuprofen, then at 3pm take Tylenol, then at 6pm take ibuprofen. Follow up with PCP as scheduled. Return with new or worsening symptoms. In the case of an emergency call 911. Prescriptions: No Action (DME) FreeStyle Trud[place] 2 Sensor Kit See Rx Instructions .ROUTE .MEDSUPPLY Qty: 2 0RF Rx Instructions: As directed every 2 weeks (DME) incontinence pad, liner, disp Pad See Rx Instructions .Route Qty: 60 11RF Rx Instructions: Use 1 pad twice a day (DME) incontinence pad, liner, disp Pad See Rx Instructions .Route Qty: 90 6RF Rx Instructions: As directed lisinopril 10 mg tablet 10 mg PO DAILY 90 Days Qty: 90 1RF (DME) pen needle, diabetic [BD Ultra-Fine Micro Pen Needle] 32 gauge x 1/4 needle See Rx Instructions .ROUTE .MEDSUPPLY Qty: 100 8RF Rx Instructions: 1 daily rosuvastatin 5 mg tablet 5 mg PO DAILY 90 Days Qty: 90 4RF (DME) FreeStyle Lite Strips Strip See Rx Instructions .ROUTE .COMPLEX Qty: 100 9RF Dose Instruction: TEST BLOOD SUGAR FOUR TIMES DAILY Rx Instructions: TEST BLOOD SUGAR FOUR TIMES DAILY insulin glargine [Lantus Solostar U-100 Insulin] 100 unit/mL (3 mL) insulin pen 50 unit subcut BEDTIME 28 Days Qty: 14 0RF empagliflozin 25 mg tablet 25 mg PO DAILY 30 Days Qty: 30 1RF mirtazapine 15 mg tablet 15 mg PO BEDTIME (DME) blood-glucose meter [FreeStyle Lite Meter] Kit See Rx Instructions .Route Qty: 1 0RF Rx Instructions: As directed lamotrigine 200 mg tablet 200 mg PO BEDTIME (DME) pen needle, diabetic [Easy Comfort Pen [place]] 33 gauge x 5/32 needle See Rx Instructions .ROUTE .MEDSUPPLY Qty: 100 Rx Instructions: As directed Ozempic 2 mg/dose (8 mg/3 mL) pen injector 2 mg subcut QWEEK 28 Days Qty: 3 6RF cholecalciferol (vitamin D3) [Vitamin D3] 50 mcg (2,000 unit) capsule 50 mcg PO DAILY Qty: 30 11RF tramadol 50 mg tablet 50 mg PO Q6H PRN (Reason: pain) Qty: 15 0RF Metamucil (sugar) Powder 1 tbsp PO DAILY Qty: 1254 2RF Referrals: Lucy Nur MD [Primary Care Provider, Internal Medicine] Interventions: ED Discharge Assessment Last Done: 02/24/25 19:07 Discharge Date/Time: 02/24/25 19:08 Print Language: Telugu
[2025-02-24 14:34] LABS: MANUAL DIFF FLAG NO
[2025-02-24 14:39] LABS: Hematocrit 46.3 % (37.0-47.0); Hemoglobin 15.3 g/dl (12.0-16.0); Imm Gran Abs Auto 0.04 X10*3/uL (0.00-0.03); Imm Gran Pct Auto 0.4 % (0.0-0.4); Lymphocytes Absolute Auto 2.5 X10*3/uL (1.2-4.9); Mean Corpuscular HGB Conc 33.0 g/dl (31.0-35.0); Mean Corpuscular Hemoglobin 27.0 pg (27.0-33.0); Mean Corpuscular Volume 81.8 fL (80.0-98.0); NRBC Abs Auto 0.000 X10*3/uL (0.0-0.012); NRBC Pct Auto 0.0 /100WBC (0.0-0.2); Platelet Count 269 X10*3/uL (160-400); Red Blood Count 5.66 X10*6/uL (4.20-5.50); White Blood Count 10.6 X10*3/uL (4.8-10.8)
[2025-02-24 14:42] LABS: Appearance Urine Clear; Glucose Urine UA >=1000 mg/dL (Negative); PH 5.5 (5.0-9.0); Specific Gravity - Urine >= 1.030 (1.005-1.025); UMIC TRIGGER UACC YES
[2025-02-24 14:58] LABS: Alanine Aminotransferase 20 U/L (0-31); Albumin Level 4.0 g/dL (3.5-5.0); Alkaline Phosphatase 127 U/L (39-117); Anion Gap 15 (12-20); Aspartate Amino Transferase 20 U/L (5-31); Blood Urea Nitrogen 10 mg/dL (9-16); Calcium 9.1 mg/dL (8.4-10.2); Carbon Dioxide 21 mmol/L (22-29); Chloride 104 mmol/L (96-108); Creatinine Clr Calc Pharmacy 104.0; Estimated Glomerular Filt Rate > 60; Magnesium 2.1 mg/dL (1.6-2.6); Potassium 4.1 mmol/L (3.3-5.1); Sodium 136 mmol/L (135-145); Total Protein 7.2 g/dL (6.5-8.0)
[2025-02-24 15:15] LABS: Resp Syncy Virus RNA Qual PCR NEGATIVE (Negative); SARS COV2 PCR INHOUSE NEGATIVE (Negative)
--- NOTE | 2025-02-24 16:42 | ED.ABDPAIN ---
HPI - Abdominal Pain General Chief Complaint: Abdominal Pain Stated Complaint: Pain in abd Time Seen by Provider: 02/24/25 16:16 History of Present Illness HPI narrative: 49 yo female with pmhx of type 2 diabetes, HTN and diverticulosis presenting to the ED for acute abdominal pain. Pt reports the pain started 2 days ago and has been worsening. Tylenol does not decrease the pain but having and bowel movement decreases pain significantly for about 1 hour. Stool is described as normal with no constipation or diarrhea and happening multiple times throughout the day. Pt describes the pain and severe and all over the abdomen with pressure from bloating. Pt reports pain radiates to back as well as legs at certain times. Patient rates severity 01/24 and reports that no other symptoms began at the same time but has experienced this type of pain before and is associated with diverticula. Pt endorses brppr when she wipes on toliet paper but reports this is her baseline most of the time. Pt denies nausea, vomiting, constipation, diarrhea,dysuria, frequency, hematuria and new medications. Last time experienced this pain pt reports was given morphine and penicillin and it resolved. Related Data Home Medications ?Medication ?Instructions ?Recorded ?Confirmed lamotrigine 200 mg tablet 200 mg PO BEDTIME 05/25/23 10/04/24 pen needle, diabetic 33 gauge x #100 ea 05/25/23 10/04/24 (Easy Comfort Pen [place]) mirtazapine 15 mg tablet 15 mg PO BEDTIME 03/28/24 10/04/24 Previous Rx's ?Medication ?Instructions ?Recorded flash glucose sensor (FreeStyle #2 ea 02/10/21 Trudy 2 Sensor kit) blood-glucose meter (FreeStyle #1 ea 11/01/22 Lite Meter kit) incontinence pad, liner, disp #60 ea 01/25/23 incontinence pad, liner, disp #90 ea 11/14/23 lisinopril 10 mg tablet 10 mg PO DAILY 90 days #90 tabs 02/27/24 pen needle, diabetic 32 gauge x #100 ea 03/26/24/ (BD Ultra-Fine Micro Pen Needle) rosuvastatin 5 mg tablet 5 mg PO DAILY 90 days #90 tabs 05/02/24 tramadol 50 mg tablet 50 mg PO Q6H PRN pain #15 tabs 08/01/24 cholecalciferol (vitamin D3) 50 50 mcg PO DAILY #30 caps 10/01/24 mcg (2,000 unit) capsule (Vitamin D3) semaglutide 2 mg/dose (8 mg/3 mL) 2 mg (0.75 mL) subcut QWEEK 4 10/01/24 subcutaneous pen injector (Ozempic) weeks #3 mL psyllium seed (sugar) oral powder 1 tbsp PO DAILY #1,254 grams 10/04/24 (Metamucil (sugar) oral powder) blood sugar diagnostic (FreeStyle #100 ea 10/10/24 Lite Strips) insulin glargine 100 unit/mL (3 50 unit (0.5 mL) subcut BEDTIME 4 02/09/25 mL) subcutaneous pen (Lantus weeks #14 mL Solostar U-100 Insulin) empagliflozin 25 mg tablet 25 mg PO DAILY 30 days #30 tabs 02/14/25 Allergies Allergy/AdvReac Type Severity Reaction Status Date / Time No Known Allergies (No Known Allergy Verified 02/24/25 14:03 Allergies*) [facility] Past Medical History Medical History HTN (hypertension) Diabetes mellitus with microalbuminuric diabetic nephropathy Diverticulitis of large intestine with abscess without bleeding Morbid obesity with BMI of 40.0-44.9, adult Vitamin D deficiency HLD (hyperlipidemia) T2DM (type 2 diabetes mellitus) Surgical History History of colonoscopy (~09/21/24) Hx of section History of tubal ligation Family History Family History Father CVD (cardiovascular disease) Cancer Mother Uterine cancer Hypertension CVD (cardiovascular disease) Diabetes mellitus Paternal Grandmother Uterine cancer Social History Social History Household Members: Family Housing: Apartment Are you a primary health care administrator to a significant other at home: No Do you presently have visiting nurse or other home services: No Alcohol intake: never Patient Tobacco Use Status: Never used Tobacco e-Cigarette/Vaping Use: Never Used Second Hand Smoke Exposure: No Advance Directives: Yes Advance Directives on File: Yes Advance Directives Date on File: 04/04/24 Do you have a plan to hurt others: No Plan service: No Current occupational status: unemployed Cognitive needs: No Hearing needs: No Vision needs: No Physical Exam ED Vital Signs: Vital Signs - 24 hr 02/24/25 14:01 Temperature 97.7 F Pulse Rate 77 Respiratory Rate 16 Blood Pressure 152/75 H Pulse Oximetry 97 Oxygen Delivery Method Room Air BMI result Body Mass Index 37.7 Vitals stable, hypertensive in hx General: Well appearing, in no acute distress. Skin: Warm, dry, intact. No rashes or lesions. Head: Normocephalic, atraumatic. Neck: Trachea midline.? Cardiac: Chest wall symmetric. RRR. Lungs: Normal respiratory effort without accessory muscle use. CTA bilaterally. Abdomen: Soft non-distended. Diffuse mild tenderness, worse in LLQ. No rebound tenderness or guarding. Positive BS x4. Ext: Upper and lower extremities atraumatic, without tenderness, deformity, swelling or erythema. Full ROM throughout. Neuro: AOx3. Normal speech. CN 2-12 grossly intact. Ambulating with steady gait. Psych: Appropriate mood and affect. Responds appropriately to questions. Medical Decision Making Medical Decision Making MDM Narrative: 49 yo female with pmhx of type 2 diabetes, HTN and diverticulosis presenting to the ED for acute abdominal pain. Vitals show hypertension (152/75) . pt has hx of hypertension, on abdominal exam there is equal and reactive bowel sounds, obese abdomen that is soft and nondistended, pt reports diffuse tenderness with no rebound or guarding. Differential: diverticulitis, diverticulosis, colitis, gastroenteritis, nephrolithiasis, UTI, PID Plan Lab Data 02/24/25 14:21 02/24/25 14:21 Labs: Lab Results 02/24/25 Range/Units 14:21 WBC 10.6 (4.8-10.8) X10*3/uL RBC 5.66 H (4.20-5.50) X10*6/uL Hgb 15.3 (12.0-16.0) g/dl Hct 46.3 (37.0-47.0) % MCV 81.8 (80.0-98.0) fL MCH 27.0 (27.0-33.0) pg MCHC 33.0 (31.0-35.0) g/dl RDW 13.1 (11.0-16.0) % Plt Count 269 (160-400) X10*3/uL MPV 11.0 (9.4-12.3) fL Immature Gran % (Auto) 0.4 (0.0-0.4) % Neut % (Auto) 69.5 (45-73) % Lymph % (Auto) 23.6 (20-40) % [place] % (Auto) 4.5 (2-11) % Eos % (Auto) 1.6 (0-4) % Baso % (Auto) 0.4 (0-2) % Lymph # (Auto) 2.5 (1.2-4.9) X10*3/uL [place] # (Auto) 0.5 (0.1-1.2) X10*3/uL Eos # (Auto) 0.2 (0.0-0.4) X10*3/uL Baso # (Auto) 0.0 (0.0-0.2) X10*3/uL Abs Immat Gran (auto) 0.04 H (0.00-0.03) X10*3/uL Absolute Neuts (auto) 7.4 (2.0-8.3) x10*3/uL Absolute Nucleated RBC 0.000 (0.0-0.012) X10*3/uL Nucleated RBC % (auto) 0.0 (0.0-0.2) /100WBC Sodium 136 (135-145) mmol/L Potassium 4.1 (3.3-5.1) mmol/L Chloride 104 (96-108) mmol/L Carbon Dioxide 21 L (22-29) mmol/L Anion Gap 15 (12-20) BUN 10 (9-16) mg/dL Creatinine 0.67 (0.5-1.4) mg/dL Estim Creat Clear Calc 104.0 Estimated GFR > 60 Random Glucose 293 H (60-115) mg/dL Calcium 9.1 (8.4-10.2) mg/dL Magnesium 2.1 (1.6-2.6) mg/dL Total Bilirubin 0.3 (0.0-1.0) mg/dL AST 20 (5-31) U/L ALT 20 (0-31) U/L Alkaline Phosphatase 127 H (39-117) U/L Total Protein 7.2 (6.5-8.0) g/dL Albumin 4.0 (3.5-5.0) g/dL Urine Color Yellow Urine Appearance Clear Urine pH 5.5 (5.0-9.0) Ur Specific [place] >= 1.030 H (1.005-1.025) Urine Protein Negative (Neg-Trace) mg/dL Urine Glucose (UA) >=1000 H (Negative) mg/dL Urine Ketones Negative (Negative) mg/dL Urine Blood Negative (Negative) Urine Nitrite Negative (Negative) Ur Leukocyte Esterase Negative (Negative) Urine RBC 0-2 (0-2) /HPF Urine WBC 0-5 (0-5) /HPF Ur Squamous Epith Cells 0-2 (0-2) /HPF Urine Bacteria None Seen (None Seen) Hyaline Casts 0-2 (0-2) /LPF Urine Yeast Present Influenza Type A (PCR) NEGATIVE (Negative) Influenza Type B (PCR) NEGATIVE (Negative) RSV RNA Qual (PCR) NEGATIVE (Negative) SARS-CoV-2 RNA (RT-PCR) NEGATIVE (Negative) Discharge Plan Discharge Prescriptions: No Action (DME) FreeStyle [place] 2 Sensor Kit See Rx Instructions .ROUTE .MEDSUPPLY Qty: 2 0RF Rx Instructions: As directed every 2 weeks (DME) incontinence pad, liner, disp Pad See Rx Instructions .Route Qty: 60 11RF Rx Instructions: Use 1 pad twice a day (DME) incontinence pad, liner, disp Pad See Rx Instructions .Route Qty: 90 6RF Rx Instructions: As directed lisinopril 10 mg tablet 10 mg PO DAILY 90 Days Qty: 90 1RF (DME) pen needle, diabetic [BD Ultra-Fine Micro Pen Needle] 32 gauge x 1/4 needle See Rx Instructions .ROUTE .MEDSUPPLY Qty: 100 8RF Rx Instructions: 1 daily rosuvastatin 5 mg tablet 5 mg PO DAILY 90 Days Qty: 90 4RF (DME) FreeStyle Lite Strips Strip See Rx Instructions .ROUTE .COMPLEX Qty: 100 9RF Dose Instruction: TEST BLOOD SUGAR FOUR TIMES DAILY Rx Instructions: TEST BLOOD SUGAR FOUR TIMES DAILY insulin glargine [Lantus Solostar U-100 Insulin] 100 unit/mL (3 mL) insulin pen 50 unit subcut BEDTIME 28 Days Qty: 14 0RF empagliflozin 25 mg tablet 25 mg PO DAILY 30 Days Qty: 30 1RF mirtazapine 15 mg tablet 15 mg PO BEDTIME (DME) blood-glucose meter [FreeStyle Lite Meter] Kit See Rx Instructions .Route Qty: 1 0RF Rx Instructions: As directed lamotrigine 200 mg tablet 200 mg PO BEDTIME (DME) pen needle, diabetic [Easy Comfort Pen [place]] 33 gauge x 5/32 needle See Rx Instructions .ROUTE .MEDSUPPLY Qty: 100 Rx Instructions: As directed Ozempic 2 mg/dose (8 mg/3 mL) pen injector 2 mg subcut QWEEK 28 Days Qty: 3 6RF cholecalciferol (vitamin D3) [Vitamin D3] 50 mcg (2,000 unit) capsule 50 mcg PO DAILY Qty: 30 11RF tramadol 50 mg tablet 50 mg PO Q6H PRN (Reason: pain) Qty: 15 0RF Metamucil (sugar) Powder 1 tbsp PO DAILY Qty: 1254 2RF Print Language: Iraqi
[2025-02-24] MEDS: iohexoL 350 MG/ML 100 ML INFUS..BTL IV (17:32)
--- NOTE | 2025-02-24 18:37 | PC.NURSE ---
pt medicated for 01/24 abd pain
[2025-02-24 18:38] VITALS: BP 120/68; PULSE 71; RESP 16; TEMP 36.6; O2SAT 98
[2025-02-24 19:07] VITALS: BP 120/68; PULSE 71; RESP 16; TEMP 36.6; O2SAT 98
== END 2025-02-24 19:08 | disposition home or self-care (01) ==
PROVIDERS: Physician Assistant Medical; Emergency Provider Emergency Medicine Emergency Medical Services; PCP Internal Medicine
DX: R10.2 Pelvic and perineal pain (principal); I10 Essential (primary) hypertension; Z03.818 Encounter for observation for suspected exposure to other biological agents ruled out; Z79.899 Other long term (current) drug therapy; Z79.4 Long term (current) use of insulin
CPT/HCPCS: 74177; 80053; 81001; 83735; 85025; 87637; 96374; 99284; J2270; Q9967

== ENCOUNTER → 2025-02-24 16:46 | Outpatient (BNV) | payer OTHER, SELFPAY | PROVIDERS: Emergency Provider Emergency Medicine Emergency Medical Services; PCP Internal Medicine; Visit Provider Radiology Diagnostic Radiology | DX: K57.30 Diverticulosis of large intestine without perforation or abscess without bleeding (principal) | CPT/HCPCS: 74177 ==

== ENCOUNTER 2025-03-09 11:23 | Emergency (ER) | payer OTHER, SELFPAY ==
--- NOTE | ~2025-03-09 | XR_ITS ---
CLINICAL HISTORY: left lower rib pain s p fall 4 view, chest and left ribs Comparison: None provided Findings: No fractures or dislocations. No acute airspace opacity. No pleural effusion or pneumothorax. Heart size is normal. IMPRESSION: No acute rib fracture or acute cardiopulmonary process. This document has been electronically signed by: Christiane Berry DO on 03/09/2025 13:03:55
[2025-03-09 11:28] VITALS: BP 151/80; PULSE 83; RESP 18; TEMP 37.1; O2SAT 97; BMI 37.6
--- NOTE | 2025-03-09 11:28 | ED.ABDPAIN ---
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 Patient reports that she fell 2 days ago. She reports that she was walking her dog. She does not know exactly what happened but she ended up on the ground landing on her chest and her left side. She denies any loss of consciousness pain Denies any head strike or head injury. She has pain to the left chest wall is worse with deep breathing. The patient is adamant that she would not have any dizziness, lightheadedness, chest pain, palpitations or shortness of breath prior to her fall. She does not believe that she passed out or fainted Related Data Home Medications ?Medication ?Instructions ?Recorded ?Confirmed lamotrigine 200 mg tablet 200 mg PO BEDTIME 05/25/23 10/04/24 pen needle, diabetic 33 gauge x #100 ea 05/25/23 10/04/24 (Easy Comfort Pen [place]) mirtazapine 15 mg tablet 15 mg PO BEDTIME 03/28/24 10/04/24 Previous Rx's ?Medication ?Instructions ?Recorded flash glucose sensor (FreeStyle #2 ea 02/10/21 Trudy 2 Sensor kit) blood-glucose meter (FreeStyle #1 ea 11/01/22 Lite Meter kit) incontinence pad, liner, disp #60 ea 01/25/23 incontinence pad, liner, disp #90 ea 11/14/23 lisinopril 10 mg tablet 10 mg PO DAILY 90 days #90 tabs 02/27/24 pen needle, diabetic 32 gauge x #100 ea 03/26/2407/21 (BD Ultra-Fine Micro Pen Needle) rosuvastatin 5 mg tablet 5 mg PO DAILY 90 days #90 tabs 05/02/24 tramadol 50 mg tablet 50 mg PO Q6H PRN pain #15 tabs 08/01/24 cholecalciferol (vitamin D3) 50 50 mcg PO DAILY #30 caps 10/01/24 mcg (2,000 unit) capsule (Vitamin D3) semaglutide 2 mg/dose (8 mg/3 mL) 2 mg (0.75 mL) subcut QWEEK 4 10/01/24 subcutaneous pen injector (Ozempic) weeks #3 mL psyllium seed (sugar) oral powder 1 tbsp PO DAILY #1,254 grams 10/04/24 (Metamucil (sugar) oral powder) blood sugar diagnostic (FreeStyle #100 ea 10/10/24 Lite Strips) insulin glargine 100 unit/mL (3 50 unit (0.5 mL) subcut BEDTIME 4 02/09/25 mL) subcutaneous pen (Lantus weeks #14 mL Solostar U-100 Insulin) empagliflozin 25 mg tablet 25 mg PO DAILY 30 days #30 tabs 02/14/25 Allergies Allergy/AdvReac Type Severity Reaction Status Date / Time No Known Allergies (No Known Allergy Verified 03/09/25 11:30 Allergies*) Review of Systems Constitutional: Denies body ache(s), Denies chills, Denies fever(s), Denies frequent falls and Denies headache(s) Eyes: Denies blurry vision Denies vertigo, Denies dizziness and Denies headache(s) Cardiovascular: Denies syncope and Denies dyspnea Comments: Left chest wall pain Respiratory: Denies cough and Denies dyspnea Gastrointestinal: Denies abdominal pain, Denies nausea and Denies vomiting Musculoskeletal: Denies back pain Skin/Breast: Denies rash Denies vertigo, Denies dizziness, Denies syncope, Denies frequent falls and Denies headache(s) [facility] Past Medical History Medical History HTN (hypertension) Diabetes mellitus with microalbuminuric diabetic nephropathy Diverticulitis of large intestine with abscess without bleeding Morbid obesity with BMI of 40.0-44.9, adult Vitamin D deficiency HLD (hyperlipidemia) T2DM (type 2 diabetes mellitus) Surgical History History of colonoscopy (~09/21/24) Hx of section History of tubal ligation Family History Family History Father CVD (cardiovascular disease) Cancer Mother Uterine cancer Hypertension CVD (cardiovascular disease) Diabetes mellitus Paternal Grandmother Uterine cancer Social History Social History Household Members: Family Housing: Apartment Are you a primary caregivers non medical to a significant other at home: No Do you presently have visiting nurse or other home services: No Unable to assess alcohol history related to: Unable to respond Alcohol intake: never Patient Tobacco Use Status: Never used Tobacco Smoked in Last 30 Days: No e-Cigarette/Vaping Use: Never Used Second Hand Smoke Exposure: No Use of substances other than those prescribed or required for medical reasons: No Advance Directives: Yes Advance Directives on File: Yes Advance Directives Date on File: 04/04/24 Patient : No service: No Current occupational status: unemployed Cognitive needs: No Hearing needs: No Vision needs: No Physical Exam ED Vital Signs: Vital Signs - 24 hr 03/09/25 11:28 03/09/25 12:00 Temperature 98.8 F 98.6 F Pulse Rate 83 80 Respiratory Rate 18 15 Blood Pressure 151/80 H 154/79 H Pulse Oximetry 97 98 Oxygen Delivery Method Room Air Room Air BMI result Body Mass Index 37.6 Const General: healthy appearing, comfortable, no acute distress, alert and awake Nutritional Appearance: well nourished Orientation/consciousness: patient oriented x3 HENMT Head: Yes normocephalic and Yes atraumatic Eyes Eyelids: Yes eyelids normal Conjunctivae: conjunctivae normal Sclerae: sclerae normal Corneas: corneas normal Pupils: Equal, round and reactive pupils present EOM: EOMs intact bilaterally Neck Neck: Yes full ROM Chest Other: There is tenderness in the left anterior axillary line level of the 8th through 10th ribs. No overlying ecchymosis or wounds Chest palpation & inspection: normal inspection of the chest and no crepitus Resp Effort & Inspection: normal respiratory effort, able to speak in complete sentences and not labored GI Other: No tenderness to the left flank. No CVA tenderness. Inspection: No distended Palpation (GI): Soft to palpation, not firm, nontender, no guarding and not rigid Skin General skin exam: elasticity normal Neuro General: patient oriented x3 Cranial nerves: Yes Equal, round and reactive pupils present and Yes Bilaterally intact EOM present Cognition (Neuro): normal cognition Extrem Other: Moving all extremities well without any obvious deformities Course Course Course Narrative: This is a Rapid Medical Examination (RME) performed by Surinder Canales PA-C in triage. Full HPI, ROS, assessment and treatment plan per primary provider in the Main ED. Hx: 49 yo F here for eval of left upper abd/ left lower rib pain that started yesterday s/p mechanical fall. no N/V/D. pain w/ deep breathing. Plan: labs, UA, xrs Medical Decision Making Medical Decision Making [facility] Narrative: 49-year-old female with a past medical history as above presents for evaluation after a fall. She was walking her dogs in the sidewalk when she ended up on the ground. She does not believe that she fainted but does not know exactly how she fell. She does remember tripping either. Denies any head strike. She does have pain to the left chest wall and tenderness in the left anterior axillary line. There was no crepitus. Plan for x-ray of the left ribs. We will get basic labs and an EKG just because the story is unclear of how she fell on it was not a clear tripped or slipped. A urinalysis ordered which does show some hematuria. The patient reports that she is currently on her menstrual cycle. She has no flank pain or CVA tenderness, therefore I feel that a renal injury or laceration is favored to be less likely in the hematuria is likely due to the patient being on her menstrual cycle. She is also quite well appearing with stable vital signs. I considered a CT scan of the abdomen pelvis with IV contrast but this was deferred due to low suspicion for renal injury Differential Diagnosis Differential Diagnoses: The differential diagnosis associated with the presentation includes Contusion Rib fracture Renal laceration Renal hematoma Mechanical fall Syncope Lab Data [facility] Lab Attestation statement: I reviewed the patient's lab results. No leukocytosis or anemia. Normal platelet count. No significant electrolyte abnormalities. The patient is a diabetic. Random glucose of 303 but no evidence of DKA 03/09/25 11:40 03/09/25 11:40 Labs: Lab Results 03/09/25 03/09/25 Range/Units 11:40 11:45 WBC 8.1 (4.8-10.8) X10*3/uL RBC 5.42 (4.20-5.50) X10*6/uL Hgb 14.8 (12.0-16.0) g/dl Hct 44.1 (37.0-47.0) % MCV 81.4 (80.0-98.0) fL MCH 27.3 (27.0-33.0) pg MCHC 33.6 (31.0-35.0) g/dl RDW 13.2 (11.0-16.0) % Plt Count 255 (160-400) X10*3/uL MPV 10.8 (9.4-12.3) fL Immature Gran % (Auto) 0.2 (0.0-0.4) % Neut % (Auto) 68.7 (45-73) % Lymph % (Auto) 23.1 (20-40) % [place] % (Auto) 5.5 (2-11) % Eos % (Auto) 2.0 (0-4) % Baso % (Auto) 0.5 (0-2) % Lymph # (Auto) 1.9 (1.2-4.9) X10*3/uL [place] # (Auto) 0.4 (0.1-1.2) X10*3/uL Eos # (Auto) 0.2 (0.0-0.4) X10*3/uL Baso # (Auto) 0.0 (0.0-0.2) X10*3/uL Abs Immat Gran (auto) 0.02 (0.00-0.03) X10*3/uL Absolute Neuts (auto) 5.5 (2.0-8.3) x10*3/uL Absolute Nucleated RBC 0.000 (0.0-0.012) X10*3/uL Nucleated RBC % (auto) 0.0 (0.0-0.2) /100WBC Sodium 137 (135-145) mmol/L Potassium 4.4 (3.3-5.1) mmol/L Chloride 104 (96-108) mmol/L Carbon Dioxide 24 (22-29) mmol/L Anion Gap 13 (12-20) BUN 12 (9-16) mg/dL Creatinine 0.59 (0.5-1.4) mg/dL Estim Creat Clear Calc 118.0 Estimated GFR > 60 Random Glucose 303 H (60-115) mg/dL Calcium 8.9 (8.4-10.2) mg/dL Magnesium 1.7 (1.6-2.6) mg/dL Total Bilirubin 0.3 (0.0-1.0) mg/dL AST 17 (5-31) U/L ALT 14 (0-31) U/L Alkaline Phosphatase 111 (39-117) U/L Total Protein 6.8 (6.5-8.0) g/dL Albumin 3.8 (3.5-5.0) g/dL Lipase 21 (8-78) U/L Urine Color Yellow Urine Appearance Cloudy Urine pH 5.5 (5.0-9.0) Ur Specific [place] >= 1.030 H (1.005-1.025) Urine Protein 30 (1+) H (Neg-Trace) mg/dL Urine Glucose (UA) >=1000 H (Negative) mg/dL Urine Ketones Trace (Negative) mg/dL Urine Blood Large (3+) H (Negative) Urine Nitrite Negative (Negative) Ur Leukocyte Esterase Trace H (Negative) Urine RBC >20 H (0-2) /HPF Urine WBC 6-10 H (0-5) /HPF Ur Squamous Epith Cells 6-10 (0-2) /HPF Urine Bacteria 1+ (None Seen) Hyaline Casts 0-2 (0-2) /LPF Independent Interpretation I performed an independent interpretation of an: Rhythm Strip (Normal sinus rhythm with a rate of [address] segment elevations or depressions) and Plain X-Ray Interpretation: No obvious displaced rib fracture or pneumothorax Radiology Impression Discussion of test interpretation with radiology: I have reviewed the radiologist's reading. Radiologist Impression: Findings: No fractures or dislocations. No acute airspace opacity. No pleural effusion or pneumothorax. Heart size is normal. IMPRESSION: No acute rib fracture or acute cardiopulmonary process. This document has been electronically signed by: Christiane Berry DO on 03/09/2025 13:03:55 Discharge Plan Discharge Clinical Impression: Rib pain on left side Patient Disposition: Home, Self-Care Instructions: Chest Pain (ED) Additional Instructions: Your workup in the ER today was reassuring. Your x-ray did not show any clear fractures. It is still possible with a have a nondisplaced fracture that is not seen on x-ray The treatment would just be pain medication such as ibuprofen and/or Tylenol Follow up with your primary doctor, return for new or worsening symptoms Prescriptions: No Action (DME) FreeStyle Trudy 2 Sensor Kit See Rx Instructions .ROUTE .MEDSUPPLY Qty: 2 0RF Rx Instructions: As directed every 2 weeks (DME) incontinence pad, liner, disp Pad See Rx Instructions .Route Qty: 60 11RF Rx Instructions: Use 1 pad twice a day (DME) incontinence pad, liner, disp Pad See Rx Instructions .Route Qty: 90 6RF Rx Instructions: As directed lisinopril 10 mg tablet 10 mg PO DAILY 90 Days Qty: 90 1RF (DME) pen needle, diabetic [BD Ultra-Fine Micro Pen Needle] 32 gauge x 1/4 needle See Rx Instructions .ROUTE .MEDSUPPLY Qty: 100 8RF Rx Instructions: 1 daily rosuvastatin 5 mg tablet 5 mg PO DAILY 90 Days Qty: 90 4RF (DME) FreeStyle Lite Strips Strip See Rx Instructions .ROUTE .COMPLEX Qty: 100 9RF Dose Instruction: TEST BLOOD SUGAR FOUR TIMES DAILY Rx Instructions: TEST BLOOD SUGAR FOUR TIMES DAILY insulin glargine [Lantus Solostar U-100 Insulin] 100 unit/mL (3 mL) insulin pen 50 unit subcut BEDTIME 28 Days Qty: 14 0RF empagliflozin 25 mg tablet 25 mg PO DAILY 30 Days Qty: 30 1RF mirtazapine 15 mg tablet 15 mg PO BEDTIME (DME) blood-glucose meter [FreeStyle Lite Meter] Kit See Rx Instructions .Route Qty: 1 0RF Rx Instructions: As directed lamotrigine 200 mg tablet 200 mg PO BEDTIME (DME) pen needle, diabetic [Easy Comfort Pen [place]] 33 gauge x 5/32 needle See Rx Instructions .ROUTE .MEDSUPPLY Qty: 100 Rx Instructions: As directed Ozempic 2 mg/dose (8 mg/3 mL) pen injector 2 mg subcut QWEEK 28 Days Qty: 3 6RF cholecalciferol (vitamin D3) [Vitamin D3] 50 mcg (2,000 unit) capsule 50 mcg PO DAILY Qty: 30 11RF tramadol 50 mg tablet 50 mg PO Q6H PRN (Reason: pain) Qty: 15 0RF Metamucil (sugar) Powder 1 tbsp PO DAILY Qty: 1254 2RF Print Language: Yi
[2025-03-09 11:51] LABS: Hematocrit 44.1 % (37.0-47.0); Hemoglobin 14.8 g/dl (12.0-16.0); Imm Gran Abs Auto 0.02 X10*3/uL (0.00-0.03); Imm Gran Pct Auto 0.2 % (0.0-0.4); Lymphocytes Absolute Auto 1.9 X10*3/uL (1.2-4.9); MANUAL DIFF FLAG NO; Mean Corpuscular HGB Conc 33.6 g/dl (31.0-35.0); Mean Corpuscular Hemoglobin 27.3 pg (27.0-33.0); Mean Corpuscular Volume 81.4 fL (80.0-98.0); NRBC Abs Auto 0.000 X10*3/uL (0.0-0.012); NRBC Pct Auto 0.0 /100WBC (0.0-0.2); Platelet Count 255 X10*3/uL (160-400); Red Blood Count 5.42 X10*6/uL (4.20-5.50); White Blood Count 8.1 X10*3/uL (4.8-10.8)
[2025-03-09 11:52] LABS: Appearance Urine Cloudy; Glucose Urine UA >=1000 mg/dL (Negative); PH 5.5 (5.0-9.0); Specific Gravity - Urine >= 1.030 (1.005-1.025); UMIC TRIGGER UACC YES
[2025-03-09 11:57] LABS: UACC Culture Trigger YES
[2025-03-09 12:00] VITALS: BP 154/79; PULSE 80; RESP 15; TEMP 37; O2SAT 98
[2025-03-09 12:05] LABS: Alanine Aminotransferase 14 U/L (0-31); Albumin Level 3.8 g/dL (3.5-5.0); Alkaline Phosphatase 111 U/L (39-117); Anion Gap 13 (12-20); Aspartate Amino Transferase 17 U/L (5-31); Blood Urea Nitrogen 12 mg/dL (9-16); Calcium 8.9 mg/dL (8.4-10.2); Carbon Dioxide 24 mmol/L (22-29); Chloride 104 mmol/L (96-108); Creatinine Clr Calc Pharmacy 118.0; Estimated Glomerular Filt Rate > 60; Lipase 21 U/L (8-78); Magnesium 1.7 mg/dL (1.6-2.6); Potassium 4.4 mmol/L (3.3-5.1); Sodium 137 mmol/L (135-145); Total Protein 6.8 g/dL (6.5-8.0)
--- NOTE | 2025-03-09 12:23 | PC.NURSE ---
patient a&ox3, labs previously drawn, urine obtained, pt states she has 7/10 lt flank pain- rr equal/non labored/lungs clear, pt stated she was walking the dog and just fell- doesnt recall tripping, denies lightheadedness/dizziness, she states it felt like I fell in slow motion pt awaiting provider evaluation, plan of care ongoing
--- NOTE | 2025-03-09 12:41 | ECG_ITS ---
Test Reason : FALL Blood Pressure : */* mmHG Vent. Rate : 84 BPM Atrial Rate : 84 BPM P-R Int : 172 ms QRS Dur : 74 ms QT Int : 376 ms P-R-T Axes : 68 24 60 degrees QTcB Int : 444 ms Normal sinus rhythm Septal infarct , age undetermined Abnormal ECG No previous ECGs available Referred By: Leroy Adair Electronically Signed By: YAMILE WARNER
--- NOTE | 2025-03-09 14:28 | PC.NURSE ---
pt medicated for rib pain and will discharge home
[2025-03-09 14:33] VITALS: BP 153/78; PULSE 82; RESP 16; TEMP 36.6; O2SAT 98
== END 2025-03-09 14:35 | disposition home or self-care (01) ==
PROVIDERS: Physician Assistant Medical; Emergency Provider Emergency Medicine; PCP Internal Medicine
DX: R07.89 Other chest pain (principal); I10 Essential (primary) hypertension; R31.9 Hematuria, unspecified; E66.01 Morbid (severe) obesity due to excess calories; Z68.41 Body mass index [BMI] 40.0-44.9, adult; E11.9 Type 2 diabetes mellitus without complications; W18.39XA Other fall on same level, initial encounter; Y93.89 Activity, other specified; Y92.488 Other paved roadways as the place of occurrence of the external cause; Y99.8 Other external cause status; Z79.899 Other long term (current) drug therapy
CPT/HCPCS: 36415; 71101; 80053; 81001; 83690; 83735; 85025; 87086; 87147; 93005; 99284; 99285

== ENCOUNTER → 2025-03-09 11:35 | Outpatient (BNV) | payer OTHER, SELFPAY | PROVIDERS: Emergency Provider Emergency Medicine; PCP Internal Medicine; Visit Provider Radiology Diagnostic Radiology | DX: R07.89 Other chest pain (principal) | CPT/HCPCS: 71101 ==

== ENCOUNTER → 2025-03-09 12:41 | Outpatient (BNV) | payer OTHER, SELFPAY | PROVIDERS: Emergency Provider Emergency Medicine; PCP Internal Medicine; Visit Provider Internal Medicine | DX: R94.31 Abnormal electrocardiogram [ECG] [EKG] (principal); W19.XXXA Unspecified fall, initial encounter | CPT/HCPCS: 93010 ==

== ENCOUNTER 2025-06-06 15:46 | Outpatient (AMB) | payer OTHER, SELFPAY ==
[2025-06-06 15:49] VITALS: BP 126/82; PULSE 81; RESP 18; TEMP 36.3; O2SAT 99; BMI 36.7
--- NOTE | 2025-06-06 15:49 | MHC.PC.OV ---
Vital Signs 06/06/25 15:49 Height 5 ft 1 in Weight 194 lb 4 oz BMI 36.7 BP 126/82 Blood Pressure Location Lt brachial Position Sitting Respiration 18 Pulse 81 Pulse Source Pulse Oximeter Temp 97.3 F Temp Source Temporal Artery Scan Pulse Oximetry (%) 99 Oxygen Delivery Method Room Air Intake Visit Reasons: Follow Up- needs repeat A1C Intake Note: follow up Accounts Payable Lead Required: Yes Accounts Payable Lead Language: Bengali Accompanied by: Self / Same As Patient Allergies No Known Allergies (No Known Allergies*) Allergy (Verified 06/06/25 16:07) Medication List - Last Reconciled 06/06/25 by Lucy Claire MD blood sugar diagnostic (FreeStyle Lite Strips) TEST BLOOD SUGAR FOUR TIMES DAILY blood-glucose meter (FreeStyle Lite Meter kit) As directed cholecalciferol (vitamin D3) (Vitamin D3) 50 mcg PO DAILY empagliflozin 25 mg PO DAILY 30 days flash glucose sensor (FreeStyle Trudy 2 Sensor kit) As directed every 2 weeks incontinence pad, liner, disp Use 1 pad twice a day incontinence pad, liner, disp As directed insulin glargine (Lantus Solostar U-100 Insulin) 50 units (0.5 mL) subcut BEDTIME 4 weeks lamotrigine 200 mg PO BEDTIME lisinopril 10 mg PO DAILY 90 days mirtazapine 15 mg PO BEDTIME pen needle, diabetic (BD Ultra-Fine Micro Pen Needle) 1 daily pen needle, diabetic (Easy Comfort Pen [place]) As directed psyllium seed (sugar) (Metamucil (sugar) oral powder) 1 tbsp PO DAILY rosuvastatin 5 mg PO DAILY 90 days semaglutide (Ozempic) 2 mg (0.75 mL) subcut QWEEK 4 weeks tramadol 50 mg PO Q6H PRN Tobacco use date assessed: 06/06/25 Dental Screening Dental Screen Date: 06/06/25 Did you have a dental visit in the last 12 months?: Yes Did you have a dental problem in the last 6 months where you did not have access to dental care?: No Was dental information given to patient?: Patient has dentist HPI HPI Comments History of Present Illness Details The patient is a 49 year old individual presenting for management of chronic conditions including uncontrolled diabetes. The patient's HbA1c is 13.4%, indicating poor glycemic control. The patient reports episodes of hypoglycemia. I will refer her to endocrinology. Blood pressure well controlled. LDL goal is less than 70. Current medications include vitamin D, Jardiance 25 mg, Lantus 50 units, lisinopril, mirtazapine, and rosuvastatin. The patient has no known medication allergies. Past surgical history is positive for tonsillectomy. [facility] Medical History HTN (hypertension) Diabetes mellitus with microalbuminuric diabetic nephropathy Diverticulitis of large intestine with abscess without bleeding Morbid obesity with BMI of 40.0-44.9, adult Vitamin D deficiency HLD (hyperlipidemia) T2DM (type 2 diabetes mellitus) Surgical History History of colonoscopy (~09/21/24) Hx of section History of tubal ligation Family History Father CVD (cardiovascular disease) Cancer Mother Uterine cancer Hypertension CVD (cardiovascular disease) Diabetes mellitus Paternal Grandmother Uterine cancer Social History (Updated 06/06/25 @ 15:56 by Kennedy Kendrick CMA) Household Members: Family Housing: Apartment Are you a primary health care facility administrator to a significant other at home: No Do you presently have visiting nurse or other home services: No Alcohol intake: never Patient Tobacco Use Status: Never used Tobacco e-Cigarette/Vaping Use: Never Used Second Hand Smoke Exposure: No Advance Directives Date on File: 04/04/24 service: No Current occupational status: unemployed Cognitive needs: No Hearing needs: No Vision needs: No Female Reproductive History Menstrual Age of Menarche: 11 Questionnaire PHQ-9 Over the last 2 weeks, how often have you been bothered by any of the following problems? 1. Little interest or pleasure in doing things: several days 2. Feeling down, depressed, or hopeless: several days 3. Trouble falling or staying asleep, or sleeping too much: more than half the days 4. Feeling tired or having little energy: more than half the days 5. Poor appetite or overeating: several days 6. Feeling bad about yourself - or that you are a failure or have let yourself or your family down: several days 7. Trouble concentrating on things, such as reading the newspaper or watching television: several days 8. Moving or speaking so slowly that other people could have noticed. Or the opposite - being so fidgety or restless that you have been moving around a lot more than usual: several days 9. Thoughts that you would be better off or of hurting yourself in some way: not at all Total score: 10 Depression Screening Interpretation: Positive Depression Screening Follow-up: Existing condition and Follow-up Visit Requested Depression Screening Done: Yes 17336 - PHQ-9 Billing: Yes Source: Developed by Drs. Paul Castillo, Jorge Garcia and colleagues, with an educational evelyn from [employer]. Thrive Questionnaire Date Thrive assessed: 06/06/25 I am a: Parent/Caregiver What is your living situation today?: I have a steady place to live Within the past 12 months, did the food you bought not last and you didn't have the money to get more?: Sometimes True Within the past 12 months, did you worry whether your food would run out before you got money to buy more?: Sometimes True Do you have trouble paying for medicines?: No Do you have trouble getting transportation to medical appointments?: No Do you have trouble paying your heating and electricity bill?: No Do you have trouble taking care of your child, family member or friend?: No Do you have trouble with day-to-day activities such as bathing, preparing meals, shopping, managing finances, etc.?: Yes Are you currently unemployed and looking for a job?: I choose not to answer this question Are you interested in more education?: I choose not to answer this question Please select the resources that you would like help with: None Currently or been in a relationship where the following occur: I choose not to answer THRIVE Score: 2 AUDIT C Alcohol Use Questionnaire (AUDIT-C) 1. How often do you have a drink containing alcohol?: Never Total Score: 0 Score Reviewed/Action Taken: No THOMPSON-7 AMB Questionnaire THOMPSON-7 Date THOMPSON - 7 assessed: 10/01/24 Feeling nervous, anxious, or on edge: 1 = Several days Source: Developed by Drs. Paul Castillo, Kath Dunne, Jorge Duque and colleagues, with an educational evelyn from [employer]. Review of Systems Const All systems reviewed & are unremarkable except as noted in HPI and below Card Denies chest pain at rest, Denies chest pain with activity, Denies edema, Denies irregular heart rhythm, Denies claudication, Denies dyspnea, Denies dyspnea on exertion, Denies orthopnea, Denies paroxysmal nocturnal dyspnea and Denies slow heart rate Resp Denies cough, Denies dyspnea and Denies dyspnea on exertion GI Denies abdominal pain, Denies change in bowel habits, Denies excessive flatus, Denies nausea and Denies vomiting Physical exam (Primary Care) Vital Signs: Last Vital Signs Temp 97.3 F 06/06/25 15:49 Pulse 81 06/06/25 15:49 Resp 18 06/06/25 15:49 BP 126/82 06/06/25 15:49 Pulse Ox 99 06/06/25 15:49 Oxygen Delivery Method Room Air 06/06/25 15:49 BMI result Body Mass Index 36.7 BMI Assessment/Plan discussion: High BMI High, discussed plan: lifestyle, weight reduction, dietary and physical activity Tobacco/Smoking Status: Tobacco use Status Tobacco use date assessed 06/06/25 06/06/25 15:56 Patient Tobacco Use Status Never used Tobacco 06/06/25 15:56 e-Cigarette/Vaping Use Never Used 06/06/25 15:56 PHQ-9: PHQ-9 Score PHQ-9: Total score 10 06/06/25 16:14 Depression Screening Interpretation: Positive Depression Screening Follow-up: Existing condition and Follow-up Visit Requested Thrive Assessment: Date of Thrive Assessment Date Thrive assessed 06/06/25 06/06/25 15:56 Currently or been in a relationship where the following occur: I choose not to answer Resp Effort & Inspection: normal respiratory effort Auscultation: clear to auscultation bilaterally Cardio Jugular venous distension: no JVD Rate: regular rate Rhythm: regular rhythm Heart sounds: S1 normal heart sound present and S2 normal heart sound present Extrem General: Yes full ROM Results AMB Hemoglobin A1c AMB Hemoglobin A1c 6.4 % Last Edit by Kennedy Kendrick CMA on 06/06/25 16:12 Results Reviewed Results Reviewed: Laboratory Last Values Hgb A1c (Clinic) 6.4 % (4.0-6.0) H 06/06/25 15:59 Coding Level of Care Code Complex visit Add On G2211 Diagnoses Diabetes mellitus with microalbuminuric diabetic nephropathy E11.21 Hypertension, unspecified type I10 Hypertension type: unspecified Hyperlipidemia LDL goal <70 E78.5 Insomnia G47.00 Additional Codes PHQ-9 - 76742 - PHQ-9 Billing: Yes ([id number]) Time Spent (min) 22 Assessment & Plan Assessment & Plan (1) Diabetes mellitus with microalbuminuric diabetic nephropathy: Code(s): E11.21 - Type 2 diabetes mellitus with diabetic nephropathy Category: Medical (2) HTN (hypertension): Code(s): I10 - Essential (primary) hypertension Category: Medical Qualifiers: Hypertension type: unspecified Qualified Code(s): I10 - Essential (primary) hypertension (3) Hyperlipidemia LDL goal <70: Code(s): E78.5 - Hyperlipidemia, unspecified Category: Medical (4) Insomnia: Code(s): G47.00 - Insomnia, unspecified Category: Medical Plan Plan 1. Uncontrolled Type 2 Diabetes Mellitus The patient's HbA1c of 13.4% indicates very poorly controlled diabetes. The plan is to increase the Lantus insulin dose from 50 to 55 units. The patient will continue Jardiance 25 mg. New laboratory tests will be ordered. 2. Hypertension The patient's blood pressure is well-controlled on the current medication. The patient will continue taking lisinopril. 3. Hyperlipidemia The patient is being treated for hyperlipidemia and will continue taking rosuvastatin. 4. Depression and insomnia Continue mirtazapine. Orders: Orders AMB Hemoglobin A1c Today E11.21 - Type 2 diabetes mellitus with diabetic nephropathy Lipid Panel Today E78.5 - Hyperlipidemia, unspecified Comprehensive [place]. Panel Fast Today E11.21 - Type 2 diabetes mellitus with diabetic nephropathy Microalbumin, Random (w Creat) Today R80.9 - Proteinuria, unspecified Vitamin D 25-OH Total Today E55.9 - Vitamin D deficiency, unspecified Vitamin B12 and Folate Today E53.8 - Deficiency of other specified B group vitamins Referrals Endocrinology Referral E11.21 - Type 2 diabetes mellitus with diabetic nephropathy Medications: Changed From insulin glargine (Lantus Solostar U-100 Insulin) 50 units (0.5 mL) subcut BEDTIME 4 weeks 14 mL 0RF E11.21 - Type 2 diabetes mellitus with diabetic nephropathy To insulin glargine (Lantus Solostar U-100 Insulin) 55 units (0.55 mL) subcut BEDTIME 15.4 mL 0RF 4 weeks E11.21 - Type 2 diabetes mellitus with diabetic nephropathy
--- OUTSIDE RECORDS SUMMARY | 2025-06-06 20:47 | XMS_ITS | Clinical Summary ---
Author Organization [address] [facility] Address [address] [place] [address] Phone Care Team Providers Care Last Picker Name Role Phone Lucy Claire MD Primary Care Provider [phone] Encounters Date Type Department Care Team Description 05/09/2025 11:04 AM EDT - 05/09/2025 11:59 PM EDT Hospital Encounter [facility] Non-Invasive Cardiology [address] [place] [address] Major depressive disorder, recurrent, moderate (CMS/HCC V24, CMS/HCC V28) Discharge Disposition: Home or Self Care from Last 3 Months Social History Tobacco Use Types Packs/Day Years Used Date Smoking Tobacco: Never Assessed Comments Unknown Sex and Gender Information Value Date Recorded Sex Assigned at Not on file Legal Sex Female 9:48 AM EST Gender Identity Not on file Sexual Orientation Not on file Plan of Treatment Health Maintenance Due Date Last Done Comments Breast Cancer Screening 1975 Colorectal Cancer Screening: Colonoscopy 1975 Diabetes: Annual Foot Exam 1985 Diabetes: Annual Retina Eye Exam 1985 Cervical Cancer Screening: P ap Smear 1996 Hepatitis B Vaccines (3 of 3 - 19+ 3-dose series) 01/03/2015 11/08/2014, 06/26/2014 Pneumococcal Vaccine: Pediatrics (0 to 5 Years) and At-Risk Patients (6 to 49 Years) (2 of 2 - PCV) 10/20/2016 10/21/2015 Hepatitis C Screening 06/15/2022 Social Influencers of Health Screening 06/15/2022 Depression Screening 07/18/2024 COVID-19 Vaccine (1 - 2024-2 6 season) 2025 Influenza Vaccine (#1) 2025 06/20/2014 Diabetes: Annual Urine Albumin-Creatinine Ratio (uACR) 05/09/2025 DTaP,Tdap,and Td Vaccines (2 - Td or Tdap) 10/20/2025 10/21/2015 Diabetes: Blood Sugar Contro l Test (HGBA1C) 11/07/2025 05/09/2025, 04/10/2021, 10/21/2015 Diabetes: Annual GFR (Glomerular Filtration Rate) 05/09/2026 05/09/2025, 10/21/2015 Hypertension/CHF/CAD Annual BMP Blood Test 05/09/2026 05/09/2025, 10/21/2015 Cholesterol Screening (Lipid Panel) 05/09/2030 05/09/2025 RSV Immunization Adult Patients (1 - 1-dose 75+ series) 2050 Hepatitis A Vaccines Aged Out 06/26/2014 No long er eligible based on patient's age to complete this topic HIV Screening Completed 10/21/2015 HIB Vaccines Aged Out No longer eligi ble based on patient's age to complete this topic HPV Vaccines Aged Out No longer eligi ble based on patient's age to complete this topic IPV Vaccines Aged Out No longer eligi ble based on patient's age to complete this topic MMR Vaccines Aged Out No longer eligi ble based on patient's age to complete this topic Meningococcal ACWY Vaccine Aged Out N o longer eligible based on patient's age to complete this topic Meningococcal B Vaccine Aged Out No l onger eligible based on patient's age to complete this topic RSV Immunization Patients Under 20 months Aged Out No longer eligible b ased on patient's age to complete this topic Varicella Vaccines Aged Out No longer eligible based on patient's age to complete this topic Procedures Procedure Name Priority Date/Time Associated Diagnosis Comments ECG 12-LEAD Routine 05/09/2025 11:13 AM EDT Major depressive disorder, recurrent, moderate (CMS/HCC V24, CMS/HCC V28) CBC WITH AUTO DIFFERENTIAL Routine 05/09/2025 10:30 AM EDT Major depressive disorder, recurrent episode, moderate (CMS/HCC V24, CMS/HCC V28) LIPID PANEL WITH REFLEX TO DIRECT LDL Routine 05/09/2025 10:30 AM EDT Major depressive disorder, recurrent episode, moderate (CMS/HCC V24, CMS/HCC V28) HEMOGLOBIN A1C Routine 05/09/2025 10:30 AM EDT Major depressive disorder, recurrent episode, moderate (CMS/HCC V24, CMS/HCC V28) CBC AND DIFFERENTIAL Routine 05/09/2025 10:30 AM EDT Major depressive disorder, recurrent episode, moderate (CMS/HCC V24, CMS/HCC V28) LAMOTRIGINE LEVEL Routine 05/09/2025 10: 30 AM EDT Major depressive disorder, recurrent episode, moderate (CMS/HCC V24, CMS/HCC V28) COMPREHENSIVE METABOLIC PANEL Routine 05/09/2025 10:30 AM EDT Major depressive disorder, recurrent episode, moderate (CMS/HCC V24, CMS/HCC V28) from Last 3 Months Results * ECG 12 lead (05/09/2025 11:13 AM EDT) Ventricular Rate ECG 77 BPM GEMUSE Atrial Rate 77 BPM GEMUSE P-R Interval 174 ms GEMUSE QRS Duration 74 ms GEMUSE Q-T Interval 382 ms GEMUSE QTc 432 ms GEMUSE P Wave [place] 61 degrees GEMUSE R [place] 13 degrees GEMUSE T [place] 42 degrees GEMUSE ECG Interpretation Normal sinus rhythm Normal ECG When compared with ECG of 15-NOV-2023 13:12, No significant change was found Confirmed by RANDALL BAUTISTA ([id number]) on 05/09/2025 5:46:09 PM GEMUSE 05/09/2025 11:1 3 AM EDT 05/09/2025 5:46 PM EDT us Dheeraj Dunne HOUSEMAN ECG ORDERABLES Final Result GEMUSE * (ABNORMAL) Lipid panel with reflex to direct LDL (05/09/2025 10:30 AM EDT) Cholesterol 181 0 - 200 mg/dL LAB CHEMISTRY METHOD 05/09/2025 2:18 PM EDT [facility] Triglycerides 144 0 - 150 mg/dL LAB CHEMISTRY METHOD 05/09/2025 2:18 PM EDT [facility] HDL 44 >=40 mg/dL LAB CHEMISTRY METHOD 05/09/2025 2:18 PM EDT [facility] LDL Calculated 108(H) 0 - 100 mg/dL LAB CHEMISTRY METHOD 05/09/2025 2:18 PM EDT [facility] Comment:Estimated LDL Calcul ated using equation: Total cholesterol - HDL cholesterol - (Triglycerides/5) VLDL Cholesterol Jean-Paul 28.8 mg/dL LAB CHEMISTRY METHOD 05/09/2025 2:18 PM EDT [facility] Non HDL Chol. (LDL+VLDL) 137 <145 mg/dL LAB CHEMISTRY METHOD 05/09/2025 2:18 PM EDT [facility] Chol/HDL Ratio 4.1 0.0 - 4.4 LAB CHEMISTRY METHOD 05/09/2025 2:18 PM EDT [facility] Blood Venous blood specimen / Unknown Venipuncture / Unknown 05/09/2025 10:30 AM EDT 05/09/2025 12:13 PM EDT us Dheeraj Dunne HOUSEMAN LAB BLOOD ORDERABLES F inal Result [facility] [address] [place] [address], * (ABNORMAL) CBC auto differential (05/09/2025 10:30 AM EDT) WBC 9.5 4.8 - 10.8 K/[facility] LAB HEMETOLOGY METHOD 05/09/2025 12:53 PM EDT [facility] RBC 5.70(H) 3.80 - 4.80 M/[facility] LAB HEMETOLOGY METHOD 05/09/2025 12:53 PM [facility] Hemoglobin 14.9 11.5 - 16.0 g/dL LAB HEMETOLOGY METHOD 05/09/2025 12:53 PM [facility] Hematocrit 47.1(H) 35.0 - 47.0 % LAB HEMETOLOGY METHOD 05/09/2025 12:53 PM [facility] MCV 83.2 79.0 - 98.0 FL LAB HEMETOLOGY METHOD 05/09/2025 12:53 PM [facility] MCH 26.3(L) 27.0 - 32.0 pcg LAB HEMETOLOGY METHOD 05/09/2025 12:53 PM [facility] MCHC 31.6(L) 32.0 - 37.0 g/dL LAB HEMETOLOGY METHOD 05/09/2025 12:53 PM [facility] RDW 12.9 11.0 - 15.0 % LAB HEMETOLOGY METHOD 05/09/2025 12:53 PM [facility] Platelets 272 130 - 400 K/mcL LAB HEMETOLOGY METHOD 05/09/2025 12:53 PM [facility] MPV 11.1(H) 7.0 - 11.0 FL LAB HEMETOLOGY METHOD 05/09/2025 12:53 PM [facility] NRBC 0.0 <1.0 % LAB HEMETOLOGY METHOD 05/09/2025 12:53 PM [facility] NRBC Absolute 0.00 <0.10 K/mcL LAB HEMETOLOGY METHOD 05/09/2025 12:53 PM [facility] Neutrophils Relative 70.1 % LAB HEMETOLOGY METHOD 05/09/2025 12:53 PM [facility] Lymphocytes Relative 22.5 % LAB HEMETOLOGY METHOD 05/09/2025 12:53 PM [facility] Monocytes Relative 5.2 % LAB HEMETOLOGY METHOD 05/09/2025 12:53 PM EDT [facility] Eosinophils Relative 1.7 % LAB HEMETOLOGY METHOD 05/09/2025 12:53 PM EDT [facility] Basophils Relative 0.3 % LAB HEMETOLOGY METHOD 05/09/2025 12:53 PM EDT [facility] Immature Granulocytes Relative 0.2 % LAB HEMETOLOGY METHOD 05/09/2025 12:53 PM EDT [facility] Neutrophils Absolute 6.68 1.50 - 7.00 K/mcL LAB HEMETOLOGY METHOD 05/09/2025 12:53 PM EDT [facility] Lymphocytes Absolute 2.14 1.00 - 5.00 K/mcL LAB HEMETOLOGY METHOD 05/09/2025 12:53 PM EDT [facility] Monocytes Absolute 0.50 0.20 - 1.00 K/mcL LAB HEMETOLOGY METHOD 05/09/2025 12:53 PM EDT [facility] Eosinophils Absolute 0.16 0.00 - 0.50 K/mcL LAB HEMETOLOGY METHOD 05/09/2025 12:53 PM EDT [facility] Basophils Absolute 0.03 0.00 - 0.20 K/mcL LAB HEMETOLOGY METHOD 05/09/2025 12:53 PM EDT [facility] Immature Granulocytes Absolute 0.02 0.00 - 0.03 K/mcL LAB HEMETOLOGY METHOD 05/09/2025 12:53 PM EDT [facility] Blood Venous blood specimen / Unknown Venipuncture / Unknown 05/09/2025 10:30 AM EDT 05/09/2025 12:14 PM EDT us Dheeraj Dunne HOUSEMAN LAB BLOOD ORDERABLES F inal Result [facility] [address] [place] [address], * Lamotrigine level (05/09/2025 10:30 AM EDT) Lamotrigine (Lamictal) Level <0.2 2.0 - 15.0 ug/mL 05/13/2025 7:03 AM EDT [facility] Comment: Lamotrigine toxic level: >20 ug/mL The reference range is not well established. It may be as wide as 1 - 20 ug/mL. If applicable, any drug confirmation testing reported here was developed and the performance characteristics determined by [facility]. This confirmation testing has not been cleared or approved by the FDA. The laboratory is regulated under CLIA as qualified to perform high-complexity testing. This test is used for patient testing purposes. It should not be regarded as investigational or for research. Test performed at [facility], [address] , [place] [address] Sarina Gallego MD, PhD - Client Technical Specialist Blood Venous blood specimen / Unknown Venipuncture / Unknown 05/09/2025 10:30 AM EDT 05/09/2025 12:13 PM EDT Dheeraj Dunne HOUSEMAN LAB BLOOD ORDERABLES F inal Result [facility] [address] [place] [address] * (ABNORMAL) Hemoglobin A1c (05/09/2025 10:30 AM EDT) Pathologist [facility] Hemoglobin A1C 13.4(H) <6.5 % LAB CHEMISTRY METHOD 05/09/2025 2:14 PM EDT [facility] Mean Bld Glu Estim. 338 mg/dL LAB CHEMISTRY METHOD 05/09/2025 2:14 PM EDT [facility] Blood Venous blood specimen / Unknown Venipuncture / Unknown 05/09/2025 10:30 AM EDT 05/09/2025 12:14 PM EDT us Dheeraj Dunne HOUSEMAN LAB BLOOD ORDERABLES F inal Result [facility] [address] [place] [address], [place] [phone] * (ABNORMAL) Comprehensive metabolic panel (05/09/2025 10:30 AM EDT) Sodium 137 133 - 145 mmol/L LAB CHEMISTRY METHOD 05/09/2025 2:18 PM EDT [facility] Potassium 4.7 3.5 - 5.5 mmol/L LAB CHEMISTRY METHOD 05/09/2025 2:18 PM EDT [facility] Chloride 104 96 - 110 mmol/L LAB CHEMISTRY METHOD 05/09/2025 2:18 PM [facility] CO2 25 21 - 32 mmol/L LAB CHEMISTRY METHOD 05/09/2025 2:18 PM T [facility] Anion Gap 8 3 - 11 LAB CHEMISTRY METHOD 05/09/2025 2:18 PM [facility] Glucose 295(H) 70 - 100 mg/dL LAB CHEMISTRY METHOD 05/09/2025 2:18 PM [facility] BUN 14 5 - 25 mg/dL LAB CHEMISTRY METHOD 05/09/2025 2:18 PM T [facility] Creatinine 0.66 0.50 - 1.10 mg/dL LAB CHEMISTRY METHOD 05/09/2025 2:18 PM T [facility] eGFR 108 >=60 mL/min/1. 73m2 LAB CHEMISTRY METHOD 05/09/2025 2:18 PM [facility] Comment:Calculation based on the Chronic Kidney Disease Epidemiology Collaboration (CKD-EPI) equation refit without adjustment for race. BUN/Creatinine Ratio 21.2 LAB CHEMISTRY METHOD 05/09/2025 2:18 PM T [facility] Calcium 8.9 8.5 - 10.5 mg/dL LAB CHEMISTRY METHOD 05/09/2025 2:18 PM EDT [facility] AST (SGOT) 17 10 - 42 unit/L LAB CHEMISTRY METHOD 05/09/2025 2:18 PM EDT [facility] ALT (SGPT) 29 10 - 60 unit/L LAB CHEMISTRY METHOD 05/09/2025 2:18 PM EDT [facility] Alkaline Phosphatase 124(H) 42 - 121 unit/L LAB CHEMISTRY METHOD 05/09/2025 2:18 PM EDT [facility] Total Protein 7.0 6.0 - 8.0 g/dL LAB CHEMISTRY METHOD 05/09/2025 2:18 PM EDT [facility] Albumin 3.5 3.2 - 5.0 g/dL LAB CHEMISTRY METHOD 05/09/2025 2:18 PM EDT [facility] Total Bilirubin 0.5 0.0 - 1.4 mg/dL LAB CHEMISTRY METHOD 05/09/2025 2:18 PM EDT [facility] Blood Venous blood specimen / Unknown Venipuncture / Unknown 05/09/2025 10:30 AM EDT 05/09/2025 12:13 PM EDT us Dheeraj Dunne HOUSEMAN LAB BLOOD ORDERABLES F inal Result [facility] [address] [place] [address], from Last 3 Months Insurance MEDICAID - [place] [facility] Care Teams Last Picker Relationship Specialty Start Date End Date Lucy Claire MD [address] [place] [address] PCP - General Internal Medicine 05/09/25
== END 2025-06-06 16:19 | disposition home or self-care (01) ==
LOC: HO.HMCH 15:47
PROVIDERS: PCP Internal Medicine; Visit Provider Internal Medicine
DX: E11.21 Type 2 diabetes mellitus with diabetic nephropathy (principal); I10 Essential (primary) hypertension; E78.5 Hyperlipidemia, unspecified; G47.00 Insomnia, unspecified

== ENCOUNTER → 2025-06-06 15:46 | Outpatient (BNVA) | payer OTHER, SELFPAY | PROVIDERS: PCP Internal Medicine; Visit Provider Internal Medicine | DX: E11.21 Type 2 diabetes mellitus with diabetic nephropathy (principal); I10 Essential (primary) hypertension; E78.5 Hyperlipidemia, unspecified; G47.00 Insomnia, unspecified | CPT/HCPCS: 83036; 96127 ==